=== PATIENT | male | born 1945 | race Caucasian/White ===

== ENCOUNTER → 2021-03-29 09:37 | Outpatient (BNVA) | payer MEDICARE, SELFPAY | PROVIDERS: PCP Internal Medicine; Visit Provider Nurse Practitioner Family | CPT/HCPCS: Q3014 ==

== ENCOUNTER 2021-04-07 15:18 | Outpatient (REF) | payer MEDICARE, SELFPAY ==
[2021-04-07 15:44] LABS: Hematocrit 37.7 % (42-52); Hemoglobin 12.5 g/dl (14.0-18.0); Mean Corpuscular HGB Conc 33.2 g/dl (31.0-36.0); Mean Corpuscular Hemoglobin 31.3 pg (27.0-33.0); Mean Corpuscular Volume 94.3 fL (80-98); Mean Platelet Volume 9.2 fL (9.4-12.4); Platelet Count 192 X10*3/uL (160-400); Red Cell Distribution Width 13.4 % (11.0-16.0); White Blood Count 4.7 X10*3/uL (4.8-10.8)
[2021-04-07 16:18] LABS: Alanine Aminotransferase 11 U/L (0-40); Albumin Level 3.6 g/dL (3.5-5.0); Alkaline Phosphatase 53 U/L (39-117); Anion Gap 11 (12-20); Aspartate Amino Transferase 16 U/L (5-37); Bilirubin Direct 0.3 mg/dL (0.0-0.5); Bilirubin Total 0.5 mg/dL (0.0-1.0); Blood Urea Nitrogen 20 mg/dL (9-16); C Reactive Protein 0.06 mg/dL (< or = 0.50); Calcium 9.7 mg/dL (8.4-10.2); Carbon Dioxide 27 mmol/L (22-29); Chloride 103 mmol/L (96-108); Cholesterol 159 mg/dL; Estimated Glomerular Filt Rate > 60; Glucose Random 108 mg/dL (60-115); HDL Cholesterol 67 mg/dL; LDL Cholesterol Calculated 81 mg/dl; Potassium 4.1 mmol/L (3.3-5.1); Sodium 137 mmol/L (135-145); Total Protein 6.6 g/dL (6.5-8.0); Triglycerides 58 mg/dL
[2021-04-07 16:38] LABS: Thyroid Stimulating Hormone 0.55 uIU/mL (0.32-4.0)
== END 2021-04-07 15:19 | disposition home or self-care (01) ==
LOC: HO.LAB 15:18
PROVIDERS: PCP Internal Medicine; Visit Provider Internal Medicine
DX: I10 Essential (primary) hypertension (principal)
CPT/HCPCS: 36415; 80048; 80061; 80076; 84443; 85027; 86140

== ENCOUNTER 2021-08-17 15:43 | Outpatient (AMB) | payer MEDICARE, SELFPAY ==
[2021-08-17 15:51] VITALS: BP 110/60; PULSE 92; TEMP 36.6; O2SAT 95; BMI 15.7
--- NOTE | 2021-08-17 15:51 | A.OFFPC_ITS ---
Vital Signs 08/17/21 15:51 Height 6 ft 2 in Weight 122 lb 12.76 oz BMI 15.7 BP 110/60 Pulse 92 Pulse Source Pulse Oximeter Temp 97.8 F Pulse Oximetry (%) 95 Oxygen Delivery Method Room Air Intake Visit Reasons: LOSING WEIGHT Habilitation Worker Required: No Accompanied by: Self / Same As Patient Allergies No Known Allergies Allergy (Verified 09/30/25 11:45) Tobacco use date assessed: 08/17/21 Fall risk assessment: 2 + Falls in past year Last assessed Fall Risk: 08/17/21 [facility] Medical History (Updated 06/26/25 @ 13:50 by Annie Peterson PA-C) Word finding difficulty Above knee amputation of right lower extremity Paroxysmal atrial fibrillation Attention deficit hyperactivity disorder (ADHD) Vitamin D deficiency Hypotestosteronism Erectile dysfunction Phantom limb pain Benign prostatic hyperplasia Lumbar degenerative disc disease COPD (chronic obstructive pulmonary disease) Dyslipidemia Benign essential hypertension Unilateral primary osteoarthritis, left knee Osteosarcoma of bone Knee pain, left Surgical History History of amputation History of hernia surgery Family History Father No problems noted. Mother No problems noted. Social History Household Members: None Housing: Apartment Do you presently have visiting nurse or other home services: Yes ([employer]) Alcohol intake: never Patient Tobacco Use Status: Former Tobacco user Tobacco use type: Cigarette Cigarettes Per Day: 40 e-Cigarette/Vaping Use: Never Used Second Hand Smoke Exposure: Yes Advance Directives Date on File: 03/29/22 service: No Current occupational status: retired Current occupational exposures/hazards: No Cognitive needs: Yes (wheelchair/crotches) Hearing needs: No Vision needs: No Questionnaire PHQ-9 Over the last 2 weeks, how often have you been bothered by any of the following problems? 1. Little interest or pleasure in doing things: not at all 2. Feeling down, depressed, or hopeless: not at all 3. Trouble falling or staying asleep, or sleeping too much: not at all 4. Feeling tired or having little energy: not at all 5. Poor appetite or overeating: not at all 6. Feeling bad about yourself - or that you are a failure or have let yourself or your family down: not at all 7. Trouble concentrating on things, such as reading the newspaper or watching television: not at all 8. Moving or speaking so slowly that other people could have noticed. Or the opposite - being so fidgety or restless that you have been moving around a lot more than usual: not at all 9. Thoughts that you would be better off or of hurting yourself in some way: not at all Total score: 0 Source: Developed by Drs. Skinny Marin, Anuja Duenas, Huy Vasquez and colleagues, with an educational gretel from [employer]. Thrive Questionnaire Date Thrive assessed: 08/17/21 I am a: Patient What is your living situation today?: I have a steady place to live Within the past 12 months, did the food you bought not last and you didn't have the money to get more?: Never true Within the past 12 months, did you worry whether your food would run out before you got money to buy more?: Never true Do you have trouble paying for medicines?: No Do you have trouble getting transportation to medical appointments?: No Do you have trouble paying your heating and electricity bill?: No Do you have trouble taking care of your child, family member or friend?: No Do you have trouble with day-to-day activities such as bathing, preparing meals, shopping, managing finances, etc.?: No Are you currently unemployed and looking for a job?: No Are you interested in more education?: No AUDIT C Alcohol Use Questionnaire (AUDIT-C) 1. How often do you have a drink containing alcohol?: 2-4 times a month 2. How many drinks containing alcohol do you have on a typical day when you are drinking?: 1 or 2 3. How often do you have six or more drinks on one occasion?: Never Total Score: 2 JORGE-7 AMB Questionnaire JORGE-7 Date JORGE - 7 assessed: 08/17/21 Feeling nervous, anxious, or on edge: 0 = Not at all Not being able to stop or control worryin = Not at all Worrying too much about different things: 0 = Not at all Trouble relaxin = Not at all Being so restless that it is hard to sit still: 0 = Not at all Becoming easily annoyed or irritable: 0 = Not at all Feeling afraid as if something awful might happen: 0 = Not at all Total JORGE-7 score (0-4 normal; 5-9 mild; 10-14 moderate; 15-21 severe): 0 Source: Developed by Drs. Skinny Marin, Anuja Duenas, Huy Vasquez and colleagues, with an educational gretel from [employer]. Physical exam (Primary Care) Vital Signs: Last Vital Signs Temp 97.8 F 08/17/21 15:51 Pulse 92 08/17/21 15:51 BP 110/60 08/17/21 15:51 Pulse Ox 95 08/17/21 15:51 Oxygen Delivery Method Room Air 08/17/21 15:51 BMI result Body Mass Index 15.7 Tobacco/Smoking Status: Tobacco use Status Tobacco use date assessed 08/17/21 08/17/21 16:02 Patient Tobacco Use Status Former Tobacco user 08/17/21 16:02 PHQ-9: PHQ-9 Score PHQ-9: Total score 0 02/09/25 04:09 Date Thrive assessed: 08/17/21 Office Procedures Flu Questionnaire Does the patient have a severe egg allergy?: No Does the patient have severe life threatening allergies?: No Does the patient have a fever or illness today?: No Has the patient ever had Guillain-[place] Syndrome?: No Has the patient ever had any past reaction to a flu shot?: No Immunizations flu vacc [id number] 6mos up(PF) 60 mcg(15 mcgx4)/0.5 mL IM syringe Performing Provider: Jefferson Cross MD [facility] Administered by: PAL Nguyễn on 08/17/21 16:03 Dose Route Admin Location Dispensed Lot Number Expiration Date NDC Indexer 0.5 mL IM Right Deltoid 0.5 mL [id number] 05/11/22 05407-680-38 [employer] Total Dispensed Waste n/a 0 % VIS Given Date VIS Provided VIS Publication Date 08/17/21 Single Vaccine 21 Eligibility Eligibility Date Funding Source Not C Eligible 08/17/21 Private Coding Level of Care Code Admin Sign Off/No Billing Diagnoses Weight loss, unintentional R63.4 Visual hallucinations R44.1
== END 2021-08-17 16:36 | disposition home or self-care (01) ==
LOC: HO.HMGH 15:43
PROVIDERS: PCP Internal Medicine; Visit Provider Internal Medicine
DX: R63.4 Abnormal weight loss (principal); R44.1 Visual hallucinations
CPT/HCPCS: 99499

== ENCOUNTER 2021-08-26 15:09 | Outpatient (REF) | payer MEDICARE, SELFPAY ==
--- NOTE | ~2021-08-26 | CT_ITS ---
EXAMINATION: CT HEAD WITHOUT CONTRAST CLINICAL INFORMATION: Abnormal weight loss. COMPARISON: None TECHNIQUE: Contiguous axial imaging was performed from the skull base to vertex without intravenous administration of contrast. This CT examination was performed using dose optimization techniques as appropriate, variously including the following: *Automated exposure control *Adjustment of mA and/or kV according to patient size (this includes techniques or standardized protocols for targeted exams where dose is matched to indication/reason for exam; i.e. extremities or head) *Use of iterative reconstruction technique DLP: 729 mGy-cm FINDINGS: The ventricles and sulci are enlarged consistent with atrophy. No visualized masses or midline shift are seen. There is no intra-axial or extra-axial hemorrhage. There are no fluid collections. Decreased attenuation is seen in the periventricular white matter compatible with chronic small vessel ischemic disease. The ross-white discrimination is preserved. The included paranasal sinuses and mastoid air cells are well aerated. The calvarium is intact. CT/CT head/brain wo con IMPRESSION: No intracranial hemorrhage or mass effect. Generalized atrophy and chronic small vessel white matter ischemic changes.
--- NOTE | ~2021-08-26 | XR_ITS ---
EXAMINATION: XR RIBS, LEFT CLINICAL INFORMATION: Pleurodynia. COMPARISON: None. TECHNIQUE: 3 views of the left ribs were obtained. Chest PA 1 view. FINDINGS: The lungs are well expanded and clear of acute pneumonic process. Bilateral increased interstitial markings are seen but no consolidation. There is a small 6 mm nodular density in the lingula. Heart size and pulmonary vascularity is normal. Multiple views of left ribs reveal no visible acute fracture or bony abnormality. The soft tissues are normal. XR/XR ribs LT min 3V w CXR1V IMPRESSION: Bilateral prominent interstitial markings without any consolidation. Small pulmonary nodules seen in the lingula on chest x-ray not seen on left rib series exam. There is no visible left rib fracture.
[2021-08-26 15:19] LABS: MANUAL DIFF FLAG NO
[2021-08-26 15:39] LABS: Basophils Percent Auto 0.6 % (0-2); Eosinophils Absolute Auto 0.2 X10*3/uL (0.0-0.4); Eosinophils Percent Auto 4.3 % (0-4); Hematocrit 37.5 % (42-52); Hemoglobin 12.3 g/dl (14.0-18.0); Imm Gran Abs Auto 0.01 X10*3/uL (0.00-0.03); Imm Gran Pct Auto 0.3 % (0.0-0.4); Lymphocytes Percent Auto 28.6 % (20-40); Mean Corpuscular HGB Conc 32.8 g/dl (31.0-36.0); Mean Corpuscular Hemoglobin 31.1 pg (27.0-33.0); Mean Corpuscular Volume 94.9 fL (80-98); Mean Platelet Volume 9.4 fL (9.4-12.4); Monocytes Absolute Auto 0.4 X10*3/uL (0.1-1.2); Monocytes Percent Auto 12.4 % (2-11); Neutrophils Absolute Auto 1.9 X10*3/uL (2.0-8.3); Neutrophils Percent Auto 53.8 % (45-73); Platelet Count 149 X10*3/uL (160-400); Red Blood Count 3.95 X10*6/uL (4.60-5.80); Red Cell Distribution Width 12.4 % (11.0-16.0); White Blood Count 3.5 X10*3/uL (4.8-10.8)
[2021-08-26 16:01] LABS: Alanine Aminotransferase 12 U/L (0-40); Albumin Level 3.7 g/dL (3.5-5.0); Alkaline Phosphatase 58 U/L (39-117); Anion Gap 10 (12-20); Aspartate Amino Transferase 20 U/L (5-37); Bilirubin Total 0.5 mg/dL (0.0-1.0); Blood Urea Nitrogen 16 mg/dL (9-16); C Reactive Protein 0.13 mg/dL (< or = 0.50); Calcium 9.4 mg/dL (8.4-10.2); Carbon Dioxide 27 mmol/L (22-29); Chloride 102 mmol/L (96-108); Estimated Glomerular Filt Rate > 60; Glucose Random 99 mg/dL (60-115); Potassium 4.2 mmol/L (3.3-5.1); Sodium 135 mmol/L (135-145); Total Protein 6.5 g/dL (6.5-8.0)
[2021-08-26 16:21] LABS: TSH reflex Free T4 0.67 uIU/mL (0.32-4.0)
[2021-08-26 16:29] LABS: Erythrocyte Sedimentation Rate 7 MM/HR (0-15)
[2021-08-26 17:53] LABS: Appearance Urine CLEAR; Color Urine YELLOW; Glucose Urine UA NEG (NEG); Leukocyte Esterase Urine NEG (NEG); Nitrite Urine NEG (NEG); Specific Gravity - Urine >= 1.030 (1.005-1.025); Urine Blood NEG (NEG); Urine Ketones NEG (NEG); Urine Protein NEG (NEG-TRACE)
[2021-09-01 12:06] LABS: Testosterone, Free 11.1 pg/mL (30.0-135.0); Testosterone, Total 140 ng/dL (250-1100)
== END 2021-08-26 15:10 | disposition home or self-care (01) ==
LOC: HO.CT 15:09
PROVIDERS: PCP Internal Medicine; Visit Provider Internal Medicine
DX: R63.4 Abnormal weight loss (principal); R42 Dizziness and giddiness; R44.1 Visual hallucinations; R07.81 Pleurodynia
CPT/HCPCS: 36415; 70450; 71101; 80053; 81003; 82550; 84402; 84403; 84443; 85025; 85652; 86140

== ENCOUNTER 2021-09-20 11:45 | Outpatient (AMB) | payer MEDICARE, SELFPAY ==
--- NOTE | 2021-09-20 11:44 | A.OFFPC_ITS ---
Vital Signs 09/20/21 11:45 Height 6 ft 2 in Weight 127 lb BMI 16.2 BP 124/60 Pulse 110 H Pulse Source Pulse Oximeter Temp 96.9 F Pulse Oximetry (%) 97 Oxygen Delivery Method Room Air Intake Visit Reasons: 1 month fu unexplained weight loss, hallucinations Heel Gouger Required: No Accompanied by: Self / Same As Patient Allergies No Known Allergies Allergy (Verified 09/21/21 09:26) Medication List - Last Reconciled 09/21/21 by Jefferson Cross MD dextroamphetamine-amphetamine 30 mg 1 tab PO DAILY mometasone (Asmanex Twisthaler) 1 inh PO DAILY oxycodone 5 mg PO DAILY 22 days PRN oxycodone-acetaminophen 5-325 mg 1 tab PO Q6-8H 28 days PRN terazosin 10 mg PO BEDTIME 30 days testosterone (AndroGel) 2 pumps topical DAILY 30 days Tobacco use date assessed: 09/20/21 Last assessed Fall Risk: 09/20/21 HPI 1 month fu unexplained weight loss, hallucinations HPI Details pain med only last 4 hours - Rx written for every 6 to 8 PFSH Medical History Attention deficit hyperactivity disorder (ADHD) Below-knee amputation of right lower extremity Benign essential hypertension Benign prostatic hyperplasia COPD (chronic obstructive pulmonary disease) Dyslipidemia Erectile dysfunction Hypotestosteronism Knee pain, left Lumbar degenerative disc disease Osteosarcoma of bone Phantom limb pain Unilateral primary osteoarthritis, left knee Vitamin D deficiency Social History Housing: House Alcohol intake: current Alcohol intake frequency: a few times a month Patient Tobacco Use Status: Former Tobacco user Second Hand Smoke Exposure: Yes service: No Current occupational status: retired Questionnaire PHQ-9 Over the last 2 weeks, how often have you been bothered by any of the following problems? 1. Little interest or pleasure in doing things: not at all 2. Feeling down, depressed, or hopeless: not at all 3. Trouble falling or staying asleep, or sleeping too much: not at all 4. Feeling tired or having little energy: not at all 5. Poor appetite or overeating: not at all 6. Feeling bad about yourself - or that you are a failure or have let yourself or your family down: not at all 7. Trouble concentrating on things, such as reading the newspaper or watching television: not at all 8. Moving or speaking so slowly that other people could have noticed. Or the op posite - being so fidgety or restless that you have been moving around a lot more than usual: not at all 9. Thoughts that you would be better off or of hurting yourself in some way: not at all Total score: 0 Depression Screening Interpretation: Negative 27235 - PHQ-9 Billing: Yes Source: Developed by Drs. Skinny Marin, Anuja Duenas, Huy Vasquez and colleagues, with an educational gretel from [employer] ([employer]). Thrive Questionnaire Date Thrive assessed: 09/20/21 I am a: Patient What is your living situation today?: I have a steady place to live Within the past 12 months, did the food you bought not last and you didn't have the money to get more?: Never true Within the past 12 months, did you worry whether your food would run out before you got money to buy more?: Never true Do you have trouble paying for medicines?: No Do you have trouble getting transportation to medical appointments?: No Do you have trouble paying your heating and electricity bill?: No Do you have trouble taking care of your child, family member or friend?: No Do you have trouble with day-to-day activities such as bathing, preparing meals, shopping, managing finances, etc.?: No Are you currently unemployed and looking for a job?: No Are you interested in more education?: No Currently or been in a relationship where the following occur: no concerns reported AUDIT C Alcohol Use Questionnaire (AUDIT-C) 1. How often do you have a drink containing alcohol?: 2-4 times a month 2. How many drinks containing alcohol do you have on a typical day when you are drinking?: 1 or 2 3. How often do you have six or more drinks on one occasion?: Never Total Score: 2 Score Reviewed/Action Taken: Yes JORGE-7 AMB Questionnaire JORGE-7 Date JORGE - 7 assessed: 09/20/21 Feeling nervous, anxious, or on edge: 0 = Not at all Not being able to stop or control worryin = Not at all Worrying too much about different things: 0 = Not at all Trouble relaxin = Not at all Being so restless that it is hard to sit still: 0 = Not at all Becoming easily annoyed or irritable: 0 = Not at all Feeling afraid as if something awful might happen: 0 = Not at all Total JORGE-7 score (0-4 normal; 5-9 mild; 10-14 moderate; 15-21 severe): 0 Source: Developed by Drs. Skinny Marin, Anuja Duenas, Huy Vasquez and colleagues, with an educational gretel from [employer] ([employer] Review of Systems Const Denies anorexia, Denies body aches, Denies chills, Reports fatigue, Denies fever(s), Denies headache(s), Denies malaise and Reports weakness Eyes Denies blurry vision, Denies change in vision, Denies irritation, Denies itchy eyes and Denies other visual disturbances ENT Reports Normal hearing present, Denies dysphagia, Denies dizziness, Denies ear discharge, Denies otalgia, Denies headache(s), Denies nasal congestion, Denies neck mass, Reports neck pain, Denies odynophagia, Denies sinus pain, Denies sinus pressure and Denies sore throat Card Denies chest pain at rest, Denies chest pain with activity, Denies rapid heart rate, Denies irregular heart rhythm, Denies palpitations, Denies dyspnea and Denies dyspnea on exertion Resp Denies chest congestion, Denies cough, Denies dyspnea, Denies dyspnea on exertion and Denies wheezing GI Denies abdominal pain, Denies bloating, Denies change in bowel habits, Denies constipation, Denies dysphagia, Denies heartburn, Denies diarrhea, Denies nausea, Denies odynophagia and Denies vomiting Denies hematuria, Denies difficulty urinating, Denies genital pain, Denies dysuria, Denies penile discharge, Denies scrotal swelling, Denies testicular mass, Denies testicular pain, Denies urinary frequency, Denies urinary incontinence and Denies urinary urgency Musc Reports back pain (chronic), Reports atrophy, Reports arthralgias (multiple joint pain, especially over his left knee), Denies joint swelling, Reports muscle weakness, Reports neck pain, Reports stiffness and Reports other ((+) diffuse muscle aches and pain) Skin/Breast Denies change in pigmentation, Denies lesions, Denies rash and Denies unusual bruising Neuro Reports Normal hearing present, Denies dizziness, Denies headache(s), Denies paresthesias and Reports weakness Psych Reports visual hallucinations Endo Reports fatigue and Denies palpitations Aller/Immun Denies itchy eyes and Denies wheezing Physical exam (Primary Care) Vital Signs: Last Vital Signs Temp 96.9 F 09/20/21 11:45 Pulse 110 H 09/20/21 11:45 BP 124/60 09/20/21 11:45 Pulse Ox 97 09/20/21 11:45 Oxygen Delivery Method Room Air 09/20/21 11:45 Body Mass Index 16.2 Tobacco/Smoking Status: Tobacco use Status Tobacco use date assessed 09/20/21 09/20/21 11:46 Patient Tobacco Use Status Former Tobacco user 09/20/21 11:46 PHQ-9: PHQ-9 Score PHQ-9: Total score 0 09/20/21 12:16 Depression Screening Interpretation: Negative Thrive Assessment: Date of Thrive Assessment Date Thrive assessed 09/20/21 09/20/21 11:46 Currently or been in a relationship where the following occur: no concerns reported Const General: no acute distress, alert and awake Orientation/consciousness: patient oriented x3 HENMT Head: Yes normal to inspection, Yes normocephalic and Yes atraumatic Ears: external ears normal, TM's normal bilaterally and EAC's normal General nose exam: Normal external nose present, No nasal polyps present and No nasal discharge present Face and sinus: Yes normal facial exam and Yes sinuses nontender Mouth: Normal oral and palatal mucosa present, tongue normal and oropharynx normal Teeth and gingiva: dentition normal Throat: Yes posterior oropharynx normal and Yes tonsils normal Eyes Eyelids: Yes eyelids normal Conjunctivae: conjunctivae normal Sclerae: sclerae normal Pupils: Equal, round and reactive pupils present EOM: EOMs intact bilaterally Neck Neck: Yes no lymphadenopathy and Yes supple Thyroid: Thyroid normal and no masses Lymphatic: no lymphadenopathy noted Resp Auscultation: clear to auscultation bilaterally, no crackles, no rales and no wheezes Cardio Rate: regular rate Rhythm: regular rhythm Heart sounds: no murmurs GI Palpation (GI): Soft to palpation, nontender, no guarding and No hepatosplenomegaly present Auscultation: normal bowel sounds Rectal Exam - Male: Yes deferred General: Yes no CVA tenderness Male General Exam: Yes normal external exam Scrotum: testes descended bilaterally, no inguinal hernias, no masses and no scrotal swelling Back/Spine/Pelvis Back: no CVA tenderness Cervical Spine: Cervical spine tenderness Thoracic/Lumbar Spine: lumbar spinal tenderness Skin Lesions: no lesions Rashes: no rashes Neuro General: patient oriented x3 and CN's II-XI intact bilaterally Cranial nerves: Yes Equal, round and reactive pupils present and Yes Normal hearing present Extrem General: Yes no clubbing, cyanosis or edema (over the left lower extremity; S/P right AKA ) Left lower extremity: knee Assessment and Plan Assessment & Plan (1) Visual hallucinations: Code(s): R44.1 - Visual hallucinations (2) Benign essential hypertension: Code(s): I10 - Essential (primary) hypertension Plan: Reinforced low sodium diet - goal is systolic BP of at least 130 to 140 mm Continue Lisinopril Tablet, 5 MG 1 tablet Once a day (3) Dyslipidemia: Code(s): E78.5 - Hyperlipidemia, unspecified Plan: Reinforced low cholesterol diet (4) COPD (chronic obstructive pulmonary disease): Code(s): J44.9 - Chronic obstructive pulmonary disease, unspecified Qualifiers: COPD type: unspecified COPD Qualified Code(s): J44.9 - Chronic obstructive pulmonary disease, unspecified Plan: Stable Continue Asmanex 30 Metered Doses Unspecified, 220MCG, INHALE 1 PUFF BY MOUTH ONCE A DAY, Inhalation, Once a day and Ventolin HFA Aerosol Solution, 108 mcg, 2 puffs, Inhalation, 4 times a day as needed (5) Lumbar degenerative disc disease: Comment: Failed trial of ablation and nerve block with pain management in 2019 Code(s): M51.36 - Other intervertebral disc degeneration, lumbar region Plan: Reinforced activity and weight-lifting restrictions Continue Percocet Tablet, 5-325 MG, 1 tablet, Orally, Once a day at bedtime as needed and Lidoderm Patch, 5 %, 1 patch to skin remove after 12 hours, Externally, Once a day - Rx refilled Follow up with [facility] [place] Pain Management as scheduled (6) Benign prostatic hyperplasia: Code(s): N40.0 - Benign prostatic hyperplasia without lower urinary tract symptoms Qualifiers: Lower urinary tract symptom presence: unspecified whether lower urinary tract symptoms present Qualified Code(s): N40.0 - Benign prostatic hyperplasia without lower urinary tract symptoms Plan: Continue Terazosin HCl Tablet, 10 MG, 1 capsule, Orally, Once a day at bedtime Follow up with urology as scheduled (7) Phantom limb pain: Comment: S/P right AKA for osteosarcoma at 17 y/o Code(s): G54.6 - Phantom limb syndrome with pain Plan: Continue Hydrocodone-Acetaminophen Tablet, 5-325 MG, 1 tablet, Orally, 3 to 4 times a day ONLY NEEDED for severe pains and Tramadol HCl Tablet, 50 MG, 1 tablet, Orally, every 6 hrs as needed for pain - Rx refilled (8) Unilateral primary osteoarthritis, left knee: Code(s): M17.12 - Unilateral primary osteoarthritis, left knee Plan: Continue Ibuprofen Tablet, 600 MG, 1 tablet, Orally, Three times a day Follow up with rheumatology as scheduled States that he is still not willing to undergo left knee arthroplasty due to the potential risks that he may be faced with - will be starting on a trial of auto stem cell implantation from his hip to his knee with a [employer] provider in [place] later this week (9) Erectile dysfunction: Code(s): N52.9 - Male erectile dysfunction, unspecified Qualifiers: Erectile dysfunction type: unspecified Qualified Code(s): N52.9 - Male erectile dysfunction, unspecified Plan: Takes Cialis PRN (10) Hypotestosteronism: Code(s): E34.9 - Endocrine disorder, unspecified Plan: Has not been able to get his testosterone replacement for several months now as his insurance is declining to cover his Rx - was previously on AndroGel Serum testosterone level last checked in October 2019 was normal (11) Vitamin D deficiency: Code(s): E55.9 - Vitamin D deficiency, unspecified Plan: Continue Vitamin D Tablet, 1000 UNIT, 1 tablet, Orally, Once a day (12) Constipation: Code(s): K59.00 - Constipation, unspecified Qualifiers: Constipation type: unspecified constipation type Qualified Code(s): K59.00 - Constipation, unspecified Plan: Most likely opioid-induced - patient has been taking MOM as needed Encouraged also increased oral fluids and dietary fiber (13) Attention deficit hyperactivity disorder (ADHD): Code(s): F90.9 - Attention-deficit hyperactivity disorder, unspecified type Qualifiers: Attention deficit-hyperactivity disorder type: combined inattentive- hyperactive Qualified Code(s): F90.2 - Attention-deficit hyperactivity disorder, combined type Plan: Continue Amphetamine-Dextroamphetamine Tablet, 30 MG, 1 tablet in the morning, Orally, Once a day Orders: Orders XR abdomen w decubitus 09/20/21 R10.9 - Unspecified abdominal pain Referrals Neurology Referral R44.1 - Visual hallucinations Medications: New testosterone (AndroGel) apply 1 pump amount over max area of EACH upper arm and shoulder 2 pumps topical DAILY 30 days 75 grams 2RF oxycodone to be taken once a day as needed for severe breakthrough pain that is not adequately controlled with current Percocet 5-325 mg - TEMPORARY PRESCRIPTION 5 mg PO DAILY 22 days PRN 22 tabs 0RF pain Coding Diagnoses Visual hallucinations R44.1 Benign essential hypertension I10 Dyslipidemia E78.5 COPD (chronic obstructive pulmonary disease) J44.9 COPD type: unspecified COPD Lumbar degenerative disc disease M51.36 Benign prostatic hyperplasia N40.0 Lower urinary tract symptom presence: unspecified whether lower urinary tract symptoms present Phantom limb pain G54.6 Unilateral primary osteoarthritis, left knee M17.12 Erectile dysfunction N52.9 Erectile dysfunction type: unspecified Hypotestosteronism E34.9 Vitamin D deficiency E55.9 Constipation K59.00 Constipation type: unspecified constipation type Attention deficit hyperactivity disorder (ADHD) F90.2 Attention deficit-hyperactivity disorder type: combined inattentive- hyperactive Additional Codes PHQ-9 - 85822 - PHQ-9 Billing: Yes ([id number])
--- NOTE | 2021-09-20 11:44 | MHC.PC.OV ---
Vital Signs 09/20/21 11:45 Height 6 ft 2 in Weight 127 lb BMI 16.2 BP 124/60 Pulse 110 H Pulse Source Pulse Oximeter Temp 96.9 F Pulse Oximetry (%) 97 Oxygen Delivery Method Room Air Intake Visit Reasons: 1 month fu unexplained weight loss, hallucinations Digital Media Intern Required: No Accompanied by: Self / Same As Patient Allergies No Known Allergies Allergy (Verified 02/03/25 16:35) Medication List - Last Reconciled 09/21/21 by Jefferson Cross MD dextroamphetamine-amphetamine 30 mg 1 tab PO DAILY mometasone (Asmanex Twisthaler) 1 inh PO DAILY oxycodone 5 mg PO DAILY 22 days PRN oxycodone-acetaminophen 5-325 mg 1 tab PO Q6-8H 28 days PRN terazosin 10 mg PO BEDTIME 30 days testosterone (AndroGel) 2 pumps topical DAILY 30 days Tobacco use date assessed: 09/20/21 Last assessed Fall Risk: 09/20/21 HPI 1 month fu unexplained weight loss, hallucinations HPI Details Patient comes in today for evaluation of his recent weight loss He feels that he has been losing a lot of weight lately despite trying to eat as much as he can Adds that his pain medications are now only giving him about 4 hours of relief and as his prescription is written for every 6-8 hours, he finds that it is not providing him with adequate control of his pain Adds that he has also been experiencing some visual hallucinations lately - reports that he is seeing people on and off that are not physically present He denies any auditory hallucinations He denies any recent cough or cold symptoms and states that he has not been sick lately He denies any headaches or dizziness Denies any chest pains, no increased shortness of breath No nausea / vomiting, no abdominal pain No change in bowel habits noted [facility] Medical History Above knee amputation of right lower extremity Paroxysmal atrial fibrillation Attention deficit hyperactivity disorder (ADHD) Vitamin D deficiency Hypotestosteronism Erectile dysfunction Phantom limb pain Benign prostatic hyperplasia Lumbar degenerative disc disease COPD (chronic obstructive pulmonary disease) Dyslipidemia Benign essential hypertension Unilateral primary osteoarthritis, left knee Osteosarcoma of bone Knee pain, left Surgical History History of amputation History of hernia surgery Social History Household Members: None Housing: Apartment Do you presently have visiting nurse or other home services: Yes ([employer]) Alcohol intake: never Patient Tobacco Use Status: Former Tobacco user Tobacco use type: Cigarette Cigarettes Per Day: 40 Smoked in Last 30 Days: No e-Cigarette/Vaping Use: Never Used Second Hand Smoke Exposure: Yes Use of substances other than those prescribed or required for medical reasons: No Advance Directives: Yes Advance Directives on File: Yes Advance Directives Date on File: 03/29/22 service: No Current occupational status: retired Current occupational exposures/hazards: No Cognitive needs: Yes (wheelchair/crotches) Hearing needs: No Vision needs: No Questionnaire PHQ-9 Over the last 2 weeks, how often have you been bothered by any of the following problems? 1. Little interest or pleasure in doing things: not at all 2. Feeling down, depressed, or hopeless: not at all 3. Trouble falling or staying asleep, or sleeping too much: not at all 4. Feeling tired or having little energy: not at all 5. Poor appetite or overeating: not at all 6. Feeling bad about yourself - or that you are a failure or have let yourself or your family down: not at all 7. Trouble concentrating on things, such as reading the newspaper or watching television: not at all 8. Moving or speaking so slowly that other people could have noticed. Or the opposite - being so fidgety or restless that you have been moving around a lot more than usual: not at all 9. Thoughts that you would be better off or of hurting yourself in some way: not at all Total score: 0 Depression Screening Interpretation: Negative 30812 - PHQ-9 Billing: Yes Source: Developed by Drs. Skinny Marin, Anuja Duenas, Huy Vasquez and colleagues, with an educational gretel from [employer]. Thrive Questionnaire Date Thrive assessed: 09/20/21 I am a: Patient What is your living situation today?: I have a steady place to live Within the past 12 months, did the food you bought not last and you didn't have the money to get more?: Never true Within the past 12 months, did you worry whether your food would run out before you got money to buy more?: Never true Do you have trouble paying for medicines?: No Do you have trouble getting transportation to medical appointments?: No Do you have trouble paying your heating and electricity bill?: No Do you have trouble taking care of your child, family member or friend?: No Do you have trouble with day-to-day activities such as bathing, preparing meals, shopping, managing finances, etc.?: No Are you currently unemployed and looking for a job?: No Are you interested in more education?: No Currently or been in a relationship where the following occur: no concerns reported AUDIT C Alcohol Use Questionnaire (AUDIT-C) 1. How often do you have a drink containing alcohol?: 2-4 times a month 2. How many drinks containing alcohol do you have on a typical day when you are drinking?: 1 or 2 3. How often do you have six or more drinks on one occasion?: Never Total Score: 2 Score Reviewed/Action Taken: Yes JORGE-7 AMB Questionnaire JORGE-7 Date JORGE - 7 assessed: 09/20/21 Feeling nervous, anxious, or on edge: 0 = Not at all Not being able to stop or control worryin = Not at all Worrying too much about different things: 0 = Not at all Trouble relaxin = Not at all Being so restless that it is hard to sit still: 0 = Not at all Becoming easily annoyed or irritable: 0 = Not at all Feeling afraid as if something awful might happen: 0 = Not at all Total JORGE-7 score (0-4 normal; 5-9 mild; 10-14 moderate; 15-21 severe): 0 Source: Developed by Drs. Skinny Marin, Anuja Duenas, Huy Vasquez and colleagues, with an educational gretel from [employer]. Review of Systems Const Denies anorexia, Denies body aches, Denies chills, Reports fatigue, Denies fever(s), Denies headache(s), Reports weakness and Reports weight loss ENT Denies dysphagia, Denies dizziness, Denies otalgia, Denies headache(s), Denies nasal congestion, Denies neck mass, Reports neck pain, Denies odynophagia and Denies sore throat Card Denies chest pain, Denies irregular heart rhythm, Denies palpitations and Denies dyspnea Resp Denies chest congestion, Denies cough and Denies dyspnea GI Denies abdominal pain, Denies change in bowel habits, Denies constipation, Denies dysphagia, Denies heartburn, Denies diarrhea, Denies nausea, Denies odynophagia and Denies vomiting Denies difficulty urinating, Denies dysuria, Denies urinary frequency and Denies urinary urgency Musc Reports back pain (chronic), Reports myalgias, Reports atrophy, Reports arthralgias (multiple joint pain, especially over his left knee), Reports neck pain, Reports stiffness and Reports other ((+) diffuse muscle aches and pain) Skin/Breast Denies rash Neuro Denies dizziness, Denies headache(s), Denies paresthesias and Reports weakness Psych Reports visual hallucinations Endo Reports fatigue and Denies palpitations Physical exam (Primary Care) Vital Signs: Last Vital Signs Temp 96.9 F 09/20/21 11:45 Pulse 110 H 09/20/21 11:45 BP 124/60 09/20/21 11:45 Pulse Ox 97 09/20/21 11:45 Oxygen Delivery Method Room Air 09/20/21 11:45 BMI result Body Mass Index 16.2 Tobacco/Smoking Status: Tobacco use Status Tobacco use date assessed 09/20/21 09/20/21 11:46 Patient Tobacco Use Status Former Tobacco user 09/20/21 11:46 PHQ-9: PHQ-9 Score PHQ-9: Total score 0 09/21/21 09:30 Depression Screening Interpretation: Negative Thrive Assessment: Date of Thrive Assessment Date Thrive assessed 09/20/21 09/20/21 11:46 Currently or been in a relationship where the following occur: no concerns reported Const General: no acute distress and alert; No awake Orientation/consciousness: patient oriented x3 HENMT Ears: TM's normal bilaterally and EAC's normal Throat: Yes posterior oropharynx normal and Yes tonsils normal Neck Neck: Yes supple and No lymphadenopathy Thyroid: Thyroid normal Resp Auscultation: clear to auscultation bilaterally, no crackles, no rales and no wheezes Cardio Rate: regular rate Rhythm: regular rhythm Heart sounds: no murmurs GI Palpation (GI): Soft to palpation, nontender and no guarding Auscultation: normal bowel sounds General: Yes no CVA tenderness Back/Spine/Pelvis Back: no CVA tenderness Cervical Spine: Cervical spine tenderness Thoracic/Lumbar Spine: lumbar spinal tenderness Skin Rashes: no rashes Neuro General: patient oriented x3 Extrem General: Yes no clubbing, cyanosis or edema (over the left lower extremity; S/P right AKA ) Coding Level of Care Code Est Pt Level 4 (06643) Diagnoses Visual hallucinations R44.1 Benign essential hypertension I10 Dyslipidemia E78.5 Chronic obstructive pulmonary disease, unspecified COPD type J44.9 COPD type: unspecified COPD Lumbar degenerative disc disease M51.36 Benign prostatic hyperplasia, unspecified whether lower urinary tract symptoms present N40.0 Lower urinary tract symptom presence: unspecified whether lower urinary tract symptoms present Phantom limb pain G54.6 Unilateral primary osteoarthritis, left knee M17.12 Erectile dysfunction, unspecified erectile dysfunction type N52.9 Erectile dysfunction type: unspecified Hypotestosteronism E34.9 Vitamin D deficiency E55.9 Constipation, unspecified constipation type K59.00 Constipation type: unspecified constipation type Attention deficit hyperactivity disorder (ADHD), combined type F90.2 Attention deficit-hyperactivity disorder type: combined inattentive-hyperactive Additional Codes PHQ-9 - 40085 - PHQ-9 Billing: Yes ([id number])
[2021-09-20 11:45] VITALS: BP 124/60; PULSE 110; TEMP 36.1; O2SAT 97; BMI 16.2
== END 2021-09-20 12:34 | disposition home or self-care (01) ==
LOC: HO.HMGH 11:45
PROVIDERS: PCP Internal Medicine; Visit Provider Internal Medicine
DX: R44.1 Visual hallucinations (principal); I10 Essential (primary) hypertension; E78.5 Hyperlipidemia, unspecified; J44.9 Chronic obstructive pulmonary disease, unspecified; M51.36 Other intervertebral disc degeneration, lumbar region; N40.0 Benign prostatic hyperplasia without lower urinary tract symptoms; G54.6 Phantom limb syndrome with pain; M17.12 Unilateral primary osteoarthritis, left knee; N52.9 Male erectile dysfunction, unspecified; E34.9 Endocrine disorder, unspecified; E55.9 Vitamin D deficiency, unspecified; K59.00 Constipation, unspecified; F90.2 Attention-deficit hyperactivity disorder, combined type
CPT/HCPCS: 99499

== ENCOUNTER 2021-09-20 13:22 | Outpatient (REF) | payer MEDICARE, SELFPAY ==
--- NOTE | ~2021-09-20 | XR_ITS ---
EXAMINATION: XR ABDOMEN WITH DECUBITUS VIEWS CLINICAL INDICATION: Unspecified abdominal pain. COMPARISON: None TECHNIQUE: Supine and upright frontal view of the abdomen and pelvis. FINDINGS: Significant fecal residual is noted throughout the entire large bowel. No evidence of any abnormal bowel distention or air-fluid level of. No evidence of any free intraperitoneal air. Marked thoracolumbar dextroscoliosis and multilevel moderate degenerative spondylosis related changes are present. Atherosclerotic disease of the aorta and is branches. Ellipsoidal calcific density seen projecting overlying the inferior part of the liver, not optimally localized. The visualized lung bases appear clear. XR/XR abdomen w decubitus IMPRESSION: No radiographic evidence of any bowel obstruction or perforation.
== END 2021-09-20 13:23 | disposition home or self-care (01) ==
LOC: HO.XRAY 13:22
PROVIDERS: PCP Internal Medicine; Visit Provider Internal Medicine
DX: R10.9 Unspecified abdominal pain (principal)
CPT/HCPCS: 74021

== ENCOUNTER → 2021-09-27 08:23 | Outpatient (BNVA) | payer MEDICARE, SELFPAY | PROVIDERS: PCP Internal Medicine; Referring Provider Internal Medicine; Visit Provider Nurse Practitioner Family | CPT/HCPCS: Q3014 ==

== ENCOUNTER 2021-12-26 08:32 | Outpatient (REF) | payer MEDICARE, SELFPAY ==
--- NOTE | ~2021-12-26 | XR_ITS ---
EXAMINATION: BILATERAL KNEE X-RAY CLINICAL INFORMATION: Pain COMPARISON: Previous x-ray August 2017 TECHNIQUE: Standing AP view of both knees and lateral and sunrise view of the left knee FINDINGS: Left knee: There is varus angulation. Bone alignment is otherwise normal. No fracture or dislocation is seen. There is severe arthritis at the medial femoral tibial joint. There is moderate arthritis at the patellofemoral joint. There is no significant joint effusion. There is soft tissue arterial calcification. Right knee: There appears to be a prosthetic right knee and lower leg. XR/XR knee LT 2V IMPRESSION: Left knee: Severe arthritis and varus angulation increased from 2017. Right knee: Artificial limb.
--- NOTE | ~2021-12-26 | XR_ITS ---
EXAMINATION: BILATERAL KNEE X-RAY CLINICAL INFORMATION: Pain COMPARISON: Previous x-ray August 2017 TECHNIQUE: Standing AP view of both knees and lateral and sunrise view of the left knee FINDINGS: Left knee: There is varus angulation. Bone alignment is otherwise normal. No fracture or dislocation is seen. There is severe arthritis at the medial femoral tibial joint. There is moderate arthritis at the patellofemoral joint. There is no significant joint effusion. There is soft tissue arterial calcification. Right knee: There appears to be a prosthetic right knee and lower leg. XR/XR knee standing BI IMPRESSION: Left knee: Severe arthritis and varus angulation increased from 2017. Right knee: Artificial limb.
== END 2021-12-26 08:33 | disposition home or self-care (01) ==
LOC: HO.HOSX 08:32
PROVIDERS: Visit Provider Orthopaedic Surgery
DX: M17.12 Unilateral primary osteoarthritis, left knee (principal); S88.111A Complete traumatic amputation at level between knee and ankle, right lower leg, initial encounter
CPT/HCPCS: 73560; 73565; 99202

== ENCOUNTER 2022-03-22 13:09 | Inpatient (IN) | payer MEDICARE, SELFPAY ==
[2022-03-22] VITALS (7 sets, daily range): BP systolic 123–162; BP diastolic 63–93; PULSE 88–102; RESP 14–20; TEMP 36.9–37.8; O2SAT 96–98; BMI 16.9
--- NOTE | ~2022-03-22 | CT_ITS ---
EXAMINATION: CT HEAD WITHOUT CONTRAST CLINICAL INFORMATION: Mental status change. History of fall. COMPARISON: Previous head CT August 2021 TECHNIQUE: Contiguous axial imaging was performed from the skull base to vertex without intravenous administration of contrast. This CT examination was performed using dose optimization techniques as appropriate, variously including the following: *Automated exposure control *Adjustment of mA and/or kV according to patient size (this includes techniques or standardized protocols for targeted exams where dose is matched to indication/reason for exam; i.e. extremities or head) *Use of iterative reconstruction technique DLP: 79 mGy-cm FINDINGS: There is no evidence of an extra-axial collection. There is no evidence of intra-axial or extra-axial hemorrhage. The ventricles and extra-axial CSF spaces are prominent suggestive of mild generalized atrophy. There is mild nonspecific periventricular white matter disease. No mass, mass effect or infarct is seen. The osseous structures and soft tissues are normal. The mastoid air cells and visualized portions of the paranasal sinuses are well aerated. CT/CT head/brain wo con IMPRESSION: No acute findings.
--- NOTE | ~2022-03-22 | FL_ITS ---
EXAMINATION: Intraoperative fluoroscopy CLINICAL INFORMATION: Left hip fracture COMPARISON: Left hip x-rays March 22, 2022 TECHNIQUE: Intraoperative fluoroscopy was provided for use by Dr. Newman. A total of 5 images were saved to PACS. A radiologist was not present during imaging. Today's dictation is only for administrative purposes to document intraoperative fluoroscopic usage. TOTAL FLUOROSCOPIC TIME: 0.1 minutes FL/FL guidance in OR FINDINGS~\^^ Intraoperative fluoroscopy provided for use by Dr. Newman. Please see operative note for detailed findings.
--- NOTE | ~2022-03-22 | CT_ITS ---
EXAMINATION: CT CERVICAL SPINE WITHOUT CONTRAST CLINICAL INFORMATION: Fall. Pain. Rule out fracture. COMPARISON: None TECHNIQUE: Seal images through the cervical spine without contrast. Sagittal and coronal reconstructions on the technologist workstation were performed. This CT examination was performed using dose optimization techniques as appropriate, variously including the following: *Automated exposure control *Adjustment of mA and/or kV according to patient size (this includes techniques or standardized protocols for targeted exams where dose is matched to indication/reason for exam; i.e. extremities or head) *Use of iterative reconstruction technique DLP: 479 mGy-cm FINDINGS: Bone alignment is normal. No fracture or dislocation is seen. There is multilevel degenerative spondylosis and degenerative disc disease greatest from C4-C5 to C6-C7. There is bilateral multilevel facet arthritis. Prevertebral soft tissues are normal. There are emphysematous changes at the lung apices. There are irregular lateral right upper lobe parenchymal densities. Follow-up elective chest CT should be considered. CT/CT cervical spine wo con IMPRESSION: Degenerative changes. No fracture or dislocation. Emphysema. Irregular parenchymal densities in the lateral right upper lobe. Follow-up elective chest CT recommended. Fleischner guidelines were followed.
--- NOTE | ~2022-03-22 | XR_ITS ---
EXAMINATION: XR CHEST CLINICAL INFORMATION: Mental status change COMPARISON: Previous chest x-ray most recent August 2021 TECHNIQUE: Frontal view of the chest was obtained. FINDINGS: The cardiac and mediastinal contours are stable. There are increased linear markings in the right upper lobe probably representing scarring. This is similar to previous exam. Question 6 mm left base nodule appears unchanged. The lungs are otherwise clear. There is no pleural effusion or pneumothorax. There are degenerative changes of the spine. XR/XR chest 1V IMPRESSION: Stable chest x-ray. Increased linear markings in the right upper lobe probably representing scarring. Question left base 6 mm nodule.
--- NOTE | ~2022-03-22 | XR_ITS ---
EXAMINATION: XR HIP, LEFT CLINICAL INFORMATION: Left hip pain. Fall. Rule out fracture. COMPARISON: None TECHNIQUE: Two views of the left hip and one view of the pelvis. FINDINGS: There is a comminuted displaced left femoral intertrochanteric fracture. There is mild arthritis at both hip joints. There is question of an old right superior pubic ramus fracture. Bones of the pelvis are otherwise unremarkable. There are degenerative changes of the visualized lower lumbar spine. There is evidence of atherosclerotic disease. XR/XR hip LT w PEL1V IMPRESSION: Left femoral intertrochanteric fracture.
--- NOTE | ~2022-03-22 | US_ITS ---
EXAMINATION: US VENOUS ULTRASOUND WITH DOPPLER LOWER EXTREMITY, LEFT CLINICAL INFORMATION: Swelling COMPARISON: Previous exam December 2013 TECHNIQUE: Ultrasound of the deep veins is performed from the hip to the calf with compression sonography and color and pulse Doppler assessment. Spectral analysis with color-flow imaging is performed. Exam is limited due to swelling. FINDINGS: There is normal venous compression and respiratory variation and augmented flow. The visualized common femoral vein, superficial femoral vein, profunda femoral vein, popliteal vein, and posterior tibial veins shows no evidence of deep venous thrombosis. The distal superficial femoral and peroneal veins are not well visualized. There is a large 10.5 x 2.8 x 4.9 cm complex Dhillon's cyst. There is significant edema particularly in the calf. There is evidence of atherosclerotic disease. US/US venous duplex LE LT IMPRESSION: Limited exam. No evidence of DVT. The left distal superficial femoral and peroneal veins are not well visualized. Large complex Dhillon's cyst.
--- NOTE | 2022-03-22 13:53 | ECG_ITS ---
Test Reason : FALL Blood Pressure : / mmHG Vent. Rate : 096 BPM Atrial Rate : 094 BPM P-R Int : 122 ms QRS Dur : 078 ms QT Int : 342 ms P-R-T Axes : 084 056 086 degrees QTc Int : 432 ms Poor data quality Normal sinus rhythm with Possible Premature ventricular complexes Abnormal ECG When compared with ECG of 27-OCT-2014 12:58, Poor data quality in current ECG precludes serial comparison Referred By: Stefano Snowden Electronically Signed By:BILL CHRISTIAN MD
--- NOTE | 2022-03-22 13:58 | ED.FALL ---
HPI - Fall General Chief Complaint: Fall Stated Complaint: FALL,FOUND ON GROUND, CONFUSED Time Seen by Provider: 03/22/22 13:47 Source: EMS Mode of arrival: EMS Limitations: altered mental status (Patient is confused, lacks insight as to why he is here in the hospital) History of Present Illness HPI Narrative: 77-year-old male brought in by ambulance for evaluation of altered mental status. Information came from the ED nurse note. The patient was found on the ground at home by a care provider. Apparently the patient does live alone. The patient was incontinent of urine. As per the care provider the last time the patient was confused like this he took tramadol. As per EMS there was an oxycodone bottle found to be empty with some pills found to be crushed. The patient was thought to have pinpoint pupils. There is no other information available and the patient is confused and lacks insight as to why he is here and is an unreliable informant. The patient's son, Judson can be reached at . The patient's son-in-law Good Johncan be reached at [phone] Related Data Home Medications Medication Instructions Recorded Confirmed mometasone (Asmanex Twisthaler) 1 puff INHALATION DAILY 03/22/22 03/22/22 oxycodone 5 mg tablet 5 mg PO DAILY PRN 03/22/22 03/22/22 oxycodone-acetaminophen 5 mg-325 1 tab PO Q6-8H PRN 03/22/22 03/22/22 mg tablet testosterone 20.25 mg/1.25 gram 2 pump TOPICAL DAILY 03/22/22 03/22/22 (1.62 %) transdermal gel pump tramadol 50 mg tablet 1 tab PO Q6H PRN 03/22/22 03/22/22 Previous Rx's Medication Instructions Recorded terazosin 10 mg capsule 10 mg PO BEDTIME 30 Days #30 cap 06/20/21 Allergies Allergy/AdvReac Type Severity Reaction Status Date / Time No Known Allergies Allergy Verified 12/26/21 15:49 Review of Systems Review of Systems: Yes all other systems are reviewed and are negative PMFSH Past Medical History PMFSH Narrative: Past medical history: Reviewed. Past surgical history: Reviewed, the patient had a right [id number] amputation at age 17 secondary to cancer. Social history: Apparently the patient lives at home alone. Medical History Attention deficit hyperactivity disorder (ADHD) Below-knee amputation of right lower extremity Benign essential hypertension Benign prostatic hyperplasia COPD (chronic obstructive pulmonary disease) Dyslipidemia Erectile dysfunction Hypotestosteronism Knee pain, left Lumbar degenerative disc disease Osteosarcoma of bone Phantom limb pain Unilateral primary osteoarthritis, left knee Vitamin D deficiency Surgical History History of amputation History of hernia surgery Social History Social History Housing: House Alcohol intake: never Patient Tobacco Use Status: Former Tobacco user e-Cigarette/Vaping Use: Never Used Second Hand Smoke Exposure: Yes Use of substances other than those prescribed or required for medical reasons: No Advance Directives: No service: No Current occupational status: retired Cognitive needs: Yes (wheelchair/crotches) Physical Exam Vital Signs: Vital Signs: Last Vital Signs Temp 99.9 F 03/22/22 16:09 Pulse 89 03/22/22 19:08 Resp 17 03/22/22 19:08 BP 142/93 H 03/22/22 19:08 Pulse Ox 96 03/22/22 19:08 BMI result Body Mass Index 16.9 Const: Other: Awake, elderly male patient, he does appear to be confused. He was able to tell me his name, he is not aware that he is in a hospital, he was not able to state his age, he did know his date of . He does have comprehensible speech but does not answer questions appropriately. HEENT: Head: Yes normal to inspection, Yes normocephalic and Yes atraumatic Ears: external ears normal General nose exam: Normal external nose present Face and sinus: Yes normal facial exam Mouth: Normal oral and palatal mucosa present Throat: Yes posterior oropharynx normal Eyes: General: appearance normal, both eyes and all related structures Pupils: Equal, round and reactive pupils present Neck: Other: Neck is rigid most likely secondary to arthritis, no tenderness Chest: Chest palpation & inspection: normal inspection of the chest and normal palpation of entire chest wall Resp: Effort & Inspection: normal respiratory effort and able to speak in complete sentences Auscultation: clear to auscultation bilaterally Cardio: Rate: regular rate Rhythm: regular rhythm Heart sounds: S1 normal heart sound present, S2 normal heart sound present and no murmurs GI: Inspection: Yes normal to inspection Palpation (GI): Soft to palpation, nontender and no guarding Auscultation: normal bowel sounds : General: Yes no CVA tenderness Back/Spine/Pelvis: Back: no CVA tenderness Skin: General skin exam: no rashes or lesions noted Neuro: Cranial nerves: Yes CN's II-XII intact bilaterally and Yes Equal, round and reactive pupils present Cognition (Neuro): normal cognition Motor exam (neuro): 5/5 motor strength present throughout Extrem: Other: Right above the knee amputation, left lower extremities reveals swelling over the lateral aspect of his hip which in concern is consistent with the hematoma, he also has pain with minimal movement of the left hip. Extremities neurovascular intact Psych: Appearance: grossly normal Speech and movement: Normal speech and movement present Affect: normal affect Attitude: cooperative Thought process: Normal thought process present Thought content: Normal thought content present Course Course Course Narrative: 77-year-old male who was brought to the emergency department for evaluation of confusion and being found on the ground at home, the patient was incontinent of urine. The patient's care provider reports that he has taken tramadol before in the past this is caused and to be confused, paramedics report that there was an empty bottle of oxycodone ?chewed ?pills found by the patient. The patient was oriented to person only otherwise does appear to be confused, on my exam he does not have pinpoint pupils. Vital signs revealed a blood pressure of 152/80, pulse 90, respiratory of 20. The patient did have a temperature of 100.1 degrees F. O2 saturation was 98%. The differential includes but is not limited to infection, opiate exposure, metabolic disorder, stroke, head trauma, left hip fracture Laboratory evaluation was ordered. Chest x-ray, left hip x-ray, pelvic x-ray CT scan of the head and cervical spine will be obtained. Will also obtain a straight cath urine on this patient. Patient was ordered to get normal saline x1 L. 1741: Laboratory evaluation: Anemia with an H&H of 10 and 37.6, be greater than baseline. He normal BUN and creatinine. Elevated AST 144 elevated ALT 45. Elevated lactate 4.4. Elevated CK 7824. COVID-19 and influenza negative. Salicylate, acetaminophen and alcohol below detectable limits . Believe that the elevated troponin is secondary to dehydration , starvation ketosis and volume depletion. Radiology evaluation: CT scan of the head and cervical spine were unremarkable. Chest x-ray was unremarkable. Left hip x-rays consistent with a intertrochanteric femur fracture. I did discuss the patient's presentation over tiger text with the covering orthopedic physician accounting assistant Annie Peterson who recommended the patient be admitted to the hospitalist service and they will consult for Orthopedics. I also discuss the patient's presentation with the covering hospitalist over tiger text, Dr. Massey and the patient will be admitted to the hospital service. I did ask the nurse to place a Campos catheter for fluid management and to obtain a urine sample on this patient. Procedures Procedure Narrative Procedure Narrative: 18 [place]ican coude Campos catheter placement: The nursing staff me to attempts at placing a Campos catheter in the patient in their unsuccessful. I did discuss the coude Campos catheter insertion with the patient and with the patient's son-in-law on the patient did give me informed verbal consent. The patient's penile ball was cleaned with 3 Betadine wipes. I then injected 10 cc lidocaine Uro jet into the patient's urethra. I then used an 18 [place]ican coude catheter which was easily passed into the patient's bladder. The balloon was inflated with 30 cc of water. Urine did drain out of the Campos catheter and into the Campos bag. The patient tolerated the procedure well. MDM - Fall Lab Data Result diagrams: 03/22/22 14:06 03/22/22 14:06 Labs: Lab Results 03/22/22 03/22/22 03/22/22 Range/Units 14:06 14:06 14:06 WBC 10.3 (4.8-10.8) X10*3/uL RBC 3.64 L (4.60-5.80) X10*6/uL Hgb 10.9 L (14.0-18.0) g/dl Hct 33.6 L (42.0-52.0) % MCV 92.3 (80.0-98.0) fL MCH 29.9 (27.0-33.0) pg MCHC 32.4 (31.0-36.0) g/dl RDW 13.2 (11.0-16.0) % Plt Count 141 L (160-400) X10*3/uL MPV 10.6 (9.4-12.4) fL Immature Gran % (Auto) 0.4 (0.0-0.4) % Neut % (Auto) 83.9 H (45-73) % Lymph % (Auto) 4.7 L (20-40) % [place] % (Auto) 10.9 (2-11) % Eos % (Auto) 0.0 (0-4) % Baso % (Auto) 0.1 (0-2) % Lymph # (Auto) 0.5 L (1.2-4.9) X10*3/uL [place] # (Auto) 1.1 (0.1-1.2) X10*3/uL Eos # (Auto) 0.0 (0.0-0.4) X10*3/uL Baso # (Auto) 0.0 (0.0-0.2) X10*3/uL Abs Immat Gran (auto) 0.04 H (0.00-0.03) X10*3/uL Absolute Neuts (auto) 8.5 H (2.0-8.3) x10*3/uL Absolute Nucleated RBC 0.000 (0.0-0.012) X10*3/uL Nucleated RBC % (auto) 0.0 (0.0-0.2) /100WBC Smear Tech's Comments VERIFIED PT (9.9-13.0) SEC INR (0.9-1.1) APTT (24.1-38.0) SEC Sodium 136 (135-145) mmol/L Potassium 4.5 (3.3-5.1) mmol/L Chloride 101 (96-108) mmol/L Carbon Dioxide 24 (22-29) mmol/L Anion Gap 16 (12-20) BUN 21 H (9-16) mg/dL Creatinine 0.82 (0.5-1.4) mg/dL Estim Creat Clear Calc 58.7 Estimated GFR > 60 Random Glucose 139 H D (60-115) mg/dL Lactic Acid 4.4 H* (0.5-2.0) mmol/L Lactic Acid F/U @ 2Hr (0.5-2.0) mmol/L Calcium 9.4 (8.4-10.2) mg/dL Total Bilirubin 1.1 H (0.0-1.0) mg/dL AST 144 H (5-37) U/L ALT 45 H (0-40) U/L Alkaline Phosphatase 50 (39-117) U/L Total Creatine Kinase 7824 H D (38-174) U/L Troponin I High Sens (<3.5-35.0) ng/L B-Natriuretic Peptide (<100) pg/mL Total Protein 6.6 (6.5-8.0) g/dL Albumin 3.8 (3.5-5.0) g/dL Lipase 7 L (8-78) U/L TSH (0.32-4.0) uIU/mL Salicylates < 5.0 L (15-30) mg/dL Acetaminophen < 1 (<30) mcg/mL Ethyl Alcohol mg/dL COVID-19 ([facility]) (Negative) COVID-19 Clin Com Influenza Type A ([facility]) (Negative) Influenza Type B ([facility]) (Negative) Influenza A & B Note Blood Type Antibody Screen 03/22/22 03/22/22 03/22/22 Range/Units 14:06 14:06 14:06 WBC (4.8-10.8) X10*3/uL RBC (4.60-5.80) X10*6/uL Hgb (14.0-18.0) g/dl Hct (42.0-52.0) % MCV (80.0-98.0) fL MCH (27.0-33.0) pg MCHC (31.0-36.0) g/dl RDW (11.0-16.0) % Plt Count (160-400) X10*3/uL MPV (9.4-12.4) fL Immature Gran % (Auto) (0.0-0.4) % Neut % (Auto) (45-73) % Lymph % (Auto) (20-40) % [place] % (Auto) (2-11) % Eos % (Auto) (0-4) % Baso % (Auto) (0-2) % Lymph # (Auto) (1.2-4.9) X10*3/uL [place] # (Auto) (0.1-1.2) X10*3/uL Eos # (Auto) (0.0-0.4) X10*3/uL Baso # (Auto) (0.0-0.2) X10*3/uL Abs Immat Gran (auto) (0.00-0.03) X10*3/uL Absolute Neuts (auto) (2.0-8.3) x10*3/uL Absolute Nucleated RBC (0.0-0.012) X10*3/uL Nucleated RBC % (auto) (0.0-0.2) /100WBC Smear Tech's Comments PT (9.9-13.0) SEC INR (0.9-1.1) APTT (24.1-38.0) SEC Sodium (135-145) mmol/L Potassium (3.3-5.1) mmol/L Chloride (96-108) mmol/L Carbon Dioxide (22-29) mmol/L Anion Gap (12-20) BUN (9-16) mg/dL Creatinine (0.5-1.4) mg/dL Estim Creat Clear Calc Estimated GFR Random Glucose (60-115) mg/dL Lactic Acid (0.5-2.0) mmol/L Lactic Acid F/U @ 2Hr (0.5-2.0) mmol/L Calcium (8.4-10.2) mg/dL Total Bilirubin (0.0-1.0) mg/dL AST (5-37) U/L ALT (0-40) U/L Alkaline Phosphatase (39-117) U/L Total Creatine Kinase (38-174) U/L Troponin I High Sens (<3.5-35.0) ng/L B-Natriuretic Peptide 204 H (<100) pg/mL Total Protein (6.5-8.0) g/dL Albumin (3.5-5.0) g/dL Lipase (8-78) U/L TSH (0.32-4.0) uIU/mL Salicylates (15-30) mg/dL Acetaminophen (<30) mcg/mL Ethyl Alcohol mg/dL COVID-19 ([facility]) Negative (Negative) COVID-19 Clin Com See Note Influenza Type A ([facility]) Negative (Negative) Influenza Type B ([facility]) Negative (Negative) Influenza A & B Note See Note Blood Type Antibody Screen 03/22/22 03/22/22 03/22/22 Range/Units 14:06 14:06 14:06 WBC (4.8-10.8) X10*3/uL RBC (4.60-5.80) X10*6/uL Hgb (14.0-18.0) g/dl Hct (42.0-52.0) % MCV (80.0-98.0) fL MCH (27.0-33.0) pg MCHC (31.0-36.0) g/dl RDW (11.0-16.0) % Plt Count (160-400) X10*3/uL MPV (9.4-12.4) fL Immature Gran % (Auto) (0.0-0.4) % Neut % (Auto) (45-73) % Lymph % (Auto) (20-40) % [place] % (Auto) (2-11) % Eos % (Auto) (0-4) % Baso % (Auto) (0-2) % Lymph # (Auto) (1.2-4.9) X10*3/uL [place] # (Auto) (0.1-1.2) X10*3/uL Eos # (Auto) (0.0-0.4) X10*3/uL Baso # (Auto) (0.0-0.2) X10*3/uL Abs Immat Gran (auto) (0.00-0.03) X10*3/uL Absolute Neuts (auto) (2.0-8.3) x10*3/uL Absolute Nucleated RBC (0.0-0.012) X10*3/uL Nucleated RBC % (auto) (0.0-0.2) /100WBC Smear Tech's Comments PT (9.9-13.0) SEC INR (0.9-1.1) APTT (24.1-38.0) SEC Sodium (135-145) mmol/L Potassium (3.3-5.1) mmol/L Chloride (96-108) mmol/L Carbon Dioxide (22-29) mmol/L Anion Gap (12-20) BUN (9-16) mg/dL Creatinine (0.5-1.4) mg/dL Estim Creat Clear Calc Estimated GFR Random Glucose (60-115) mg/dL Lactic Acid (0.5-2.0) mmol/L Lactic Acid F/U @ 2Hr (0.5-2.0) mmol/L Calcium (8.4-10.2) mg/dL Total Bilirubin (0.0-1.0) mg/dL AST (5-37) U/L ALT (0-40) U/L Alkaline Phosphatase (39-117) U/L Total Creatine Kinase (38-174) U/L Troponin I High Sens 15.2 (<3.5-35.0) ng/L B-Natriuretic Peptide (<100) pg/mL Total Protein (6.5-8.0) g/dL Albumin (3.5-5.0) g/dL Lipase (8-78) U/L TSH 0.38 (0.32-4.0) uIU/mL Salicylates (15-30) mg/dL Acetaminophen (<30) mcg/mL Ethyl Alcohol < 10 mg/dL COVID-19 ([facility]) (Negative) COVID-19 Clin Com Influenza Type A ([facility]) (Negative) Influenza Type B ([facility]) (Negative) Influenza A & B Note Blood Type Antibody Screen 03/22/22 03/22/22 03/22/22 Range/Units 16:47 17:52 17:52 WBC (4.8-10.8) X10*3/uL RBC (4.60-5.80) X10*6/uL Hgb (14.0-18.0) g/dl Hct (42.0-52.0) % MCV (80.0-98.0) fL MCH (27.0-33.0) pg MCHC (31.0-36.0) g/dl RDW (11.0-16.0) % Plt Count (160-400) X10*3/uL MPV (9.4-12.4) fL Immature Gran % (Auto) (0.0-0.4) % Neut % (Auto) (45-73) % Lymph % (Auto) (20-40) % [place] % (Auto) (2-11) % Eos % (Auto) (0-4) % Baso % (Auto) (0-2) % Lymph # (Auto) (1.2-4.9) X10*3/uL [place] # (Auto) (0.1-1.2) X10*3/uL Eos # (Auto) (0.0-0.4) X10*3/uL Baso # (Auto) (0.0-0.2) X10*3/uL Abs Immat Gran (auto) (0.00-0.03) X10*3/uL Absolute Neuts (auto) (2.0-8.3) x10*3/uL Absolute Nucleated RBC (0.0-0.012) X10*3/uL Nucleated RBC % (auto) (0.0-0.2) /100WBC Smear Tech's Comments PT 14.1 H (9.9-13.0) SEC INR 1.2 H (0.9-1.1) APTT 25.1 (24.1-38.0) SEC Sodium (135-145) mmol/L Potassium (3.3-5.1) mmol/L Chloride (96-108) mmol/L Carbon Dioxide (22-29) mmol/L Anion Gap (12-20) BUN (9-16) mg/dL Creatinine (0.5-1.4) mg/dL Estim Creat Clear Calc Estimated GFR Random Glucose (60-115) mg/dL Lactic Acid (0.5-2.0) mmol/L Lactic Acid F/U @ 2Hr 2.9 H* (0.5-2.0) mmol/L Calcium (8.4-10.2) mg/dL Total Bilirubin (0.0-1.0) mg/dL AST (5-37) U/L ALT (0-40) U/L Alkaline Phosphatase (39-117) U/L Total Creatine Kinase (38-174) U/L Troponin I High Sens 17.9 (<3.5-35.0) ng/L B-Natriuretic Peptide (<100) pg/mL Total Protein (6.5-8.0) g/dL Albumin (3.5-5.0) g/dL Lipase (8-78) U/L TSH (0.32-4.0) uIU/mL Salicylates (15-30) mg/dL Acetaminophen (<30) mcg/mL Ethyl Alcohol mg/dL COVID-19 ([facility]) (Negative) COVID-19 Clin Com Influenza Type A ([facility]) (Negative) Influenza Type B ([facility]) (Negative) Influenza A & B Note Blood Type Antibody Screen 03/22/22 Range/Units 17:52 WBC (4.8-10.8) X10*3/uL RBC (4.60-5.80) X10*6/uL Hgb (14.0-18.0) g/dl Hct (42.0-52.0) % MCV (80.0-98.0) fL MCH (27.0-33.0) pg MCHC (31.0-36.0) g/dl RDW (11.0-16.0) % Plt Count (160-400) X10*3/uL MPV (9.4-12.4) fL Immature Gran % (Auto) (0.0-0.4) % Neut % (Auto) (45-73) % Lymph % (Auto) (20-40) % [place] % (Auto) (2-11) % Eos % (Auto) (0-4) % Baso % (Auto) (0-2) % Lymph # (Auto) (1.2-4.9) X10*3/uL [place] # (Auto) (0.1-1.2) X10*3/uL Eos # (Auto) (0.0-0.4) X10*3/uL Baso # (Auto) (0.0-0.2) X10*3/uL Abs Immat Gran (auto) (0.00-0.03) X10*3/uL Absolute Neuts (auto) (2.0-8.3) x10*3/uL Absolute Nucleated RBC (0.0-0.012) X10*3/uL Nucleated RBC % (auto) (0.0-0.2) /100WBC Smear Tech's Comments PT (9.9-13.0) SEC INR (0.9-1.1) APTT (24.1-38.0) SEC Sodium (135-145) mmol/L Potassium (3.3-5.1) mmol/L Chloride (96-108) mmol/L Carbon Dioxide (22-29) mmol/L Anion Gap (12-20) BUN (9-16) mg/dL Creatinine (0.5-1.4) mg/dL Estim Creat Clear Calc Estimated GFR Random Glucose (60-115) mg/dL Lactic Acid (0.5-2.0) mmol/L Lactic Acid F/U @ 2Hr (0.5-2.0) mmol/L Calcium (8.4-10.2) mg/dL Total Bilirubin (0.0-1.0) mg/dL AST (5-37) U/L ALT (0-40) U/L Alkaline Phosphatase (39-117) U/L Total Creatine Kinase (38-174) U/L Troponin I High Sens (<3.5-35.0) ng/L B-Natriuretic Peptide (<100) pg/mL Total Protein (6.5-8.0) g/dL Albumin (3.5-5.0) g/dL Lipase (8-78) U/L TSH (0.32-4.0) uIU/mL Salicylates (15-30) mg/dL Acetaminophen (<30) mcg/mL Ethyl Alcohol mg/dL COVID-19 ([facility]) (Negative) COVID-19 Clin Com Influenza Type A ([facility]) (Negative) Influenza Type B ([facility]) (Negative) Influenza A & B Note Blood Type A Positive Antibody Screen NEGATIVE ECG Data Attestation: I personally reviewed and interpreted this ECG as follows: Interpretation: 1356: Normal sinus rhythm with PVCs, normal IA interval, QRS duration and QTC interval, no ST segment elevation, no ST segment depression, no PACs. The patient does have a erratic baseline since he could not stay still for the exam. Discharge Plan Discharge Clinical Impression: Acute confusion, Acute dehydration, Anemia Fall at home Qualifiers: Encounter type: initial encounter Qualified Code(s): W19.XXXA - Unspecified fall, initial encounter Rhabdomyolysis Qualifiers: Rhabdomyolysis type: traumatic Encounter type: initial encounter Qualified Code(s): T79.6XXA - Traumatic ischemia of muscle, initial encounter Closed intertrochanteric fracture of left femur Qualifiers: Encounter type: initial encounter Fracture alignment: nondisplaced Qualified Code(s): S72.145A - Nondisplaced intertrochanteric fracture of left femur, initial encounter for closed fracture Patient Disposition: Admitted As Inpatient
--- NOTE | 2022-03-22 14:11 | MHC.CM.ED ---
Received telephone call from patient's son, Judson Solis. Judson can be reached via telephone at [phone]. However he is currently 8 hours away. Patient's son-in-law, Good [facility] He was coming to patient's home to help with the roof. Judson has given permission for information to be given to Good so he can communicate information to the rest of the family. Good can be reached via telephone [phone]. Dr Snowden is aware.
[2022-03-22 14:32] LABS: Hemoglobin 10.9 g/dl (14.0-18.0); PLT CLUMP 1; Red Cell Distribution Width 13.2 % (11.0-16.0); SCAN SMEAR FLAG 1
[2022-03-22 14:34] LABS: Basophils Percent Auto 0.1 % (0-2); Hematocrit 33.6 % (42.0-52.0); Imm Gran Abs Auto 0.04 X10*3/uL (0.00-0.03); Imm Gran Pct Auto 0.4 % (0.0-0.4); Lymphocytes Absolute Auto 0.5 X10*3/uL (1.2-4.9); Lymphocytes Percent Auto 4.7 % (20-40); MANUAL DIFF FLAG SCAN; Mean Corpuscular HGB Conc 32.4 g/dl (31.0-36.0); Mean Corpuscular Hemoglobin 29.9 pg (27.0-33.0); Mean Corpuscular Volume 92.3 fL (80.0-98.0); Mean Platelet Volume 10.6 fL (9.4-12.4); Monocytes Absolute Auto 1.1 X10*3/uL (0.1-1.2); Monocytes Percent Auto 10.9 % (2-11); Neutrophils Absolute Auto 8.5 x10*3/uL (2.0-8.3); Neutrophils Percent Auto 83.9 % (45-73); Red Blood Count 3.64 X10*6/uL (4.60-5.80)
[2022-03-22 14:47] LABS: Ethanol < 10 mg/dL
[2022-03-22 14:53] LABS: B Type Natriuretic Peptide 204 pg/mL (<100); Platelet Count 141 X10*3/uL (160-400); SLIDE REVIEW VERIFIED; Troponin-I High Sensitivity 15.2 ng/L (<3.5-35.0); White Blood Count 10.3 X10*3/uL (4.8-10.8)
[2022-03-22 15:00] LABS: COVID-19 Test Negative (Negative); IDNOW Serial# 16C4AD1C; Influenza A Negative (Negative); Influenza B2 Negative (Negative)
[2022-03-22 15:06] LABS: Acetaminophen LAB < 1 mcg/mL (<30); Alanine Aminotransferase 45 U/L (0-40); Albumin Level 3.8 g/dL (3.5-5.0); Alkaline Phosphatase 50 U/L (39-117); Anion Gap 16 (12-20); Aspartate Amino Transferase 144 U/L (5-37); Bilirubin Total 1.1 mg/dL (0.0-1.0); Blood Urea Nitrogen 21 mg/dL (9-16); Calcium 9.4 mg/dL (8.4-10.2); Carbon Dioxide 24 mmol/L (22-29); Chloride 101 mmol/L (96-108); Creatinine Clr Calc Pharmacy 58.7; Estimated Glomerular Filt Rate > 60; Glucose Random 139 mg/dL (60-115); Lipase 7 U/L (8-78); Potassium 4.5 mmol/L (3.3-5.1); Salicylate < 5.0 mg/dL (15-30); Sodium 136 mmol/L (135-145); Total Protein 6.6 g/dL (6.5-8.0)
[2022-03-22 15:08] LABS: Lactic Acid 4.4 mmol/L (0.5-2.0)
[2022-03-22 15:09] LABS: TSH reflex Free T4 0.38 uIU/mL (0.32-4.0)
[2022-03-22] MEDS: 0.9 % Sodium Chloride 1,000 ML 999 ML IV (16:05)
--- NOTE | 2022-03-22 16:24 | PC.NURSE ---
pt is r bka, pt l hip./leg appears rotated and bruising noted on inner l leg/groin area. son-in-law at bedside and is aware.
[2022-03-22 16:27] LABS: Reflex Lactate? Lactic Acid Added
[2022-03-22 17:16] LABS: ~Lactic Acid-LAB USE ONLY 2.9 mmol/L (0.5-2.0)
--- NOTE | 2022-03-22 17:44 | P.HPHOSP_ITS ---
History of Present Illness Date of Service: 03/22/22 Chief Complaint: Fall, confusion 77-year-old male with COPD, s/p BKA since age 17 from some cancer--he uses prosthesis but has not been using it lately due to weight loss and not fitting well, other medical history as listed below. He lives alone but family has a camera at his house that track his movement. He was last since on the camera last eveneing going from the living room to kitchen but was not seen returning to living room. He was found tody on the floor by his healthcare economics consultant confused and EMS was called and brought in for evaluation. His son in law was at the hospital to rosemary in the history.. Son in law states that he has had similar episodes in the past with use of Tramadol and on this occasion, he was found with empty bottle of oxycodone, some crushed. Patient is still fairy confused and although he acknowledges falling last night and was having excruciating pain in his hip. Work up has revealed Left femoral intertrochanteric fracture. CT of head , neck unremarkable. CPK is over 7000, lactic acid over 4.. no sings of infection Review of Systems Review of Systems: Gen: no fever Resp: no sob, no cough CV: no chest, no FERNANDEZ, no leg edema GI: No n/v, no abd pain Neuro:+ confusion MSK: hip pain Yes all other systems are reviewed and are negative [facility] Medical History Attention deficit hyperactivity disorder (ADHD) Below-knee amputation of right lower extremity Benign essential hypertension Benign prostatic hyperplasia COPD (chronic obstructive pulmonary disease) Dyslipidemia Erectile dysfunction Hypotestosteronism Knee pain, left Lumbar degenerative disc disease Osteosarcoma of bone Phantom limb pain Unilateral primary osteoarthritis, left knee Vitamin D deficiency Surgical History History of amputation History of hernia surgery Social History Housing: House Alcohol intake: never Patient Tobacco Use Status: Former Tobacco user e-Cigarette/Vaping Use: Never Used Second Hand Smoke Exposure: Yes Use of substances other than those prescribed or required for medical reasons: No Advance Directives: No service: No Current occupational status: retired Cognitive needs: Yes (wheelchair/crotches) Meds Allergies Allergy/AdvReac Type Severity Reaction Status Date / Time No Known Allergies Allergy Verified 12/26/21 15:49 Home Medications Medication Instructions Recorded Confirmed Last Taken Type mometasone (Asmanex Twisthaler) 1 puff INHALATION DAILY 03/22/22 03/22/22 Unknown History oxycodone 5 mg tablet 5 mg PO DAILY PRN 03/22/22 03/22/22 Unknown History oxycodone-acetaminophen 5 mg-325 1 tab PO Q6-8H PRN 03/22/22 03/22/22 Unknown History mg tablet testosterone 20.25 mg/1.25 gram 2 pump TOPICAL DAILY 03/22/22 03/22/22 Unknown History (1.62 %) transdermal gel pump tramadol 50 mg tablet 1 tab PO Q6H PRN 03/22/22 03/22/22 Unknown History Physical Exam 2 Vital Signs and Narrative: Vital Signs: Last Vital Signs Temp 99.9 F 03/22/22 16:09 Pulse 88 03/22/22 16:09 Resp 17 03/22/22 16:09 BP 123/63 03/22/22 16:09 Pulse Ox 96 03/22/22 16:09 BMI result Body Mass Index 16.9 Const: Other: Constitutional: Alert, in no distress Mental Status: Oriented to person, place and time. Eyes: Pupils are equal, round and reactive to light. Ear, Nose and Throat: Oropharynx clear, mucous membranes moist. Ears and nose without eformities. Trachea midline. Respiratory: Clear to auscultation. No wheezing, rales or rhonchi. Cardiovascular: S1 S2 regular. No murmurs, rubs or gallops. Gastrointestinal: Abdomen soft, non-tender, non-distended. Normal bowel sounds.? Neurologic: Cranial nerves II-XII grossly intact. No focal neurological deficits. Moves all extremities spontaneously.? Skin: No rashes or lesions.? Musculoskeletal: No cyanosis or clubbing. right BKA Psychiatric: Normal mood and affect? Results Labs CBC and Chem 7: 03/22/22 14:06 03/22/22 14:06 Labs: Laboratory Results - last 24 hr 03/22/22 03/22/22 03/22/22 14:06 14:06 14:06 MCV 92.3 MCH 29.9 MCHC 32.4 RDW 13.2 Plt Count 141 L MPV 10.6 Immature Gran % (Auto) 0.4 Neut % (Auto) 83.9 H Lymph % (Auto) 4.7 L Sunflower % (Auto) 10.9 Eos % (Auto) 0.0 Baso % (Auto) 0.1 Lymph # (Auto) 0.5 L Sunflower # (Auto) 1.1 Eos # (Auto) 0.0 Baso # (Auto) 0.0 Abs Immat Gran (auto) 0.04 H Absolute Neuts (auto) 8.5 H Absolute Nucleated RBC 0.000 Nucleated RBC % (auto) 0.0 Smear Tech's Comments VERIFIED Anion Gap 16 Estim Creat Clear Calc 58.7 Estimated GFR > 60 Random Glucose 139 H D Lactic Acid 4.4 H* Lactic Acid F/U @ 2Hr Calcium 9.4 Total Bilirubin 1.1 H AST 144 H ALT 45 H Alkaline Phosphatase 50 Total Creatine Kinase 7824 H D Troponin I High Sens B-Natriuretic Peptide Total Protein 6.6 Albumin 3.8 Lipase 7 L TSH Salicylates < 5.0 L Acetaminophen < 1 Ethyl Alcohol COVID-19 ([facility]) COVID-19 Clin Com Influenza Type A ([facility]) Influenza Type B ([facility]) Influenza A & B Note 03/22/22 03/22/22 03/22/22 14:06 14:06 14:06 MCV MCH MCHC RDW Plt Count MPV Immature Gran % (Auto) Neut % (Auto) Lymph % (Auto) Sunflower % (Auto) Eos % (Auto) Baso % (Auto) Lymph # (Auto) Sunflower # (Auto) Eos # (Auto) Baso # (Auto) Abs Immat Gran (auto) Absolute Neuts (auto) Absolute Nucleated RBC Nucleated RBC % (auto) Smear Tech's Comments Anion Gap Estim Creat Clear Calc Estimated GFR Random Glucose Lactic Acid Lactic Acid F/U @ 2Hr Calcium Total Bilirubin AST ALT Alkaline Phosphatase Total Creatine Kinase Troponin I High Sens B-Natriuretic Peptide 204 H Total Protein Albumin Lipase TSH Salicylates Acetaminophen Ethyl Alcohol COVID-19 ([facility]) Negative COVID-19 Clin Com See Note Influenza Type A ([facility]) Negative Influenza Type B ([facility]) Negative Influenza A & B Note See Note 03/22/22 03/22/22 03/22/22 14:06 14:06 14:06 MCV MCH MCHC RDW Plt Count MPV Immature Gran % (Auto) Neut % (Auto) Lymph % (Auto) Sunflower % (Auto) Eos % (Auto) Baso % (Auto) Lymph # (Auto) Sunflower # (Auto) Eos # (Auto) Baso # (Auto) Abs Immat Gran (auto) Absolute Neuts (auto) Absolute Nucleated RBC Nucleated RBC % (auto) Smear Tech's Comments Anion Gap Estim Creat Clear Calc Estimated GFR Random Glucose Lactic Acid Lactic Acid F/U @ 2Hr Calcium Total Bilirubin AST ALT Alkaline Phosphatase Total Creatine Kinase Troponin I High Sens 15.2 B-Natriuretic Peptide Total Protein Albumin Lipase TSH 0.38 Salicylates Acetaminophen Ethyl Alcohol < 10 COVID-19 ([facility]) COVID-19 Clin Com Influenza Type A ([facility]) Influenza Type B ([facility]) Influenza A & B Note 03/22/22 16:47 MCV MCH MCHC RDW Plt Count MPV Immature Gran % (Auto) Neut % (Auto) Lymph % (Auto) Sunflower % (Auto) Eos % (Auto) Baso % (Auto) Lymph # (Auto) Sunflower # (Auto) Eos # (Auto) Baso # (Auto) Abs Immat Gran (auto) Absolute Neuts (auto) Absolute Nucleated RBC Nucleated RBC % (auto) Smear Tech's Comments Anion Gap Estim Creat Clear Calc Estimated GFR Random Glucose Lactic Acid Lactic Acid F/U @ 2Hr 2.9 H* Calcium Total Bilirubin AST ALT Alkaline Phosphatase Total Creatine Kinase Troponin I High Sens B-Natriuretic Peptide Total Protein Albumin Lipase TSH Salicylates Acetaminophen Ethyl Alcohol COVID-19 ([facility]) COVID-19 Clin Com Influenza Type A ([facility]) Influenza Type B ([facility]) Influenza A & B Note Imaging Radiologist's Impressions: Impressions Chest X-Ray 03/22/22 14:42 IMPRESSION: Stable chest x-ray. Increased linear markings in the right upper lobe probably representing scarring. Question left base 6 mm nodule. Cervical Spine CT 03/22/22 14:55 IMPRESSION: Degenerative changes. No fracture or dislocation. Emphysema. Irregular parenchymal densities in the lateral right upper lobe. Follow-up elective chest CT recommended. Fleischner guidelines were followed. Head CT 03/22/22 14:55 IMPRESSION: No acute findings. Hip/Pelvis X-Ray 03/22/22 16:27 IMPRESSION: Left femoral intertrochanteric fracture. Assessment and Plan (1) Rhabdomyolysis: Qualifiers: Encounter type: initial encounter Rhabdomyolysis type: traumatic Qualified Code(s): T79.6XXA - Traumatic ischemia of muscle, initial encounter Status: Acute (2) Acute confusion: Status: Acute (3) Fall at home: Qualifiers: Encounter type: initial encounter Qualified Code(s): W19.XXXA - Unspecified fall, initial encounter; Y92.009 - Unspecified place in unspecified non-institutional (private) residence as the place of occurrence of the external cause Status: Acute (4) Closed intertrochanteric fracture of left femur: Qualifiers: Encounter type: initial encounter Fracture alignment: nondisplaced Qualified Code(s): S72.145A - Nondisplaced intertrochanteric fracture of left femur, initial encounter for closed fracture Status: Acute Plan 77/ 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 1/ Left Hip fracture likely from mechanical--Will need surgical correction, Ortho aware at moderate risk on basis of advnced age, confusion, no known CAD, ECG show no acute changes. No indication for further testing at this time. 2/Confusion--likely from Toxic metabolic Encephalopathy from oxycodone used inapropriately, according to son-in-law he has history of intermittent confusion like this, and this particular episode maybe because of fall. r/o UTI 3/ Rhabdomylosis--IVF and repeat CPK in the morning 4/Lactic acidosis--not likely from fall, muscle injury from rhabdo.. Will not institute sepsis protocol at this time, expect improvment with IVF, and it is actually lready improved and no need to repeat 5/ Testosterone,, deficiency--continue replacment therapy 6/ COPD--no exacerbation, continue Asmanex Full code Admission will span at least 2 midnight to account for patient be evaluated and prepare for surgery and post operative care, pain controll and ultimtely bed search for rehab Quality Stroke Does the patient have a stroke diagnosis?: No VTE Prior VTE?: No VTE Risk Level:: Medical - moderate - high VTE Device Contraindication: N/A - Device Ordered VTE Drug Contraindication: Treatment Not Indicated
--- NOTE | 2022-03-22 18:07 | PHA.MEDREC ---
Pharmacy Consult ? Medication Reconciliation Pharmacy has completed the medication reconciliation. Spoke to pt's son Judson, pt takes percocet and then oxy if no pain relief, pt then switches to tramadol if he runs out of both those meds. Son believes tramadol might be the cause of current situation. Son unsure if pt still takes testosterone. Terazosin stopped due to causing unsteady gait
[2022-03-22 18:13] LABS: INTERNATIONAL NORM RATIO 1.2 (0.9-1.1); Prothrombin Time 14.1 SEC (9.9-13.0)
[2022-03-22 18:16] LABS: Partial Thromboplastin Time 25.1 SEC (24.1-38.0)
[2022-03-22 18:27] LABS: Troponin-I High Sensitivity 17.9 ng/L (<3.5-35.0)
[2022-03-22 18:54] LABS: Reflex Lactate? 2 Y
[2022-03-22] MEDS: Lidocaine HCl 2 % Urojet 10 ML JEL.PF.APP TOPICAL (19:20)
[2022-03-22 20:06] LABS: ~Lactic Acid-LAB USE ONLY 3.2 mmol/L (0.5-2.0)
--- NOTE | 2022-03-22 20:18 | PC.NURSE ---
Third liter of fluid started on pt who is resting comfortably in bed at this time.
[2022-03-22 20:57] LABS: Amphetamine Screen Urine Not Detected (Not Detect); Barbiturates, Urine Not Detected (Not Detect); Benzodiazepines Screen Urine Not Detected (Not Detect); Cannabinoid Screen Urine Not Detected (Not Detect); Cocaine Screen Urine Not Detected (Not Detect); Fentanyl, urine Not Detected (Not Detect); Opiate Screen Urine Not Detected (Not Detect); Phencyclidine Screen Urine Not Detected (Not Detect)
[2022-03-22] MEDS: Dextrose 5 % and 0.45 % NaCl 1,000 ML 100 ML IVCONT (21:01)
[2022-03-22 22:09] LABS: Appearance Urine CLOUDY; Color Urine YELLOW; Glucose Urine UA NEG (NEG); Leukocyte Esterase Urine NEG (NEG); Nitrite Urine NEG (NEG); Specific Gravity - Urine 1.025 (1.005-1.025); UACC Culture Trigger NO; Urine Blood 3+ (NEG); Urine Ketones NEG (NEG); Urine Protein TRACE MG/DL (NEG-TRACE)
[2022-03-22 22:21] LABS: Calcium Oxalate Crystals Urine 4+ /LPF; Mucus Urine 3+ /LPF; Squamous Epithelial Cell Urine TRACE /LPF
[2022-03-23 00:05] VITALS: BP 145/71; PULSE 95; RESP 16; TEMP 37.2; O2SAT 96
[2022-03-23 02:26] VITALS: BP 145/65; PULSE 97; RESP 18; TEMP 36.3; O2SAT 95
[2022-03-23] MEDS: Morphine Sulfate 2 MG/ML CARTRIDGE IVPUSH (03:43)
[2022-03-23] MEDS: Dextrose 5 % and 0.45 % NaCl 1,000 ML 100 ML IVCONT ×2 (05:51→15:30)
--- NOTE | 2022-03-23 06:06 | PC.NURSE ---
Patient c/o pain right hip, Morphine 2 mg IV administered as ordered with good effect. Patient resting comfortably at present . Will continue to monitor.
[2022-03-23 08:01] LABS: Hematocrit 24.9 % (42.0-52.0); Hemoglobin 8.4 g/dl (14.0-18.0); Mean Corpuscular HGB Conc 33.7 g/dl (31.0-36.0); Mean Corpuscular Volume 91.9 fL (80.0-98.0); Platelet Count 166 X10*3/uL (160-400); Red Blood Count 2.71 X10*6/uL (4.60-5.80); Red Cell Distribution Width 13.2 % (11.0-16.0); White Blood Count 9.1 X10*3/uL (4.8-10.8)
--- NOTE | 2022-03-23 09:03 | P.CONOP_ITS ---
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 The medication bottle found by him was Oxycodone and there was evidence of crushed pulls next to him on the floor when EMS arrived at the scene. The patient also does admit to using pills to help him feel better and get rid of the pain. While in the ED, xrays of the hip was significant for left intertrochanteric fracture fo the femur. He was also found to have an elevated lactate 4.4.? Elevated CK 7824 . He was noted to be dehydrated and malnourished. He was admitted to the medical service for further workup and Orthopedics was consulted for surgical intervention. The patient states he live alone, he does still drive, he does use crutches s josefina he has the RT BKA but admits he is a bit unsteady with them. He does not have family, other than his ex- , who lives close by. Review of Systems Review of Systems: as per [facility] Past Medical History Medical History Attention deficit hyperactivity disorder (ADHD) Below-knee amputation of right lower extremity Benign essential hypertension Benign prostatic hyperplasia COPD (chronic obstructive pulmonary disease) Dyslipidemia Erectile dysfunction Hypotestosteronism Knee pain, left Lumbar degenerative disc disease Osteosarcoma of bone Phantom limb pain Unilateral primary osteoarthritis, left knee Vitamin D deficiency Surgical History Surgical History History of amputation History of hernia surgery Social History Social History Housing: House Alcohol intake: never Patient Tobacco Use Status: Former Tobacco user e-Cigarette/Vaping Use: Never Used Second Hand Smoke Exposure: Yes Use of substances other than those prescribed or required for medical reasons: No Advance Directives: No service: No Current occupational status: retired Cognitive needs: Yes (wheelchair/crotches) Meds Allergies Allergy/AdvReac Type Severity Reaction Status Date / Time No Known Allergies Allergy Verified 12/26/21 15:49 Active Medications: Current Medications Acetaminophen (Acetaminophen Supp 650 Mg Supp.Rect) 650 mg PA Q6H PRN PRN Reason: Pain, Mild (Pain Scale 1-3) Dextrose/Sodium Chloride (D51/2ns) 1,000 mls @ 100 mls/hr IVCONT .Q10H [facility] Last Admin: 03/23/22 05:51 Dose: 100 mls/hr Documented by: Morphine Sulfate (Morphine Sulfate 2 Mg/Ml Cartridge) 2 mg IVPUSH Q4H PRN; Protocol PRN Reason: Pain, Severe (Pain Scale 7-10) Last Admin: 03/23/22 03:43 Dose: 2 mg Documented by: Ondansetron HCl (Ondansetron Hcl 4 Mg/2 Ml Vial) 4 mg IVPUSH Q8H PRN PRN Reason: Nausea and Vomiting Sodium Chloride (0.9 % Sodium Chloride Flush 3 Ml Syringe) 3 ml IVFLUSH QSHIFT [facility] Last Admin: 03/23/22 01:19 Dose: Not Given Documented by: Home Medications Medication Instructions Recorded Confirmed Last Taken Type mometasone (Asmanex Twisthaler) 1 puff INHALATION DAILY 03/22/22 03/22/22 Unknown History oxycodone 5 mg tablet 5 mg PO DAILY PRN 03/22/22 03/22/22 Unknown History oxycodone-acetaminophen 5 mg-325 1 tab PO Q6-8H PRN 03/22/22 03/22/22 Unknown History mg tablet testosterone 20.25 mg/1.25 gram 2 pump TOPICAL DAILY 03/22/22 03/22/22 Unknown History (1.62 %) transdermal gel pump tramadol 50 mg tablet 1 tab PO Q6H PRN 03/22/22 03/22/22 Unknown History Physical Exam Vital Signs: Vital Signs: Last Vital Signs Temp 97.3 F 03/23/22 02:26 Pulse 97 03/23/22 02:26 Resp 18 03/23/22 02:26 BP 145/65 H 03/23/22 02:26 Pulse Ox 95 03/23/22 02:26 BMI result Body Mass Index 16.9 Const: General: cooperative and no acute distress Orientation/conscious ness: patient oriented x3 Resp: Effort & Inspection: normal respiratory effort and able to speak in complete sentences Cardio: Peripheral pulses: Peripheral pulses 2+ throughout Neuro: General: patient oriented x3 Extrem: Other: Left hip internally rotated, unable to SLR , pain with log roll, NVI. Results Labs Result Diagrams: 03/23/22 07:31 03/22/22 14:06 Labs: Abnormal lab results 03/22/22 03/22/22 03/22/22 Range/Units 14:06 14:06 14:06 RBC 3.64 L (4.60-5.80) X10*6/uL Hgb 10.9 L (14.0-18.0) g/dl Hct 33.6 L (42.0-52.0) % Plt Count 141 L (160-400) X10*3/uL Neut % (Auto) 83.9 H (45-73) % Lymph % (Auto) 4.7 L (20-40) % Lymph # (Auto) 0.5 L (1.2-4.9) X10*3/uL Abs Immat Gran (auto) 0.04 H (0.00-0.03) X10*3/uL Absolute Neuts (auto) 8.5 H (2.0-8.3) x10*3/uL PT (9.9-13.0) SEC INR (0.9-1.1) BUN 21 H (9-16) mg/dL Random Glucose 139 H D (60-115) mg/dL Lactic Acid 4.4 H* (0.5-2.0) mmol/L Lactic Acid F/U @ 2Hr (0.5-2.0) mmol/L Lactic Acid F/U @ 4Hr (0.5-2.0) mmol/L Total Bilirubin 1.1 H (0.0-1.0) mg/dL AST 144 H (5-37) U/L ALT 45 H (0-40) U/L Total Creatine Kinase 7824 H D (38-174) U/L B-Natriuretic Peptide (<100) pg/mL Lipase 7 L (8-78) U/L Urine Blood (NEG) Urine RBC (0) /HPF Salicylates < 5.0 L (15-30) mg/dL 03/22/22 03/22/22 03/22/22 Range/Units 14:06 16:47 17:52 RBC (4.60-5.80) X10*6/uL Hgb (14.0-18.0) g/dl Hct (42.0-52.0) % Plt Count (160-400) X10*3/uL Neut % (Auto) (45-73) % Lymph % (Auto) (20-40) % Lymph # (Auto) (1.2-4.9) X10*3/uL Abs Immat Gran (auto) (0.00-0.03) X10*3/uL Absolute Neuts (auto) (2.0-8.3) x10*3/uL PT 14.1 H (9.9-13.0) SEC INR 1.2 H (0.9-1.1) BUN (9-16) mg/dL Random Glucose (60-115) mg/dL Lactic Acid (0.5-2.0) mmol/L Lactic Acid F/U @ 2Hr 2.9 H* (0.5-2.0) mmol/L Lactic Acid F/U @ 4Hr (0.5-2.0) mmol/L Total Bilirubin (0.0-1.0) mg/dL AST (5-37) U/L ALT (0-40) U/L Total Creatine Kinase (38-174) U/L B-Natriuretic Peptide 204 H (<100) pg/mL Lipase (8-78) U/L Urine Blood (NEG) Urine RBC (0) /HPF Salicylates (15-30) mg/dL 03/22/22 03/22/22 03/22/22 Range/Units 19:38 19:38 20:36 RBC (4.60-5.80) X10*6/uL Hgb (14.0-18.0) g/dl Hct (42.0-52.0) % Plt Count (160-400) X10*3/uL Neut % (Auto) (45-73) % Lymph % (Auto) (20-40) % Lymph # (Auto) (1.2-4.9) X10*3/uL Abs Immat Gran (auto) (0.00-0.03) X10*3/uL Absolute Neuts (auto) (2.0-8.3) x10*3/uL PT (9.9-13.0) SEC INR (0.9-1.1) BUN (9-16) mg/dL Random Glucose (60-115) mg/dL Lactic Acid (0.5-2.0) mmol/L Lactic Acid F/U @ 2Hr (0.5-2.0) mmol/L Lactic Acid F/U @ 4Hr 3.2 H* (0.5-2.0) mmol/L Total Bilirubin (0.0-1.0) mg/dL AST (5-37) U/L ALT (0-40) U/L Total Creatine Kinase 8590 H (38-174) U/L B-Natriuretic Peptide (<100) pg/mL Lipase (8-78) U/L Urine Blood 3+ H (NEG) Urine RBC 10-14 H (0) /HPF Salicylates (15-30) mg/dL /11/02 Range/Units 07:31 RBC 2.71 L D (4.60-5.80) X10*6/uL Hgb 8.4 L D (14.0-18.0) g/dl Hct 24.9 L D (42.0-52.0) % Plt Count (160-400) X10*3/uL Neut % (Auto) (45-73) % Lymph % (Auto) (20-40) % Lymph # (Auto) (1.2-4.9) X10*3/uL Abs Immat Gran (auto) (0.00-0.03) X10*3/uL Absolute Neuts (auto) (2.0-8.3) x10*3/uL PT (9.9-13.0) SEC INR (0.9-1.1) BUN (9-16) mg/dL Random Glucose (60-115) mg/dL Lactic Acid (0.5-2.0) mmol/L Lactic Acid F/U @ 2Hr (0.5-2.0) mmol/L Lactic Acid F/U @ 4Hr (0.5-2.0) mmol/L Total Bilirubin (0.0-1.0) mg/dL AST (5-37) U/L ALT (0-40) U/L Total Creatine Kinase (38-174) U/L B-Natriuretic Peptide (<100) pg/mL Lipase (8-78) U/L Urine Blood (NEG) Urine RBC (0) /HPF Salicylates (15-30) mg/dL H & H 03/22/22 03/23/22 Range/Units 14:06 07:31 Hgb 10.9 L 8.4 L D (14.0-18.0) g/dl Hct 33.6 L 24.9 L D (42.0-52.0) % Coagulation 03/22/22 Range/Units 17:52 INR 1.2 H (0.9-1.1) All other labs normal. Assessment and Plan (1) Closed intertrochanteric fracture of left femur: Qualifiers: Encounter type: initial encounter Fracture alignment: nondisplaced Qualified Code(s): S72.145A - Nondisplaced intertrochanteric fracture of left femur, initial encounter for closed fracture Status: Acute Plan I discussed the case with Dr Newman and explained the extent of the injury to the patient and options available which include surgical intervention. I explained the procedure in detail along with the length of recovery and rehab course. I explained the risk, benefits and alternatives. Risk including, but not limited to infection, blood clots, bleeding, non union or malunion and nerve/tissue damage to surrounding areas. I answered all their questions and with their understanding they have consented to move forward with Operative Fixation of the eft hip . The patient will be T&S, med clearance obtained and NPO after midnight. Procedures Date of Service Date of Service: 03/23/22
[2022-03-23 09:35] VITALS: BP 128/60; PULSE 80; RESP 20; TEMP 36.8; O2SAT 94
--- NOTE | 2022-03-23 10:47 | HO.PM.IMPN ---
Subjective Subjective Date of Service: 03/23/22 Interval History: follow-up on fall, hip fracture, confusion. Interval history: He is less confused, Still with pain in the left hip with movement. Review of Systems Mild confusion Left hip pain Physical Exam Vital Signs: Vital Signs: Last Vital Signs Temp 98.2 F 03/23/22 09:35 Pulse 80 03/23/22 09:35 Resp 20 03/23/22 09:35 BP 128/60 03/23/22 09:35 Pulse Ox 94 03/23/22 09:35 BMI result Body Mass Index 16.9 Const: Other: General: AO X 3, no acute distress Resp: CTA bilateral CVS: S1,S2,RRR GI: +BS, NT, no distention Skin: No rash Neuro: motor grossly intact Psych: appropriate affect Objective Data Active Medications Acetaminophen (Acetaminophen Supp 650 Mg Supp.Rect) 650 mg ND Q6H PRN PRN Reason: Pain, Mild (Pain Scale 1-3) Dextrose/Sodium Chloride (D51/2ns) 1,000 mls @ 100 mls/hr IVCONT .Q10H [facility] Last Admin: 03/23/22 05:51 Dose: 100 mls/hr Documented by: TIRSO Morphine Sulfate (Morphine Sulfate 2 Mg/Ml Cartridge) 2 mg IVPUSH Q4H PRN; Protocol PRN Reason: Pain, Severe (Pain Scale 7-10) Last Admin: 03/23/22 03:43 Dose: 2 mg Documented by: TIRSO Non-Formulary Medication (Mometasone [Asmanex Twisthaler]) 1 puff INHALE DAILY [facility] Non-Formulary Medication (Oxycodone-Acetaminophen) 1 tab PO Q6-8H PRN PRN Reason: Pain (Scale Score 7-10) Non-Formulary Medication (Terazosin) 10 mg PO BEDTIME [facility] Non-Formulary Medication (Testosterone) 2 pump TOPICAL DAILY [facility] Ondansetron HCl (Ondansetron Hcl 4 Mg/2 Ml Vial) 4 mg IVPUSH Q8H PRN PRN Reason: Nausea and Vomiting Sodium Chloride (0.9 % Sodium Chloride Flush 3 Ml Syringe) 3 ml IVFLUSH QSHIFT [facility] Last Admin: 03/23/22 09:06 Dose: Not Given Documented by: CHELLE Non-Admin Reason: IV Running Labs CBC & Chem 7: 03/23/22 07:31 03/22/22 14:06 Labs: Laboratory Results - last 24 hr 03/22/22 03/22/22 03/22/22 14:06 14:06 14:06 Hgb 10.9 L MCV 92.3 MCH 29.9 MCHC 32.4 RDW 13.2 Plt Count 141 L MPV 10.6 Immature Gran % (Auto) 0.4 Neut % (Auto) 83.9 H Lymph % (Auto) 4.7 L [place] % (Auto) 10.9 Eos % (Auto) 0.0 Baso % (Auto) 0.1 Lymph # (Auto) 0.5 L [place] # (Auto) 1.1 Eos # (Auto) 0.0 Baso # (Auto) 0.0 Abs Immat Gran (auto) 0.04 H Absolute Neuts (auto) 8.5 H Absolute Nucleated RBC 0.000 Nucleated RBC % (auto) 0.0 Smear Tech's Comments VERIFIED PT INR APTT Anion Gap 16 Estim Creat Clear Calc 58.7 Estimated GFR > 60 Random Glucose 139 H D Lactic Acid 4.4 H* Lactic Acid F/U @ 2Hr Lactic Acid F/U @ 4Hr Calcium 9.4 Total Bilirubin 1.1 H AST 144 H ALT 45 H Alkaline Phosphatase 50 Total Creatine Kinase 7824 H D Troponin I High Sens B-Natriuretic Peptide Total Protein 6.6 Albumin 3.8 Lipase 7 L TSH Urine Color Urine Appearance Urine pH Ur Specific [place] Urine Protein Urine Glucose (UA) Urine Ketones Urine Blood Urine Nitrite Ur Leukocyte Esterase Urine RBC Urine WBC Ur Squamous Epith Cells Calcium Oxalate Crystal Urine Bacteria Urine Mucus Salicylates < 5.0 L Urine Opiates Screen Urine Fentanyl Screen Acetaminophen < 1 Ur Barbiturates Screen Ur Phencyclidine Scrn Ur Amphetamines Screen U Benzodiazepines Scrn Urine Cocaine Screen U Marijuana (THC) Screen Ethyl Alcohol COVID-19 ([facility]) COVID-19 Clin Com Influenza Type A ([facility]) Influenza Type B ([facility]) Influenza A & B Note Blood Type Antibody Screen 03/22/22 03/22/22 03/22/22 14:06 14:06 14:06 Hgb MCV MCH MCHC RDW Plt Count MPV Immature Gran % (Auto) Neut % (Auto) Lymph % (Auto) [place] % (Auto) Eos % (Auto) Baso % (Auto) Lymph # (Auto) [place] # (Auto) Eos # (Auto) Baso # (Auto) Abs Immat Gran (auto) Absolute Neuts (auto) Absolute Nucleated RBC Nucleated RBC % (auto) Smear Tech's Comments PT INR APTT Anion Gap Estim Creat Clear Calc Estimated GFR Random Glucose Lactic Acid Lactic Acid F/U @ 2Hr Lactic Acid F/U @ 4Hr Calcium Total Bilirubin AST ALT Alkaline Phosphatase Total Creatine Kinase Troponin I High Sens B-Natriuretic Peptide 204 H Total Protein Albumin Lipase TSH Urine Color Urine Appearance Urine pH Ur Specific [place] Urine Protein Urine Glucose (UA) Urine Ketones Urine Blood Urine Nitrite Ur Leukocyte Esterase Urine RBC Urine WBC Ur Squamous Epith Cells Calcium Oxalate Crystal Urine Bacteria Urine Mucus Salicylates Urine Opiates Screen Urine Fentanyl Screen Acetaminophen Ur Barbiturates Screen Ur Phencyclidine Scrn Ur Amphetamines Screen U Benzodiazepines Scrn Urine Cocaine Screen U Marijuana (THC) Screen Ethyl Alcohol COVID-19 ([facility]) Negative COVID-19 Clin Com See Note Influenza Type A ([facility]) Negative Influenza Type B ([facility]) Negative Influenza A & B Note See Note Blood Type Antibody Screen 03/22/22 03/22/22 03/22/22 14:06 14:06 14:06 Hgb MCV MCH MCHC RDW Plt Count MPV Immature Gran % (Auto) Neut % (Auto) Lymph % (Auto) [place] % (Auto) Eos % (Auto) Baso % (Auto) Lymph # (Auto) [place] # (Auto) Eos # (Auto) Baso # (Auto) Abs Immat Gran (auto) Absolute Neuts (auto) Absolute Nucleated RBC Nucleated RBC % (auto) Smear Tech's Comments PT INR APTT Anion Gap Estim Creat Clear Calc Estimated GFR Random Glucose Lactic Acid Lactic Acid F/U @ 2Hr Lactic Acid F/U @ 4Hr Calcium Total Bilirubin AST ALT Alkaline Phosphatase Total Creatine Kinase Troponin I High Sens 15.2 B-Natriuretic Peptide Total Protein Albumin Lipase TSH 0.38 Urine Color Urine Appearance Urine pH Ur Specific [place] Urine Protein Urine Glucose (UA) Urine Ketones Urine Blood Urine Nitrite Ur Leukocyte Esterase Urine RBC Urine WBC Ur Squamous Epith Cells Calcium Oxalate Crystal Urine Bacteria Urine Mucus Salicylates Urine Opiates Screen Urine Fentanyl Screen Acetaminophen Ur Barbiturates Screen Ur Phencyclidine Scrn Ur Amphetamines Screen U Benzodiazepines Scrn Urine Cocaine Screen U Marijuana (THC) Screen Ethyl Alcohol < 10 COVID-19 ([facility]) COVID-19 Clin Com Influenza Type A ([facility]) Influenza Type B ([facility]) Influenza A & B Note Blood Type Antibody Screen 03/22/22 03/22/22 03/22/22 16:47 17:52 17:52 Hgb MCV MCH MCHC RDW Plt Count MPV Immature Gran % (Auto) Neut % (Auto) Lymph % (Auto) [place] % (Auto) Eos % (Auto) Baso % (Auto) Lymph # (Auto) [place] # (Auto) Eos # (Auto) Baso # (Auto) Abs Immat Gran (auto) Absolute Neuts (auto) Absolute Nucleated RBC Nucleated RBC % (auto) Smear Tech's Comments PT 14.1 H INR 1.2 H APTT 25.1 Anion Gap Estim Creat Clear Calc Estimated GFR Random Glucose Lactic Acid Lactic Acid F/U @ 2Hr 2.9 H* Lactic Acid F/U @ 4Hr Calcium Total Bilirubin AST ALT Alkaline Phosphatase Total Creatine Kinase Troponin I High Sens 17.9 B-Natriuretic Peptide Total Protein Albumin Lipase TSH Urine Color Urine Appearance Urine pH Ur Specific [place] Urine Protein Urine Glucose (UA) Urine Ketones Urine Blood Urine Nitrite Ur Leukocyte Esterase Urine RBC Urine WBC Ur Squamous Epith Cells Calcium Oxalate Crystal Urine Bacteria Urine Mucus Salicylates Urine Opiates Screen Urine Fentanyl Screen Acetaminophen Ur Barbiturates Screen Ur Phencyclidine Scrn Ur Amphetamines Screen U Benzodiazepines Scrn Urine Cocaine Screen U Marijuana (THC) Screen Ethyl Alcohol COVID-19 ([facility]) COVID-19 Clin Com Influenza Type A ([facility]) Influenza Type B ([facility]) Influenza A & B Note Blood Type Antibody Screen 03/22/22 03/22/22 03/22/22 17:52 19:38 19:38 Hgb MCV MCH MCHC RDW Plt Count MPV Immature Gran % (Auto) Neut % (Auto) Lymph % (Auto) [place] % (Auto) Eos % (Auto) Baso % (Auto) Lymph # (Auto) [place] # (Auto) Eos # (Auto) Baso # (Auto) Abs Immat Gran (auto) Absolute Neuts (auto) Absolute Nucleated RBC Nucleated RBC % (auto) Smear Tech's Comments PT INR APTT Anion Gap Estim Creat Clear Calc Estimated GFR Random Glucose Lactic Acid Lactic Acid F/U @ 2Hr Lactic Acid F/U @ 4Hr 3.2 H* Calcium Total Bilirubin AST ALT Alkaline Phosphatase Total Creatine Kinase 8590 H Troponin I High Sens B-Natriuretic Peptide Total Protein Albumin Lipase TSH Urine Color Urine Appearance Urine pH Ur Specific [place] Urine Protein Urine Glucose (UA) Urine Ketones Urine Blood Urine Nitrite Ur Leukocyte Esterase Urine RBC Urine WBC Ur Squamous Epith Cells Calcium Oxalate Crystal Urine Bacteria Urine Mucus Salicylates Urine Opiates Screen Urine Fentanyl Screen Acetaminophen Ur Barbiturates Screen Ur Phencyclidine Scrn Ur Amphetamines Screen U Benzodiazepines Scrn Urine Cocaine Screen U Marijuana (THC) Screen Ethyl Alcohol COVID-19 ([facility]) COVID-19 Clin Com Influenza Type A ([facility]) Influenza Type B ([facility]) Influenza A & B Note Blood Type A Positive Antibody Screen NEGATIVE 03/22/22 03/22/22 03/23/22 20:36 20:36 07:31 Hgb 8.4 L D MCV 91.9 MCH 31.0 MCHC 33.7 RDW 13.2 Plt Count 166 MPV 10.0 Immature Gran % (Auto) Neut % (Auto) Lymph % (Auto) [place] % (Auto) Eos % (Auto) Baso % (Auto) Lymph # (Auto) [place] # (Auto) Eos # (Auto) Baso # (Auto) Abs Immat Gran (auto) Absolute Neuts (auto) Absolute Nucleated RBC 0.000 Nucleated RBC % (auto) 0.0 Smear Tech's Comments PT INR APTT Anion Gap Estim Creat Clear Calc Estimated GFR Random Glucose Lactic Acid Lactic Acid F/U @ 2Hr Lactic Acid F/U @ 4Hr Calcium Total Bilirubin AST ALT Alkaline Phosphatase Total Creatine Kinase Troponin I High Sens B-Natriuretic Peptide Total Protein Albumin Lipase TSH Urine Color YELLOW Urine Appearance CLOUDY Urine pH 6.0 Ur Specific [place] 1.025 Urine Protein TRACE Urine Glucose (UA) NEG Urine Ketones NEG Urine Blood 3+ H Urine Nitrite NEG Ur Leukocyte Esterase NEG Urine RBC 10-14 H Urine WBC 1-4 Ur Squamous Epith Cells TRACE Calcium Oxalate Crystal 4+ Urine Bacteria NONE Urine Mucus 3+ Salicylates Urine Opiates Screen Not Detected Urine Fentanyl Screen Not Detected Acetaminophen Ur Barbiturates Screen Not Detected Ur Phencyclidine Scrn Not Detected Ur Amphetamines Screen Not Detected U Benzodiazepines Scrn Not Detected Urine Cocaine Screen Not Detected U Marijuana (THC) Screen Not Detected Ethyl Alcohol COVID-19 ([facility]) COVID-19 Clin Com Influenza Type A ([facility]) Influenza Type B ([facility]) Influenza A & B Note Blood Type Antibody Screen Assessment and Plan (1) Fall at home: Status: Acute (2) Acute confusion: Status: Acute (3) Rhabdomyolysis: Status: Acute (4) Closed intertrochanteric fracture of left femur: Status: Acute Plan 77/ 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 1/ Left Hip fracture likely from mechanical--Will need surgical correction, Ortho aware ?? at moderate risk on basis of advnced age, confusion, no known CAD, ECG show no acute changes. No indication for further testing at this time before surgery 2/Confusion--likely from Toxic metabolic Encephalopathy from oxycodone and or/tramadol used inapropriately, according to son-in-law he has history of intermittent confusion like this, and this particular episode maybe because of fall. No o UTI.. 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 Will not institute sepsis protocol at this time, expect improvment with IVF, and it is actually lready improved and no need to repeat 5/ Testosterone,, deficiency--continue replacment therapy 6/ COPD--no exacerbation, continue Asmanex 7/ Anemia-H/H is slightly down since yesterday, will continue monitoring, no transfusion at this time Although he might need days after surgery. Full code Need for inpatient: Need surgery for hip repair, postoperative cane and ultimately will need to be arrange for rehab. Quality Quality Stroke Does the patient have a stroke diagnosis?: No VTE Prior VTE?: No VTE Risk Level:: Medical - moderate - high VTE Device Contraindication: N/A - Device Ordered VTE Drug Contraindication: Treatment Not Indicated
[2022-03-23 12:02] VITALS: BP 130/66; PULSE 89; RESP 16; TEMP 36.8; O2SAT 95
--- NOTE | 2022-03-23 13:56 | PC.NURSE ---
Bedrest F/C patent. Left leg internally rotated. Pain only with movement. alert, vague re year, otherwise oriented.
[2022-03-23] MEDS: ondansetron HCL 4 MG/2 ML VIAL IVPUSH (15:38)
[2022-03-23] MEDS: oxyCODONE HCl Immed Release 5 MG TABLET PO (15:38)
[2022-03-23 18:29] VITALS: BP 118/63; PULSE 85; RESP 18; TEMP 36.3
[2022-03-23] MEDS: Doxazosin Mesylate 2 MG TABLET 8 MG PO (19:44)
[2022-03-24] VITALS (20 sets, daily range): BP systolic 105–147; BP diastolic 45–67; PULSE 69–102; RESP 14–20; TEMP 36.2–37.4; O2SAT 94–99; BMI 16.8
[2022-03-24] MEDS: Dextrose 5 % and 0.45 % NaCl 1,000 ML 100 ML IVCONT ×2 (00:36→10:20)
[2022-03-24] MEDS: oxyCODONE HCl Immed Release 5 MG TABLET PO ×2 (00:41→20:52)
[2022-03-24 06:54] LABS: Hematocrit 22.9 % (42.0-52.0); Hemoglobin 7.5 g/dl (14.0-18.0); Mean Corpuscular HGB Conc 32.8 g/dl (31.0-36.0); Mean Corpuscular Hemoglobin 30.4 pg (27.0-33.0); Mean Corpuscular Volume 92.7 fL (80.0-98.0); Mean Platelet Volume 10.3 fL (9.4-12.4); Platelet Count 143 X10*3/uL (160-400); Red Blood Count 2.47 X10*6/uL (4.60-5.80); Red Cell Distribution Width 13.5 % (11.0-16.0)
--- NOTE | 2022-03-24 07:15 | PC.NURSE ---
Patient resting comfortably, IVF infusing as ordered. Will continue to monitor.
[2022-03-24 07:23] LABS: Anion Gap 9 (12-20); Blood Urea Nitrogen 15 mg/dL (9-16); Carbon Dioxide 26 mmol/L (22-29); Chloride 104 mmol/L (96-108); Creatinine Clr Calc Pharmacy 62.6; Estimated Glomerular Filt Rate > 60; Glucose Random 119 mg/dL (60-115); Sodium 135 mmol/L (135-145)
[2022-03-24] MEDS: 0.9 % Sodium Chloride Flush 3 ML SYRINGE IVFLUSH ×2 (09:09→19:44)
--- NOTE | 2022-03-24 11:04 | MHC.CLN ---
RE: CONSULT PT IS UNDER WT FOR HT. PT WITH INCREASED NUTRITION NEEDS R/T COPD WITH ADVANCED AGE PT REPORTS WT LOSS X 6 MONTHS AGO, HOWEVER PREVIOUS WT HX REVEALS WT STABLE 57.6KG (09/20/21), NO SIGNIFICANT WT LOSS AT THIS TIME. PT TYPICALLY ON LOWER END OF IBW RANGE FOR HT. BMI ADJUSTED FOR AMPUTATION 17.9. PT REPORTS [employer]. PT MAY BE MILDLY MALNOURISHED BUT DOES NOT MEET CRITERIA FOR MODERATE/SEVERE MALNUTRITION BY DEFINITION. PT IS CURRENTLY NPO PENDING PROCEDURE PT RECEPTIVE TO DRINKING ENSURE WHEN DIET ADVANCES TO INCREASE KCALS AND PROMOTE WT GAIN PT PREFERS ALL 3 FLAVORS OFFERED RECOMMEND ADDING ENSURE TID WHEN DIET ADVANCES FROM NPO MONITOR PO INTAKE CLOSELY SEE ALSO FULL CLINICAL NUTRITION ASSESSMENT
--- NOTE | 2022-03-24 11:29 | P.PNIM_ITS ---
Subjective Subjective Date of Service: 03/24/22 Interval History: follow-up on fall, hip fracture, confusion. Interval history: He is less confused, Still with pain in the left hip with movement. H/H is lower Review of Systems Mild confusion Left hip pain Physical Exam Vital Signs: Vital Signs: Last Vital Signs Temp 99.2 F 03/24/22 10:33 Pulse 97 03/24/22 10:33 Resp 20 03/24/22 10:33 BP 133/67 03/24/22 10:33 Pulse Ox 95 03/24/22 10:33 BMI result Body Mass Index 16.8 Const: Other: General: AO X 3, no acute distress Resp: CTA bilateral CVS: S1,S2,RRR GI: +BS, NT, no distention Skin: No rash Neuro: motor grossly intact Psych: appropriate affect Objective Data Active Medications Acetaminophen (Acetaminophen Supp 650 Mg Supp.Rect) 650 mg [place] Q6H PRN PRN Reason: Pain, Mild (Pain Scale 1-3) Doxazosin Mesylate (Doxazosin Mesylate 2 Mg Tablet) 8 mg PO BEDTIME [facility] Last Admin: 03/23/22 19:44 Dose: 8 mg Documented by: CRISTAL Dextrose/Sodium Chloride (D51/2ns) 1,000 mls @ 100 mls/hr IVCONT .Q10H [facility] Last Admin: 03/24/22 10:20 Dose: 100 mls/hr Documented by: SHONA Morphine Sulfate (Morphine Sulfate 2 Mg/Ml Cartridge) 2 mg IVPUSH Q4H PRN; Protocol PRN Reason: Pain, Severe (Pain Scale 7-10) Last Admin: 03/23/22 03:43 Dose: 2 mg Documented by: TIRSO Non-Formulary Medication (Mometasone [Asmanex Twisthaler]) 1 puff INHALE DAILY [facility] Non-Formulary Medication (Testosterone) 2 pump TOPICAL DAILY [facility] Ondansetron HCl (Ondansetron Hcl 4 Mg/2 Ml Vial) 4 mg IVPUSH Q8H PRN PRN Reason: Nausea and Vomiting Last Admin: 03/23/22 15:38 Dose: 4 mg Documented by: CRISTAL Oxycodone HCl (Oxycodone Hcl Immed Release 5 Mg Tablet) 5 mg PO Q6H PRN PRN Reason: Pain (Scale Score 7-10) Last Admin: 03/24/22 00:41 Dose: 5 mg Documented by: TIRSO Sodium Chloride (0.9 % Sodium Chloride Flush 3 Ml Syringe) 3 ml IVFLUSH QSHIFT [facility] Last Admin: 03/24/22 09:09 Dose: 3 ml Documented by: PRATIMA Labs CBC & Chem 7: 03/24/22 05:49 03/24/22 05:49 Labs: Laboratory Results - last 24 hr 03/23/22 03/24/22 03/24/22 11:06 05:49 05:49 MCV 92.7 MCH 30.4 MCHC 32.8 RDW 13.5 Plt Count 143 L MPV 10.3 Absolute Nucleated RBC 0.000 Nucleated RBC % (auto) 0.0 Anion Gap 9 L Estim Creat Clear Calc 62.6 Estimated GFR > 60 Random Glucose 119 H Calcium 8.0 L D Total Creatine Kinase 6840 H Microbiology Microbiology Results: Microbiology 03/22/22 16:17 Blood Culture - Preliminary Blood - Venous No growth after 24 hours. 03/22/22 14:06 Blood Culture - Preliminary Blood - Venous No growth after 24 hours. 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 1/ Left Hip fracture likely from mechanical--Will need surgical correction, Ortho aware ?? at moderate risk on basis of advnced age, confusion, no known CAD, ECG show no acute changes. No indication for further testing at this time before surgery 2/Confusion--likely from Toxic metabolic Encephalopathy from oxycodone and or/tramadol used inapropriately, according to son-in-law he has history of intermittent confusion like this, and this particular episode maybe because of fall. No o UTI.. 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 Will not institute sepsis protocol at this time, expect improvment with IVF, and it is actually lready improved and no need to repeat 5/ Testosterone,, deficiency--continue replacment therapy 6/ COPD--no exacerbation, continue Asmanex 7/ Anemia-H/H is slightly down since yesterday, will continue monitoring, no transfusion at this time Although he might need days after surgery. Recheck after surgery Full code Need for inpatient: Need surgery for hip repair, postoperative cane and ultimately will need to be arrange for rehab. Quality Quality Stroke Does the patient have a stroke diagnosis?: No VTE Prior VTE?: No VTE Risk Level:: Medical - moderate - high VTE Device Contraindication: N/A - Device Ordered VTE Drug Contraindication: Treatment Not Indicated
--- NOTE | 2022-03-24 12:17 | PC.NURSE ---
MD BRASWELL AWRE OF PATIENT LOW H AND H AND THE INCREASED LACTIC ACID. MD BRASWELL ORDERED A UNIT OF BLOOD THAT WILL BE STARTED IN PREOP PER MD BRASWELL PRIOR TO PROCEDURE.
--- NOTE | 2022-03-24 14:23 | MHC.CM.PN ---
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 HE REPORTS THE PT USES A PROSTHETIC LE AND CRUTCHES HE DOES NOT THINK THE PT HAS A HCP, HE IS AWARE THIS WILL BE DISCUSSED WITH THE PT ONCE HE IS RECOVERED FROM SURGERY PCP: RUMA RAYMOND HE REPORTS PT IS VACCINATED WITH PFIZER X 2 BUT HAS NOT YET RECEIVED A BOOSTER IMM DELIVERED, COPY EMAILED TO GRANT AT [email or web address] GRANT IS ALSO AWARE STR WILL LIKELY BE RECOMMENDED [facility] STR LIST EMAILED TO HIM WELL DC PLAN TBD PENDING PT KATHY DEL [facility] STR GRANT WILL CALL/EMAIL PREFERRED FACILITIES
--- NOTE | 2022-03-24 15:04 | PC.NURSE ---
floor rn mina rasheed aware of patients delay in surgery and the transfusion of blood. moved patient from preop to pacu awaiting surgery remains. report given to berry valle.
--- NOTE | 2022-03-24 17:43 | P.BOP_ITS ---
Brief Operative Note Date of Service: 03/24/22 Pre-op diagnosis: Left intertroch femur fracture Post-op diagnosis: same Procedure: IMN left hip fracture Implants: 400x11 125 deg with 110 mm hip screw and 50 mm distal interlock Surgeon: Roland Newman MD Anesthesia: GETA Was an Felt Tipping Machine Tender used for this Procedure?: No Estimated blood loss (mL): 200 IV fluids (mL): 1,000 Urine output (mL): 150 Pathology: none sent Condition: stable Disposition: PACU
[2022-03-24] MEDS: Doxazosin Mesylate 2 MG TABLET 8 MG PO (20:53)
[2022-03-25 04:00] VITALS: BP 151/66; PULSE 92; RESP 20; TEMP 36.6; O2SAT 94
[2022-03-25] MEDS: oxyCODONE HCl Immed Release 5 MG TABLET PO (04:13)
[2022-03-25 07:09] LABS: Hematocrit 32.9 % (42.0-52.0); Hemoglobin 10.8 g/dl (14.0-18.0); Mean Corpuscular HGB Conc 32.8 g/dl (31.0-36.0); Mean Corpuscular Hemoglobin 29.5 pg (27.0-33.0); Mean Corpuscular Volume 89.9 fL (80.0-98.0); Mean Platelet Volume 10.1 fL (9.4-12.4); Platelet Count 130 X10*3/uL (160-400); Red Blood Count 3.66 X10*6/uL (4.60-5.80); Red Cell Distribution Width 15.5 % (11.0-16.0); White Blood Count 5.2 X10*3/uL (4.8-10.8)
[2022-03-25 07:37] LABS: Anion Gap 12 (12-20); Blood Urea Nitrogen 13 mg/dL (9-16); Calcium 7.9 mg/dL (8.4-10.2); Carbon Dioxide 24 mmol/L (22-29); Chloride 105 mmol/L (96-108); Creatinine Clr Calc Pharmacy 75.8; Estimated Glomerular Filt Rate > 60; Glucose Random 103 mg/dL (60-115); Potassium 3.9 mmol/L (3.3-5.1); Sodium 137 mmol/L (135-145)
[2022-03-25 08:00] VITALS: BP 139/63; PULSE 95; RESP 18; TEMP 37.8; O2SAT 91
[2022-03-25] MEDS: 0.9 % Sodium Chloride Flush 3 ML SYRINGE IVFLUSH ×2 (09:36→17:24)
--- NOTE | 2022-03-25 09:57 | P.PNIM_ITS ---
Subjective Subjective Date of Service: 03/25/22 Interval History: follow-up on fall, hip fracture, confusion. Interval history: some pain in the left hip Review of Systems Mild confusion Left hip pain Physical Exam Vital Signs: Vital Signs: Last Vital Signs Temp 100.0 F 03/25/22 08:00 Pulse 95 03/25/22 08:00 Resp 18 03/25/22 08:00 BP 139/63 03/25/22 08:00 Pulse Ox 91 L 03/25/22 08:00 BMI result Body Mass Index 16.8 Const: Other: General: AO X , no acute distress Resp: CTA bilateral CVS: S1,S2,RRR GI: +BS, NT, no distention Skin: No rash, surgery site d/c/i Neuro: motor grossly intact Psych: appropriate affect Objective Data Active Medications Acetaminophen (Acetaminophen Supp 650 Mg Supp.Rect) 650 mg [place] Q6H PRN PRN Reason: Pain, Mild (Pain Scale 1-3) Doxazosin Mesylate (Doxazosin Mesylate 2 Mg Tablet) 8 mg PO BEDTIME [facility] Last Admin: 03/24/22 20:53 Dose: 8 mg Documented by: RON Morphine Sulfate (Morphine Sulfate 2 Mg/Ml Cartridge) 2 mg IVPUSH Q4H PRN; Protocol PRN Reason: Pain, Severe (Pain Scale 7-10) Last Admin: 03/23/22 03:43 Dose: 2 mg Documented by: TIRSO Non-Formulary Medication (Mometasone [Asmanex Twisthaler]) 1 puff INHALE DAILY [facility] Non-Formulary Medication (Testosterone) 2 pump TOPICAL DAILY [facility] Ondansetron HCl (Ondansetron Hcl 4 Mg/2 Ml Vial) 4 mg IVPUSH Q8H PRN PRN Reason: Nausea and Vomiting Last Admin: 03/23/22 15:38 Dose: 4 mg Documented by: CRISTAL Oxycodone HCl (Oxycodone Hcl Immed Release 5 Mg Tablet) 5 mg PO Q6H PRN PRN Reason: Pain (Scale Score 7-10) Last Admin: 03/25/22 04:13 Dose: 5 mg Documented by: RON Sodium Chloride (0.9 % Sodium Chloride Flush 3 Ml Syringe) [facility] Last Admin: 03/24/22 19:44 Dose: 3 ml Documented by: RON Labs CBC & Chem 7: 03/25/22 06:26 03/25/22 06:26 Labs: Laboratory Results - last 24 hr 03/22/22 03/25/22 03/25/22 17:52 06:26 06:26 MCV 89.9 MCH 29.5 MCHC 32.8 RDW 15.5 Plt Count 130 L MPV 10.1 Absolute Nucleated RBC 0.000 Nucleated RBC % (auto) 0.0 Anion Gap 12 Estim Creat Clear Calc 75.8 Estimated GFR > 60 Random Glucose 103 Calcium 7.9 L Blood Type A Positive Antibody Screen NEGATIVE Crossmatch See Detail Microbiology Microbiology Results: Microbiology 03/22/22 16:17 Blood Culture - Preliminary Blood - Venous No growth after 48 hours. 03/22/22 14:06 Blood Culture - Preliminary Blood - Venous No growth after 48 hours. 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 1/ Left Hip fracture likely from mechanical--s/p surgical repair 03/24 pain control, PT eval 2/Confusion--likely from Toxic metabolic Encephalopathy from oxycodone and or/tramadol used inapropriately, according to son-in-law he has history of intermittent confusion like this, and this particular episode maybe because of fall. No o UTI.. He is more lucid this morning, which confirms diagnosis 3/ Rhabdomylosis--IVF and monitor CPK 4/Lactic acidosis-- likely from fall, tended down 5/ Testosterone, deficiency--continue replacment therapy 6/ COPD--no exacerbation, continue Asmanex 7/ Acute blood loss anemia, from fracture, s/p 3 units of RBC, H/H improved Full code Need for inpatient: s/p surgery for hip repair, postoperative care and ultimately will need to be arrange for rehab. Quality Quality Stroke Does the patient have a stroke diagnosis?: No VTE Prior VTE?: No VTE Risk Level:: Medical - moderate - high VTE Device Contraindication: N/A - Device Ordered VTE Drug Contraindication: Treatment Not Indicated
[2022-03-25 11:46] VITALS: BP 110/54; PULSE 82; RESP 19; TEMP 37.6; O2SAT 93
[2022-03-25] MEDS: Morphine Sulfate 2 MG/ML CARTRIDGE IVPUSH ×2 (12:56→22:42)
[2022-03-25 15:21] VITALS: BP 149/79; PULSE 94; RESP 18; TEMP 36.6; O2SAT 93
[2022-03-25 18:56] VITALS: BP 145/66; PULSE 83; RESP 20; TEMP 36.7; O2SAT 94
[2022-03-25] MEDS: Doxazosin Mesylate 2 MG TABLET 8 MG PO (22:41)
[2022-03-25] MEDS: Enoxaparin Sodium 40 MG/0.4 ML SYRINGE SUBCUT (22:42)
[2022-03-25 23:23] VITALS: BP 133/71; PULSE 93; RESP 18; TEMP 36.8; O2SAT 96
[2022-03-26] MEDS: oxyCODONE HCl Immed Release 5 MG TABLET PO ×3 (00:20→19:56)
[2022-03-26] MEDS: 0.9 % Sodium Chloride Flush 3 ML SYRINGE IVFLUSH ×2 (00:22→12:47)
[2022-03-26 04:00] VITALS: BP 146/72; PULSE 92; RESP 17; TEMP 37.1; O2SAT 94
[2022-03-26 06:13] LABS: Hematocrit 31.1 % (42.0-52.0); Hemoglobin 10.2 g/dl (14.0-18.0); Mean Corpuscular HGB Conc 32.8 g/dl (31.0-36.0); Mean Corpuscular Hemoglobin 29.7 pg (27.0-33.0); Mean Corpuscular Volume 90.7 fL (80.0-98.0); Mean Platelet Volume 10.3 fL (9.4-12.4); Platelet Count 133 X10*3/uL (160-400); Red Blood Count 3.43 X10*6/uL (4.60-5.80); Red Cell Distribution Width 14.7 % (11.0-16.0); White Blood Count 5.3 X10*3/uL (4.8-10.8)
[2022-03-26 06:37] LABS: Anion Gap 7 (12-20); Blood Urea Nitrogen 16 mg/dL (9-16); Calcium 8.1 mg/dL (8.4-10.2); Carbon Dioxide 30 mmol/L (22-29); Chloride 102 mmol/L (96-108); Creatinine Clr Calc Pharmacy 72.3; Estimated Glomerular Filt Rate > 60; Glucose Random 115 mg/dL (60-115); Sodium 135 mmol/L (135-145)
[2022-03-26 07:58] VITALS: BP 136/62; PULSE 86; RESP 19; TEMP 37.3; O2SAT 92
--- NOTE | 2022-03-26 09:14 | PM.PNORT ---
Subjective Subjective Date of Service: 03/26/22 Interval history: POD2 s/p left hip IM Nail with Dr. Newman. Patient allowed to sleep. Pain appears to be well managed. No overnight events. Physical Exam Vital Signs: Vital Signs: Last Vital Signs Temp 99.2 F 03/26/22 07:58 Pulse 86 03/26/22 07:58 Resp 19 03/26/22 07:58 BP 136/62 03/26/22 07:58 Pulse Ox 92 03/26/22 07:58 BMI result Body Mass Index 16.8 Extrem: Other: Left hip dressings clean, dry, and intact. NVI. Procedures Date of Service Date of Service: 03/26/22 Progress Note: A&P Assessment and plan (1) Closed intertrochanteric fracture of left femur: Status: Acute Plan Continue pain mgmnt Continue Lovenox for dvt ppx Continue PT for lt hip IM Nail - WBAT Dispo planning-Pain mgmnt, Patient is able to d/c to rehab from ortho perspective once medically cleared. Time Spent With Patient Time: Total time spent is greater than 50% in coordination of care (as documented) at patient's floor/unit and/or counseling patient: Quality Stroke Does the patient have a stroke diagnosis?: No VTE Prior VTE?: No VTE Risk Level:: Medical - moderate - high VTE Device Contraindication: N/A - Device Ordered VTE Drug Contraindication: Treatment Not Indicated
--- NOTE | 2022-03-26 09:53 | HO.PM.IMPN ---
Subjective Subjective Date of Service: 03/26/22 Interval History: follow-up on fall, hip fracture, confusion. Interval history: some pain in the left hip, H/H is stable. Review of Systems Mild confusion Left hip pain Physical Exam Vital Signs: Vital Signs: Last Vital Signs Temp 99.2 F 03/26/22 07:58 Pulse 86 03/26/22 07:58 Resp 19 03/26/22 07:58 BP 136/62 03/26/22 07:58 Pulse Ox 92 03/26/22 07:58 BMI result Body Mass Index 16.8 Const: Other: General: AO X , no acute distress Resp: CTA bilateral CVS: S1,S2,RRR GI: +BS, NT, no distention Skin: No rash, surgery site d/c/i Neuro: motor grossly intact Psych: appropriate affect Objective Data Active Medications Acetaminophen (Acetaminophen Supp 650 Mg Supp.Rect) 650 mg [place] Q6H PRN PRN Reason: Pain, Mild (Pain Scale 1-3) Doxazosin Mesylate (Doxazosin Mesylate 2 Mg Tablet) 8 mg PO BEDTIME [facility] Last Admin: 03/25/22 22:41 Dose: 8 mg Documented by: CINDY Enoxaparin Sodium (Enoxaparin Sodium 40 Mg/0.4 Ml Syringe) 40 mg SUBCUT Q24H [facility] Last Admin: 03/25/22 22:42 Dose: 40 mg Documented by: CINDY Morphine Sulfate (Morphine Sulfate 2 Mg/Ml Cartridge) 2 mg IVPUSH Q4H PRN; Protocol PRN Reason: Pain, Severe (Pain Scale 7-10) Last Admin: 03/25/22 22:42 Dose: 2 mg Documented by: CINDY Non-Formulary Medication (Mometasone [Asmanex Twisthaler]) 1 puff INHALE DAILY [facility] Non-Formulary Medication (Testosterone) 2 pump TOPICAL DAILY [facility] Ondansetron HCl (Ondansetron Hcl 4 Mg/2 Ml Vial) 4 mg IVPUSH Q8H PRN PRN Reason: Nausea and Vomiting Last Admin: 03/23/22 15:38 Dose: 4 mg Documented by: CRISTAL Oxycodone HCl (Oxycodone Hcl Immed Release 5 Mg Tablet) 5 mg PO Q6H PRN PRN Reason: Pain (Scale Score 7-10) Last Admin: 03/26/22 00:20 Dose: 5 mg Documented by: VICENTE Sodium Chloride (0.9 % Sodium Chloride Flush 3 Ml Syringe) 3 ml IVFLUSH QSHIFT [facility] Last Admin: 03/26/22 00:22 Dose: 3 ml Documented by: VICENTE Labs CBC & Chem 7: 03/26/22 05:38 03/26/22 05:38 Labs: Laboratory Results - last 24 hr 03/22/22 03/26/22 03/26/22 17:52 05:38 05:38 MCV 90.7 MCH 29.7 MCHC 32.8 RDW 14.7 Plt Count 133 L MPV 10.3 Absolute Nucleated RBC 0.000 Nucleated RBC % (auto) 0.0 Anion Gap 7 L Estim Creat Clear Calc 72.3 Estimated GFR > 60 Random Glucose 115 Calcium 8.1 L Blood Type A Positive Antibody Screen NEGATIVE Crossmatch See Detail Assessment and Plan (1) Fall at home: Status: Acute (2) Acute confusion: Status: Acute (3) Rhabdomyolysis: Status: Acute (4) Closed intertrochanteric fracture of left femur: Status: Acute Plan 77/ 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 1/ Left Hip fracture likely from mechanical--s/p surgical repair 03/24 pain control, PT eval. Lovenox for DVT prophylaxis. 2/Confusion--likely from Toxic metabolic Encephalopathy from oxycodone and or/tramadol used inapropriately, according to son-in-law he has history of intermittent confusion like this, and this particular episode maybe because of fall. No o UTI.. He is more lucid this morning, which confirms diagnosis 3/ Rhabdomylosis--IVF and monitor CPK, 4/Lactic acidosis-- likely from fall, tended down 5/ Testosterone, deficiency--continue replacment therapy 6/ COPD--no exacerbation, continue Asmanex 7/ Acute blood loss anemia, from fracture, s/p 3 units of RBC, H/H improved and stable Full code Need for inpatient: s/p surgery for hip repair, postoperative care and ultimately will need to be arrange for rehab which is not yet available assess for hubbard removal Quality Quality Stroke Does the patient have a stroke diagnosis?: No VTE Prior VTE?: No VTE Risk Level:: Medical - moderate - high VTE Device Contraindication: N/A - Device Ordered VTE Drug Contraindication: Treatment Not Indicated
[2022-03-26 11:14] VITALS: BP 156/69; PULSE 92; RESP 19; TEMP 37.2; O2SAT 93
[2022-03-26] MEDS: Morphine Sulfate 2 MG/ML CARTRIDGE IVPUSH ×2 (13:51→22:39)
--- NOTE | 2022-03-26 14:59 | MHC.CM.PN ---
Met with patient and son-in-law in room per request of son-in-law. Patient inquiring RE HCP completion. Reviewed w/patient HCP document. Patient requested to complete HCP; document completed w/patient and another CM following thorough and detailed explanation of document. Original and copies given to both patient and son-in-law in confidential envelopes. Copy of completed HCP labeled w/patient label and furnished in paper chart.
[2022-03-26 16:00] VITALS: BP 124/59; PULSE 87; RESP 19; TEMP 37.5; O2SAT 90
[2022-03-26 18:58] VITALS: BP 129/47; PULSE 74; RESP 19; TEMP 37.5; O2SAT 95
[2022-03-26] MEDS: Doxazosin Mesylate 2 MG TABLET 8 MG PO (19:51)
--- NOTE | 2022-03-26 20:09 | PC.NURSE ---
Addendum entered by Dylon Valerio RN 03/27/22 02:01: surgical site was reinforced (approximately 2300) per donor technician surgeon Original Note: initial contact: pt has bled through left surgical site dressing, and onto the jose l pad. decent amount of output, hospitalist and surgeon have been contacted.
[2022-03-27] VITALS (8 sets, daily range): BP systolic 136–150; BP diastolic 64–71; PULSE 67–101; RESP 12–20; TEMP 36.7–37.6; O2SAT 92–98
[2022-03-27] MEDS: Morphine Sulfate 2 MG/ML CARTRIDGE IVPUSH ×2 (03:44→09:25)
[2022-03-27] MEDS: oxyCODONE HCl Immed Release 5 MG TABLET PO ×4 (03:44→23:30)
[2022-03-27 08:22] LABS: MANUAL DIFF FLAG NO
[2022-03-27 08:31] LABS: Basophils Percent Auto 0.5 % (0-2); Eosinophils Absolute Auto 0.2 X10*3/uL (0.0-0.4); Eosinophils Percent Auto 2.7 % (0-4); Hemoglobin 10.8 g/dl (14.0-18.0); Imm Gran Abs Auto 0.03 X10*3/uL (0.00-0.03); Imm Gran Pct Auto 0.5 % (0.0-0.4); Lymphocytes Absolute Auto 0.8 X10*3/uL (1.2-4.9); Lymphocytes Percent Auto 12.9 % (20-40); Mean Corpuscular HGB Conc 32.7 g/dl (31.0-36.0); Mean Corpuscular Hemoglobin 29.7 pg (27.0-33.0); Mean Corpuscular Volume 90.7 fL (80.0-98.0); Mean Platelet Volume 9.6 fL (9.4-12.4); Monocytes Absolute Auto 0.9 X10*3/uL (0.1-1.2); Monocytes Percent Auto 14.6 % (2-11); Neutrophils Absolute Auto 4.2 x10*3/uL (2.0-8.3); Neutrophils Percent Auto 68.8 % (45-73); Platelet Count 161 X10*3/uL (160-400); Red Blood Count 3.64 X10*6/uL (4.60-5.80); Red Cell Distribution Width 14.6 % (11.0-16.0)
[2022-03-27 08:44] LABS: Anion Gap 10 (12-20); Blood Urea Nitrogen 18 mg/dL (9-16); Calcium 8.7 mg/dL (8.4-10.2); Carbon Dioxide 28 mmol/L (22-29); Chloride 102 mmol/L (96-108); Creatinine Clr Calc Pharmacy 70.2; Estimated Glomerular Filt Rate > 60; Glucose Random 101 mg/dL (60-115); Potassium 4.3 mmol/L (3.3-5.1); Sodium 136 mmol/L (135-145)
[2022-03-27] MEDS: 0.9 % Sodium Chloride Flush 3 ML SYRINGE IVFLUSH ×3 (09:27→21:22)
--- NOTE | 2022-03-27 11:23 | MHC.CM.PN ---
Addendum entered by Dayna Burnett 03/27/22 12:15: CM INFORMED PTS INSURANCE IS DENYING STR AUTH AT THIS TIME DUE TO PAIN AND PT NOT FULLY PARTICIPATING WITH PHYSICAL THERAPY. MD AND FAMILY INFORMED. UPDATED PT NOTES WILL BE SENT TOMORROW TO REQUEST AUTH AGAIN Original Note: PT CLEARED TO DC TO STR TODAY. PTS SON PROVIDED A LIST OF PREFERRED FACILITIES, REFERRALS WERE MADE AND [facility] IS OFFERING A BED PENDING INSURANCE AUTH. AWAITING AUTH PTS SON, GRANT, AND SON-IN-LAW, ELISHA, WERE BOTH UPDATED
--- NOTE | 2022-03-27 11:25 | MHC.CLN ---
F/U PO INTAKE VARIABLE DIET RX: REGULAR-APPROPRIATE WILL ADD ENSURE TID PREVIOUSLY NOTED TO INCREASE KCALS SUPPLEMENT TO PROVIDE 1050KCALS, 60G PROTEIN PT RECEPTIVE TO TRYING ALL 3 FLAVORS OFFERED MONITOR PO INTAKE CLOSELY
--- NOTE | 2022-03-27 11:33 | PM.DS ---
DS: Providers Provider Date of Service: 03/27/22 Date of admission: 03/22/22 18:33 Primary care physician: Jefferson Cross MD Consults: 03/22/22 18:32 Consult to Orthopedics Routine Consulting Provider: Roalnd Newman Reason for consultation: left hip fracture Has provider been notified: No DS: Diagnosis Discharge Diagnosis (1) Fall at home: Status: Acute (2) Acute confusion: Status: Acute (3) Rhabdomyolysis: Status: Acute (4) Closed intertrochanteric fracture of left femur: Status: Acute DS: Summary Hospital Course Hospital Course: Chief Complaint: Fall, confusion 77-year-old male? with COPD, s/p BKA since age 17 from some cancer--he uses prosthesis but has not been using it lately due to weight loss and not fitting well, other medical history as listed below. He lives? alone but family has a camera at his house that track his movement. He was last since on the camera last eveneing going from the living room to kitchen but was not seen returning to living room. He was found tody on the floor by his home care aide confused and EMS was called and brought in for evaluation. His son in law was at the hospital to rosemary in the history.. Son in law states that he has had similar episodes in the past with use of Tramadol and on this occasion, he was found with empty bottle of oxycodone, some crushed. Patient is still fairy confused and? although he acknowledges falling last night and was having excruciating pain in his hip. Work up has? revealed??Left femoral intertrochanteric fracture. CT of head , neck unremarkable.? CPK is over 7000, lactic acid over 4.. no sings of infection Hospital course: Patient was admitted due to hip fracture presumed secondary to accidental fall. He was underwent operative hip rapair by Dr. Newman on 03/24/22 and is doing welll post operatively. PT is recommending short term rehab. He was signficatnly anemic and was transfused 3 units around surgery with H/H now stable. Ok note he also had mild rhabdomylsis with CPK up to 8000 and has come down to 926 following IV fluid. He will be discharge to rehab. Will be on DVT prophylaxis with Lovenox for 4 weeks. Oxycodone for pain control. Should be encourage to high protein content for moderate protein calory malnutrition Final diagnosis Left hip fracture Metabolic encephalopathy acute blood loss anemia Moderate protein calory malnutrition Rhabdomylosis Time Spent with Patient Time attestation: Total time spent providing and/or coordinating discharge services: Discharge coordination time: Greater than 30 minutes Quality: Safe Use of Opioids Does Pt have an Active Cancer Diagnosis on the Problem List?: No Quality: Stroke Does the patient have a stroke diagnosis?: No Physical Exam Vital Signs: Vital Signs: Selected Entries 03/28/22 15:20 Temperature 98.0 F Pulse Rate 87 Respiratory Rate 18 Blood Pressure 114/58 L Pulse Oximetry 97 Oxygen Delivery Me thod Room Air DS: Data Data Completed and Pending Labs on day of discharge: Laboratory Results - last 24 hr 03/27/22 03/27/22 08:11 08:11 WBC 6.0 RBC 3.64 L Hgb 10.8 L Hct 33.0 L MCV 90.7 MCH 29.7 MCHC 32.7 RDW 14.6 Plt Count 161 MPV 9.6 Immature Gran % (Auto) 0.5 H Neut % (Auto) 68.8 Lymph % (Auto) 12.9 L Imperial % (Auto) 14.6 H Eos % (Auto) 2.7 Baso % (Auto) 0.5 Lymph # (Auto) 0.8 L Imperial # (Auto) 0.9 Eos # (Auto) 0.2 Baso # (Auto) 0.0 Abs Immat Gran (auto) 0.03 Absolute Neuts (auto) 4.2 Absolute Nucleated RBC 0.000 Nucleated RBC % (auto) 0.0 Sodium 136 Potassium 4.3 Chloride 102 Carbon Dioxide 28 Anion Gap 10 L BUN 18 H Creatinine 0.68 Estim Creat Clear Calc 70.2 Estimated GFR > 60 Random Glucose 101 Calcium 8.7 D Total Creatine Kinase 926 H D Preliminary micro results at discharge 03/22/22 16:17 Blood Culture - Preliminary Blood - Venous No growth after 48 hours. 03/22/22 14:06 Blood Culture - Preliminary Blood - Venous No growth after 48 hours. Discharge Plan Discharge Anticipated Discharge Date/Time: 03/28/22 15:49 Patient Disposition: Xfer SNF Discharge Diagnosis: Hip fracture Referrals: Swapnil Scott [Outside] - 1 Week Jefferson Cross MD [Primary Care Provider] - 1 Week Annie Peterson PA-C [Physician Financial Aid Administrator] - 2 Weeks (04/06/22 11:30 [facility] [place] [facility] Annie Peterson PA-C) Discharge Medications: New enoxaparin 40 mg/0.4 mL Syringe 40 mg subcut Q24H 28 Days Qty: 11.2 0RF acetaminophen [Tylenol Arthritis Pain] 650 mg tablet extended release 650 mg PO Q6H PRN (Reason: fever or pain) Qty: 30 0RF Continued terazosin 10 mg capsule 10 mg PO BEDTIME 30 Days Qty: 30 3RF Asmanex Twisthaler 220 mcg/ actuation (30) aerosol powdr breath activated 1 puff inhalation DAILY 0RF testosterone 20.25 mg/1.25 gram (1.62 %) gel in metered-dose pump 2 pump topical DAILY 0RF oxycodone 5 mg tablet 5 mg PO DAILY PRN (Reason: Breakthrough Pain) 0RF Rx Instructions: to be taken once a day as needed for severe breakthrough pain that is not adequately controlled with current Percocet 5-325 mg - TEMPORARY PRESCRIPTION Discontinued oxycodone-acetaminophen 5-325 mg tablet 1 tab PO Q6-8H PRN (Reason: Pain (Scale Score 7-10)) 0RF tramadol 50 mg tablet 1 tab PO Q6H PRN (Reason: pain) 0RF Discharge Orders: Discharge Order (Routine); Ordered 03/28/22 Ordered By: Geoff Massey Diet: advance to usual diet Activity on Discharge: As tolerated Stand Alone Forms: Patient Portal Discharge page Care Plan Goals: Full recovery from hip fracture Health Concerns: Hip fracture Plan of Treatment: To short term rehab, to participate in PT and OT, pain medication with oxycodone Assessment: Gait training, strengthening, ADLs Continue lovenox for dvt ppx x4 weeks Keep dressing clean,dry and intact-no showering or tub baths Follow up with Orthopedics in 2 weeks
--- NOTE | 2022-03-27 12:09 | P.PNIM_ITS ---
Subjective Subjective Date of Service: 03/27/22 Interval History: follow-up on fall, hip fracture, confusion. Interval history: He has pain with movement, expected with hip fracture and surgery Review of Systems Mild confusion Left hip pain Physical Exam Vital Signs: Vital Signs: Last Vital Signs Temp 99.6 F 03/27/22 11:51 Pulse 91 03/27/22 11:51 Resp 12 03/27/22 11:51 BP 137/65 03/27/22 11:51 Pulse Ox 92 03/27/22 11:51 BMI result Body Mass Index 16.8 Const: Other: General: AO X , no acute distress Resp: CTA bilateral CVS: S1,S2,RRR GI: +BS, NT, no distention Skin: No rash, surgery site d/c/i Neuro: motor grossly intact Psych: appropriate affect Objective Data Active Medications Acetaminophen (Acetaminophen Supp 650 Mg Supp.Rect) 650 mg GA Q6H PRN PRN Reason: Pain, Mild (Pain Scale 1-3) Doxazosin Mesylate (Doxazosin Mesylate 2 Mg Tablet) 8 mg PO BEDTIME [facility] Last Admin: 03/26/22 19:51 Dose: 8 mg Documented by: MEMO Enoxaparin Sodium (Enoxaparin Sodium 40 Mg/0.4 Ml Syringe) 40 mg SUBCUT Q24H [facility] Last Admin: 03/26/22 22:31 Dose: Not Given Documented by: MEMO Non-Admin Reason: Patient Condition Contraindication Morphine Sulfate (Morphine Sulfate 2 Mg/Ml Cartridge) 2 mg IVPUSH Q4H PRN; Protocol PRN Reason: Pain, Severe (Pain Scale 7-10) Last Admin: 03/27/22 09:25 Dose: 2 mg Documented by: CHELLE Non-Formulary Medication (Mometasone [Asmanex Twisthaler]) 1 puff INHALE DAILY [facility] Non-Formulary Medication (Testosterone) 2 pump TOPICAL DAILY [facility] Ondansetron HCl (Ondansetron Hcl 4 Mg/2 Ml Vial) 4 mg IVPUSH Q8H PRN PRN Reason: Nausea and Vomiting Last Admin: 03/23/22 15:38 Dose: 4 mg Documented by: CRISTAL Oxycodone HCl (Oxycodone Hcl Immed Release 5 Mg Tablet) 5 mg PO Q6H PRN PRN Reason: Pain (Scale Score 7-10) Last Admin: 03/27/22 11:05 Dose: 5 mg Documented by: CHELLE Sodium Chloride (0.9 % Sodium Chloride Flush 3 Ml Syringe) 3 ml IVFLUSH QSHIFT [facility] Last Admin: 03/27/22 09:27 Dose: 3 ml Documented by: CHELLE Labs CBC & Chem 7: 03/27/22 08:11 03/27/22 08:11 Labs: Laboratory Results - last 24 hr 03/27/22 03/27/22 08:11 08:11 MCV 90.7 MCH 29.7 MCHC 32.7 RDW 14.6 Plt Count 161 MPV 9.6 Immature Gran % (Auto) 0.5 H Neut % (Auto) 68.8 Lymph % (Auto) 12.9 L [place] % (Auto) 14.6 H Eos % (Auto) 2.7 Baso % (Auto) 0.5 Lymph # (Auto) 0.8 L [place] # (Auto) 0.9 Eos # (Auto) 0.2 Baso # (Auto) 0.0 Abs Immat Gran (auto) 0.03 Absolute Neuts (auto) 4.2 Absolute Nucleated RBC 0.000 Nucleated RBC % (auto) 0.0 Anion Gap 10 L Estim Creat Clear Calc 70.2 Estimated GFR > 60 Random Glucose 101 Calcium 8.7 D Total Creatine Kinase 926 H D Assessment and Plan (1) Fall at home: Status: Acute (2) Rhabdomyolysis: Status: Acute Plan 77/ 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 1/ Left Hip fracture likely from mechanical--s/p surgical repair 03/24 pain control with morphine and oxycodone, PT eval. Lovenox for DVT proph ylaxis. 2/Confusion--likely from Toxic metabolic Encephalopathy from oxycodone and or/tramadol used inapropriately, according to son-in-law he has history of intermittent confusion like this, and this particular episode maybe because of fall. No o UTI.. He is at his baseline 3/ Rhabdomylosis--resolved with CPK down from 8000 to now 900 4/Lactic acidosis-- likely from fall, tended down 5/ Testosterone, deficiency--continue replacment therapy 6/ COPD--no exacerbation, continue Asmanex 7/ Acute blood loss anemia, from fracture, s/p 3 units of RBC, H/H improved and stable Full code Need for inpatient: s/p surgery for hip repair, postoperative care, pain control and ultimately will need to be arrange for rehab which is not yet available assess for hubbard removal Quality Quality Stroke Does the patient have a stroke diagnosis?: No VTE Prior VTE?: No VTE Risk Level:: Medical - moderate - high VTE Device Contraindication: N/A - Device Ordered VTE Drug Contraindication: Treatment Not Indicated
[2022-03-27] MEDS: Docusate Sodium 100 MG CAPSULE PO ×2 (13:39→21:21)
[2022-03-27 14:44] LABS: COVID-19 Test Negative (Negative); IDNOW Serial# 16C4AD1C
--- NOTE | 2022-03-27 14:52 | PC.NURSE ---
1430 hubbard cath removed DTV at 2030
[2022-03-27] MEDS: Doxazosin Mesylate 2 MG TABLET 8 MG PO (21:21)
[2022-03-27] MEDS: Enoxaparin Sodium 40 MG/0.4 ML SYRINGE SUBCUT (22:18)
[2022-03-28] VITALS: BP 136/56; PULSE 94; RESP 18; TEMP 36.8; O2SAT 94
[2022-03-28 03:38] VITALS: BP 169/74; PULSE 99; RESP 20; TEMP 36.8; O2SAT 92
[2022-03-28] MEDS: oxyCODONE HCl Immed Release 5 MG TABLET PO (05:48)
[2022-03-28 08:00] VITALS: BP 135/63; PULSE 95; RESP 18; TEMP 36.6; O2SAT 93
--- NOTE | 2022-03-28 08:49 | P.PNIM_ITS ---
Subjective Subjective Date of Service: 03/28/22 Interval History: follow-up on fall, hip fracture, confusion. Interval history: He has persistent pain in the leg hip worse with movment, pain medicine helps Review of Systems Mild confusion Left hip pain Physical Exam Vital Signs: Vital Signs: Last Vital Signs Temp 97.9 F 03/28/22 08:00 Pulse 95 03/28/22 08:00 Resp 18 03/28/22 08:00 BP 135/63 03/28/22 08:00 Pulse Ox 93 03/28/22 08:00 BMI result Body Mass Index 16.8 Const: Other: General: AO X , no acute distress Resp: CTA bilateral CVS: S1,S2,RRR GI: +BS, NT, no distention Skin: No rash, surgery site d/c/i, the hip area, leg swollen Neuro: motor grossly intact Psych: appropriate affect Objective Data Active Medications Acetaminophen (Acetaminophen Supp 650 Mg Supp.Rect) 650 mg RI Q6H PRN PRN Reason: Pain, Mild (Pain Scale 1-3) Docusate Sodium (Docusate Sodium 100 Mg Capsule) 100 mg PO BID [facility] Last Admin: 03/27/22 21:21 Dose: 100 mg Documented by: KEN Doxazosin Mesylate (Doxazosin Mesylate 2 Mg Tablet) 8 mg PO BEDTIME [facility] Last Admin: 03/27/22 21:21 Dose: 8 mg Documented by: KEN Enoxaparin Sodium (Enoxaparin Sodium 40 Mg/0.4 Ml Syringe) 40 mg SUBCUT Q24H [facility] Last Admin: 03/27/22 22:18 Dose: 40 mg Documented by: KEN Non-Formulary Medication (Mometasone [Asmanex Twisthaler]) 1 puff INHALE DAILY [facility] Non-Formulary Medication (Testosterone) 2 pump TOPICAL DAILY [facility] Ondansetron HCl (Ondansetron Hcl 4 Mg/2 Ml Vial) 4 mg IVPUSH Q8H PRN PRN Reason: Nausea and Vomiting Last Admin: 03/23/22 15:38 Dose: 4 mg Documented by: CRISTAL Oxycodone HCl (Oxycodone Hcl Immed Release 5 Mg Tablet) 5 mg PO Q6H PRN PRN Reason: Pain (Scale Score 7-10) Last Admin: 03/28/22 05:48 Dose: 5 mg Documented by: KEN Sodium Chloride (0.9 % Sodium Chloride Flush 3 Ml Syringe) 3 ml IVFLUSH QSHIFT [facility] Last Admin: 03/27/22 21:22 Dose: 3 ml Documented by: KEN Labs CBC & Chem 7: 03/27/22 08:11 03/27/22 08:11 Labs: Laboratory Results - last 24 hr 03/27/22 03/27/22 08:11 14:15 Total Creatine Kinase 926 H D COVID-19 (ANÍBAL) Negative COVID-19 Clin Com See Note Microbiology Microbiology Results: Microbiology 03/22/22 16:17 Blood Culture - Final Blood - Venous No growth after 5 days. 03/22/22 14:06 Blood Culture - Final Blood - Venous No growth after 5 days. 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 1/ Left Hip fracture likely from mechanical--s/p surgical repair 03/24 pain control with morphine and oxycodone--increase dose to 10 and add Tylenol, PT eval. Lovenox for DVT prophylaxis. 2/Confusion--likely from Toxic metabolic Encephalopathy from oxycodone and or/tramadol used inapropriately, according to son-in-law he has history of intermittent confusion like this, and this particular episode maybe because of fall. No o UTI.. He is at his baseline 3/ Rhabdomylosis--resolved with CPK down from 8000 to now 900 4/Lactic acidosis-- likely from fall, trended down 5/ Testosterone, deficiency--continue replacment therapy 6/ COPD--no exacerbation, continue Asmanex 7/ Acute blood loss anemia, from fracture, s/p 3 units of RBC, H/H improved and stable 8/Swollen left lower extremity likely related to fracture, US to r/o clot Full code Need for inpatient: s/p surgery for hip repair, postoperative care, pain control and ultimately will need to be arrange for rehab which is not yet available Quality Quality Stroke Does the patient have a stroke diagnosis?: No VTE Prior VTE?: No VTE Risk Level:: Medical - moderate - high VTE Device Contraindication: N/A - Device Ordered VTE Drug Contraindication: Treatment Not Indicated
[2022-03-28 09:15] VITALS: BP 135/63; PULSE 95; O2SAT 93
[2022-03-28] MEDS: Docusate Sodium 100 MG CAPSULE PO (09:27)
[2022-03-28] MEDS: 0.9 % Sodium Chloride Flush 3 ML SYRINGE IVFLUSH (09:27)
[2022-03-28] MEDS: Acetaminophen 325 MG TABLET 650 MG PO ×2 (10:58→16:28)
[2022-03-28 11:48] VITALS: BP 130/65; PULSE 86; RESP 18; TEMP 36.7; O2SAT 97
[2022-03-28] MEDS: oxyCODONE HCl Immed Release 5 MG TABLET 10 MG PO (13:35)
--- NOTE | 2022-03-28 13:39 | MHC.CM.PN ---
Per discussion with MD, Patient is having an US of his leg and then should be medically cleared for dc. Patient will dc to [facility] today at 6PM, via [facility]. Patient and his Son/HCP/Judson at [phone] are aware of and in agreement with the dc plan. IMM addressed and original will be mailed certified letter to Judson and a copy has been placed on the chart.
--- NOTE | 2022-03-28 14:19 | P.CDIC_ITS ---
CDI Concurrent Query Documentation Clarification: PHYSICIAN'S DOCUMENTATION REQUEST Date of Query: 03/28/22 1419 Patient Name: Alexis Wheeler Admit Date: 03/22/22 Dear Doctor, A review of the medical record indicates additional documentation may be needed. Please review below and update the documentation accordingly. Clinical Indicators: Height: [] 6 FT Weight: [] 56.4 kg BMI: [] 16.9 Other Clinical Notes Supporting Significance of the BMI: Risk Factors/Clinical Indicators/Treatments Per Nutrition Note 03/24/22: Patient is underweight for height. Increased nutrition needs related to COPD with advanced age. Weight loss 6 months ago BMI adjusted for amputation 17.9 Patient may be mildly malnourished but does not meet criteria for moderate/severe malnutrition by definition If possible, please provide an associated diagnosis related to the abnormal BMI, such as: For a BMI <= 19: * Underweight * Weight loss * Cachexia * Anorexia * Malnutrition (Mild Protein Calorie) Or: * BMI is not significant * Other (please specify) * Unable to determine Use of terms such as suspected, likely, concern for, or probable (associated with a specific diagnosis that is being evaluated, monitored, or treated as if i t exists) are acceptable and can be coded in the inpatient setting, when documented at the time of discharge. Thank you, Violet Madison [insert CDI's credentials] Extension: [4-digit phone extension] Please use your independent medical judgment in providing your response. THIS QUERY IS PART OF THE PERMANENT MEDICAL RECORD Provider Response: Moderate Protein-Calorie Malnutrition
[2022-03-28 15:20] VITALS: BP 114/58; PULSE 87; RESP 18; TEMP 36.7; O2SAT 97
--- NOTE | 2022-04-04 10:31 | P.OP_ITS ---
Operative Note Operative Note Date of Service: 03/24/22 Narrative: Date of Service: 03/24/22 Pre-op diagnosis: Left intertroch femur fracture Post-op diagnosis: same Procedure: IMN left hip fracture Implants: [id number] 125 deg with 110 mm hip screw and 50 mm distal interlock Surgeon: Roland Newman MD Anesthesia: GETA Was an Churn Operator Margarine used for this Procedure?: No Estimated blood loss (mL): 200 IV fluids (mL): 1,000 Urine output (mL): 150 Pathology: none sent Condition: stable Disposition: PACU Procedure in detail: Patient was brought to the operating room and prepped and draped in standard sterile fashion. Time-out was called to identify proper site procedure proper surgeon and IV antibiotics per weight were administered. She was positioned on the fracture table and a traction and slight internal rotation were performed and biplanar fluoroscopy confirmed initial fracture reduction. I then made a stab incision proximal to the greater trochanter in using a guidewire made a entry point just lateral to the tip of the greater trochanter and placed a guidewire into the femoral metadiaphysis. I then over-reamed with 15 mm Reamer placed my ball-tip guidewire down distally in the femur and measured my length (400mm). I selected a 400mm nail and reamed up to a 13. I then placed a [id number] 125 deg IM nail. I then turned my attention to the hip screw where I used a guidewire and a tip apex distance of less than 1.5 measured my hip screw. I then pre drilled and placed a 110mm hip screw using biplanar fluoroscopy. Once I was satisfied with the position of the hip screw I turned my attention to the distal aspect of the nail. Using perfect [place] technique I placed 1 static distal interlocking screw in standard AO technique. I then removed all I then placed my set screw proximally and removed all extraneous instrumentation. Final biplanar radiographs were taken. I was satisfied with the position of the hardware and the fracture reduction. I think copiously irrigated closed with absorbable sutures kaye and injected 30 mL of into the area of the incisions. Traction was let down patient was placed in sterile dressing awakened from anesthesia brought to recovery room stable condition there were no known complications.
== END 2022-03-28 18:50 | disposition skilled nursing facility (03) | DRG 956 ==
LOC: HO.ED 17:46 → HO.EDOVER 18:56 → HO.IMC 03-24 07:46
PROVIDERS: Orthopaedic Surgery; Physician Assistant; Admitting Provider Internal Medicine; Emergency Provider Emergency Medicine Emergency Medical Services; PCP Internal Medicine; Visit Provider Internal Medicine
PROC: 0QS734Z Reposition Left Upper Femur with Internal Fixation Device, Percutaneous Approach (ICD-10-PCS; principal; 2022-03-24 13:00)
DX: S72.142A Displaced intertrochanteric fracture of left femur, initial encounter for closed fracture (principal); T79.6XXA Traumatic ischemia of muscle, initial encounter; G93.41 Metabolic encephalopathy; E87.2 Acidosis; D62 Acute posthemorrhagic anemia; E44.0 Moderate protein-calorie malnutrition; Z68.1 Body mass index [BMI] 19.9 or less, adult; E86.0 Dehydration; W18.30XA Fall on same level, unspecified, initial encounter; E29.1 Testicular hypofunction; Z89.511 Acquired absence of right leg below knee; N40.0 Benign prostatic hyperplasia without lower urinary tract symptoms; J44.9 Chronic obstructive pulmonary disease, unspecified; I10 Essential (primary) hypertension; G47.33 Obstructive sleep apnea (adult) (pediatric); Z85.830 Personal history of malignant neoplasm of bone; Z20.822 Contact with and (suspected) exposure to COVID-19; Z87.891 Personal history of nicotine dependence; Z79.899 Other long term (current) drug therapy
CPT/HCPCS: 36415; 70450; 71045; 72125; 73502; 80048; 80053; 80143; 80179; 80307; 81001; 81003; 82077; 82550; 83605; 83690; 83880; 84443; 84484; 85025; 85027; 85610; 85730; 86850; 86900; 86901; 86923; 87040; 87502; 87635; 93005; 93971; 96360; 96361; 97163; 97167; 97530; 97535; 99285; C1713; C1758; C1769; C1776; J0131; J0690; J1650; J2250; J2270; J2370; J2405; J3010; P9016

== ENCOUNTER 2022-04-06 06:04 | Outpatient (REF) | payer MEDICARE, SELFPAY | END 2022-04-06 06:05 | disposition home or self-care (01) | LOC: HO.HOSX 06:04 | PROVIDERS: Visit Provider Physician Assistant | DX: Z13.89 Encounter for screening for other disorder (principal) ==

== ENCOUNTER 2022-05-01 08:03 | Outpatient (REF) | payer MEDICARE, SELFPAY ==
--- NOTE | ~2022-05-01 | XR_ITS ---
EXAMINATION: XR PELVIS XR HIP, LEFT CLINICAL INFORMATION: Left hip pain; history of left intertrochanteric fracture. COMPARISON: None TECHNIQUE: AP view of the pelvis. AP and frog-leg lateral views of the left hip. FINDINGS: There is bony demineralization. There is interim application of an intramedullary radha and compression screw to the proximal left femur, with well aligned major intertrochanteric fracture fragments. A displaced lesser trochanter fracture fragment is again noted. There is a diminished residual fracture line, with abundant callus formation. No unusual degenerative change is seen of the hips, and the femoral heads appear smooth. There are femoral atherosclerotic calcifications. There are incompletely characterized degenerative changes of the lumbosacral spine. XR/XR hip LT min 2V IMPRESSION: There is good alignment of left intertrochanteric fracture fragments [id number]. There is good callus formation, and the fracture line is less visible than on prior.
--- NOTE | ~2022-05-01 | XR_ITS ---
EXAMINATION: XR PELVIS XR HIP, LEFT CLINICAL INFORMATION: Left hip pain; history of left intertrochanteric fracture. COMPARISON: None TECHNIQUE: AP view of the pelvis. AP and frog-leg lateral views of the left hip. FINDINGS: There is bony demineralization. There is interim application of an intramedullary radha and compression screw to the proximal left femur, with well aligned major intertrochanteric fracture fragments. A displaced lesser trochanter fracture fragment is again noted. There is a diminished residual fracture line, with abundant callus formation. No unusual degenerative change is seen of the hips, and the femoral heads appear smooth. There are femoral atherosclerotic calcifications. There are incompletely characterized degenerative changes of the lumbosacral spine. XR/XR pelvis 1-2V IMPRESSION: There is good alignment of left intertrochanteric fracture fragments [id number]. There is good callus formation, and the fracture line is less visible than on prior.
== END 2022-05-01 08:04 | disposition home or self-care (01) ==
LOC: HO.HOSX 08:03
PROVIDERS: Visit Provider Physician Assistant
DX: M25.552 Pain in left hip (principal)
CPT/HCPCS: 72170; 73502

== ENCOUNTER 2022-05-30 12:48 | Outpatient (REF) | payer MEDICARE, SELFPAY ==
--- NOTE | ~2022-05-30 | XR_ITS ---
EXAMINATION: XR KNEE, LEFT CLINICAL INFORMATION: Pain left knee. COMPARISON: None TECHNIQUE: Four views of the left knee. FINDINGS: There is mild suprapatellar joint effusion. Loss of tricompartment joint space with superior patellar spurring is noted. Also visualized is periapical spurring lateral compartment. No visible acute fracture or dislocation seen. There is an intramedullary femoral radha. Atherosclerotic calcification of distal SFA and the popliteal artery is present. 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 No acute fracture or loose body seen.
== END 2022-05-30 12:49 | disposition home or self-care (01) ==
LOC: HO.HOSX 12:48
PROVIDERS: Visit Provider Physician Assistant
DX: M17.12 Unilateral primary osteoarthritis, left knee (principal)
CPT/HCPCS: 20610; 73560; 99212; J1040

== ENCOUNTER 2022-06-28 13:07 | Outpatient (REF) | payer MEDICARE, SELFPAY ==
--- NOTE | ~2022-06-28 | XR_ITS ---
EXAMINATION: XR HIP, LEFT WITH PELVIS XR KNEE, LEFT CLINICAL INFORMATION: Pain. COMPARISON: Left hip 05/01/2022. TECHNIQUE: AP pelvis and left hip 3 views. Left knee 2 views. FINDINGS: AP PELVIS AND LEFT HIP: There is a left intramedullary femoral radha and a nail stabilizing old fracture. There is moderate lucency seen surrounding intramedullary femoral radha in proximal and mid femur suspicious for loosening. The lucency surrounding the mid femoral radha medially is approximately 3 mm and laterally is 5 mm. There is callus formation along the intertrochanteric region of left femur. LEFT KNEE: There is loss of tricompartment joint space, severe in the medial compartment with periarticular spurring. No visible fracture seen. The distal intramedullary femoral radha stabilized with a solitary screw is unremarkable with no lucency seen distally. No acute fracture or dislocation. XR/XR knee LT 2V IMPRESSION: Severe degenerative changes in the tricompartments of left knee, slightly worse in the medial compartment. No abnormal joint effusion seen. Healing intertrochanteric fracture stabilized with intramedullary femoral radha and a gamma nail. There is increased lucency in the proximal middle femur surrounding the radha suspicious for loosening.
--- NOTE | ~2022-06-28 | XR_ITS ---
EXAMINATION: XR HIP, LEFT WITH PELVIS XR KNEE, LEFT CLINICAL INFORMATION: Pain. COMPARISON: Left hip 05/01/2022. TECHNIQUE: AP pelvis and left hip 3 views. Left knee 2 views. FINDINGS: AP PELVIS AND LEFT HIP: There is a left intramedullary femoral radha and a nail stabilizing old fracture. There is moderate lucency seen surrounding intramedullary femoral radha in proximal and mid femur suspicious for loosening. The lucency surrounding the mid femoral radha medially is approximately 3 mm and laterally is 5 mm. There is callus formation along the intertrochanteric region of left femur. LEFT KNEE: There is loss of tricompartment joint space, severe in the medial compartment with periarticular spurring. No visible fracture seen. The distal intramedullary femoral radha stabilized with a solitary screw is unremarkable with no lucency seen distally. No acute fracture or dislocation. XR/XR hip LT w PEL1V IMPRESSION: Severe degenerative changes in the tricompartments of left knee, slightly worse in the medial compartment. No abnormal joint effusion seen. Healing intertrochanteric fracture stabilized with intramedullary femoral radha and a gamma nail. There is increased lucency in the proximal middle femur surrounding the radha suspicious for loosening.
== END 2022-06-28 13:08 | disposition home or self-care (01) ==
LOC: HO.HOSX 13:07
PROVIDERS: Visit Provider Physician Assistant
DX: M25.562 Pain in left knee (principal); M25.552 Pain in left hip
CPT/HCPCS: 73502; 73560

== ENCOUNTER 2022-09-25 12:51 | Outpatient (REF) | payer MEDICARE, SELFPAY ==
--- NOTE | ~2022-09-25 | XR_ITS ---
EXAMINATION: XR PELVIS CLINICAL INFORMATION: Pain in unspecified hip. COMPARISON: 06/28/2022 TECHNIQUE: 2 views of the pelvis. FINDINGS: Severe degenerative changes are seen in the visualized lower lumbosacral spine. An intramedullary radha and screw is present in the left hip with marked dystrophic calcification surrounding this. No new fractures are seen. [id number] degenerative changes are present in the right hip. No pelvic fracture. Marked vascular calcifications are seen. XR/XR pelvis 1-2V IMPRESSION: Postoperative changes left hip with intramedullary radha and screw and marked degenerative changes in the lumbosacral spine. [id number] degenerative changes right hip.
== END 2022-09-25 12:52 | disposition home or self-care (01) ==
LOC: HO.HOSX 12:51
PROVIDERS: Visit Provider Orthopaedic Surgery
DX: S72.145A Nondisplaced intertrochanteric fracture of left femur, initial encounter for closed fracture (principal); M17.12 Unilateral primary osteoarthritis, left knee; S88.111D Complete traumatic amputation at level between knee and ankle, right lower leg, subsequent encounter
CPT/HCPCS: 72170; 99212

== ENCOUNTER 2022-10-03 10:26 | Outpatient (RCR) | payer MEDICARE, SELFPAY ==
--- NOTE | 2022-10-03 13:27 | MHC.PT.EP ---
[facility] [place] Office [place] Office [place] Office [address] Leesa Waldron [address] [phone] F: [phone] F: [phone] F: [phone] F: [phone] Physical Therapy Plan of Care Date of Evaluation: Date of Surgery: 03/24/22 Diagnosis: closed L hip fx IMN on 03/24/22 () Assessment: pt is a 77 y/o male presenting to physical therapy w/ referring diagnosis of closed left hip fx. Impairments include pain, decreased range of motion, decreased strength, impaired functional mobility, impaired postural awareness, and altered ambulation mechanics. pt is a good candidate for skilled PT due to age, potential remediation of impairments, typical disease/condition progression and prognosis, comorbidities, and motivation. pt would benefit from skilled PT intervention to provide a tailored strengthening and stretching exercise program, functional training, gait training, postural re-training, neuromuscular re-education, modalities as needed for pain, equipment safety demonstration. Frequency and Duration: The patient will be seen 2x/wk for 6 wks Short Term Goals: pt will be I w/ HEP to promote self-management of condition. pt will improve L knee extension to at least lacking 5 degrees to promote ease in transfers. pt will perform sit<>sit transfer spv level to promote I w/ w/c to bed transfers. Insurance Manager Goals: pt will ambulate 3 x 15' w/ LRAD to promote ease in accessing primary living spaces. pt will perform stair/curb navigation w/ LRAD to promote community access. pt will improve L knee strength to 5/5 to promote improved stability to ambulation w/ prosthetic w/ LRAD. Treatment Plan: Modalities to reduce pain, spasms and effusion. Manual therapy to restore motion and function. Therapeutic exercise to improve strength and flexibility. Neuromuscular re-education for posture and balance. Therapeutic activities to return to functional activities of daily living. Electronically signed by: Linda Godoy PT, DPT Please sign and return to therapist. Thank you for your referral.
--- NOTE | 2022-11-08 12:38 | MHC.PT.DC ---
[facility] Transfer Office [place] Office [place] Office [address] Leesa Waldron [address] [phone] F: [phone] F: [phone] F: [phone] F: [phone] Physical Therapy Discharge Report Diagnosis: closed L hip fx IMN on 03/24/22 () Date of Surgery: 03/24/22 Date of Evaluation: 10/03/22 Date of Discharge: 11/08/22 Treatments to Date: 1 Cancellations to Date: 0 No Shows to Date: 0 Discharge Status: Insurance Declined Tx Discharge Summary: The patient's son called to cancel all of his appointments as they were having difficulty getting the insurance to cover his visits. It has been over a month since his initial evaluation. He is discharged from this physical therapy plan of care. Electronically signed by: Linda Godoy PT, DPT Please sign and return to therapist. Thank you for your referral.
== END 2022-11-08 12:38 | disposition home or self-care (01) ==
LOC: HO.PT 10:26
PROVIDERS: PCP Internal Medicine; Visit Provider Orthopaedic Surgery
DX: S72.002A Fracture of unspecified part of neck of left femur, initial encounter for closed fracture (principal); M17.12 Unilateral primary osteoarthritis, left knee
CPT/HCPCS: 97110; 97163

== ENCOUNTER 2024-10-16 11:04 | Outpatient (AMB) | payer MEDICARE, SELFPAY ==
[2024-10-16 11:21] VITALS: BP 124/78; PULSE 70; O2SAT 96
--- NOTE | 2024-10-16 11:21 | MHC.PC.OV ---
Vital Signs 10/16/24 11:21 Height 6 ft BMI Reason not done Patient refused/unable BP 124/78 Blood Pressure Location Lt brachial Position Sitting Pulse 70 Pulse Source Pulse Oximeter Pulse Oximetry (%) 96 Oxygen Delivery Method Room Air Intake Visit Reasons: annual exam Wall Man Required: No Accompanied by: Self / Same As Patient Allergies No Known Allergies Allergy (Verified 10/16/24 11:50) Medication List - Last Reconciled 10/16/24 by Jefferson Cross MD acetaminophen (Tylenol Extra Strength) 1,000 mg (2 x 500 mg) PO TID PRN albuterol sulfate 90 mcg/actuation 2 puffs inhalation Q6H PRN apixaban (Eliquis) 5 mg PO BID 30 days bacitracin 1 appl topical BID PRN 30 days bisacodyl (Dulcolax (bisacodyl)) 10 mg GA DAILY PRN enoxaparin 40 mg (0.4 mL) subcut Q24H 28 days [id number]-gjdjgrzue-fkpblpaa 100-62.5-25 mcg (Trelegy Ellipta) 1 inh inhalation DAILY gabapentin 300 mg PO BID 30 days guaifenesin 200 mg PO Q6H PRN loperamide (Imodium A-D) 4 mg PO Q12H PRN magnesium hydroxide (Milk Of Magnesia Concentrated) 30 mL PO DAILY PRN nystatin 1 appl topical BID PRN oxycodone 5 mg PO TID PRN 28 days polyethylene glycol 3350 (Miralax) 17 grams PO DAILY sennosides (senna) 8.6 mg PO DAILY terazosin 10 mg PO BEDTIME 30 days testosterone 2 pumps topical DAILY Tobacco use date assessed: 10/16/24 Fall risk assessment: No Falls in past year Last assessed Fall Risk: 10/16/24 Dental Screening Dental Screen Date: 10/16/24 Did you have a dental visit in the last 12 months?: No Did you have a dental problem in the last 6 months where you did not have access to dental care?: No Was dental information given to patient?: No HPI annual exam HPI Details Patient comes in today for his annual physical examination and to reestablish care - was last seen here on 12/14/2021 and by me further back on 09/20/2021 When I last saw patient, he was planning to see a [facility] specialist in [place] for a trial of auto stem cell implantation from his hip to his knee as he was not willing to undergo left knee arthroplasty at the time, which was recommended by orthopedic States that he spent about $6000 out of pocket but the procedure did not help at all Sometime back in March 2022, he suffered a fall at home and sustained a left femoral intratrochanteric fracture He was reportedly found on the floor by 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 ice skating coach at the time and was very confused so his ice skating coach called EMS and patient was eventually brought to the hospital for further evaluation where the hip fracture was found He eventually underwent surgical repair of his left hip fracture on 03/24/2022 He had to be transfused about 3 units of packed RBC due to significant anemia at the time and also required IV fluid hydration to address his rhabdomyolysis He was subsequently transferred to a rehab facility in [place] for short-term rehab Patient was also experiencing visual hallucinations at the time of his last visit here and was referred to Neurology for further evaluation He was eventually seen by Neurology several months later (appointment was delayed due to his hip fracture) and he was started on Quetiapine [address] head was normal except for generalized atrophy and chronic small vessel white matter ischemic changes EEG showed mild diffuse slowing of brain waves Patient was again brought to the hospital from short-term rehab a few times, once for a fall from his bed while another time was for progressive SOB and weakness and he was found at the time to be in atrial fibrillation with RVR as well as pulmonary embolism and left leg (femoropopliteal) DVT - he was started then on Apixaban He was seen by vascular surgery at [facility] as well last year for a 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 that was incidentally seen on chest CTA He was advised that given the small caliber of his descending thoracic aneurysm and slightly aneurysmal visceral segment, he was recommended to have a repeat CTA of the chest, abdomen and pelvis in 2 years They have recommended also initiation of moderate intensity statin for cardiac protection but was advised that they will defer this to his PCP He was also seen by [facility] pulmonary for follow-up of his emphysema His pulmonary function tests done at that time revealed severe airflow obstruction in a low diffusing capacity He was advised that not need any oxygen supplementation at the time and he would also not benefit from albuterol due to his PFT findings He was deemed to have significant COPD but was stable and will just have him follow up again with Pulmonary in 6 months and he was returned to assisted living, where he is still receiving physical therapy It does not look like he was seen again by any of the specialist for follow-up in over a year He currently still does not have a right leg prosthesis - states that rehab did not want him to use it as it is now ill-fitting and he is planning to see his him director again soon to have the necessary modifications made to his prosthesis so he can use it to move around better again He also has not had any follow-up labs done in a couple of years now He is currently residing in a ch[facility] and mainly needs several of his Rx refilled Patient currently denies any headaches or dizziness Denies any chest pains, no increased shortness of breath No nausea/vomiting, no abdominal pain No change in bowel habits noted He denies any acute urinary symptoms [facility], [facility] Medical History (Updated 10/19/24 @ 15:34 by Jefferson Cross MD) Above knee amputation of right lower extremity Paroxysmal atrial fibrillation Attention deficit hyperactivity disorder (ADHD) Vitamin D deficiency Hypotestosteronism Erectile dysfunction Phantom limb pain Benign prostatic hyperplasia Lumbar degenerative disc disease COPD (chronic obstructive pulmonary disease) Dyslipidemia Benign essential hypertension Unilateral primary osteoarthritis, left knee Osteosarcoma of bone Knee pain, left Surgical History (Updated 10/17/24 @ 02:54 by Jefferson Cross MD) History of amputation History of hernia surgery Social History Household Members: None Housing: Apartment Do you presently have visiting nurse or other home services: Yes ([employer]) Alcohol intake: never Patient Tobacco Use Status: Former Tobacco user Tobacco use type: Cigarette Cigarettes Per Day: 40 e-Cigarette/Vaping Use: Never Used Second Hand Smoke Exposure: Yes service: No Current occupational status: retired Cognitive needs: Yes (wheelchair/crotches) Questionnaire PHQ-9 Over the last 2 weeks, how often have you been bothered by any of the following problems? 1. Little interest or pleasure in doing things: not at all 2. Feeling down, depressed, or hopeless: not at all 3. Trouble falling or staying asleep, or sleeping too much: not at all 4. Feeling tired or having little energy: not at all 5. Poor appetite or overeating: not at all 6. Feeling bad about yourself - or that you are a failure or have let yourself or your family down: not at all 7. Trouble concentrating on things, such as reading the newspaper or watching television: not at all 8. Moving or speaking so slowly that other people could have noticed. Or the opposite - being so fidgety or restless that you have been moving around a lot more than usual: not at all 9. Thoughts that you would be better off or of hurting yourself in some way: not at all Total score: 0 Depression Screening Interpretation: Negative Depression Screening Done: Yes 25796 - PHQ-9 Billing: Yes Source: Developed by Drs. Skinny Marin, Anuja Duenas, Huy Vasquez and colleagues, with an educational gretel from [employer]. Thrive Questionnaire Date Thrive assessed: 10/16/24 I am a: Patient What is your living situation today?: I have a steady place to live Within the past 12 months, did the food you bought not last and you didn't have the money to get more?: I choose not to answer this question Within the past 12 months, did you worry whether your food would run out before you got money to buy more?: I choose not to answer this question Do you have trouble paying for medicines?: I choose not to answer this question Do you have trouble getting transportation to medical appointments?: I choose not to answer this question Do you have trouble paying your heating and electricity bill?: I choose not to answer this question Do you have trouble taking care of your child, family member or friend?: I choose not to answer this question Do you have trouble with day-to-day activities such as bathing, preparing meals, shopping, managing finances, etc.?: I choose not to answer this question Are you currently unemployed and looking for a job?: I choose not to answer this question Are you interested in more education?: I choose not to answer this question Please select the resources that you would like help with: None Currently or been in a relationship where the following occur: I choose not to answer THRIVE Score: 0 AUDIT C Alcohol Use Questionnaire (AUDIT-C) 1. How often do you have a drink containing alcohol?: Never Total Score: 0 Score Reviewed/Action Taken: Yes JORGE-7 AMB Questionnaire JORGE-7 Date JORGE - 7 assessed: 10/16/24 Feeling nervous, anxious, or on edge: 0 = Not at all Not being able to stop or control worryin = Not at all Worrying too much about different things: 0 = Not at all Trouble relaxin = Not at all Being so restless that it is hard to sit still: 0 = Not at all Becoming easily annoyed or irritable: 0 = Not at all Feeling afraid as if something awful might happen: 0 = Not at all Total JORGE-7 score (0-4 normal; 5-9 mild; 10-14 moderate; 15-21 severe): 0 Source: Developed by Drs. Skinny Marin, Anuja Duenas, Huy Vasquez and colleagues, with an educational gretel from [employer]. Review of Systems Const Denies chills, Denies fatigue, Denies fever(s), Denies headache(s), Denies malaise and Denies weakness Eyes Denies blurry vision, Denies change in vision, Denies irritation and Denies itchy eyes ENT Denies dysphagia, Denies dizziness, Denies otalgia, Denies headache(s), Denies nasal congestion, Denies neck pain, Denies odynophagia and Denies sore throat Card Denies chest pain, Denies rapid heart rate, Denies irregular heart rhythm, Denies palpitations and Reports dyspnea on exertion (mild) Resp Denies chest congestion, Denies cough, Reports dyspnea on exertion (mild) and Denies wheezing GI Denies abdominal pain, Denies bloating, Denies constipation, Denies dysphagia, Denies heartburn, Denies diarrhea, Denies nausea, Denies odynophagia and Denies vomiting Denies hematuria, Denies difficulty urinating, Denies dysuria, Denies urinary frequency and Denies urinary urgency Musc Reports back pain (chronic), Reports arthralgias (in the left knee - chronic), Denies joint swelling, Denies muscle weakness and Denies neck pain Skin/Breast Denies change in pigmentation, Denies lesions, Denies rash and Denies unusual bruising Neuro Details: (+) phantom limb pain in the right lower extremity Denies dizziness, Denies headache(s), Denies paresthesias and Denies weakness Psych Denies visual hallucinations Endo Denies fatigue and Denies palpitations Aller/Immun Denies itchy eyes and Denies wheezing Physical exam (Primary Care) Vital Signs: Last Vital Signs Pulse 70 10/16/24 11:21 BP 124/78 10/16/24 11:21 Pulse Ox 96 10/16/24 11:21 Oxygen Delivery Method Room Air 10/16/24 11:21 Tobacco/Smoking Status: Tobacco use Status Tobacco use date assessed 10/16/24 10/16/24 11:30 Patient Tobacco Use Status Former Tobacco user 10/16/24 11:30 Tobacco use type Cigarette 10/16/24 11:30 e-Cigarette/Vaping Use Never Used 10/16/24 11:30 PHQ-9: PHQ-9 Score PHQ-9: Total score 0 10/17/24 03:00 Depression Screening Interpretation: Negative Thrive Assessment: Date of Thrive Assessment Date Thrive assessed 10/16/24 10/16/24 11:30 Currently or been in a relationship where the following occur: I choose not to answer Const General: no acute distress, alert and awake Orientation/consciousness: patient oriented x3 Limitations: wheelchair HENMT Head: Yes normocephalic and Yes atraumatic Ears: external ears normal, TM's normal bilaterally and EAC's normal General nose exam: No nasal discharge present Face and sinus: Yes normal facial exam and Yes sinuses nontender Teeth and gingiva: dentition normal Throat: Yes posterior oropharynx normal and Yes tonsils normal (no TP congestion) Eyes Eyelids: Yes eyelids normal Conjunctivae: conjunctivae normal Pupils: Equal, round and reactive pupils present EOM: EOMs intact bilaterally Neck Neck: Yes no lymphadenopathy and Yes supple Thyroid: Thyroid normal Resp Auscultation: clear to auscultation bilaterally, no rales and no wheezes Cardio Rate: regular rate Rhythm: regular rhythm Heart sounds: no murmurs GI Palpation (GI): Soft to palpation, nontender and No hepatosplenomegaly present Auscultation: normal bowel sounds General: Yes no CVA tenderness Back/Spine/Pelvis Back: no CVA tenderness Thoracic/Lumbar Spine: lumbar spinal tenderness Skin Lesions: no lesions Rashes: no rashes Neuro General: patient oriented x3, no focal motor deficits and CN's II-XI intact bilaterally Cranial nerves: Yes Equal, round and reactive pupils present Cognition (Neuro): normal cognition Gait exam (Neuro): Assistive device used Extrem Other: AKA of the right lower extremity General: Yes no clubbing, cyanosis or edema (in the left lower extremity) Left lower extremity: knee Details: tenderness and crepitus Coding Level of Care Code Est Pt Prev Care >65y(62488) Diagnoses Annual physical exam Z00.00 Benign essential hypertension I10 Dyslipidemia E78.5 Chronic obstructive pulmonary disease, unspecified COPD type J44.9 COPD type: unspecified COPD Paroxysmal atrial fibrillation I48.0 Thoracic aortic ectasia I77.810 Degeneration of intervertebral disc of lumbar region with discogenic back pain M51.360 Disc-related pain type: discogenic back pain only Phantom limb pain G54.6 Above knee amputation of right lower extremity S78.111A Osteoarthritis of left knee, unspecified osteoarthritis type M17.12 Osteoarthritis type: unspecified Visual hallucinations R44.1 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 H54.3 Vitamin D deficiency E55.9 Hypotestosteronism E34.9 Benign prostatic hyperplasia, unspecified whether lower urinary tract symptoms present N40.0 Lower urinary tract symptom presence: unspecified whether lower urinary tract symptoms present Attention deficit hyperactivity disorder (ADHD), combined type F90.2 Attention deficit-hyperactivity disorder type: combined inattentive-hyperactive Additional Codes PHQ-9 - 67199 - PHQ-9 Billing: Yes ([id number]) Assessment & Plan Assessment & Plan (1) Annual physical exam: Code(s): Z00.00 - Encounter for general adult medical examination without abnormal findings Category: Medical Plan: Check labs ROSALVA - patient is advised to get these done as soon as possible as he has not had any labs done in a couple of years now (2) Benign essential hypertension: Code(s): I10 - Essential (primary) hypertension Category: Medical Plan: Reinforced low sodium diet - goal is systolic BP of 120 to 130 mm or less He used to take Lisinoprol 5 mg QD but that has been discontinued at some point Patient is reminded to monitor his blood prressure regularly (3) Dyslipidemia: Code(s): E78.5 - Hyperlipidemia, unspecified Category: Medical Plan: Reinforced low cholesterol diet Will send him for labs ROSALVA to update his fasting lipids (4) COPD (chronic obstructive pulmonary disease): Code(s): J44.9 - Chronic obstructive pulmonary disease, unspecified Category: Medical Qualifiers: COPD type: unspecified COPD Qualified Code(s): J44.9 - Chronic obstructive pulmonary disease, unspecified Plan: Continue Trelegy Ellipta 100-62.5-25 mcg 1 inhalation QD and Albuterol HFA 1 to 2 inhalations Q 6 hours PRN He used to see [facility] Pulmonary but has not been back to see them since last year He reportedly had severe airflow obstruction without any significant bronchodilator response. His single breath diffusing capacity was at 33% of predicted, which was severely reduced Imaging studies done in the past couple of years have revealed changes of advanced emphysema Will refer him now to [facility] for continuing management of his COPD (5) Paroxysmal atrial fibrillation: Code(s): I48.0 - Paroxysmal atrial fibrillation Category: Medical Plan: Patient is currently in sinus rhythm Continue Apixaban 5 mg BID for thromboelmbolism prophylaxis and also for a left femoral-popliteal DVT last year Will refer him to cardiology for continuing follow up and management (6) Thoracic aortic ectasia: Code(s): I77.810 - Thoracic aortic ectasia Category: Medical Plan: This was seen incidentally on a chest CTA done at [facility] last year (2022), with ectasia of the infrarenal aorta to 2.52 cm with a maximum diameter of 3.2 cm He was seen by vascular surgery at [facility] last year but has not followed up with them since Will now refer him to vascular surgery here at [facility] for continuing follow-up and management (7) Lumbar degenerative disc disease: Comment: Failed trial of ablation and nerve block with pain management in 2019 Code(s): M51.36 - Other intervertebral disc degeneration, lumbar region Category: Medical Qualifiers: Disc-related pain type: discogenic back pain only Qualified Code(s): M51.360 - Other intervertebral disc degeneration, lumbar region with discogenic back pain only Plan: Patient is mostly wheelchair-bound so his activity level is practically sedentary Continue Oxycodone 5 mg TID PRN He used to see pain management but has not been back to see them in a few years now (8) Phantom limb pain: Comment: S/P right AKA for osteosarcoma at 17 y/o Code(s): G54.6 - Phantom limb syndrome with pain Category: Medical Plan: Continue Gabapentin 300 mg BID and Oxycodone 5 mg TID PRN for pain (9) Above knee amputation of right lower extremity: Code(s): S78.111A - Complete traumatic amputation at level between right hip and knee, initial encounter Category: Medical Plan: He currently does not have any prosthesis on his right leg as his previous one was ill-fitting and he has not used that in a while now He is currently interested in getting refitted for a new prosthesis soon so he can start walking around again (10) Osteoarthritis of left knee: Code(s): M17.12 - Unilateral primary osteoarthritis, left knee Category: Medical Qualifiers: Osteoarthritis type: unspecified Qualified Code(s): M17.12 - Unilateral primary osteoarthritis, left knee Plan: Continue Acetaminophen 1000 mg TID PRN He used to take Ibuprofen but as he is currently on Apixaban, that was discontinued He has tried auto stem cell implantation from his hip to his knee with a [facility] provider in [place] a few years ago ([id number]) without any success - states that he spent about $6000 of his own money on a useless procedure as he did not want to go for knee surgery at the time He has been seen by orthopedics in the past for his left knee issues and states that he is now considering going for knee replacement surgery Will refer him back to orthopedics (11) Visual hallucinations: Code(s): R44.1 - Visual hallucinations Category: Medical Plan: CT of the brain done a couple of years ago (2021) revealed only findings of mild generalized atrophy (prominent ventricles and extra-axial CSF spaces), with mild nonspecific periventricular white matter disease EEG done in 2021 revealed only (+) slowing of brain waves He was started on Quetiapine 25 mg BID, which appears to be helping Follow up with neurology as scheduled (12) 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: Code(s): H54.3 - Unqualified visual loss, both eyes Category: Medical Plan: Per request, we will refer him to ophthalmology for further evaluation and management/correction of his vision issues (13) Vitamin D deficiency: Code(s): E55.9 - Vitamin D deficiency, unspecified Category: Medical Plan: He's had low Vitamin D levels in the past but is currently not on any Vitamin D supplements Will go ahead and recheck his Vitamin D level as well for follow up (14) Hypotestosteronism: Code(s): E34.9 - Endocrine disorder, unspecified Category: Medical Plan: He has a Hx of low testosterone level and was taking testosterone replacement Rx in the past He is currently still apparently on Testosterone gel 2 pumps QD Will recheck his serum testosterone level ROSALVA for follow up (15) Benign prostatic hyperplasia: Code(s): N40.0 - Benign prostatic hyperplasia without lower urinary tract symptoms Category: Medical Qualifiers: Lower urinary tract symptom presence: unspecified whether lower urinary tract symptoms present Qualified Code(s): N40.0 - Benign prostatic hyperplasia without lower urinary tract symptoms Plan: Continue Terazosin 10 mg Q HS Follow up with urology as scheduled (16) Attention deficit hyperactivity disorder (ADHD): Code(s): F90.9 - Attention-deficit hyperactivity disorder, unspecified type Category: Medical Qualifiers: Attention deficit-hyperactivity disorder type: combined inattentive-hyperactive Qualified Code(s): F90.2 - Attention-deficit hyperactivity disorder, combined type Plan: He used to take Amphetamine-Dextroamphetamine Tablet, 30 mg once a day in AM but this has been discontinued Plan Follow up in 3 months Orders: Orders TSH reflex Free T4 10/16/24 E78.00 - Pure hypercholesterolemia, unspecified UA CC w/rflx Micro + Cult 10/16/24 R30.0 - Dysuria Vitamin B12 and Folate 10/16/24 E53.8 - Deficiency of other specified B group vitamins Testosterone, Free/Total 10/16/24 R79.89 - Other specified abnormal findings of blood chemistry Complete Blood Count Auto Diff 10/16/24 D64.9 - Anemia, unspecified Comprehensive [place]. Panel Fast 10/16/24 E78.00 - Pure hypercholesterolemia, unspecified Lipid Panel 10/16/24 E78.00 - Pure hypercholesterolemia, unspecified Vitamin D 25-OH Total 10/16/24 E55.9 - Vitamin D deficiency, unspecified Hemoglobin A1c 10/16/24 R73.9 - Hyperglycemia, unspecified Referrals Cardiology Referral I48.0 - Paroxysmal atrial fibrillation Orthopedics Referral M17.12 - Unilateral primary osteoarthritis, left knee Ophthalmology Referral H54.3 - Unqualified visual loss, both eyes Pulmonology Referral J44.9 - Chronic obstructive pulmonary disease, unspecified Vascular Surgery Referral I77.810 - Thoracic aortic ectasia Medications: New acetaminophen (Tylenol Extra Strength) 1,000 mg (2 x 500 mg) PO TID PRN 180 tabs 11RF fever or pain sennosides (senna) 8.6 mg PO DAILY 30 caps 11RF constipation bacitracin 1 appl topical BID 30 days PRN 30 grams 11RF minor cuts/abrasions polyethylene glycol 3350 (Miralax) 17 grams PO DAILY 510 grams 11RF apixaban (Eliquis) 5 mg PO BID 30 days 60 tabs 5RF gabapentin 300 mg PO BID 30 days 60 caps 3RF oxycodone 5 mg PO TID 28 days PRN 84 tabs 0RF severe pain zjmtixkjgjh-caplwhjlp-caybzrjl 100-62.5-25 mcg (Trelegy Ellipta) 1 inh inhalation DAILY 28 ea 0RF Refilled terazosin 10 mg PO BEDTIME 30 days 30 caps 5RF
== END 2024-10-16 12:27 | disposition home or self-care (01) ==
PROVIDERS: PCP Internal Medicine; Visit Provider Internal Medicine
DX: Z00.00 Encounter for general adult medical examination without abnormal findings (principal); J44.9 Chronic obstructive pulmonary disease, unspecified; I48.0 Paroxysmal atrial fibrillation; I77.810 Thoracic aortic ectasia; G54.6 Phantom limb syndrome with pain; S78.111A Complete traumatic amputation at level between right hip and knee, initial encounter; I10 Essential (primary) hypertension; E78.5 Hyperlipidemia, unspecified; M51.360 Other intervertebral disc degeneration, lumbar region with discogenic back pain only; M17.12 Unilateral primary osteoarthritis, left knee; R44.1 Visual hallucinations; H54.3 Unqualified visual loss, both eyes

== ENCOUNTER 2024-10-16 11:04 | Outpatient (REF) | payer MEDICARE, SELFPAY ==
[2024-10-16 13:00] LABS: MANUAL DIFF FLAG NO
[2024-10-16 13:28] LABS: Basophils Percent Auto 0.8 % (0-2); Eosinophils Absolute Auto 0.2 X10*3/uL (0.0-0.4); Eosinophils Percent Auto 4.8 % (0-4); Hematocrit 44.1 % (42.0-52.0); Hemoglobin 14.1 g/dl (14.0-18.0); Imm Gran Abs Auto 0.02 X10*3/uL (0.00-0.03); Imm Gran Pct Auto 0.4 % (0.0-0.4); Lymphocytes Absolute Auto 1.1 X10*3/uL (1.2-4.9); Lymphocytes Percent Auto 23.5 % (20-40); Mean Corpuscular Hemoglobin 30.1 pg (27.0-33.0); Mean Platelet Volume 9.6 fL (9.4-12.4); Monocytes Absolute Auto 0.6 X10*3/uL (0.1-1.2); Monocytes Percent Auto 12.4 % (2-11); Neutrophils Absolute Auto 2.8 x10*3/uL (2.0-8.3); Neutrophils Percent Auto 58.1 % (45-73); Platelet Count 196 X10*3/uL (160-400); Red Blood Count 4.69 X10*6/uL (4.60-5.80); Red Cell Distribution Width 13.7 % (11.0-16.0); White Blood Count 4.8 X10*3/uL (4.8-10.8)
[2024-10-16 13:41] LABS: Estimated Average Glucose 117 mg/dL; Hemoglobin A1C 135.2153 umol/L; Hemoglobin A1c % 5.7 % (<6.0); Total Hemoglobin (HGBA1C) 3535.8917 umol/L
[2024-10-16 13:57] LABS: Alanine Aminotransferase 31 U/L (0-40); Albumin Level 3.9 g/dL (3.5-5.0); Alkaline Phosphatase 69 U/L (39-117); Anion Gap 11 (12-20); Aspartate Amino Transferase 28 U/L (5-37); Bilirubin Total 0.4 mg/dL (0.0-1.0); Blood Urea Nitrogen 19 mg/dL (9-16); Calcium 9.3 mg/dL (8.4-10.2); Carbon Dioxide 28 mmol/L (22-29); Chloride 104 mmol/L (96-108); Cholesterol 170 mg/dL (<200); Estimated Glomerular Filt Rate > 60; Glucose Fasting 88 mg/dL (60-99); HDL Cholesterol 50 mg/dL (>40); LDL Cholesterol Calculated 99 mg/dL (<100); Potassium 3.8 mmol/L (3.3-5.1); Sodium 139 mmol/L (135-145); Total Protein 7.8 g/dL (6.5-8.0); Triglycerides 109 mg/dL (<150)
[2024-10-16 14:12] LABS: TSH reflex Free T4 1.37 uIU/mL (0.32-4.0); Vitamin D 25-OH Total 42.2 ng/mL (>30)
[2024-10-16 14:23] LABS: Folate 10.8 ng/mL (> or = 4.0); Vitamin B12 422 pg/mL (200-900)
[2024-10-22 17:53] LABS: Testosterone, Free 4.5 pg/mL (30.0-135.0); Testosterone, Total 74 ng/dL (250-1100)
== END 2024-10-16 11:05 | disposition home or self-care (01) ==
LOC: HO.LAB 11:04
PROVIDERS: PCP Internal Medicine; Visit Provider Internal Medicine
DX: Z00.00 Encounter for general adult medical examination without abnormal findings (principal); I10 Essential (primary) hypertension; E78.5 Hyperlipidemia, unspecified; J44.9 Chronic obstructive pulmonary disease, unspecified; I48.0 Paroxysmal atrial fibrillation; I77.810 Thoracic aortic ectasia; M51.360 Other intervertebral disc degeneration, lumbar region with discogenic back pain only; G54.6 Phantom limb syndrome with pain; M17.12 Unilateral primary osteoarthritis, left knee; R44.1 Visual hallucinations; H54.3 Unqualified visual loss, both eyes; E55.9 Vitamin D deficiency, unspecified; E34.9 Endocrine disorder, unspecified; N40.0 Benign prostatic hyperplasia without lower urinary tract symptoms; F90.2 Attention-deficit hyperactivity disorder, combined type; Z79.899 Other long term (current) drug therapy; Z89.611 Acquired absence of right leg above knee; E78.00 Pure hypercholesterolemia, unspecified; E53.8 Deficiency of other specified B group vitamins; D64.9 Anemia, unspecified; R73.9 Hyperglycemia, unspecified
CPT/HCPCS: 36415; 80053; 80061; 82306; 82607; 82746; 83036; 84402; 84403; 84443; 85025; 96127; 99397

== ENCOUNTER 2024-11-10 14:40 | Outpatient (REF) | payer MEDICARE, SELFPAY ==
--- NOTE | ~2024-11-10 | XR_ITS ---
EXAMINATION: XR CHEST CLINICAL INFORMATION: J44.9 - Chronic obstructive pulmonary disease, unspecified COMPARISON: Chest 03/22/2022 TECHNIQUE: 2 views of the chest were obtained. FINDINGS: The lungs are hyperinflated without acute pneumonic consolidation. There is increased bilateral hilar markings. The heart size and pulmonary vascularity is normal. There is no gross bony abnormality seen. XR/XR chest 2V IMPRESSION: Hyperinflated lungs with bilateral increased chronic interstitial markings. No acute pneumonic process seen. No change from 03/22/2022 Electronically signed by: Marcellus Piedra MD 11/11/2024 10:59 AM EST
== END 2024-11-10 14:41 | disposition home or self-care (01) ==
LOC: HO.XRAY 14:40
PROVIDERS: PCP Internal Medicine; Visit Provider Nurse Practitioner Family
DX: J44.9 Chronic obstructive pulmonary disease, unspecified (principal)
CPT/HCPCS: 71046; 99202

== ENCOUNTER 2024-11-10 14:40 | Outpatient (AMB) | payer MEDICARE, SELFPAY ==
--- NOTE | 2024-11-09 21:13 | MHC.OFFVIS ---
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 He was referred by Dr. Cross for pulmonary evaluation for worsening dyspnea. He is wheelchair bound and activity is very limited. He currently resides at a longterm and is accompanied by a staff member. Overall poor historian, he was referred for dyspnea however patient denies any dyspnea or labored breathing with activity. He does endorse wheezing and intermittent cough which he attributes to post nasal drip. He was previously under the care of [facility] pulmonary but was lost to follow up. During evaluation he did have PFT performed in 2022 which revealed very severe obstructive defect, full report below. At that time, he did not require supplemental oxygen and ozygen saturation today 96%. He feels as though his symptoms are well controlled on Trelegy 100 mcg, rarely requiring albuterol MDI. He denies any recent hospitalizations related to respiratory distress. He denies h/o recurrent URI/exacerbations. He denies any h/o asthma. He denies any occupational exposures. He denies any pertinent family history. [facility] Medical History (Updated 11/10/24 @ 17:02 by Jacqueline Bailey NP) Above knee amputation of right lower extremity Paroxysmal atrial fibrillation Attention deficit hyperactivity disorder (ADHD) Vitamin D deficiency Hypotestosteronism Erectile dysfunction Phantom limb pain Benign prostatic hyperplasia Lumbar degenerative disc disease COPD (chronic obstructive pulmonary disease) Dyslipidemia Benign essential hypertension Unilateral primary osteoarthritis, left knee Osteosarcoma of bone Knee pain, left Surgical History (Updated 10/17/24 @ 02:54 by Jefferson Cross MD) History of amputation History of hernia surgery Social History Household Members: None Housing: Apartment Do you presently have visiting nurse or other home services: Yes ([employer]) Alcohol intake: never Patient Tobacco Use Status: Former Tobacco user Tobacco use type: Cigarette Cigarettes Per Day: 40 e-Cigarette/Vaping Use: Never Used Second Hand Smoke Exposure: Yes service: No Current occupational status: retired Cognitive needs: Yes (wheelchair/crotches) Review of Systems Const Denies chills, Denies excessive sweating, Denies fever(s), Denies headache(s) and Denies night sweats Eyes Denies dry eyes, Denies irritation and Denies itchy eyes ENT Reports Normal hearing present, Denies headache(s), Denies nasal congestion, Denies nasal discharge and Denies sore throat Card Denies chest pain, Denies chest pain at rest, Denies chest pain with activity, Denies claudication, Denies dyspnea, Denies dyspnea on exertion, Denies orthopnea and Denies paroxysmal nocturnal dyspnea Resp Denies chest congestion, Denies excessive phlegm production, Denies pain on inspiration, Denies pain with cough, Denies dyspnea, Denies dyspnea on exertion and Denies stridor Musc Denies myalgias Neuro Reports Normal hearing present and Denies headache(s) Endo Denies excessive sweating David/Lymph Denies lymphadenopathy Aller/Immun Denies itchy eyes and Denies seasonal rhinorrhea Physical Exam Vital Signs: Last Vital Signs Pulse 62 11/10/24 14:41 BP 120/60 11/10/24 14:41 Pulse Ox 95 11/10/24 14:41 Oxygen Delivery Method Room Air 11/10/24 14:41 Const General: cooperative, healthy appearing, comfortable, no acute distress, well developed and alert Orientation/consciousness: patient oriented x3 Limitations: wheelchair HEENT Head: Yes normal to inspection, Yes normocephalic and Yes atraumatic Ears: hearing grossly normal bilaterally and external ears normal Eyes General: appearance normal, both eyes and all related structures Eyelids: Yes eyelids normal Sclerae: sclerae normal EOM: EOMs intact bilaterally Neck Neck: Yes normal visual inspection and Yes no lymphadenopathy Lymphatic: no lymphadenopathy noted Chest Chest palpation & inspection: normal inspection of the chest Resp Effort & Inspection: normal respiratory effort, able to speak in complete sentences, no audible wheezes, no cough, no stridor, not tachypneic, no tripod positioning and no use of accessory muscles Auscultation: diminished lung sounds Cardio Jugular venous distension: no JVD Rate: regular rate Rhythm: regular rhythm Skin Other: warm, dry General skin exam: no rashes or lesions noted Neuro General: patient oriented x3 Cranial nerves: Yes Normal hearing present Cognition (Neuro): normal cognition Gait exam (Neuro): Normal gait present Extrem Other: AKA on right Psych Appearance: grossly normal and well kempt Speech and movement: Normal speech and movement present and Clear speech present Affect: normal affect Attitude: cooperative Thought process: Normal thought process present Thought content: Normal thought content present Insight: Good insight present (Psych) Judgement: Good judgement present (Psych) Results Reviewed Results Reviewed: PFT's Complete Lab: [facility] Name: ALEXIS CUELLAR CMRN: [id number] Sex: M Age: 78 Ethnicity: C Height: 74 In Weight: 160 Lb BMI: 20.1 Referring: Brice Donato M.D. Date of test: 30-May-2023 SPIROMETRY: FEV1 1.00, 31%; FVC 3.86, 87%; FEV1/FVC 26%; PEFR 2.50, 30%; Post FEV1 1.08, 33% (8%); FVC 4.05, 91% (5%); PEFR 3.11, 37%; (24%) SVC 3.86, 87% LUNG VOLUMES (N2): TLC 7.25, 90%; FRC 5.37, 114%; RV 3.39, 106%, IC 1.88, ERV 1.98 DIFFUSING CAPACITY: DLCO and KCO are 36% predicted adjusted for lung volume, Hb, barometric pressure DLCO 8.63, 32%, KCO 1.42, 41% predicteds adjusted for Hb of 14.1 VA 6.09, 78% 3.64, 82%, 94% of FVC OXIMETRY: 94% on room air at rest PRIOR RESULTS: FEV1: 0.93, FVC: 3.05 on 01/26/2023. INTERPRETATION: Very severe obstructive defect. PEFR is reduced. Significant response to bronchodilator. However, not meet ATS criteria of 12% and >200 ml improvement in FEV1 or FVC. Gold category 3. The MVV is consistent with the level of FEV1. Lung volumes are normal. Lung volumes may be underestimated by N2 when significant obstruction. The diffusing capacity is severely reduced. Oxygen saturation (94%) is normal on room air at rest. The finding of obstruction with low DLCO is consistent with emphysema Recommend check walking O2 saturations as hypoxia can occur with DLCO this low. Since 01/26/2023, unchanged FEV1 (+8%, +2% pred), higher FVC (+27%, +18% pred). Interpreting Physician: Mateus Dawkins M.D. RESULT: CT Chest W/O Contrast CT Chest W/O Contrast Reason: Other:; pericardial effusion; Clinical Question(s): Other:; Order Comment: COMPARISON: CTA from 05/11/2022 TECHNIQUE: Helical CT scan of the chest without IV contrast, formatted in 3 planes. Weight-based protocol was performed using automatic exposure control. CTDIvol Body: 5.40 mGy, DLP Body: 234 mGy*cm. FINDINGS: Clinical Lab Clerk View Findings, Lines and Tubes: None. Trachea and Airways: Central tracheobronchial tree is patent. Mild segmental and subsegmental bronchial wall thickening, may represent bronchitis. Lungs and Pleura: Severe emphysematous changes to the bilateral lungs, with scattered areas of scarring/atelectasis. Possible trace left effusion, with adjacent subsegmental atelectasis/scarring. No pneumothorax. Mediastinum and Tanika: Prominent AP window nodes and subcarinal nodes, similar to prior study, measuring up to 1.5 cm. No nodule within the visualized thyroid. Esophagus is nondistended. Heart: [id number] pericardial effusion, with fluid in the pericardial recesses, not significantly changed compared to prior study. Moderate coronary artery calcification. Aorta: Moderate vascular calcification but no aneurysm. Mildly ectatic tortuous descending thoracic aorta measuring up to 3.2 cm. Pulmonary Arteries: Upper limits of normal in caliber, measuring up to 2.9 cm. Chest Wall Soft Tissues: Normal. Diaphragm and upper abdomen: Hepatic dome cystic structure, with additional hepatic hypodensities, possibly small cysts versus hemangiomas noted. Bones: No acute abnormality. IMPRESSION: No significant change to mild to moderate pericardial effusion compared to prior study. Limited evaluation of pulmonary embolism on noncontrast technique images. Remainder of the incidentally identified findings including extensive bilateral emphysematous changes and mildly ectatic descending thoracic aorta are noted again. WSN: [id number] Ordering Physician: Julianne Lopez Reason For Exam pericardial effusion Signature Line Dictated By: Berta Castillo MD Dictated Date/Time: 05/13/22 10:28 a Reviewed By: Berta Castillo MD Signed By: Berta Castillo MD Signed Date/Time: 05/13/22 10:28 am Transcribed By: TYLER Assessment & Plan Assessment & Plan (1) COPD (chronic obstructive pulmonary disease): Code(s): J44.9 - Chronic obstructive pulmonary disease, unspecified Category: Medical Qualifiers: COPD type: unspecified COPD Qualified Code(s): J44.9 - Chronic obstructive pulmonary disease, unspecified (2) Cough: Code(s): R05.9 - Cough, unspecified Category: Medical Plan At this time, Alexis reports good control of respiratory symptoms on current regimen, advised to continue. He is a poor historian and significantly diminished lung sounds,will send for CXR and have follow up in 6-8 weeks to reassess. Will also send for overnight oximetry on room air to assess for nocturnal hypoxemia as he has significantly decreased DLCO. All questions were answered and patient is in agreement of plan. Orders: Orders Overnight Pulse Oximetry Today G47.34 - Idiopathic sleep related nonobstructive alveolar hypoventilation XR chest 2V Today J44.9 - Chronic obstructive pulmonary disease, unspecified Coding Level of Care Code New Pt Level 4 (22806) Diagnoses Chronic obstructive pulmonary disease, unspecified COPD type J44.9 COPD type: unspecified COPD Cough R05.9
[2024-11-10 14:41] VITALS: BP 120/60; PULSE 62; O2SAT 95
== END 2024-11-10 15:19 | disposition home or self-care (01) ==
PROVIDERS: PCP Internal Medicine; Visit Provider Nurse Practitioner Family
DX: J44.9 Chronic obstructive pulmonary disease, unspecified (principal); R05.9 Cough, unspecified
CPT/HCPCS: 99204

== ENCOUNTER → 2024-11-10 15:28 | Outpatient (BNV) | payer MEDICARE, SELFPAY | PROVIDERS: PCP Internal Medicine; Visit Provider Radiology Diagnostic Radiology | DX: J44.9 Chronic obstructive pulmonary disease, unspecified (principal) | CPT/HCPCS: 71046 ==

== ENCOUNTER 2024-11-11 10:32 | Outpatient (AMB) | payer MEDICARE, SELFPAY ==
--- NOTE | 2024-11-11 10:40 | MHC.OFFVIS ---
Intake Visit Reasons: [employer]S BACK [employer]TER MAN/PCP ref for descending thoracic Aortic aneurysm Intake Note: Patient presents for descending thoracic aortic aneurysm . No complaints. Accompanied by: Other Relationship Allergies No Known Allergies Allergy (Verified 11/11/24 10:44) HPI HPI [employer]S BACK [employer]TER MAN/PCP ref for descending thoracic Aortic aneurysm: Details: Very pleasant 79-year-old gentleman presents for evaluation regarding thoracic aneurysm. He had been seen and examined by [facility] vascular in the past and was noted to have ectasia versus aneurysm on a CTA of the chest of 3.2 cm. I believe this workup began as a workup for DVT and PE for which she was started on Eliquis. It continues to do fairly well. He is an amputee secondary to osteosarcoma which was done in the 1960s and has been doing extremely well since that time. He reports he quit smoking nearly 45 years ago and is a nondiabetic. At the current time he denies any other issues. He is now for routine evaluation. [facility] Medical History Above knee amputation of right lower extremity Paroxysmal atrial fibrillation Attention deficit hyperactivity disorder (ADHD) Vitamin D deficiency Hypotestosteronism Erectile dysfunction Phantom limb pain Benign prostatic hyperplasia Lumbar degenerative disc disease COPD (chronic obstructive pulmonary disease) Dyslipidemia Benign essential hypertension Unilateral primary osteoarthritis, left knee Osteosarcoma of bone Knee pain, left Surgical History History of amputation History of hernia surgery Social History Household Members: None Housing: Apartment Do you presently have visiting nurse or other home services: Yes ([employer]) Alcohol intake: never Patient Tobacco Use Status: Former Tobacco user Tobacco use type: Cigarette Cigarettes Per Day: 40 e-Cigarette/Vaping Use: Never Used Second Hand Smoke Exposure: Yes service: No Current occupational status: retired Cognitive needs: Yes (wheelchair/crotches) Review of Systems Const All systems reviewed & are unremarkable except as noted in HPI and below Reports no additional complaints ENT Reports Normal hearing present Card Denies chest pain, Denies chest pain at rest, Denies chest pain with activity and Denies pedal edema Resp Denies cough GI Denies abdominal pain Musc Denies abnormal gait, Denies muscle cramps and Denies radiating pain into limb Skin/Breast Denies skin ulcer and Denies wounds Neuro Reports Normal hearing present and Denies abnormal gait Psych Reports no additional complaints Physical Exam Const General: cooperative, healthy appearing and comfortable Orientation/consciousness: oriented to person, oriented to place and oriented to time HEENT Head: Yes normal to inspection Neck Neck: Yes normal visual inspection Carotids: no bruits Chest Chest palpation & inspection: normal inspection of the chest Resp Effort & Inspection: normal respiratory effort and able to speak in complete sentences Auscultation: clear to auscultation bilaterally, no crackles, no rales, no rhonchi and no wheezes Cardio Rate: regular rate Rhythm: regular rhythm Heart sounds: S1 normal heart sound present and S2 normal heart sound present Bruits: no carotid bruits Peripheral pulses: Peripheral pulses 2+ throughout GI Inspection: Yes normal to inspection Skin Wounds: amputation site (Right AKA well healed) Hair: normal Neuro General: oriented to person, oriented to place and oriented to time Cranial nerves: Yes CN's II-XII intact bilaterally and Yes Normal hearing present Cognition (Neuro): normal cognition Motor exam (neuro): 5/5 motor strength present throughout Extrem Other: venous exam: No significant superficial varicosities or spider telangiectasias, minimal edema General: No clubbing, No cyanosis and No edema Psych Appearance: grossly normal Mental Status: mental status grossly normal Speech and movement: Normal speech and movement present Assessment & Plan Assessment & Plan (1) Thoracic aneurysm without mention of rupture: Code(s): I71.20 - Thoracic aortic aneurysm, without rupture, unspecified Category: Medical Qualifiers: Thoracic aorta location: descending thoracic aorta Presence of rupture: without rupture Qualified Code(s): I71.23 - Aneurysm of the descending thoracic aorta, without rupture Plan: In short patient has a prior history of a thoracic aneurysm. It has been a few years since his last evaluation. I have taken the liberty of ordering non contrast CT just to better elucidate the true size of this. We did discuss routine risk factor modification. Will follow up with us after testing. Thank you for allowing us to assist in his care. If there are any questions or concerns please do not hesitate to contact us. Orders: Orders CT chest wo IV con Today I71.23 - Aneurysm of the descending thoracic aorta, without rupture Coding Level of Care Code New Pt Level 4 (04405) Diagnoses Aneurysm of descending thoracic aorta without rupture I71.23 Thoracic aorta location: descending thoracic aorta Presence of rupture: without rupture
== END 2024-11-11 11:22 | disposition home or self-care (01) ==
PROVIDERS: PCP Internal Medicine; Visit Provider Surgery Vascular Surgery
DX: I71.23 Aneurysm of the descending thoracic aorta, without rupture (principal)
CPT/HCPCS: 99204

== ENCOUNTER → 2024-11-11 10:32 | Outpatient (BNVA) | payer MEDICARE, SELFPAY | PROVIDERS: PCP Internal Medicine; Visit Provider Surgery Vascular Surgery | DX: I71.23 Aneurysm of the descending thoracic aorta, without rupture (principal) | CPT/HCPCS: 99202 ==

== ENCOUNTER 2024-11-27 12:28 | Outpatient (REF) | payer MEDICARE, SELFPAY | END 2024-11-27 12:29 | disposition home or self-care (01) | LOC: HO.HOSX 12:28 | PROVIDERS: Visit Provider Orthopaedic Surgery | DX: Z13.89 Encounter for screening for other disorder (principal) ==

== ENCOUNTER 2025-01-15 22:15 | Observation (INO) | payer MEDICARE, SELFPAY ==
--- NOTE | ~2025-01-15 | XR_ITS ---
CLINICAL HISTORY: rule out penumonia 1 view chest x-ray. Comparison: CR/SR - XR CHEST 2V - 11/10/24 15:45 EST CR/SR - XR CHEST 1V - 03/22/22 14:41 EDT Findings: Stable increased lung volumes. Persistent interstitial and bronchial wall thickening. No pleural effusions. Prominent skin folds bilaterally simulates pneumothorax. Heart size normal. No passive venous congestion. No midline shift or tracheal deviation. No acute fracture. Impression: 1. Stable hyperinflated lungs with interstitial thickening. Prominent skin folds bilaterally. This document has been electronically signed by: Ha Rivera MD on 01/17/2025 12:27:36
[2025-01-15 22:18] VITALS: BP 117/61; BP 117/67; PULSE 81; PULSE 86; RESP 16; TEMP 36.6; O2SAT 90; O2SAT 92; BMI 25.8
--- NOTE | 2025-01-15 22:24 | ECG_ITS ---
Test Reason : AMS Blood Pressure : */* mmHG Vent. Rate : 71 BPM Atrial Rate : 71 BPM P-R Int : 160 ms QRS Dur : 88 ms QT Int : 394 ms P-R-T Axes : 89 64 79 degrees QTcB Int : 428 ms Normal sinus rhythm Normal ECG When compared with ECG of 22-Mar-2022 13:56, Premature ventricular complexes are no longer Present Criteria for Septal infarct are no longer Present ST no longer depressed in Inferior leads Referred By: Jacqueline Ruiz Electronically Signed By: IBLL CHRISTIAN MD
--- NOTE | 2025-01-15 22:26 | ED.GENADULT ---
HPI - General Adult General Chief complaint: General Medical Stated complaint: [facility] Lethargy 10 hours Source: patient and EMS Mode of arrival: EMS Limitations: other (Cognitive impairment) History of Present Illness ED Provider: Dr. Jacqueline Ruiz HPI narrative: Patient comes to the emergency room via EMS. According to EMS, the staff at the detention reported that the patient has been lethargic for the last 12 hours. Seems that the patient has been having episodes of sleeping and ?unresponsiveness? . Staff reported unresponsiveness as difficult to arouse but eventually wakes up with sternal rub. Patient is awake, alert, states that he has no pain anywhere, does not feel sick. The staff told the EMS crew that by the time they arrived, patient was completely back to baseline but they still wanted him to get checked out. Per EMS, they tried to clear up why the detention did not call EMS earlier today if he has been lethargic and intermittently unresponsive for the last 10 hours. Related Data Home Medications ?Medication ?Instructions ?Recorded ?Confirmed testosterone 2 pump topical DAILY 03/22/22 10/16/24 albuterol sulfate 90 mcg/actuation 2 puff inhalation Q6H PRN 10/16/24 10/16/24 aerosol inhaler bisacodyl 10 mg rectal suppository 10 mg MI DAILY PRN constipation - 10/16/24 10/16/24 (Dulcolax (bisacodyl)) if no BM on day # 4 guaifenesin 200 mg tablet 200 mg PO Q6H PRN 10/16/24 10/16/24 loperamide 2 mg tablet (Imodium 4 mg PO Q12H PRN diarrhea/loose 10/16/24 10/16/24 A-D) stools nystatin 100,000 unit/gram topical 1 appl topical BID PRN groin rash 10/16/24 10/16/24 powder Previous Rx's ?Medication ?Instructions ?Recorded enoxaparin 40 mg/0.4 mL 40 mg (0.4 mL) subcut Q24H 28 days 03/27/22 subcutaneous syringe #11.2 mL acetaminophen 500 mg tablet 1,000 mg (2 x 500 mg) PO TID PRN 10/16/24 (Tylenol Extra Strength) fever or pain #180 tabs apixaban 5 mg tablet (Eliquis) 5 mg PO BID 30 days #60 tabs 12/05/24 bacitracin 500 unit/gram topical 1 appl topical BID PRN minor 10/16/24 ointment cuts/abrasions 30 days #30 grams polyethylene glycol 3350 17 17 g PO DAILY #510 grams 10/16/24 gram/dose oral powder (Miralax) sennosides 8.6 mg capsule (senna) 8.6 mg PO DAILY constipation #30 10/16/24 caps terazosin 10 mg capsule 10 mg PO BEDTIME 30 days #30 caps 10/16/24 oxycodone 5 mg tablet 5 mg PO TID PRN severe pain 28 01/05/25 days #84 tabs fluticasone fur. 100 mcg-umeclid 1 ea PO DAILY #60 ea 01/09/25 62.5 mcg-vilant 25 mcg inhalat.powder (Trelegy Ellipta) gabapentin 300 mg capsule 300 mg PO BID 30 days #60 caps 01/09/25 magnesium hydroxide 1,200mg/15mL 30 ml PO DAILY PRN constipation- 01/13/25 if no BM on day #3 #1,000 mL Allergies Allergy/AdvReac Type Severity Reaction Status Date / Time No Known Allergies Allergy Verified 01/15/25 22:21 Review of Systems Review of Systems: Patient denies any symptoms Yes Other (Unreliable historian, history cognitive impairment) [facility] Past Medical History Medical History Above knee amputation of right lower extremity Paroxysmal atrial fibrillation Attention deficit hyperactivity disorder (ADHD) Vitamin D deficiency Hypotestosteronism Erectile dysfunction Phantom limb pain Benign prostatic hyperplasia Lumbar degenerative disc disease COPD (chronic obstructive pulmonary disease) Dyslipidemia Benign essential hypertension Unilateral primary osteoarthritis, left knee Osteosarcoma of bone Knee pain, left Surgical History History of amputation History of hernia surgery Social History Social History Household Members: None Housing: Apartment Do you presently have visiting nurse or other home services: Yes ([employer]) Alcohol intake: never Patient Tobacco Use Status: Former Tobacco user Tobacco use type: Cigarette Cigarettes Per Day: 40 e-Cigarette/Vaping Use: Never Used Second Hand Smoke Exposure: Yes Advance Directives: Yes Advance Directives on File: Yes Advance Directives Date on File: 03/29/22 Do you have a plan to hurt others: No Plan service: No Current occupational status: retired Cognitive needs: Yes (wheelchair/crotches) Physical Exam ED Vital Signs: Vital Signs - 24 hr 01/15/25 22:18 01/16/25 00:36 Temperature 97.9 F 97.6 F Pulse Rate 81 67 Respiratory Rate 16 15 Blood Pressure 117/67 119/63 Pulse Oximetry 92 93 Oxygen Delivery Method Room Air Room Air BMI result Body Mass Index 25.8 Const Other: Appearance: Alert. Oriented X2. No acute distress. Awake, answering questions appropriately Eyes: Pupils equal, round and reactive to light. ENT: Pharynx normal. Neck: Normal inspection. Neck supple. No lymph nodes noted. No crepitus CVS: Normal heart rate and rhythm. Pulses normal. Normal S1 and S2 Respiratory: No respiratory distress. Breath sounds normal. No Wheezing. No rales Abdomen: Soft and nontender. No rigidity. No distention. Skin: Skin warm and dry. Normal skin color. Normal skin turgor. Extremities: Right BKA, chronic. Left leg +1 edema, mildly erythematous foot Neuro: Oriented X2. No motor deficit. No sensory deficit. Moving all extremities. No slurred speech. CN 2 through 12 grossly intact Psych: calm, cooperative, normal affect Course Course Course Narrative: EMS reports normal vital signs All of patient's labs pending Medical Decision Making Medical Decision Making MDM Narrative: My interpretation of EKG: Sinus rhythm, heart 64, no ST segment depression or elevation, no T-wave inversion, QTC 437, occasional PVCs No significant abnormality in patient's hematology, chemistry within normal limits, troponin 151.6, 2nd troponin 46.2. Serology negative for influenza RSV and COVID, urinalysis negative for UTI I discussed the patient with Dr. Bowen. The staff at the detention they reported the patient has had multiple episodes of lethargy and unresponsiveness. Here in the emergency room, patient has been awake and stable the whole time. However, patient's troponin is slightly Given that the staff reported that patient has been in and out of consciousness throughout the day, and the bumps troponins,we will admit the patient for observation. I discussed the patient with Dr. Greenwood, patient accepted to the medicine team Differential Diagnosis Differential Diagnoses: The differential diagnosis associated with the presentation includes Admission/Observation Consideration of admission/observation: Escalation of care including admission/observation considered Lab Data MDM Lab Attestation statement: I reviewed the patient's lab results. 01/15/25 23:02 01/15/25 23:02 Labs: Lab Results 01/15/25 01/16/25 01/16/25 Range/Units 23:02 01:20 02:11 WBC 5.3 (4.8-10.8) X10*3/uL RBC 4.09 L (4.60-5.80) X10*6/uL Hgb 12.3 L (14.0-18.0) g/dl Hct 38.0 L (42.0-52.0) % MCV 92.9 (80.0-98.0) fL MCH 30.1 (27.0-33.0) pg MCHC 32.4 (31.0-36.0) g/dl RDW 14.9 (11.0-16.0) % Plt Count 266 D (160-400) X10*3/uL MPV 9.0 L (9.4-12.4) fL Immature Gran % (Auto) 0.9 H (0.0-0.4) % Neut % (Auto) 59.4 (45-73) % Lymph % (Auto) 17.2 L (20-40) % [place] % (Auto) 15.7 H (2-11) % Eos % (Auto) 5.5 H (0-4) % Baso % (Auto) 1.3 (0-2) % Lymph # (Auto) 0.9 L (1.2-4.9) X10*3/uL [place] # (Auto) 0.8 (0.1-1.2) X10*3/uL Eos # (Auto) 0.3 (0.0-0.4) X10*3/uL Baso # (Auto) 0.1 (0.0-0.2) X10*3/uL Abs Immat Gran (auto) 0.05 H (0.00-0.03) X10*3/uL Absolute Neuts (auto) 3.1 (2.0-8.3) x10*3/uL Absolute Nucleated RBC 0.000 (0.0-0.012) X10*3/uL Nucleated RBC % (auto) 0.0 (0.0-0.2) /100WBC Sodium 136 (135-145) mmol/L Potassium 4.2 (3.3-5.1) mmol/L Chloride 103 (96-108) mmol/L Carbon Dioxide 24 (22-29) mmol/L Anion Gap 13 (12-20) BUN 14 (9-16) mg/dL Creatinine 0.69 (0.5-1.4) mg/dL Estim Creat Clear Calc 92.1 Estimated GFR > 60 Random Glucose 101 (60-115) mg/dL Calcium 9.0 (8.4-10.2) mg/dL Magnesium 2.0 (1.6-2.6) mg/dL Total Bilirubin 0.3 (0.0-1.0) mg/dL Direct Bilirubin 0.2 (0.0-0.5) mg/dL AST 17 (5-37) U/L ALT < 6 (0-40) U/L Alkaline Phosphatase 77 (39-117) U/L Troponin I High Sens 51.6 H 46.3 H (<3.5-35.0) ng/L Total Protein 6.7 (6.5-8.0) g/dL Albumin 2.8 L (3.5-5.0) g/dL Urine Color Dark Yellow Urine Appearance Clear Urine pH 5.5 (5.0-9.0) Ur Specific [place] >= 1.030 H (1.005-1.025) Urine Protein Trace (Neg-Trace) mg/dL Urine Glucose (UA) Negative (Negative) mg/dL Urine Ketones Negative (Negative) mg/dL Urine Blood Negative (Negative) Urine Nitrite Negative (Negative) Ur Leukocyte Esterase Negative (Negative) Urine Opiates Screen POSITIVE H (Not Detect) Ur Buprenorphine Scrn Not Detected (Not Detect) ng/mL Ur Oxycodone Screen Positive H (Not Detect) ng/mL Urine Methadone Screen Not Detected (Not Detect) ng/mL Urine Fentanyl Screen Not Detected (Not Detect) Ur Barbiturates Screen Not Detected (Not Detect) Ur Phencyclidine Scrn Not Detected (Not Detect) Ur Amphetamines Screen Not Detected (Not Detect) U Benzodiazepines Scrn Not Detected (Not Detect) Urine Cocaine Screen Not Detected (Not Detect) U Marijuana (THC) Screen Not Detected (Not Detect) Ethyl Alcohol < 10 mg/dL Influenza Type A (PCR) NEGATIVE (Negative) Influenza Type B (PCR) NEGATIVE (Negative) RSV RNA Qual (PCR) NEGATIVE (Negative) SARS-CoV-2 RNA (RT-PCR) NEGATIVE (Negative) Independent Interpretation I performed an independent interpretation of an: EKG Critical Care Time Critical Care Time Critical Care Time: Yes Total Critical Care Time: 60 Attestation: I have personally provided critical care time. Time includes review of lab data, radiology results, discussion with consultants, and monitoring for potential decompensation. Intervention performed as documented. Discharge Plan Discharge Clinical Impression: Syncope, Elevated troponin Patient Disposition: Admitted As Inpatient Prescriptions: No Action oxycodone 5 mg tablet 5 mg PO TID PRN (Reason: severe pain) 28 Days Qty: 84 0RF Trelegy Ellipta 100-62.5-25 mcg blister with device 1 ea PO DAILY Qty: 60 3RF gabapentin 300 mg capsule 300 mg PO BID 30 Days Qty: 60 3RF magnesium hydroxide 1,200mg/15mL 30 ml PO DAILY PRN (Reason: constipation- if no BM on day #3) Qty: 1000 1RF testosterone 20.25 mg/1.25 gram (1.62 %) gel in metered-dose pump 2 pump topical DAILY enoxaparin 40 mg/0.4 mL Syringe 40 mg subcut Q24H 28 Days Qty: 11.2 0RF acetaminophen [Tylenol Extra Strength] 500 mg tablet 1,000 mg PO TID PRN (Reason: fever or pain) Qty: 180 11RF polyethylene glycol 3350 [Miralax] 17 gram/dose powder 17 g PO DAILY Qty: 510 11RF senna 8.6 mg capsule 8.6 mg PO DAILY Qty: 30 11RF Eliquis 5 mg tablet 5 mg PO BID 30 Days Qty: 60 5RF terazosin 10 mg capsule 10 mg PO BEDTIME 30 Days Qty: 30 5RF bacitracin 500 unit/gram ointment 1 appl topical BID PRN (Reason: minor cuts/abrasions) 30 Days Qty: 30 11RF albuterol sulfate 90 mcg/actuation HFA aerosol inhaler 2 puff inhalation Q6H PRN nystatin 100,000 unit/gram powder 1 appl topical BID PRN (Reason: groin rash) guaifenesin 200 mg tablet 200 mg PO Q6H PRN loperamide [Imodium A-D] 2 mg tablet 4 mg PO Q12H PRN (Reason: diarrhea/loose stools) bisacodyl [Dulcolax (bisacodyl)] 10 mg suppository 10 mg MI DAILY PRN (Reason: constipation - if no BM on day # 4) Print Language: Armenian
[2025-01-15 23:08] LABS: MANUAL DIFF FLAG NO
[2025-01-15 23:09] LABS: Basophils Absolute Auto 0.1 X10*3/uL (0.0-0.2); Basophils Percent Auto 1.3 % (0-2); Eosinophils Absolute Auto 0.3 X10*3/uL (0.0-0.4); Eosinophils Percent Auto 5.5 % (0-4); Hemoglobin 12.3 g/dl (14.0-18.0); Imm Gran Abs Auto 0.05 X10*3/uL (0.00-0.03); Imm Gran Pct Auto 0.9 % (0.0-0.4); Lymphocytes Absolute Auto 0.9 X10*3/uL (1.2-4.9); Lymphocytes Percent Auto 17.2 % (20-40); Mean Corpuscular HGB Conc 32.4 g/dl (31.0-36.0); Mean Corpuscular Hemoglobin 30.1 pg (27.0-33.0); Mean Corpuscular Volume 92.9 fL (80.0-98.0); Monocytes Absolute Auto 0.8 X10*3/uL (0.1-1.2); Monocytes Percent Auto 15.7 % (2-11); Neutrophils Absolute Auto 3.1 x10*3/uL (2.0-8.3); Neutrophils Percent Auto 59.4 % (45-73); Platelet Count 266 X10*3/uL (160-400); Red Blood Count 4.09 X10*6/uL (4.60-5.80); Red Cell Distribution Width 14.9 % (11.0-16.0); White Blood Count 5.3 X10*3/uL (4.8-10.8)
[2025-01-15 23:24] LABS: Alanine Aminotransferase < 6 U/L (0-40); Albumin Level 2.8 g/dL (3.5-5.0); Alkaline Phosphatase 77 U/L (39-117); Anion Gap 13 (12-20); Aspartate Amino Transferase 17 U/L (5-37); Bilirubin Direct 0.2 mg/dL (0.0-0.5); Bilirubin Total 0.3 mg/dL (0.0-1.0); Blood Urea Nitrogen 14 mg/dL (9-16); Carbon Dioxide 24 mmol/L (22-29); Chloride 103 mmol/L (96-108); Creatinine Clr Calc Pharmacy 92.1; Estimated Glomerular Filt Rate > 60; Ethanol < 10 mg/dL; Glucose Random 101 mg/dL (60-115); Potassium 4.2 mmol/L (3.3-5.1); Sodium 136 mmol/L (135-145); Total Protein 6.7 g/dL (6.5-8.0)
[2025-01-15 23:30] LABS: Troponin-I High Sensitivity 51.6 ng/L (<3.5-35.0)
[2025-01-15 23:47] LABS: Influenza A PCR NEGATIVE (Negative); Influenza B PCR NEGATIVE (Negative); Resp Syncy Virus RNA Qual PCR NEGATIVE (Negative); SARS COV2 PCR INHOUSE NEGATIVE (Negative)
[2025-01-16] VITALS (7 sets, daily range): BP systolic 96–127; BP diastolic 51–80; PULSE 65–96; RESP 14–16; TEMP 36.2–36.8; O2SAT 93–95
--- NOTE | 2025-01-16 | ECG_ITS ---
Test Reason : RYTHYM CHECK Blood Pressure : */* mmHG Vent. Rate : 64 BPM Atrial Rate : 64 BPM P-R Int : 116 ms QRS Dur : 92 ms QT Int : 424 ms P-R-T Axes : 70 68 86 degrees QTcB Int : 437 ms Sinus rhythm with occasional Premature ventricular complexes Otherwise normal ECG When compared with ECG of 15-Jan-2025 22:47, Premature ventricular complexes are now Present Referred By: Jacqueline Ruiz Electronically Signed By: BILL CHRISTIAN MD
[2025-01-16 01:44] LABS: Troponin-I High Sensitivity 46.3 ng/L (<3.5-35.0)
[2025-01-16 02:33] LABS: Appearance Urine Clear; Color Urine Dark Yellow; Glucose Urine UA Negative (Negative); Leukocyte Esterase Urine Negative (Negative); Nitrite Urine Negative (Negative); PH 5.5 (5.0-9.0); Specific Gravity - Urine >= 1.030 (1.005-1.025); Urine Blood Negative (Negative); Urine Ketones Negative (Negative); Urine Protein Trace mg/dL (Neg-Trace)
[2025-01-16 02:34] LABS: Amphetamine Screen Urine Not Detected (Not Detect); Barbiturates, Urine Not Detected (Not Detect); Benzodiazepines Screen Urine Not Detected (Not Detect); Buprenorphine Scr Not Detected (Not Detect); Cannabinoid Screen Urine Not Detected (Not Detect); Cocaine Screen Urine Not Detected (Not Detect); Fentanyl, urine Not Detected (Not Detect); Methadone Screen, Urine Not Detected (Not Detect); Opiate Screen Urine POSITIVE (Not Detect); Oxycodone Screen Urine Positive (Not Detect); Phencyclidine Screen Urine Not Detected (Not Detect)
--- NOTE | 2025-01-16 06:11 | PC.NURSE ---
pt requested a snack and drink. no diet restrictions per jail paperwork, states pt is self fed. crackers and gingerale given.
--- NOTE | 2025-01-16 08:17 | P.HPHOSP_ITS ---
History of Present Illness Date of Service: 01/16/25 Chief Complaint: period of unresponsiveness 79-year-old male with multiple medical problems who presents from care home for lethargy. The patient is seen and examined in the emergency room around 08:00. He does not know why he is here but does report that over the last 6 months he has become increasingly sleepy. He states that this is due to a lack of activity/stimulation. He denies any current complaints. Per the ED provider's note, the care home reported that the patient has been lethargic for the last 12 hours. It seems that he was having episodes of sleeping and unresponsiveness. Apparently the staff found it difficult to arouse him but he did wake up after sternal rub. Work up in the ED was essentially without significant findings. He did have mild elevation in troponins which are flat. EKG does not show any acute ischemic changes. Of note, his drug screen is positive for oxycodone. The patient denies chest pain. Given his prolonged unresponsiveness at the group home facility, the patient will be admitted under observation. Review of Systems 2 Review of Systems: Negative except HPI/interval history. [facility] Medical History Above knee amputation of right lower extremity Paroxysmal atrial fibrillation Attention deficit hyperactivity disorder (ADHD) Vitamin D deficiency Hypotestosteronism Erectile dysfunction Phantom limb pain Benign prostatic hyperplasia Lumbar degenerative disc disease COPD (chronic obstructive pulmonary disease) Dyslipidemia Benign essential hypertension Unilateral primary osteoarthritis, left knee Osteosarcoma of bone Knee pain, left Surgical History History of amputation History of hernia surgery Social History Household Members: None Housing: Apartment Do you presently have visiting nurse or other home services: Yes ([employer]) Alcohol intake: never Patient Tobacco Use Status: Former Tobacco user Tobacco use type: Cigarette Cigarettes Per Day: 40 e-Cigarette/Vaping Use: Never Used Second Hand Smoke Exposure: Yes Advance Directives Date on File: 03/29/22 service: No Current occupational status: retired Cognitive needs: Yes (wheelchair/crotches) Meds Allergies Allergy/AdvReac Type Severity Reaction Status Date / Time No Known Allergies Allergy Verified 01/15/25 22:21 Home Medications ?Medication ?Instructions ?Recorded ?Confirmed ?Last Taken ?Type albuterol sulfate 90 mcg/actuation 2 puff inhalation Q6H PRN 10/16/24 01/16/25 Unknown History aerosol inhaler Shortness Of Breath bisacodyl 10 mg rectal suppository 10 mg IA DAILY PRN constipation - 10/16/24 01/16/25 Unknown History (Dulcolax (bisacodyl)) if no BM on day # 4 guaifenesin 200 mg tablet 200 mg PO Q6H PRN Cough 10/16/24 01/16/25 Unknown History loperamide 2 mg tablet (Imodium 4 mg PO Q12H PRN diarrhea/loose 10/16/24 01/16/25 Unknown History A-D) stools nystatin 100,000 unit/gram topical 1 appl topical BID PRN groin rash 10/16/24 01/16/25 Unknown History powder magnesium hydroxide 2,400 mg/10 mL 10 ml PO DAILY PRN Constipation 01/16/25 01/16/25 Unknown History oral suspension (Milk Of Magnesia Concentrated) Physical Exam 2 Vital Signs and Narrative: Vital Signs: Last Vital Signs Temp 97.7 F 01/16/25 05:32 Pulse 65 01/16/25 05:32 Resp 15 01/16/25 05:32 BP 110/53 L 01/16/25 05:32 Pulse Ox 95 01/16/25 05:32 O2 Del Method Room Air 01/16/25 05:32 BMI result Body Mass Index 25.8 Const: Other: Constitutional - Awake and Alert, No apparent distress Eyes - PERRLA, EOMI Cardiovascular - S1S2, RRR, No edema Respiratory - Normal lung expansion, Normal respiratory effort, No respiratory distress, CTA bilaterally Gastrointestinal - NT / ND; +BS; No rebound or guarding - No CVA tenderness Extremities - R BKA Musculoskeletal - Normal inspection, normal ROM Skin - Warm/Dry Neurological - vague in regards to orientation; no focal deficits Psychological - Appropriate affect Results Labs 01/15/25 23:02 01/15/25 23:02 Labs: Laboratory Results - last 24 hr 01/15/25 01/16/25 23:02 02:11 MCV 92.9 MCH 30.1 MCHC 32.4 RDW 14.9 Plt Count 266 D MPV 9.0 L Immature Gran % (Auto) 0.9 H Neut % (Auto) 59.4 Lymph % (Auto) 17.2 L [place] % (Auto) 15.7 H Eos % (Auto) 5.5 H Baso % (Auto) 1.3 Lymph # (Auto) 0.9 L [place] # (Auto) 0.8 Eos # (Auto) 0.3 Baso # (Auto) 0.1 Abs Immat Gran (auto) 0.05 H Absolute Neuts (auto) 3.1 Absolute Nucleated RBC 0.000 Nucleated RBC % (auto) 0.0 Anion Gap 13 Estim Creat Clear Calc 92.1 Estimated GFR > 60 Random Glucose 101 Calcium 9.0 Magnesium 2.0 Total Bilirubin 0.3 Direct Bilirubin 0.2 AST 17 ALT < 6 Alkaline Phosphatase 77 Total Protein 6.7 Albumin 2.8 L Urine Color Dark Yellow Urine Appearance Clear Urine pH 5.5 Ur Specific [place] >= 1.030 H Urine Protein Trace Urine Glucose (UA) Negative Urine Ketones Negative Urine Blood Negative Urine Nitrite Negative Ur Leukocyte Esterase Negative Urine Opiates Screen POSITIVE H Ur Buprenorphine Scrn Not Detected Ur Oxycodone Screen Positive H Urine Methadone Screen Not Detected Urine Fentanyl Screen Not Detected Ur Barbiturates Screen Not Detected Ur Phencyclidine Scrn Not Detected Ur Amphetamines Screen Not Detected U Benzodiazepines Scrn Not Detected Urine Cocaine Screen Not Detected U Marijuana (THC) Screen Not Detected Ethyl Alcohol < 10 Influenza Type A (PCR) NEGATIVE Influenza Type B (PCR) NEGATIVE RSV RNA Qual (PCR) NEGATIVE SARS-CoV-2 RNA (RT-PCR) NEGATIVE Assessment and Plan (1) Elevated troponin: Status: Acute Plan 79 yo M with multiple medical issues who presents from care home after unresponsiveness the day prior to admission. He has not had any such issues since ED arrival. Will observe him for the time being. 1. Unreponsiveness reported at care home currently awake and alert, eating his breakfast for now, observe lab work without an identifiable cause; however, UDS does have oxycodone (will wait for med rec to see if he is on this chronically) 2. Elevated HS trop-I 2a. history of CAD flat x 2; no acute ischemic changes and no chest pain continue his cardiac meds 3. Positive drug screen unclear if pt is on prescribed oxycodone, will wait for med rec 4. PAF continue eliquis continue rate control meds Continue his baseline meds as appropriate. Full Code DVT pptx - [facility] Stroke Does the patient have a stroke diagnosis?: No VTE Prior VTE?: No VTE Risk Level:: Medical - moderate - high VTE Device Contraindication: N/A - Device Ordered VTE Drug Contraindication: N/A - Med Ordered
[2025-01-16] MEDS: Apixaban 5 MG TABLET PO ×2 (08:45→20:51)
--- NOTE | 2025-01-16 11:58 | PC.NURSE ---
[facility] - Main number/call with updates - [phone]
--- NOTE | 2025-01-16 13:28 | PC.NURSE ---
patient transferred to ED overflow unit, assumed care of patient around 1300. patient moved from stretcher into hospital bed by slide. patient changed out of street clothes and into hospital attire. no noted wounds or skin issues. patient does have left above knee amputation. patient is awake and alert, orientation to self. patient repositioned to position of comfort, blankets covered, brief dry and clean. patient resp even and unlabored.
[2025-01-16] MEDS: 0.9 % Sodium Chloride Flush 3 ML SYRINGE IVFLUSH (15:33)
--- NOTE | 2025-01-16 15:42 | PC.NURSE ---
No IV access noted to be placed. Placed 22G in left hand for admission.
--- NOTE | 2025-01-16 16:07 | PHA.MEDREC ---
Addendum entered by Rusty Stanley 01/16/25 16:20: reviewed Original Note: Pharmacy Consult ? Medication Reconciliation Pharmacy has completed the medication reconciliation. Utilized list from [facility].
[2025-01-16] MEDS: Doxazosin Mesylate 2 MG TABLET 8 MG PO (20:51)
[2025-01-16] MEDS: Gabapentin 300 MG CAPSULE PO (20:51)
--- NOTE | 2025-01-16 22:07 | PC.NURSE ---
Patient appears to be in no apparent distress, VSS. He denies any pain at present. Patient medicated with bedtime medications. Patient requested vanilla pudding, provided ad tolerated well. Patient currently resting in hospital bed, eyes closed, RR 18, resp even and unlabored. Call webb in patient's reach. Plan of care ongoing.
[2025-01-17] MEDS: 0.9 % Sodium Chloride Flush 3 ML SYRINGE IVFLUSH (00:40)
--- NOTE | 2025-01-17 05:09 | PC.NURSE ---
Patient is awake, oriented to self only, confused at times. Patient requested assist to use a urinal. Patient voided into a urinal, urine is yellow and clear. Patient denied urinary symptoms. Patient was given apple juice, tolerated well. Patient assisted back to bed, repositioned to right side, head of the bed elevated, bed in lowest position, bed alarm on, call webb within patient's reach.
[2025-01-17 06:03] VITALS: BP 127/59; PULSE 73; RESP 16; TEMP 37.1; O2SAT 93
[2025-01-17] MEDS: Gabapentin 300 MG CAPSULE PO (08:14)
[2025-01-17] MEDS: Apixaban 5 MG TABLET PO (08:14)
[2025-01-17] MEDS: polyethylene glycoL 3350 17 GM POWD.PACK PO (08:14)
--- NOTE | 2025-01-17 11:26 | P.DS_ITS ---
DS: Providers Provider Date of Service: 01/17/25 Date of admission: 01/16/25 08:15 Date of discharge: 01/17/25 Primary care physician: Jefferson Cross MD Attending physician on discharge: Selina Merino Discharging clinician: Rubi Guerra DS: Diagnosis Discharge Diagnosis (1) Elevated troponin: Status: Acute DS: Summary Hospital Course Hospital Course: From H&P on the day of admission 79-year-old male with multiple medical problems who presents from senior living for lethargy. The patient is seen and examined in the emergency room around 08:00. He does not know why he is here but does report that over the last 6 months he has become increasingly sleepy. He states that this is due to a lack of activity/stimulation. He denies any current complaints. Per the ED provider's note, the senior living reported that the patient has been lethargic for the last 12 hours. It seems that he was having episodes of sleeping and unresponsiveness. Apparently the staff found it difficult to arouse him but he did wake up after sternal rub. Work up in the ED was essentially without significant findings. He did have mild elevation in troponins which are flat. EKG does not show any acute ischemic changes. Of note, his drug screen is positive for oxycodone. The patient denies chest pain. Given his prolonged unresponsiveness at the residential facility, the patient will be admitted under observation. Unreponsiveness reported at senior living. since arrival in ED patient has remained awake and alert. observed overnight. normal renal function, LFTs. no white count, no fever, UA negative for infection. Negative for influenza, RSV, COVID-19. per request from senior living CXR was obtained and was negative for pneumonia. Patient has no hypoxia, no respiratory symptoms. There have been no further episodes of unresponsiveness or lethargy. per review of outpatient reports, patient was recommended to have sleep study - would continue to recommend outpatient sleep study. if lethargy recurs can consider reduction of sedating medications like gabapentin/oxycodone. Elevated HS trop-I flat x 2; no acute ischemic changes on EKG and no chest pain. recommend outpatient follow up Time Attestation Discharge Coordination Time (in mins): 30 Quality: Safe Use of Opioids Does Pt have an Active Cancer Diagnosis on the Problem List?: No Quality: Stroke Does the patient have a stroke diagnosis?: No Physical Exam Vital Signs: Vital Signs: Last Vital Signs Temp 98.7 F 01/17/25 06:03 Pulse 73 01/17/25 06:03 Resp 16 01/17/25 06:03 BP 127/59 L 01/17/25 06:03 Pulse Ox 93 01/17/25 06:03 O2 Del Method Room Air 01/17/25 06:03 BMI result Body Mass Index 25.8 Const: General: comfortable, no acute distress, alert and awake Nutritional Appearance: average body habitus Resp: Effort & Inspection: normal respiratory effort, able to speak in complete sentences, no respiratory distress and no use of accessory muscles Extrem: Other: trish DS: Data Data Completed and Pending Completed studies during hospitalization [Text1]: Procedures Reposition Left Upper Femur with Internal Fixation Device, Percutaneous Approach (03/22/22) Transfusion of Nonautologous Red Blood Cells into Peripheral Vein, Percutaneous Approach (03/22/22) Discharge Plan Discharge Patient Disposition: Home, Self-Care Discharge Diagnosis: episode of unresponsiveness/lethargy Referrals: Jefferson Cross MD [Primary Care Provider] - 1 Week Discharge Medications: Continued oxycodone 5 mg tablet 5 mg PO TID PRN (Reason: severe pain) 28 Days Qty: 84 0RF Trelegy Ellipta 100-62.5-25 mcg blister with device 1 ea PO DAILY Qty: 60 3RF gabapentin 300 mg capsule 300 mg PO BID 30 Days Qty: 60 3RF magnesium hydroxide [Milk Of Magnesia Concentrated] 2,400 mg/10 mL Suspension 10 ml PO DAILY PRN (Reason: Constipation) acetaminophen [Tylenol Extra Strength] 500 mg tablet 1,000 mg PO TID PRN (Reason: fever or pain) Qty: 180 11RF polyethylene glycol 3350 [Miralax] 17 gram/dose powder 17 g PO DAILY Qty: 510 11RF Eliquis 5 mg tablet 5 mg PO BID 30 Days Qty: 60 5RF terazosin 10 mg capsule 10 mg PO BEDTIME 30 Days Qty: 30 5RF bacitracin 500 unit/gram ointment 1 appl topical BID PRN (Reason: minor cuts/abrasions) 30 Days Qty: 30 11RF albuterol sulfate 90 mcg/actuation HFA aerosol inhaler 2 puff inhalation Q6H PRN (Reason: Shortness Of Breath) nystatin 100,000 unit/gram powder 1 appl topical BID PRN (Reason: groin rash) guaifenesin 200 mg tablet 200 mg PO Q6H PRN (Reason: Cough) loperamide [Imodium A-D] 2 mg tablet 4 mg PO Q12H PRN (Reason: diarrhea/loose stools) bisacodyl [Dulcolax (bisacodyl)] 10 mg suppository 10 mg [place] DAILY PRN (Reason: constipation - if no BM on day # 4) Discharge Orders: Discharge Order (Routine); Ordered 01/17/25 Ordered By: Rubi Guerra Activity on Discharge: As tolerated Stand Alone Forms: Patient Portal Discharge page Print Language: Icelandic Care Plan Goals: See below Health Concerns: No recurrent episodes of lethargy/unresponsiveness during observation mild elevation in cardiac enzymes. Plan of Treatment: Recommend outpatient sleep study as previously recommended by pulmonology Can consider reducing dose of sedating medication if lethargy recurrs Assessment: See discharge summary
[2025-01-17 13:13] VITALS: BP 101/56; PULSE 93; RESP 16; TEMP 37.2; O2SAT 93
[2025-01-17 14:31] VITALS: BP 101/59; PULSE 72; RESP 16; TEMP 36.7; O2SAT 97
--- NOTE | 2025-01-17 14:55 | MHC.CM.PN ---
Addendum entered by Dayna Burnett 01/17/25 15:02: CORRECTION: OBSERVATION NOTICE DELIVERED TO PT AT BEDSIDE AND MESSAGE LEFT FOR HCP FOR REVIEW Original Note: PT IS A RESIDENT OF [facility] CARE HOME HAS 04/06 CARE AND NURSING OVERSIGHT HCP ON FILE, RICHARD BURNS [phone] PCP: RUMA RAYMOND MESSAGE LEFT FOR HCP REGARDING IMM AND REQUESTING A RETURN CALL IMM DELIVERED TO PT BEDSIDE WELL PT CLEARED TO DC TODAY PATRICIA CALLED [facility] [phone] AND SPOKE TO JULIÁN, HE PROVIDED THE NUMBER FOR THE HELP DESK ASSISTANT DAIRY NUTRITIONIST, [facility] [phone] PATRICIA CALLED [facility] WHO INDICATED SHE THOUGHT PTS RETURN WOULD BE FINE FOR TODAY, HOWEVER THE NURSE WOULD NEED TO APPROVE SHE PROVIDED THE NUMBER FOR THE HELP DESK ASSISTANT RN [phone] PATRICIA CALLED THE HELP DESK ASSISTANT NURSING LINE AND SPOKE TO YAN, SHE WAS INFORMED PT WAS READY TO DC AND HAD NO NEW MEDS SHE REPORTS THE USUAL RN FOR THE HAD REQUESTED A CXR TO R/O PNEUMONIA PT HAD BEEN CONFUSED THE DAYS STABBER YAN WILL EMAIL PATRICIA THE PTS ENCOUNTER FORMS WHICH WILL BE SIGNED BY HOSPITALIST AND RETURNED TO WITH PT SECTION WEAVER COMPLETE, YAN AWARE OF RESULTS PATRICIA SPOKE TO JULIÁN AT PTS WHO INDICATED NEXT AVAILABLE BLS TRANSPORT WOULD BE GOOD FOR THEM BLS TRANSPORT BOOKED VIA [facility]
== END 2025-01-17 14:36 | disposition home or self-care (01) ==
LOC: HO.ED 01-16 02:42 → HO.EDOVER 01-16 08:20
PROVIDERS: Admitting Provider Family Medicine; Emergency Provider Emergency Medicine; PCP Internal Medicine; Visit Provider Physician Assistant Medical
DX: R40.4 Transient alteration of awareness (principal); I48.0 Paroxysmal atrial fibrillation; J44.9 Chronic obstructive pulmonary disease, unspecified; R79.89 Other specified abnormal findings of blood chemistry; R53.83 Other fatigue; Z79.01 Long term (current) use of anticoagulants; Z79.899 Other long term (current) drug therapy; Z03.818 Encounter for observation for suspected exposure to other biological agents ruled out
CPT/HCPCS: 0241U; 36415; 71045; 80048; 80076; 80307; 81003; 83735; 84484; 85025; 93005; 99221; 99285

== ENCOUNTER → 2025-01-15 22:24 | Outpatient (BNV) | payer MEDICARE, SELFPAY | PROVIDERS: Admitting Provider Family Medicine; Emergency Provider Emergency Medicine; PCP Internal Medicine; Visit Provider Internal Medicine Cardiovascular Disease | DX: R41.82 Altered mental status, unspecified (principal) | CPT/HCPCS: 93010 ==

== ENCOUNTER → 2025-01-16 01:08 | Outpatient (BNV) | payer MEDICARE, SELFPAY | PROVIDERS: Admitting Provider Family Medicine; Emergency Provider Emergency Medicine; PCP Internal Medicine; Visit Provider Internal Medicine Cardiovascular Disease | DX: I49.3 Ventricular premature depolarization (principal) | CPT/HCPCS: 93010 ==

== ENCOUNTER 2025-01-16 08:15 | Outpatient (BNV) | payer MEDICARE, SELFPAY | END 2025-01-17 12:08 | PROVIDERS: Admitting Provider Family Medicine; Emergency Provider Emergency Medicine; PCP Internal Medicine; Visit Provider Radiology Diagnostic Radiology | DX: J84.9 Interstitial pulmonary disease, unspecified (principal) | CPT/HCPCS: 71045 ==

== ENCOUNTER → 2025-01-16 08:15 | Outpatient (BNV) | payer MEDICARE, SELFPAY | PROVIDERS: Admitting Provider Family Medicine; Emergency Provider Emergency Medicine; PCP Internal Medicine; Visit Provider Physician Assistant Medical | DX: R79.89 Other specified abnormal findings of blood chemistry (principal) | CPT/HCPCS: 99239 ==

== ENCOUNTER 2025-02-02 13:08 | Outpatient (AMB) | payer MEDICARE, SELFPAY ==
[2025-02-02 13:10] VITALS: BP 100/62; PULSE 86; O2SAT 97
--- NOTE | 2025-02-02 13:10 | A.OFFPC_ITS ---
Vital Signs 02/02/25 13:10 Height 6 ft BP 100/62 Blood Pressure Location Lt brachial Position Sitting Pulse 86 Pulse Source Pulse Oximeter Pulse Oximetry (%) 97 Oxygen Delivery Method Room Air Intake Visit Reasons: 3 month f/u Paper Final Inspector Required: No Accompanied by: Self / Same As Patient Allergies No Known Allergies Allergy (Verified 02/03/25 16:35) Medication List - Last Reconciled 02/02/25 by Jefferson Cross MD acetaminophen (Tylenol Extra Strength) 1,000 mg (2 x 500 mg) PO TID PRN albuterol sulfate 90 mcg/actuation 2 puffs inhalation Q6H PRN apixaban (Eliquis) 5 mg PO BID 30 days bacitracin 1 appl topical BID PRN 30 days bisacodyl (Dulcolax (bisacodyl)) 10 mg RI DAILY PRN [id number] 100-62.5-25 mcg (Trelegy Ellipta) 1 ea PO DAILY gabapentin 300 mg PO BID 30 days guaifenesin 200 mg PO Q6H PRN loperamide (Imodium A-D) 4 mg PO Q12H PRN magnesium hydroxide (Milk Of Magnesia Concentrated) 10 mL PO DAILY PRN nystatin 1 appl topical BID PRN oxycodone 5 mg PO TID PRN 28 days polyethylene glycol 3350 (Miralax) 17 grams PO DAILY terazosin 10 mg PO BEDTIME 30 days Tobacco use date assessed: 02/02/25 Fall risk assessment: No Falls in past year Last assessed Fall Risk: 02/02/25 Dental Screening Dental Screen Date: 02/02/25 Did you have a dental visit in the last 12 months?: No Did you have a dental problem in the last 6 months where you did not have access to dental care?: No Was dental information given to patient?: No HPI 3 month f/u HPI Details Patient comes in today for his HDF follow up visit He was admitted overnight at [facility] a couple of weeks ago when he was [facility] for increasing [facility]argy Workups done in the hospital were mostly unrevealing except for mild elevation of his cardiac enzymes, which were determined to be nonspecific Patient was advised to follow-up with his PCP and that if his lethargy recurs or persists, should consider a reduction in some of his medications, particularly the sedating ones including his oxycodone and gabapentin Patient states that he currently feels okay and did not really feel that he was unresponsive when he was brought to the hospital a couple of weeks ago He denies any headaches or dizziness Denies any chest pains, no increased shortness of breath No nausea / vomiting, no abdominal pain No change in bowel habits noted [facility] Medical History Above knee amputation of right lower extremity Paroxysmal atrial fibrillation Attention deficit hyperactivity disorder (ADHD) Vitamin D deficiency Hypotestosteronism Erectile dysfunction Phantom limb pain Benign prostatic hyperplasia Lumbar degenerative disc disease COPD (chronic obstructive pulmonary disease) Dyslipidemia Benign essential hypertension Unilateral primary osteoarthritis, left knee Osteosarcoma of bone Knee pain, left Surgical History History of amputation History of hernia surgery Social History Household Members: None Housing: Apartment Do you presently have visiting nurse or other home services: Yes ([employer]) Alcohol intake: never Patient Tobacco Use Status: Former Tobacco user Tobacco use type: Cigarette Cigarettes Per Day: 40 Smoked in Last 30 Days: No e-Cigarette/Vaping Use: Never Used Second Hand Smoke Exposure: Yes Use of substances other than those prescribed or required for medical reasons: No Advance Directives: Yes Advance Directives on File: Yes Advance Directives Date on File: 03/29/22 service: No Current occupational status: retired Current occupational exposures/hazards: No Cognitive needs: Yes (wheelchair/crotches) Hearing needs: No Vision needs: No Questionnaire PHQ-9 Over the last 2 weeks, how often have you been bothered by any of the following problems? 1. Little interest or pleasure in doing things: not at all 2. Feeling down, depressed, or hopeless: not at all 3. Trouble falling or staying asleep, or sleeping too much: not at all 4. Feeling tired or having little energy: not at all 5. Poor appetite or overeating: not at all 6. Feeling bad about yourself - or that you are a failure or have let yourself or your family down: not at all 7. Trouble concentrating on things, such as reading the newspaper or watching television: not at all 8. Moving or speaking so slowly that other people could have noticed. Or the opposite - being so fidgety or restless that you have been moving around a lot more than usual: not at all 9. Thoughts that you would be better off or of hurting yourself in some way: not at all Total score: 0 Depression Screening Interpretation: Negative Depression Screening Done: Yes 15185 - PHQ-9 Billing: Yes Source: Developed by Drs. Skinny Marin, Anuja Duenas, Huy Vasquez and colleagues, with an educational gretel from [employer]. Thrive Questionnaire Date Thrive assessed: 02/02/25 I am a: Patient What is your living situation today?: I have a steady place to live Within the past 12 months, did the food you bought not last and you didn't have the money to get more?: Never true Within the past 12 months, did you worry whether your food would run out before you got money to buy more?: Never true Do you have trouble paying for medicines?: No Do you have trouble getting transportation to medical appointments?: No Do you have trouble paying your heating and electricity bill?: No Do you have trouble taking care of your child, family member or friend?: No Do you have trouble with day-to-day activities such as bathing, preparing meals, shopping, managing finances, etc.?: No Are you currently unemployed and looking for a job?: No Are you interested in more education?: No Please select the resources that you would like help with: None Currently or been in a relationship where the following occur: No concerns reported THRIVE Score: 0 AUDIT C Alcohol Use Questionnaire (AUDIT-C) 1. How often do you have a drink containing alcohol?: Never 3. How often do you have six or more drinks on one occasion?: Never Total Score: 0 Score Reviewed/Action Taken: Yes JORGE-7 AMB Questionnaire JORGE-7 Date JORGE - 7 assessed: 02/02/25 Feeling nervous, anxious, or on edge: 0 = Not at all Not being able to stop or control worryin = Not at all Worrying too much about different things: 0 = Not at all Trouble relaxin = Not at all Being so restless that it is hard to sit still: 0 = Not at all Becoming easily annoyed or irritable: 0 = Not at all Feeling afraid as if something awful might happen: 0 = Not at all Total JORGE-7 score (0-4 normal; 5-9 mild; 10-14 moderate; 15-21 severe): 0 Source: Developed by Drs. Skinny Marin, Anuja Duenas, Huy Vasquez and colleagues, with an educational gretel from [employer]. Review of Systems Const Denies chills, Denies fatigue, Denies fever(s) and Denies headache(s) ENT Denies dysphagia, Denies dizziness, Denies otalgia, Denies headache(s), Denies neck pain, Denies odynophagia and Denies sore throat Card Denies chest pain, Denies rapid heart rate, Denies irregular heart rhythm, Denies palpitations and Reports dyspnea on exertion (mild) Resp Denies chest congestion, Denies cough and Reports dyspnea on exertion (mild) GI Denies abdominal pain, Denies constipation, Denies dysphagia, Denies heartburn, Denies diarrhea, Denies nausea, Denies odynophagia and Denies vomiting Denies difficulty urinating, Denies dysuria, Denies urinary frequency and Denies urinary urgency Musc Reports back pain (chronic), Reports arthralgias (in the left knee - chronic) and Denies neck pain Skin/Breast Denies rash Neuro Details: (+) recurrent phantom limb pain in the right lower extremity Denies dizziness, Denies headache(s) and Denies paresthesias Psych Denies visual hallucinations Endo Denies fatigue and Denies palpitations Physical exam (Primary Care) Vital Signs: Last Vital Signs Pulse 86 02/02/25 13:10 BP 100/62 02/02/25 13:10 Pulse Ox 97 02/02/25 13:10 Oxygen Delivery Method Room Air 02/02/25 13:10 Tobacco/Smoking Status: Tobacco use Status Tobacco use date assessed 02/02/25 02/02/25 13:30 Patient Tobacco Use Status Former Tobacco user 02/02/25 13:16 Tobacco use type Cigarette 02/02/25 13:16 e-Cigarette/Vaping Use Never Used 02/02/25 13:16 PHQ-9: PHQ-9 Score PHQ-9: Total score 0 02/02/25 13:58 Depression Screening Interpretation: Negative Thrive Assessment: Date of Thrive Assessment Date Thrive assessed 02/02/25 02/02/25 13:16 Currently or been in a relationship where the following occur: No concerns reported Const General: no acute distress and alert Orientation/consciousness: patient oriented x3 Limitations: wheelchair HENMT Ears: TM's normal bilaterally and EAC's normal Throat: Yes posterior oropharynx normal and Yes tonsils normal (no TP congestion) Neck Neck: Yes no lymphadenopathy and Yes supple Thyroid: Thyroid normal Resp Auscultation: clear to auscultation bilaterally, no rales and no wheezes Cardio Rate: regular rate Rhythm: regular rhythm Heart sounds: no murmurs GI Palpation (GI): Soft to palpation and nontender Auscultation: normal bowel sounds General: Yes no CVA tenderness Back/Spine/Pelvis Back: no CVA tenderness Thoracic/Lumbar Spine: lumbar spinal tenderness Skin Rashes: no rashes Neuro General: patient oriented x3 Cognition (Neuro): normal cognition Gait exam (Neuro): Assistive device used Extrem Other: S/P AKA of the right lower extremity General: Yes no clubbing, cyanosis or edema (in the left lower extremity) Left lower extremity: knee Details: tenderness and crepitus Coding Level of Care Code Est Pt Level 4 (04216) Diagnoses Benign essential hypertension I10 Dyslipidemia E78.5 Chronic obstructive pulmonary disease, unspecified COPD type J44.9 COPD type: unspecified COPD Paroxysmal atrial fibrillation I48.0 Thoracic aortic ectasia I77.810 Degeneration of intervertebral disc of lumbar region with discogenic back pain M51.360 Disc-related pain type: discogenic back pain only Phantom limb pain G54.6 Above knee amputation of right lower extremity S78.111A Osteoarthritis of left knee, unspecified osteoarthritis type M17.12 Osteoarthritis type: unspecified Visual hallucinations R44.1 Vitamin D deficiency E55.9 Hypotestosteronism E34.9 Benign prostatic hyperplasia, unspecified whether lower urinary tract symptoms present N40.0 Lower urinary tract symptom presence: unspecified whether lower urinary tract symptoms present Attention deficit hyperactivity disorder (ADHD), combined type F90.2 Attention deficit-hyperactivity disorder type: combined inattentive- hyperactive Additional Codes PHQ-9 - 87889 - PHQ-9 Billing: Yes ([id number]) Assessment & Plan Assessment & Plan (1) Benign essential hypertension: Code(s): I10 - Essential (primary) hypertension Category: Medical Plan: Reinforced low sodium diet - goal is systolic BP of 120 to 130 mm or less He used to take Lisinoprol 5 mg QD but Rx has been discontinued at some point and he is currently not taking any Rx for his blood pressure Patient is reminded to monitor his blood pressure regularly (2) Dyslipidemia: Code(s): E78.5 - Hyperlipidemia, unspecified Category: Medical Plan: Reinforced low cholesterol diet His cholesterol levels were within normal range when they were last checked in October 2024, with his total cholesterol at 170 mg/dl and LDL cholesterol at 99 mg/dl (3) COPD (chronic obstructive pulmonary disease): Code(s): J44.9 - Chronic obstructive pulmonary disease, unspecified Category: Medical Qualifiers: COPD type: unspecified COPD Qualified Code(s): J44.9 - Chronic obstructive pulmonary disease, unspecified Plan: Continue Trelegy Ellipta 100-62.5-25 mcg 1 inhalation QD and Albuterol HFA 1 to 2 inhalations Q 6 hours PRN He used to see [facility] but has not been back to see them in over a year He reportedly had severe airflow obstruction without any significant b ronchodilator response. His single breath diffusing capacity was at 33% of predicted, which was severely reduced Imaging studies done in the past couple of years have revealed changes of advanced emphysema He was referred to and is now following up with [facility] for his COPD (4) Paroxysmal atrial fibrillation: Code(s): I48.0 - Paroxysmal atrial fibrillation Category: Medical Plan: Patient is currently in sinus rhythm Continue Apixaban 5 mg BID for thromboelmbolism prophylaxis and also for a left femoral-popliteal DVT a couple of years ago Follow up with cardiology as scheduled (5) Thoracic aortic ectasia: Code(s): I77.810 - Thoracic aortic ectasia Category: Medical Plan: This was seen incidentally on a chest CTA done at [facility] in 2022, with ectasia of the infrarenal aorta to 2.52 cm with a maximum diameter of 3.2 cm He was seen by vascular surgery at [facility] back then but has not followed up with them since We referred him to vascular surgery here at [facility] and he is now following up with Dr. Nielsen for continuing management and surveillance of this issue (6) Lumbar degenerative disc disease: Comment: Failed trial of ablation and nerve block with pain management in 2019 Code(s): M51.36 - Other intervertebral disc degeneration, lumbar region Category: Medical Qualifiers: Disc-related pain type: discogenic back pain only Qualified Code(s): M51.360 - Other intervertebral disc degeneration, lumbar region with discogenic back pain only Plan: Patient is mostly wheelchair-bound so his activity level is practically sedentary Continue Oxycodone 5 mg TID PRN for pain He used to see pain management but has not been back to see them in a few years now (7) Phantom limb pain: Comment: S/P right AKA for osteosarcoma at 17 y/o Code(s): G54.6 - Phantom limb syndrome with pain Category: Medical Plan: Continue Gabapentin 300 mg BID and Oxycodone 5 mg TID PRN for pain (8) Above knee amputation of right lower extremity: Code(s): S78.111A - Complete traumatic amputation at level between right hip and knee, initial encounter Category: Medical Plan: He currently does not have any prosthesis on his right leg as his previous one was ill-fitting and he has not used that in a while now He is interested in getting refitted for a new prosthesis soon so he can start walking around again (9) Osteoarthritis of left knee: Code(s): M17.12 - Unilateral primary osteoarthritis, left knee Category: Medical Qualifiers: Osteoarthritis type: unspecified Qualified Code(s): M17.12 - Unilateral primary osteoarthritis, left knee Plan: Continue Acetaminophen 1000 mg TID PRN He used to take Ibuprofen but as he is currently on Apixaban, that was discontinued He has tried auto stem cell implantation from his hip to his knee with a [facility] provider in [place] a few years ago ([id number]) without any success - states that he spent about $6000 of his own money on a useless procedure as he did not want to go for knee surgery at the time He has been seen by orthopedics in the past for his left knee issues and states that he is now considering going for knee replacement surgery Follow up with orthopedics as scheduled (10) Visual hallucinations: Code(s): R44.1 - Visual hallucinations Category: Medical Plan: CT of the brain done in 2021 revealed only findings of mild generalized atrophy (prominent ventricles and extra-axial CSF spaces), with mild nonspecific periventricular white matter disease EEG done in 2021 revealed only (+) slowing of brain waves He was started on Quetiapine 25 mg BID back then, which was reportedly helping but he appears to no longer be on the Rx Follow up with neurology as scheduled (11) Vitamin D deficiency: Code(s): E55.9 - Vitamin D deficiency, unspecified Category: Medical Plan: Corrected - his Vitamin D level was normal when last checked in October 2024 (12) Hypotestosteronism: Code(s): E34.9 - Endocrine disorder, unspecified Category: Medical Plan: He has a Hx of low testosterone level and was taking testosterone replacement Rx in the past (Testosterone gel 2 pumps QD) We sent him for labs to recheck his testosterone level back in October 2024 but this was not done Will have him recheck his testosterone level again when he goes for follow up labs later this year (13) Benign prostatic hyperplasia: Code(s): N40.0 - Benign prostatic hyperplasia without lower urinary tract symptoms Category: Medical Qualifiers: Lower urinary tract symptom presence: unspecified whether lower urinary tract symptoms present Qualified Code(s): N40.0 - Benign prostatic hyperplasia without lower urinary tract symptoms Plan: Continue Terazosin 10 mg Q HS Follow up with urology as scheduled (14) Attention deficit hyperactivity disorder (ADHD): Code(s): F90.9 - Attention-deficit hyperactivity disorder, unspecified type Category: Medical Qualifiers: Attention deficit-hyperactivity disorder type: combined inattentive- hyperactive Qualified Code(s): F90.2 - Attention-deficit hyperactivity disorder, combined type Plan: He used to take Amphetamine-Dextroamphetamine Tablet, 30 mg once a day in AM but this has been discontinued a while back Plan Follow up as scheduled in March 2025
== END 2025-02-02 14:05 | disposition home or self-care (01) ==
LOC: HO.HMCH 13:09
PROVIDERS: PCP Internal Medicine; Visit Provider Internal Medicine
DX: I10 Essential (primary) hypertension (principal); E78.5 Hyperlipidemia, unspecified; J44.9 Chronic obstructive pulmonary disease, unspecified; I48.0 Paroxysmal atrial fibrillation; I77.810 Thoracic aortic ectasia; M51.360 Other intervertebral disc degeneration, lumbar region with discogenic back pain only; G54.6 Phantom limb syndrome with pain; S78.111A Complete traumatic amputation at level between right hip and knee, initial encounter; M17.12 Unilateral primary osteoarthritis, left knee; R44.1 Visual hallucinations; E55.9 Vitamin D deficiency, unspecified; E34.9 Endocrine disorder, unspecified; N40.0 Benign prostatic hyperplasia without lower urinary tract symptoms; F90.2 Attention-deficit hyperactivity disorder, combined type

== ENCOUNTER → 2025-02-02 13:08 | Outpatient (BNVA) | payer MEDICARE, SELFPAY | PROVIDERS: PCP Internal Medicine; Visit Provider Internal Medicine | DX: I10 Essential (primary) hypertension (principal); E78.5 Hyperlipidemia, unspecified; J44.9 Chronic obstructive pulmonary disease, unspecified; I48.0 Paroxysmal atrial fibrillation; I77.810 Thoracic aortic ectasia; G54.6 Phantom limb syndrome with pain; M17.12 Unilateral primary osteoarthritis, left knee; S78.111D Complete traumatic amputation at level between right hip and knee, subsequent encounter; R44.1 Visual hallucinations; E55.9 Vitamin D deficiency, unspecified; E34.9 Endocrine disorder, unspecified; N40.0 Benign prostatic hyperplasia without lower urinary tract symptoms; F90.2 Attention-deficit hyperactivity disorder, combined type | CPT/HCPCS: 96127; 99212 ==

== ENCOUNTER 2025-02-03 16:26 | Emergency (ER) | payer MEDICARE, MEDICAID, SELFPAY ==
--- NOTE | ~2025-02-03 | XR_ITS ---
CLINICAL HISTORY: pain, prior fall 4 view, pelvis and left hip Comparison: DX/SR - XR HIP LT W PEL1V - 06/28/22 13:09 EDT Findings: The bones are intact. Status post open reduction internal fixation with intramedullary radha visualized in the proximal femur. The soft tissues are unremarkable. IMPRESSION: No acute fracture or hardware complication. This document has been electronically signed by: Jai Pereyra MD on 02/03/2025 17:41:42
[2025-02-03 16:33] VITALS: BP 116/78; BP 128/68; PULSE 91; PULSE 96; RESP 16; TEMP 36.4; O2SAT 95; O2SAT 96; BMI 16.5
[2025-02-03] MEDS: Acetaminophen 325 MG TABLET 975 MG PO (16:57)
--- NOTE | 2025-02-03 16:58 | ED.GENADULT ---
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 Evidently, patient declined to go to an outpatient appointment today as he was expressing burning pain to the left hip. Continued to report this afternoon. Staff at bedside endorsed that he had a fall approximately 1 month ago, states he was not evaluated after this fall. At baseline he is primarily wheelchair-bound, has not been ambulatory or wearing his prosthetic for quite some time. At this time, patient denies having any active pain. But does state pain gets worse with particular movements. Unfortunately, it is difficult to obtain significant history from him, he appears to have some underlying cognitive disorder, staff at bedside endorses mentation is at baseline who presents emergency department via EMS coming from a assisted Related Data Home Medications ?Medication ?Instructions ?Recorded ?Confirmed albuterol sulfate 90 mcg/actuation 2 puff inhalation Q6H PRN 10/16/24 02/02/25 aerosol inhaler Shortness Of Breath bisacodyl 10 mg rectal suppository 10 mg NM DAILY PRN constipation - 10/16/24 02/02/25 (Dulcolax (bisacodyl)) if no BM on day # 4 guaifenesin 200 mg tablet 200 mg PO Q6H PRN Cough 10/16/24 02/02/25 loperamide 2 mg tablet (Imodium 4 mg PO Q12H PRN diarrhea/loose 10/16/24 02/02/25 A-D) stools nystatin 100,000 unit/gram topical 1 appl topical BID PRN groin rash 10/16/24 02/02/25 powder magnesium hydroxide 2,400 mg/10 mL 10 ml PO DAILY PRN Constipation 01/16/25 02/02/25 oral suspension (Milk Of Magnesia Concentrated) Previous Rx's ?Medication ?Instructions ?Recorded acetaminophen 500 mg tablet 1,000 mg (2 x 500 mg) PO TID PRN 10/16/24 (Tylenol Extra Strength) fever or pain #180 tabs apixaban 5 mg tablet (Eliquis) 5 mg PO BID 30 days #60 tabs 10/16/24 bacitracin 500 unit/gram topical 1 appl topical BID PRN minor 10/16/24 ointment cuts/abrasions 30 days #30 grams polyethylene glycol 3350 17 17 g PO DAILY #510 grams 10/16/24 gram/dose oral powder (Miralax) terazosin 10 mg capsule 10 mg PO BEDTIME 30 days #30 caps 10/16/24 oxycodone 5 mg tablet 5 mg PO TID PRN severe pain 28 01/05/25 days #84 tabs fluticasone fur. 100 mcg-umeclid 1 ea PO DAILY #60 ea 01/09/25 62.5 mcg-vilant 25 mcg inhalat.powder (Trelegy Ellipta) gabapentin 300 mg capsule 300 mg PO BID 30 days #60 caps 01/09/25 Allergies Allergy/AdvReac Type Severity Reaction Status Date / Time No Known Allergies Allergy Verified 02/03/25 16:35 Review of Systems Review of Systems: Yes all other systems are reviewed and are negative PMFSH Past Medical History Attestation statement: The following information was validated with the patient. Source: old records reviewed Medical History Above knee amputation of right lower extremity Paroxysmal atrial fibrillation Attention deficit hyperactivity disorder (ADHD) Vitamin D deficiency Hypotestosteronism Erectile dysfunction Phantom limb pain Benign prostatic hyperplasia Lumbar degenerative disc disease COPD (chronic obstructive pulmonary disease) Dyslipidemia Benign essential hypertension Unilateral primary osteoarthritis, left knee Osteosarcoma of bone Knee pain, left Surgical History History of amputation History of hernia surgery Social History Social History Household Members: None Housing: Apartment Do you presently have visiting nurse or other home services: Yes ([employer]) Alcohol intake: never Patient Tobacco Use Status: Former Tobacco user Tobacco use type: Cigarette Cigarettes Per Day: 40 Smoked in Last 30 Days: No e-Cigarette/Vaping Use: Never Used Second Hand Smoke Exposure: Yes Use of substances other than those prescribed or required for medical reasons: No Advance Directives: Yes Advance Directives on File: Yes Advance Directives Date on File: 03/29/22 service: No Current occupational status: retired Current occupational exposures/hazards: No Cognitive needs: Yes (wheelchair/crotches) Hearing needs: No Vision needs: No Physical Exam ED Vital Signs: Vital Signs - 24 hr 02/03/25 16:33 02/03/25 17:46 02/03/25 18:53 Temperature 97.6 F Pulse Rate 91 Respiratory Rate 16 16 16 Blood Pressure 128/68 Pulse Oximetry 95 Oxygen Delivery Method Room Air 02/03/25 20:26 02/03/25 20:37 Temperature 97.6 F 97.6 F Pulse Rate 85 85 Respiratory Rate 18 18 Blood Pressure 104/54 L 104/54 L Pulse Oximetry 94 94 Oxygen Delivery Method Room Air Room Air BMI result Body Mass Index 16.5 Appearance: Alert.?Oriented to person No acute distress.?Normal affect.? CVS: Heart sounds normal. Normal heart rate and rhythm.? Pulses normal.?? Respiratory: No respiratory distress.? Lung sounds clear to auscultation bilaterally?? Abdomen: Soft and non-tender. Normoactive bowel sounds. No CVAT Skin: Skin warm and dry.? Normal skin color.? Extremities: No lower extremity edema.? No calf ttp. Obvious deformity to the left lower extremity. Able to hold the left hip and full extension as well as flexion, not able to externally rotate the hip passively meeting resistance, though patient not endorsing pain with this motion. CMS intact, 2+ DP/PT pulse. Neuro: Moves all extremities spontaneously. Sensation intact bilaterally. Course Reevaluation(s) Reevaluation #1: XR of the hips/pelvis unremarkable. Given be endorsement of burning pain, and poor historical nature of patient, will additionally obtain urinalysis to exclude UTI, in the event that this is poorly described location of pain. Otherwise, if continuing to endorse no acute complaints, will plan for discharge back to assisted. Time: 18:47 Medications Administered Discontinued Medications Generic Name Dose Route Start Last Admin Trade Name Freq PRN Reason Stop Dose Admin Acetaminophen 975 mg 02/03/25 16:39 02/03/25 16:57 Acetaminophen 325 Mg Tablet PO 02/03/25 16:40 975 mg ONCE ONE Administration Medical Decision Making Medical Decision Making 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 Currently he denies any active pain. He is able to flex and extend at the hip, unable to passively externally rotate the hip meeting resistance though patient denying pain. Extremities neurovascularly intact distally. There does not appear to be any acute deformity. He has a history of left hip surgical fixation of uncertain age. Will obtain XR of the hip to evaluate for acute osseous abnormality, lower suspicion for dislocation. Not consistent with acute arterial occlusion. Again currently denying pain. Possible may be neuropathic pain. Normal lower back examination. Differential Diagnosis Differential Diagnoses: The differential diagnosis associated with the presentation includes (See narrative above) Admission/Observation Consideration of admission/observation: Escalation of care including admission/observation considered Lab Data Labs: Lab Results 02/03/25 Range/Units 19:43 Urine Color Dark Yellow Urine Appearance Clear Urine pH 5.5 (5.0-9.0) Ur Specific Boykins >= 1.030 H (1.005-1.025) Urine Protein Trace (Neg-Trace) mg/dL Urine Glucose (UA) Negative (Negative) mg/dL Urine Ketones Trace (Negative) mg/dL Urine Blood Negative (Negative) Urine Nitrite Negative (Negative) Ur Leukocyte Esterase Trace H (Negative) Urine RBC 0-2 (0-2) /HPF Urine WBC 0-5 (0-5) /HPF Ur Squamous Epith Cells 0-2 (0-2) /HPF Urine Bacteria None Seen (None Seen) Hyaline Casts 3-5 (0-2) /LPF Independent Interpretation I performed an independent interpretation of an: Plain X-Ray (Left hip surgical fixation, no acute fracture) Radiology Impression Discussion of test interpretation with radiology: I have reviewed the radiologist's reading. Radiologist Impression: 4 view, pelvis and left hip Comparison: DX/SR - XR HIP LT W PEL1V - 06/28/22 13:09 EDT Findings: The bones are intact. Status post open reduction internal fixation with intramedullary radha visualized in the proximal femur. The soft tissues are unremarkable. IMPRESSION: No acute fracture or hardware complication. Independent Historian Clinical information obtained from an independent historian. History obtained from or confirmed by: EMS and Other (snf staff) External Record Review External record reviewed: Outpatient record Prescription Management I considered prescription management with: Pain Medication Chronic Conditions Patient?s care impacted by: Other (See narrative above) Discharge Plan Discharge Clinical Impression: Acute hip pain Patient Disposition: Home, Self-Care Instructions: Hip Pain (ED) Additional Instructions: Patient was evaluated in the emergency department for report of left hip pain with onset today. Prior injury 1 month ago but no other reported injury. XR was obtained there was no acute fracture or dislocation. Hardware to that hip appears well and in place. Urinalysis was also obtained, it is without sign of infection. He has had no persistent pain in the emergency department. Please follow-up with primary care provider. Prescriptions: No Action oxycodone 5 mg tablet 5 mg PO TID PRN (Reason: severe pain) 28 Days Qty: 84 0RF Trelegy Ellipta 100-62.5-25 mcg blister with device 1 ea PO DAILY Qty: 60 3RF gabapentin 300 mg capsule 300 mg PO BID 30 Days Qty: 60 3RF magnesium hydroxide [Milk Of Magnesia Concentrated] 2,400 mg/10 mL Suspension 10 ml PO DAILY PRN (Reason: Constipation) acetaminophen [Tylenol Extra Strength] 500 mg tablet 1,000 mg PO TID PRN (Reason: fever or pain) Qty: 180 11RF polyethylene glycol 3350 [Miralax] 17 gram/dose powder 17 g PO DAILY Qty: 510 11RF Eliquis 5 mg tablet 5 mg PO BID 30 Days Qty: 60 5RF terazosin 10 mg capsule 10 mg PO BEDTIME 30 Days Qty: 30 5RF bacitracin 500 unit/gram ointment 1 appl topical BID PRN (Reason: minor cuts/abrasions) 30 Days Qty: 30 11RF albuterol sulfate 90 mcg/actuation HFA aerosol inhaler 2 puff inhalation Q6H PRN (Reason: Shortness Of Breath) nystatin 100,000 unit/gram powder 1 appl topical BID PRN (Reason: groin rash) guaifenesin 200 mg tablet 200 mg PO Q6H PRN (Reason: Cough) loperamide [Imodium A-D] 2 mg tablet 4 mg PO Q12H PRN (Reason: diarrhea/loose stools) bisacodyl [Dulcolax (bisacodyl)] 10 mg suppository 10 mg NM DAILY PRN (Reason: constipation - if no BM on day # 4) Interventions: ED Discharge Assessment Last Done: 02/03/25 20:37 Discharge Date/Time: 02/03/25 20:38 Print Language: Kazakh
[2025-02-03 17:46] VITALS: RESP 16
[2025-02-03 18:53] VITALS: RESP 16
[2025-02-03 19:51] LABS: Appearance Urine Clear; Color Urine Dark Yellow; Glucose Urine UA Negative (Negative); Leukocyte Esterase Urine Trace (Negative); Nitrite Urine Negative (Negative); PH 5.5 (5.0-9.0); Specific Gravity - Urine >= 1.030 (1.005-1.025); UMIC TRIGGER UACC YES; Urine Blood Negative (Negative); Urine Ketones Trace mg/dL (Negative); Urine Protein Trace mg/dL (Neg-Trace)
[2025-02-03 19:55] LABS: Bacteria Urine None Seen (None Seen); RBC Urine 0-2 /HPF (0-2); Squamous Epithelial Cell Urine 0-2 /HPF (0-2); WBC Urine 0-5 /HPF (0-5)
[2025-02-03 20:26] VITALS: BP 104/54; PULSE 85; RESP 18; TEMP 36.4; O2SAT 94
[2025-02-03 20:37] VITALS: BP 104/54; PULSE 85; RESP 18; TEMP 36.4; O2SAT 94
== END 2025-02-03 20:38 | disposition home or self-care (01) ==
PROVIDERS: Nurse Practitioner Family; Emergency Provider Emergency Medicine Emergency Medical Services; PCP Internal Medicine
DX: M25.552 Pain in left hip (principal); M17.12 Unilateral primary osteoarthritis, left knee; I10 Essential (primary) hypertension; N40.0 Benign prostatic hyperplasia without lower urinary tract symptoms; J44.9 Chronic obstructive pulmonary disease, unspecified; F90.9 Attention-deficit hyperactivity disorder, unspecified type
CPT/HCPCS: 73502; 81001; 99283; 99284

== ENCOUNTER → 2025-02-03 16:39 | Outpatient (BNV) | payer MEDICARE, MEDICAID, SELFPAY | PROVIDERS: Emergency Provider Emergency Medicine Emergency Medical Services; PCP Internal Medicine; Visit Provider Nuclear Medicine | DX: M25.552 Pain in left hip (principal) | CPT/HCPCS: 73502 ==

== ENCOUNTER 2025-02-18 17:22 | Outpatient (AMB) | payer MEDICARE, MEDICAID, SELFPAY ==
[2025-02-18 17:26] VITALS: BP 96/60; PULSE 83; RESP 22; TEMP 36.3; O2SAT 95
--- NOTE | 2025-02-18 17:26 | MHC.PC.OV ---
Vital Signs 02/18/25 17:26 Height 6 ft BMI Reason not done Patient refused/unable BP 96/60 Blood Pressure Location Lt brachial Position Sitting Respiration 22 H Pulse 83 Pulse Source Pulse Oximeter Temp 97.3 F Temp Source Temporal Artery Scan Pulse Oximetry (%) 95 Oxygen Delivery Method Room Air [place] [facility] [facility] [place] pain Intake Note: Patient is here to follow-up after a visit the emergency department at [facility] in [place], [place] on 02/03/2025 Bibliographic Services Specialist Required: No Accompanied by: BOOKY: [facility] Allergies No Known Allergies Allergy (Verified 02/20/25 11:33) Tobacco use date assessed: 02/02/25 Fall risk assessment: No Falls in past year Last assessed Fall Risk: 02/18/25 Dental Screening Dental Screen Date: 02/18/25 Did you have a dental visit in the last 12 months?: No Did you have a dental problem in the last 6 months where you did not have access to dental care?: No Was dental information given to patient?: No [place] [facility] [place] pain HPI Details Patient comes in today for his follow up visit He went to the ER a couple of weeks ago on 02/03/2025 for increased left hip pain He describes the hip pain as more of a deep burning sensation centered over the proximal thigh area just below the actual hip joint, which is temporarily relieved when he moves his left leg to stretch it out He had x-rays done at the ER when he presented there a couple weeks ago that came out normal He recalls that he fell about a month ago prior to his going to the emergency room on 02/03/2025 but he did not go to the emergency room to get checked out immediately after his fall Patient sustained a left intertrochanteric femur fracture back in March 2022 for which he underwent surgical repair and unclear at this point whether his current symptoms are related to his previous hip injury and surgery Patient states that he feels okay otherwise He denies any headaches or dizziness Denies any chest pains, no increased shortness of breath No nausea/vomiting, no abdominal pain No change in bowel habits noted PFSH Medical History Above knee amputation of right lower extremity Paroxysmal atrial fibrillation Attention deficit hyperactivity disorder (ADHD) Vitamin D deficiency Hypotestosteronism Erectile dysfunction Phantom limb pain Benign prostatic hyperplasia Lumbar degenerative disc disease COPD (chronic obstructive pulmonary disease) Dyslipidemia Benign essential hypertension Unilateral primary osteoarthritis, left knee Osteosarcoma of bone Knee pain, left Surgical History History of amputation History of hernia surgery Social History Household Members: None Housing: Apartment Do you presently have visiting nurse or other home services: Yes ([employer]) Alcohol intake: never Patient Tobacco Use Status: Former Tobacco user Tobacco use type: Cigarette Cigarettes Per Day: 40 e-Cigarette/Vaping Use: Never Used Second Hand Smoke Exposure: Yes Advance Directives Date on File: 03/29/22 service: No Current occupational status: retired Current occupational exposures/hazards: No Cognitive needs: Yes (wheelchair/crotches) Hearing needs: No Vision needs: No Questionnaire PHQ-9 Over the last 2 weeks, how often have you been bothered by any of the following problems? Depression Screening Interpretation: Negative Depression Screening Done: Yes Source: Developed by Drs. Skinny Marin, Anuja Duenas, Huy Vasquez and colleagues, with an educational gretel from [employer] Thrive Questionnaire Date Thrive assessed: 02/02/25 I am a: Patient What is your living situation today?: I have a steady place to live Within the past 12 months, did the food you bought not last and you didn't have the money to get more?: Never true Within the past 12 months, did you worry whether your food would run out before you got money to buy more?: Never true Do you have trouble paying for medicines?: No Do you have trouble getting transportation to medical appointments?: No Do you have trouble paying your heating and electricity bill?: No Do you have trouble taking care of your child, family member or friend?: No Do you have trouble with day-to-day activities such as bathing, preparing meals, shopping, managing finances, etc.?: No Are you currently unemployed and looking for a job?: No Are you interested in more education?: No Please select the resources that you would like help with: None Currently or been in a relationship where the following occur: No concerns reported THRIVE Score: 0 AUDIT C Alcohol Use Questionnaire (AUDIT-C) 1. How often do you have a drink containing alcohol?: Never 3. How often do you have six or more drinks on one occasion?: Never Total Score: 0 Score Reviewed/Action Taken: Yes JORGE-7 AMB Questionnaire JORGE-7 Date JORGE - 7 assessed: 08/17/21 Source: Developed by Drs. Skinny Marin, Anuja Duenas, Huy Vasquez and colleagues, with an educational gretel from [employer] Review of Systems Const Denies chills, Denies fatigue, Denies fever(s) and Denies headache(s) ENT Denies dysphagia, Denies dizziness, Denies otalgia, Denies headache(s), Denies neck pain, Denies odynophagia and Denies sore throat Card Denies chest pain, Denies rapid heart rate, Denies irregular heart rhythm, Denies palpitations and Reports dyspnea on exertion (mild) Resp Denies chest congestion, Denies cough and Reports dyspnea on exertion (mild) GI Denies abdominal pain, Denies constipation, Denies dysphagia, Denies heartburn, Denies diarrhea, Denies nausea, Denies odynophagia and Denies vomiting Denies difficulty urinating, Denies dysuria, Denies urinary frequency and Denies urinary urgency Musc Reports back pain (chronic), Reports arthralgias (in the left knee - chronic; near the left hip area lately - see HPI) and Denies neck pain Skin/Breast Denies rash Neuro Details: (+) recurrent phantom limb pain in the right lower extremity Denies dizziness, Denies headache(s) and Denies paresthesias Psych Denies visual hallucinations Endo Denies fatigue and Denies palpitations Physical exam (Primary Care) Vital Signs: Last Vital Signs Temp 97.3 F 02/18/25 17:26 Pulse 83 02/18/25 17:26 Resp 22 H 02/18/25 17:26 BP 96/60 02/18/25 17:26 Pulse Ox 95 02/18/25 17:26 Oxygen Delivery Method Room Air 02/18/25 17:26 Tobacco/Smoking Status: Tobacco use Status Tobacco use date assessed 02/02/25 02/18/25 17:37 Patient Tobacco Use Status Former Tobacco user 02/18/25 17:37 Tobacco use type Cigarette 02/18/25 17:37 e-Cigarette/Vaping Use Never Used 02/18/25 17:37 Depression Screening Interpretation: Negative Thrive Assessment: Date of Thrive Assessment Date Thrive assessed 02/02/25 02/18/25 17:37 Currently or been in a relationship where the following occur: No concerns reported Const General: no acute distress and alert Orientation/consciousness: patient oriented x3 Limitations: wheelchair HENMT Ears: TM's normal bilaterally and EAC's normal Throat: Yes posterior oropharynx normal and Yes tonsils normal (no TP congestion) Neck Neck: Yes supple and No lymphadenopathy Thyroid: Thyroid normal Resp Auscultation: clear to auscultation bilaterally, no rales and no wheezes Cardio Rate: regular rate Rhythm: regular rhythm Heart sounds: no murmurs GI Palpation (GI): Soft to palpation and nontender Auscultation: normal bowel sounds General: Yes no CVA tenderness Back/Spine/Pelvis Back: no CVA tenderness Thoracic/Lumbar Spine: lumbar spinal tenderness Skin Rashes: no rashes Neuro General: patient oriented x3 Cognition (Neuro): normal cognition Gait exam (Neuro): Assistive device used Extrem Other: S/P AKA of the right lower extremity General: Yes no clubbing, cyanosis or edema (in the left lower extremity) Left lower extremity: hip/thigh Details: tenderness (near the left hip area, mostly over adjacent proximal thigh) and knee Details: tenderness and crepitus Coding Level of Care Code Est Pt Level 3 (47469) Diagnoses Left hip pain M25.552 Degeneration of intervertebral disc of lumbar region with discogenic back pain M51.360 Disc-related pain type: discogenic back pain only Phantom limb pain G54.6 Above knee amputation of right lower extremity S78.111A Osteoarthritis of left knee, unspecified osteoarthritis type M17.12 Osteoarthritis type: unspecified Chronic obstructive pulmonary disease, unspecified COPD type J44.9 COPD type: unspecified COPD Paroxysmal atrial fibrillation I48.0 Assessment & Plan Assessment & Plan (1) Left hip pain: Code(s): M25.552 - Pain in left hip Category: Medical Plan: It is unclear at this time whether patient's current complaint of left hip/proximal thigh pain is related to his previous left hip surgical repair for his left intertrochanteric femur fracture back in March 2022 or not Will refer him to orthopedics for further evaluation and management Will start him additionally for now on Lidocaine ointment 5% to apply to painful area QID PRN (2) Lumbar degenerative disc disease: Comment: Failed trial of ablation and nerve block with pain management in 2019 Code(s): M51.36 - Other intervertebral disc degeneration, lumbar region Category: Medical Qualifiers: Disc-related pain type: discogenic back pain only Qualified Code(s): M51.360 - Other intervertebral disc degeneration, lumbar region with discogenic back pain only Plan: Patient is mostly wheelchair-bound so his activity level is practically sedentary Continue Oxycodone 5 mg TID PRN for pain He used to see pain management but has not been back to see them in a few years now (3) Phantom limb pain: Comment: S/P right AKA for osteosarcoma at 17 y/o Code(s): G54.6 - Phantom limb syndrome with pain Category: Medical Plan: Continue Gabapentin 300 mg BID and Oxycodone 5 mg TID PRN for pain (4) Above knee amputation of right lower extremity: Code(s): S78.111A - Complete traumatic amputation at level between right hip and knee, initial encounter Category: Medical Plan: He currently does not have any prosthesis on his right leg as his previous one was ill-fitting and he has not used that in a while now He is interested in getting refitted for a new prosthesis soon so he can start walking around again (5) Osteoarthritis of left knee: Code(s): M17.12 - Unilateral primary osteoarthritis, left knee Category: Medical Qualifiers: Osteoarthritis type: unspecified Qualified Code(s): M17.12 - Unilateral primary osteoarthritis, left knee Plan: Continue Acetaminophen 1000 mg TID PRN He used to take Ibuprofen but as he is currently on Apixaban, that was discontinued He has tried auto stem cell implantation from his hip to his knee with a [facility] provider in [place] a few years ago ([id number]) without any success - states that he spent about $6000 of his own money on a useless procedure as he did not want to go for knee surgery at the time He has been seen by orthopedics in the past for his left knee issues and states that he is now considering going for knee replacement surgery Follow up with orthopedics as scheduled (6) COPD (chronic obstructive pulmonary disease): Code(s): J44.9 - Chronic obstructive pulmonary disease, unspecified Category: Medical Qualifiers: COPD type: unspecified COPD Qualified Code(s): J44.9 - Chronic obstructive pulmonary disease, unspecified Plan: Continue Trelegy Ellipta 100-62.5-25 mcg 1 inhalation QD and Albuterol HFA 1 to 2 inhalations Q 6 hours PRN [place] [facility] [place] (7) Paroxysmal atrial fibrillation: Code(s): I48.0 - Paroxysmal atrial fibrillation Category: Medical Plan: Patient is currently in sinus rhythm Continue Apixaban 5 mg BID for thromboelmbolism prophylaxis; also (+) Hx of left femoral-popliteal DVT a couple of years ago Follow up with cardiology as scheduled Plan Follow up as scheduled in March 2025 Orders: Referrals Orthopedics Referral M25.552 - Pain in left hip Medications: New lidocaine 5% 1 appl topical QID 15 days PRN 60 grams 1RF pain
== END 2025-02-18 18:02 | disposition home or self-care (01) ==
LOC: HO.HMCH 17:22
PROVIDERS: PCP Internal Medicine; Visit Provider Internal Medicine
DX: M25.552 Pain in left hip (principal); M51.360 Other intervertebral disc degeneration, lumbar region with discogenic back pain only; G54.6 Phantom limb syndrome with pain; S78.111A Complete traumatic amputation at level between right hip and knee, initial encounter; M17.12 Unilateral primary osteoarthritis, left knee; J44.9 Chronic obstructive pulmonary disease, unspecified; I48.0 Paroxysmal atrial fibrillation

== ENCOUNTER → 2025-02-18 17:22 | Outpatient (BNVA) | payer MEDICARE, MEDICAID, SELFPAY | PROVIDERS: PCP Internal Medicine; Visit Provider Internal Medicine | DX: M25.552 Pain in left hip (principal); M51.360 Other intervertebral disc degeneration, lumbar region with discogenic back pain only; G54.6 Phantom limb syndrome with pain; M17.12 Unilateral primary osteoarthritis, left knee; J44.9 Chronic obstructive pulmonary disease, unspecified; I48.0 Paroxysmal atrial fibrillation; Z91.81 History of falling; Z89.611 Acquired absence of right leg above knee | CPT/HCPCS: 99212 ==

== ENCOUNTER 2025-02-20 11:15 | Outpatient (AMB) | payer MEDICARE, MEDICAID, SELFPAY ==
--- NOTE | 2025-02-20 11:28 | MHC.OFFVIS ---
Vital Signs 02/20/25 11:37 BP 102/60 Position Sitting Pulse 80 Pulse Source Pulse Oximeter Pulse Oximetry (%) 94 Oxygen Delivery Method Room Air Intake Visit Reasons: COPD Fur Examiner Required: No Marketing And Communications Officer: Marketing And Communications Officer offered & declined Accompanied by: gyro compass tester Allergies No Known Allergies Allergy (Verified 02/20/25 11:33) Medication List - Last Reconciled 02/20/25 by Nika Mills LPN acetaminophen (Tylenol Extra Strength) 1,000 mg (2 x 500 mg) PO TID PRN albuterol sulfate 90 mcg/actuation 2 puffs inhalation Q6H PRN apixaban (Eliquis) 5 mg PO BID 30 days bacitracin 1 appl topical BID PRN 30 days bisacodyl (Dulcolax (bisacodyl)) 10 mg [place] DAILY PRN efrumxibnma-wrylylbkr-iwunbixt 100-62.5-25 mcg (Trelegy Ellipta) 1 ea PO DAILY gabapentin 300 mg PO BID 30 days guaifenesin 200 mg PO Q6H PRN lidocaine 5% 1 appl topical QID PRN 15 days loperamide (Imodium A-D) 4 mg PO Q12H PRN magnesium hydroxide (Milk Of Magnesia Concentrated) 10 mL PO DAILY PRN nystatin 1 appl topical BID PRN oxycodone 5 mg PO TID PRN 28 days polyethylene glycol 3350 (Miralax) 17 grams PO DAILY terazosin 10 mg PO BEDTIME 30 days HPI HPI COPD: Details: Alexis is a pleasant 80-year-old male, former smoker with 50+pyh, quit 15+ years ago with underlying severe COPD, Aortic ectasia, Atrial fibrillation, BPH, 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 He is wheelchair bound and activity is very limited. He currently resides at a residential and is accompanied by a staff member. Overall poor historian, he reports intermittent wheezing and dry cough, denies dyspnea or chest tightness. He feels his symptoms are well controlled on Trelegy 100 mcg. Using albuterol MDI very rarely. 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 He was recently evaluated at [facility] for syncope and recommendations made for home sleep study given daytime fatigue and nonrestorative sleep. Of note, he also underwent CTA ordered by vascular who has been monitoring AAA, found to have patchy airspace disease in the lung bases, which can be seen with small airways disease or aspiration as well as severe emphysematous changes. [facility] Medical History Above knee amputation of right lower extremity Paroxysmal atrial fibrillation Attention deficit hyperactivity disorder (ADHD) Vitamin D deficiency Hypotestosteronism Erectile dysfunction Phantom limb pain Benign prostatic hyperplasia Lumbar degenerative disc disease COPD (chronic obstructive pulmonary disease) Dyslipidemia Benign essential hypertension Unilateral primary osteoarthritis, left knee Osteosarcoma of bone Knee pain, left Surgical History History of amputation History of hernia surgery Social History Household Members: None Housing: Apartment Do you presently have visiting nurse or other home services: Yes ([employer]) Alcohol intake: never Patient Tobacco Use Status: Former Tobacco user Tobacco use type: Cigarette Cigarettes Per Day: 40 e-Cigarette/Vaping Use: Never Used Second Hand Smoke Exposure: Yes Advance Directives Date on File: 03/29/22 service: No Current occupational status: retired Current occupational exposures/hazards: No Cognitive needs: Yes (wheelchair/crotches) Hearing needs: No Vision needs: No Review of Systems Const Denies chills, Denies excessive sweating, Denies fever(s), Denies headache(s) and Denies night sweats Eyes Denies dry eyes, Denies irritation and Denies itchy eyes ENT Reports Normal hearing present, Denies headache(s), Denies nasal congestion, Denies nasal discharge and Denies sore throat Card Denies chest pain, Denies chest pain at rest, Denies chest pain with activity, Denies claudication, Denies dyspnea, Denies dyspnea on exertion, Denies orthopnea and Denies paroxysmal nocturnal dyspnea Resp Denies chest congestion, Denies excessive phlegm production, Denies pain on inspiration, Denies pain with cough, Denies dyspnea, Denies dyspnea on exertion and Denies stridor Neuro Reports Normal hearing present and Denies headache(s) Endo Denies excessive sweating David/Lymph Denies lymphadenopathy Aller/Immun Denies itchy eyes and Denies seasonal rhinorrhea Physical Exam Vital Signs: Last Vital Signs Pulse 80 02/20/25 11:37 BP 102/60 02/20/25 11:37 Pulse Ox 94 02/20/25 11:37 Oxygen Delivery Method Room Air 02/20/25 11:37 Const General: cooperative, healthy appearing, comfortable, no acute distress, well developed and alert Orientation/consciousness: patient oriented x3 Limitations: wheelchair HEENT Head: Yes normal to inspection, Yes normocephalic and Yes atraumatic Ears: hearing grossly normal bilaterally and external ears normal Eyes General: appearance normal, both eyes and all related structures Eyelids: Yes eyelids normal Sclerae: sclerae normal EOM: EOMs intact bilaterally Neck Neck: Yes normal visual inspection and Yes no lymphadenopathy Lymphatic: no lymphadenopathy noted Chest Chest palpation & inspection: normal inspection of the chest Resp Effort & Inspection: normal respiratory effort, able to speak in complete sentences, no audible wheezes, no cough, no stridor, not tachypneic, no tripod positioning and no use of accessory muscles Auscultation: diminished lung sounds Cardio Jugular venous distension: no JVD Rate: regular rate Rhythm: regular rhythm Skin Other: warm, dry General skin exam: no rashes or lesions noted Neuro General: patient oriented x3 Cranial nerves: Yes Normal hearing present Cognition (Neuro): normal cognition Gait exam (Neuro): Normal gait present Extrem Other: AKA on right Psych Appearance: grossly normal and well kempt Speech and movement: Normal speech and movement present and Clear speech present Affect: normal affect Attitude: cooperative Thought process: Normal thought process present Thought content: Normal thought content present Insight: Good insight present (Psych) Judgement: Good judgement present (Psych) Results Reviewed Results Reviewed: David sawyer rasta Assessment & Plan Assessment & Plan (1) COPD (chronic obstructive pulmonary disease): Code(s): J44.9 - Chronic obstructive pulmonary disease, unspecified Category: Medical Qualifiers: COPD type: unspecified COPD Qualified Code(s): J44.9 - Chronic obstructive pulmonary disease, unspecified (2) Cough: Code(s): R05.9 - Cough, unspecified Category: Medical (3) Daytime somnolence: Code(s): R40.0 - Somnolence Category: Medical Plan At this time, Alexis reports good control of respiratory symptoms on current regimen, advised to continue. Although he is a poor historian, discussed with residential staff if symptoms displayed suggestive of worsening respiratory control to call office. Would consider increasing Trelegy to 200mcg. Recent CTA revealed patchy airspace disease in the lung bases, which can be seen with small airways disease or aspiration. Will repeat in 3 months to assess resolution. Will send for home sleep study as patient with significant daytime fatigue. All questions were answered and patient is in agreement of plan. Will follow up to review results or sooner if needed. Orders: Orders RT home sleep study Today R40.0 - Somnolence CT chest wo IV con 2 Months R91.8 - Other nonspecific abnormal finding of lung field Coding Level of Care Code Est Pt Level 4 (98013) Diagnoses Chronic obstructive pulmonary disease, unspecified COPD type J44.9 COPD type: unspecified COPD Cough R05.9 Daytime somnolence R40.0
[2025-02-20 11:37] VITALS: BP 102/60; PULSE 80; O2SAT 94
== END 2025-02-20 12:17 | disposition home or self-care (01) ==
LOC: HO.HPSW 11:16
PROVIDERS: PCP Internal Medicine; Visit Provider Nurse Practitioner Family
DX: J44.9 Chronic obstructive pulmonary disease, unspecified (principal); R05.9 Cough, unspecified; R40.0 Somnolence
CPT/HCPCS: 99214

== ENCOUNTER → 2025-02-20 11:15 | Outpatient (BNVA) | payer MEDICARE, MEDICAID, SELFPAY | PROVIDERS: PCP Internal Medicine; Visit Provider Nurse Practitioner Family | DX: J44.9 Chronic obstructive pulmonary disease, unspecified (principal); R14.0 Abdominal distension (gaseous); R91.8 Other nonspecific abnormal finding of lung field; Z99.3 Dependence on wheelchair; Z87.891 Personal history of nicotine dependence | CPT/HCPCS: 99212 ==

== ENCOUNTER 2025-02-23 14:39 | Emergency (ER) | payer MEDICARE, MEDICAID, SELFPAY ==
[2025-02-23 14:47] VITALS: BP 116/52; O2SAT 94
[2025-02-23 14:59] VITALS: BP 132/68; PULSE 66; RESP 16; TEMP 36.5; O2SAT 93; BMI 15.8
--- NOTE | 2025-02-23 16:53 | ED_ITS ---
HPI - General Adult General Chief complaint: Back Pain/Injury Stated complaint: R hip sore, vitally stable per EMS Time Seen by Provider: 02/23/25 15:24 Source: patient, EMS and other (correction staff) Mode of arrival: EMS Limitations: no limitations History of Present Illness ED Provider: Dr. Jacqueline Ruiz HPI narrative: Patient comes to the emergency room via ambulance. Patient states that he has no major complaints. According to the patient, the [facility] staff called because patient has a small ulcer on the right side of his hip. Patient states it does not hurt. Also, patient requesting a urinalysis. Patient denies any hematuria dysuria or foul odor. Denies hematuria or dysuria. Related Data Home Medications ?Medication ?Instructions ?Recorded ?Confirmed albuterol sulfate 90 mcg/actuation 2 puff inhalation Q6H PRN 10/16/24 02/20/25 aerosol inhaler Shortness Of Breath bisacodyl 10 mg rectal suppository 10 mg IN DAILY PRN constipation - 10/16/24 02/02/25 (Dulcolax (bisacodyl)) if no BM on day # 4 guaifenesin 200 mg tablet 200 mg PO Q6H PRN Cough 10/16/24 02/20/25 loperamide 2 mg tablet (Imodium 4 mg PO Q12H PRN diarrhea/loose 10/16/24 02/02/25 A-D) stools nystatin 100,000 unit/gram topical 1 appl topical BID PRN groin rash 10/16/24 02/20/25 powder magnesium hydroxide 2,400 mg/10 mL 10 ml PO DAILY PRN Constipation 01/16/25 02/20/25 oral suspension (Milk Of Magnesia Concentrated) Previous Rx's ?Medication ?Instructions ?Recorded acetaminophen 500 mg tablet 1,000 mg (2 x 500 mg) PO TID PRN 10/16/24 (Tylenol Extra Strength) fever or pain #180 tabs apixaban 5 mg tablet (Eliquis) 5 mg PO BID 30 days #60 tabs 10/16/24 bacitracin 500 unit/gram topical 1 appl topical BID PRN minor 10/16/24 ointment cuts/abrasions 30 days #30 grams polyethylene glycol 3350 17 17 g PO DAILY #510 grams 10/16/24 gram/dose oral powder (Miralax) terazosin 10 mg capsule 10 mg PO BEDTIME 30 days #30 caps 10/16/24 fluticasone fur. 100 mcg-umeclid 1 ea PO DAILY #60 ea 01/09/25 62.5 mcg-vilant 25 mcg inhalat.powder (Trelegy Ellipta) gabapentin 300 mg capsule 300 mg PO BID 30 days #60 caps 01/09/25 oxycodone 5 mg tablet 5 mg PO TID PRN severe pain 28 02/04/25 days #84 tabs lidocaine 5 % topical ointment 1 appl topical QID PRN pain 15 02/18/25 days #60 grams Allergies Allergy/AdvReac Type Severity Reaction Status Date / Time No Known Allergies Allergy Verified 02/23/25 15:06 Review of Systems Review of Systems: Constitutional : No Weight loss, No Fever, No Chills, No Night Sweats, No Fati noreen, No Malaise ENT/Mouth : No Hearing loss, No Ear Pain, No Nasal Congestion, No Sinus Pain, No Hoarseness, No sore throat, No Rhinorrhea, No Swallowing Difficulty Eyes: No Eye Pain, No Swelling, No Redness, No Foreign Body, No Discharge, No Vision Changes Cardiovascular : No Chest Pain, No SOB, No Dyspnea on Exertion, No Orthopnea, No Edema, No Palpitations Respiratory : No Cough, No Sputum, No Wheezing, No Smoke Exposure, No Dyspnea Gastrointestinal : No Nausea, No Vomiting, No Diarrhea, No Constipation, No abdominal Pain, No Hematochezia, No Melena Genitourinary : Denies Dysuria, No Urinary Frequency, No Hematuria, No Urinary Incontinence, No Urgency, No Flank Pain, No Urinary Flow Changes, No Hesitancy Musculoskeletal : No joint pain, No Myalgias, No Joint Swelling Skin : Complaining of a small lesion on the right side of his hip, No Skin Lesions, No rash Neuro : No Weakness, No Numbness, No Paresthesias, No Loss of Consciousness, No Dizziness, No Headache Psych : No Anxiety/Panic, No Depression, No SI/HI/AH/VH, No Social Issues, Heme/Lymph: No Bruising, No Bleeding,No Lymphadenopathy Endocrine : No Polyuria, No Polydipsia, No Temperature Intolerance PMFSH Past Medical History Medical History Above knee amputation of right lower extremity Paroxysmal atrial fibrillation Attention deficit hyperactivity disorder (ADHD) Vitamin D deficiency Hypotestosteronism Erectile dysfunction Phantom limb pain Benign prostatic hyperplasia Lumbar degenerative disc disease COPD (chronic obstructive pulmonary disease) Dyslipidemia Benign essential hypertension Unilateral primary osteoarthritis, left knee Osteosarcoma of bone Knee pain, left Surgical History History of amputation History of hernia surgery Social History Social History Household Members: None Housing: Apartment Do you presently have visiting nurse or other home services: Yes ([employer]) Alcohol intake: never Patient Tobacco Use Status: Former Tobacco user Tobacco use type: Cigarette Cigarettes Per Day: 40 e-Cigarette/Vaping Use: Never Used Second Hand Smoke Exposure: Yes Advance Directives: Yes Advance Directives on File: Yes Advance Directives Date on File: 03/29/22 service: No Current occupational status: retired Current occupational exposures/hazards: No Cognitive needs: Yes (wheelchair/crotches) Hearing needs: No Vision needs: No Physical Exam ED Vital Signs: Vital Signs - 24 hr 02/23/25 14:59 02/23/25 17:12 Temperature 97.7 F 98.3 F Pulse Rate 66 61 Respiratory Rate 16 16 Blood Pressure 132/68 121/63 Pulse Oximetry 93 92 Oxygen Delivery Method Room Air Room Air BMI result Body Mass Index 15.8 Const Other: Appearance: Alert. Oriented X3. No acute distress. Eyes: Pupils equal, round and reactive to light. ENT: Pharynx normal. Neck: Normal inspection. Neck supple. No lymph nodes noted. No crepitus CVS: Normal heart rate and rhythm. Pulses normal. Normal S1 and S2 Respiratory: No respiratory distress. Breath sounds normal. No Wheezing. No rales Abdomen: Soft and nontender. No rigidity. No distention. Skin: Skin warm and dry. Normal skin color. Normal skin turgor. Patient has a 1 cm x 1 cm small ulcer. Does not seem infected. Extremities: Patient has a right chronic leg amputation. Neuro: Oriented X 3. No motor deficit. No sensory deficit. Moving all extremities. No slurred speech. CN 2 through 12 grossly intact Psych: calm, cooperative, normal affect Course Course Course Narrative: Patient's 1 cm ulcer has been covered with pressure dressing. Does not seem to be infected, no antibiotics indicated at this time. Per patient's request, we will obtain a UA. Medical Decision Making Medical Decision Making MDM Narrative: Patient's wound is small and superficial, no signs of cellulitis. No antibiotics indicated. Patient requesting a urinalysis. Patient denies hematuria or dysuria, denies fever chills flank pain. Unclear why he wants urinalysis. This is order was entered. However, patient did not give us a urine sample. Also, patient requesting to have a stool study done. Patient denies abdominal pain, denies rectal bleeding, denies weight loss. Denies diarrhea or changes in bowel habits. I discussed with the patient that this study at this time that is not indicated Discharge Plan Discharge Clinical Impression: Pressure ulcer Patient Disposition: Home, Self-Care Instructions: Wound Healing and Your Diet (ED), Pressure Injury (ED) Additional Instructions: Please follow-up with your primary care physician tomorrow. If you have any worsening or new symptoms, please return to the emergency room or call 911 Prescriptions: No Action Trelegy Ellipta 100-62.5-25 mcg blister with device 1 ea PO DAILY Qty: 60 3RF gabapentin 300 mg capsule 300 mg PO BID 30 Days Qty: 60 3RF oxycodone 5 mg tablet 5 mg PO TID PRN (Reason: severe pain) 28 Days Qty: 84 0RF magnesium hydroxide [Milk Of Magnesia Concentrated] 2,400 mg/10 mL Suspension 10 ml PO DAILY PRN (Reason: Constipation) lidocaine 5 % ointment 1 appl topical QID PRN (Reason: pain) 15 Days Qty: 60 1RF acetaminophen [Tylenol Extra Strength] 500 mg tablet 1,000 mg PO TID PRN (Reason: fever or pain) Qty: 180 11RF polyethylene glycol 3350 [Miralax] 17 gram/dose powder 17 g PO DAILY Qty: 510 11RF Eliquis 5 mg tablet 5 mg PO BID 30 Days Qty: 60 5RF terazosin 10 mg capsule 10 mg PO BEDTIME 30 Days Qty: 30 5RF bacitracin 500 unit/gram ointment 1 appl topical BID PRN (Reason: minor cuts/abrasions) 30 Days Qty: 30 11RF albuterol sulfate 90 mcg/actuation HFA aerosol inhaler 2 puff inhalation Q6H PRN (Reason: Shortness Of Breath) nystatin 100,000 unit/gram powder 1 appl topical BID PRN (Reason: groin rash) guaifenesin 200 mg tablet 200 mg PO Q6H PRN (Reason: Cough) loperamide [Imodium A-D] 2 mg tablet 4 mg PO Q12H PRN (Reason: diarrhea/loose stools) bisacodyl [Dulcolax (bisacodyl)] 10 mg suppository 10 mg IN DAILY PRN (Reason: constipation - if no BM on day # 4) Print Language: Gibraltarian
[2025-02-23 17:12] VITALS: BP 121/63; PULSE 61; RESP 16; TEMP 36.8; O2SAT 92
[2025-02-23 21:12] VITALS: BP 121/63; PULSE 61; RESP 16; TEMP 36.8; O2SAT 92
== END 2025-02-23 21:12 | disposition home or self-care (01) ==
PROVIDERS: Emergency Provider Emergency Medicine; PCP Internal Medicine
DX: L89.210 Pressure ulcer of right hip, unstageable (principal)
CPT/HCPCS: 99282; 99284

== ENCOUNTER 2025-02-24 11:08 | Outpatient (AMB) | payer MEDICARE, MEDICAID, SELFPAY ==
--- NOTE | 2025-02-24 11:10 | A.OFFVIS_ITS ---
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/ Paroxysmal atrial fibrillation/ Tay Intake Note: New patient dx afib feeling good Board Of Directors Required: No Professional Application Designer: Professional Application Designer Present Accompanied by: Linen Grader Allergies No Known Allergies Allergy (Verified 02/23/25 15:06) Medication List - Last Reconciled 02/24/25 by Suraj Marie MD acetaminophen (Tylenol Extra Strength) 1,000 mg (2 x 500 mg) PO TID PRN albuterol sulfate 90 mcg/actuation 2 puffs inhalation Q6H PRN apixaban (Eliquis) 5 mg PO BID 30 days bacitracin 1 appl topical BID PRN 30 days bisacodyl (Dulcolax (bisacodyl)) 10 mg [place] DAILY PRN kwsireufspg-yyoatujue-iotpdzos 100-62.5-25 mcg (Trelegy Ellipta) 1 ea PO DAILY gabapentin 300 mg PO BID 30 days guaifenesin 200 mg PO Q6H PRN lidocaine 5% 1 appl topical QID PRN 15 days loperamide (Imodium A-D) 4 mg PO Q12H PRN magnesium hydroxide (Milk Of Magnesia Concentrated) 10 mL PO DAILY PRN nystatin 1 appl topical BID PRN oxycodone 5 mg PO TID PRN 28 days polyethylene glycol 3350 (Miralax) 17 grams PO DAILY terazosin 10 mg PO BEDTIME 30 days HPI Comments Details: The patient is an 80-year-old male presenting for cardiac evaluation. Discussed with patient and also reviewed the available documentation. It seems that he has seen Cardiology at [facility] last year. According to that note, there is mention of aortic stenosis, a small pericardial effusion, atrial fibrillation. Patient himself is not aware of any of these things. He denies any prior history of coronary disease or myocardial infarction or cardiomyopathy or any cardiac interventions. With regard to symptoms, he states he can experience some mild chest pressure at times with exertion. Not clear if it is angina or something related to COPD. Otherwise, history of right above-knee amputation due to osteosarcoma at 17 years old and successfully uses a prosthesis for movement without reporting pain or pressure during ambulation. [facility] Medical History Above knee amputation of right lower extremity Paroxysmal atrial fibrillation Attention deficit hyperactivity disorder (ADHD) Vitamin D deficiency Hypotestosteronism Erectile dysfunction Phantom limb pain Benign prostatic hyperplasia Lumbar degenerative disc disease COPD (chronic obstructive pulmonary disease) Dyslipidemia Benign essential hypertension Unilateral primary osteoarthritis, left knee Osteosarcoma of bone Knee pain, left Surgical History History of amputation History of hernia surgery Family History (Updated 02/24/25 @ 11:44 by Suraj Marie MD) Father No problems noted. Mother No problems noted. Social History Household Members: None Housing: Apartment Do you presently have visiting nurse or other home services: Yes ([employer]) Alcohol intake: never Patient Tobacco Use Status: Former Tobacco user Tobacco use type: Cigarette Cigarettes Per Day: 40 e-Cigarette/Vaping Use: Never Used Second Hand Smoke Exposure: Yes Advance Directives Date on File: 03/29/22 service: No Current occupational status: retired Current occupational exposures/hazards: No Cognitive needs: Yes (wheelchair/crotches) Hearing needs: No Vision needs: No Review of Systems Const Denies chills, Denies daytime sleepiness, Denies fatigue, Denies fever(s), Denies frequent falls, Denies poor appetite, Denies snoring, Denies stops breathing during sleep, Denies weakness, Denies weight gain and Denies weight loss Eyes Denies loss of vision ENT Denies dizziness and Denies hearing loss Card Denies chest pain, Denies claudication, Denies leg edema, Denies lightheadedness, Denies palpitations, Denies dyspnea, Denies dyspnea on exertion and Denies orthopnea Resp Denies cough, Denies excessive phlegm production, Denies dyspnea, Denies dyspnea on exertion, Denies snoring and Denies wheezing GI Denies abdominal pain, Denies hematochezia, Denies change in bowel habits, Denies nausea and Denies vomiting Denies dysuria and Denies urinary frequency Musc Denies arthralgias, Denies muscle weakness, Denies numbness and Denies other (frequent falls) Skin/Breast Denies nail changes and Denies rash Neuro Denies Abnormal speech present, Denies dizziness, Denies frequent falls, Denies loss of vision, Denies memory loss, Denies numbness and Denies weakness Psych Denies depression and Denies memory loss Endo Denies fatigue and Denies palpitations David/Lymph Reports easy bruising and Reports other (anemia) Aller/Immun Denies wheezing Physical Exam Vital Signs: Last Vital Signs Pulse 96 02/24/25 11:11 BP 110/62 02/24/25 11:11 Const General: comfortable and no acute distress Orientation/consciousness: patient oriented x3 HEENT Other: Unremarkable Head: Yes normal to inspection Neck Neck: Yes normal visual inspection Chest Chest palpation & inspection: normal inspection of the chest Resp Auscultation: clear to auscultation bilaterally Cardio Palpation: normal PMI Heart sounds: S1 normal heart sound present, S2 normal heart sound present, no gallops, Murmur heart sound present systolic II/ and at the right sternal border and no rubs GI Palpation (GI): Soft to palpation Back/Spine/Pelvis Other: unremarkable Skin General skin exam: no rashes or lesions noted Neuro General: patient oriented x3 Speech: No Abnormal speech present Extrem Other: Right above-knee amputation Psych Mental Status: mental status grossly normal Assessment & Plan Assessment & Plan (1) Non-rheumatic aortic stenosis: Code(s): I35.0 - Nonrheumatic aortic (valve) stenosis Category: Medical Plan: Per [facility] echo in 2021, severely calcified aortic valve- at least moderate aortic stenosis and cannot exclude severe aortic stenosis. The current calcific mitral valve. We will recheck an echocardiogram. (2) Paroxysmal atrial fibrillation: Code(s): I48.0 - Paroxysmal atrial fibrillation Category: Medical Plan: Per history and documentation. He is already on Eliquis. No changes. Recent EKG-underlying sinus rhythm at 64/Min; no significant ST-T changes; PVC. Normal [place]/corrected QT. Plan During the visit, I discussed obtaining an echocardiogram to evaluate the patient's cardiac status thoroughly. I explained the importance of this test to assess for underlying cardiac issues. The patient was informed of no new medications being prescribed at this visit but was updated on the continuation of existing blood thinner therapy. The benefits, risks, and rationale of the echocardiogram were communicated clearly, and the patient agreed with the diagnostic plan. Future follow-up was discussed to address any findings from this test and make necessary adjustments to the management plan. Orders: Orders CA echo transthoracic complete Today I35.0 - Nonrheumatic aortic (valve) stenos is Patient Instructions: - Schedule an echocardiogram as discussed. - Continue current blood thinner medication as prescribed. - Monitor for any new or worsening symptoms, such as increased chest pressure or irregular heartbeat, and report them as necessary. - Follow up after echocardiogram completion for further evaluation and management discussion. Coding Level of Care Code New Pt Level 4 (85728) Complex EM visit Add On G2211 Diagnoses Non-rheumatic aortic stenosis I35.0 Paroxysmal atrial fibrillation I48.0
[2025-02-24 11:11] VITALS: BP 110/62; PULSE 96
== END 2025-02-24 11:44 | disposition home or self-care (01) ==
LOC: HO.HCS 11:08
PROVIDERS: PCP Internal Medicine; Visit Provider Internal Medicine
DX: I35.0 Nonrheumatic aortic (valve) stenosis (principal); I48.0 Paroxysmal atrial fibrillation
CPT/HCPCS: 99204; G2211

== ENCOUNTER → 2025-02-24 11:08 | Outpatient (BNVA) | payer MEDICARE, MEDICAID, SELFPAY | PROVIDERS: PCP Internal Medicine; Visit Provider Internal Medicine | DX: I48.0 Paroxysmal atrial fibrillation (principal); I35.0 Nonrheumatic aortic (valve) stenosis; Z87.891 Personal history of nicotine dependence; Z89.611 Acquired absence of right leg above knee | CPT/HCPCS: 99202 ==

== ENCOUNTER 2025-02-26 10:23 | Outpatient (AMB) | payer MEDICARE, MEDICAID, SELFPAY ==
--- NOTE | 2025-02-26 10:24 | A.OFFVIS_ITS ---
Vital Signs 02/26/25 10:25 Height 6 ft 4 in Weight 129 lb BMI 15.7 Intake Visit Reasons: OV-Unilateral primary osteoarthritis, left knee Intake Note: Alexis is an 80 year old male who presents today VIA wheelchair for a follow up of his left knee OA. s/p lt hip IMN 03/24/22. Last left knee injection in 2021 Allergies No Known Allergies Allergy (Verified 02/23/25 15:06) HPI HPI OV-Unilateral primary osteoarthritis, left knee: Details: Mr. Ellington comes in today with left knee pain. He is now living in a retirement. He is in a wheelchair. 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 He does have severe arthritis in his left knee. When asked why he does not use his prosthetic more he was not able to clearly answer but it is difficult for him to use because of unknown reasons. He states his left knee does not really prevent him from using his right hillary that if. He has had multiple injections in the past. He did sustain a left intertrochanteric hip fracture treated with IM nailing 3 years ago. [facility] Medical History Above knee amputation of right lower extremity Paroxysmal atrial fibrillation Attention deficit hyperactivity disorder (ADHD) Vitamin D deficiency Hypotestosteronism Erectile dysfunction Phantom limb pain Benign prostatic hyperplasia Lumbar degenerative disc disease COPD (chronic obstructive pulmonary disease) Dyslipidemia Benign essential hypertension Unilateral primary osteoarthritis, left knee Osteosarcoma of bone Knee pain, left Surgical History History of amputation History of hernia surgery Family History (Updated 02/24/25 @ 11:44 by Suraj Marie MD) Father No problems noted. Mother No problems noted. Social History Household Members: None Housing: Apartment Do you presently have visiting nurse or other home services: Yes ([employer]) Alcohol intake: never Patient Tobacco Use Status: Former Tobacco user Tobacco use type: Cigarette Cigarettes Per Day: 40 e-Cigarette/Vaping Use: Never Used Second Hand Smoke Exposure: Yes Advance Directives Date on File: 03/29/22 service: No Current occupational status: retired Current occupational exposures/hazards: No Cognitive needs: Yes (wheelchair/crotches) Hearing needs: No Vision needs: No Physical Exam Vital Signs: BMI result Body Mass Index 15.7 Extrem Other: Left knee with varus osteoarthritis is severe. Trace effusion. 0-120 degrees. Office Procedures Joint Inj/Aspir; Non-Pain Clin Joint Injection/Drain Details: Injected 1 mL of Decadron and 3 mL 1% lidocaine and 3 mL of 0.25% Marcaine. Site was prepped using aseptic technique. Patient tolerated the procedure well. Shoulders, Hips, Knees, Knee Large Joint Injection : Left Knee Coding Procedure code (CPT) selection complete Assessment & Plan Assessment & Plan (1) Above knee amputation of right lower extremity: Code(s): S78.111A - Complete traumatic amputation at level between right hip and knee, initial encounter Category: Medical Plan: Prosthetic right leg that he uses occasionally. This is not an active issue. But certainly this would make a left knee replacement potentially disastrous. (2) Osteoarthritis of left knee: Code(s): M17.12 - Unilateral primary osteoarthritis, left knee Category: Medical Qualifiers: Osteoarthritis type: unspecified Qualified Code(s): M17.12 - Unilateral primary osteoarthritis, left knee Plan: I injected his left knee today. I do not recommend surgery. He is not a surgical candidate. Coding Level of Care Code Est Pt Level 3 (57735) Complex EM visit Add On G2211 Diagnoses Above knee amputation of right lower extremity S78.111A Osteoarthritis of left knee, unspecified osteoarthritis type M17.12 Osteoarthritis type: unspecified CPT Codes Shoulders, Hips, Knees, - Knee Large Joint Injection : Left Knee ([id number])
[2025-02-26 10:25] VITALS: BMI 15.7
== END 2025-02-26 10:53 | disposition home or self-care (01) ==
LOC: HO.HOS 10:23
PROVIDERS: PCP Internal Medicine; Visit Provider Orthopaedic Surgery
DX: S78.111A Complete traumatic amputation at level between right hip and knee, initial encounter (principal); M17.12 Unilateral primary osteoarthritis, left knee
CPT/HCPCS: 20610; 99213

== ENCOUNTER → 2025-02-26 10:23 | Outpatient (BNVA) | payer MEDICARE, MEDICAID, SELFPAY | PROVIDERS: PCP Internal Medicine; Visit Provider Orthopaedic Surgery | DX: M17.12 Unilateral primary osteoarthritis, left knee (principal); Z89.611 Acquired absence of right leg above knee | CPT/HCPCS: 20610; 99212; J0665; J1100; J2003 ==

== ENCOUNTER 2025-03-19 10:41 | Outpatient (AMB) | payer MEDICARE, MEDICAID, SELFPAY ==
[2025-03-19 10:47] VITALS: BP 96/56; PULSE 88; RESP 20; TEMP 36.8; O2SAT 91
--- NOTE | 2025-03-19 10:47 | MHC.PC.OV ---
Vital Signs 03/19/25 10:47 BMI Reason not done Patient refused/unable BP 96/56 L Blood Pressure Location Lt brachial Position Sitting Respiration 20 Pulse 88 Pulse Source Pulse Oximeter Temp 98.3 F Temp Source Oral Pulse Oximetry (%) 91 L Oxygen Delivery Method Room Air Intake Visit Reasons: bed sores right side, resched Publication Distributor Required: No Accompanied by: Vat Operator Allergies No Known Allergies Allergy (Verified 03/19/25 11:08) Medication List - Last Reconciled 03/19/25 by SON French acetaminophen 1,000 mg (30 mL) PO Q8H PRN 30 days albuterol sulfate 90 mcg/actuation 2 puffs inhalation Q6H PRN apixaban (Eliquis) 5 mg PO BID 30 days bacitracin 1 appl topical BID PRN 30 days bisacodyl (Dulcolax (bisacodyl)) 10 mg [place] DAILY PRN [id number] 100-62.5-25 mcg (Trelegy Ellipta) 1 ea PO DAILY gabapentin 300 mg PO BID 30 days guaifenesin 200 mg PO Q6H PRN loperamide (Imodium A-D) 4 mg PO Q12H PRN magnesium hydroxide (Milk Of Magnesia Concentrated) 10 mL PO DAILY PRN nystatin 1 appl topical BID PRN oxycodone 5 mg PO TID PRN 28 days polyethylene glycol 3350 (Miralax) 17 grams PO DAILY terazosin 10 mg PO BEDTIME 30 days Tobacco use date assessed: 03/19/25 Fall risk assessment: No Falls in past year Last assessed Fall Risk: 03/19/25 Dental Screening Dental Screen Date: 03/19/25 Did you have a dental visit in the last 12 months?: No Did you have a dental problem in the last 6 months where you did not have access to dental care?: No Was dental information given to patient?: Patient has dentist HPI bed sores right side, resched HPI Details The patient is an 80-year-old male presenting with a pressure injury and progressive decline. Six weeks prior, a pressure injury was identified on his right side near the trochanter, initially healing well before recurring. Over the last several months, the patient has shown a decline in mobility, opting to stay in bed more frequently, a reduction in social interaction, and cognitive changes such as confusion and word-finding difficulty. This decline is compounded by occasional incontinence of stool, which appears without a clear pattern. During a hospital stay six months ago, oxycodone prescriptions were modified from as-needed to a scheduled dosage, potentially contributing to increased somnolence. Despite behaviors indicative of managing pain, such as requesting medication, the patient reports the presence of persistent phantom pains. The patient is also managing chronic anemia, diagnosed over two years ago, but acknowledges a recent significant decline over the past two to three months. Current management of the pressure injury includes pressure offloading, as per instructions, as there were no specific wound care procedures communicated. The patient experiences osteoarthritis-related pain, specifically in the left knee treated last month. Efforts to encourage fluid intake are led by care staff, though the patient's blood pressure is reported as variable, with a recent reading of 96/56. [facility] Medical History Above knee amputation of right lower extremity Paroxysmal atrial fibrillation Attention deficit hyperactivity disorder (ADHD) Vitamin D deficiency Hypotestosteronism Erectile dysfunction Phantom limb pain Benign prostatic hyperplasia Lumbar degenerative disc disease COPD (chronic obstructive pulmonary disease) Dyslipidemia Benign essential hypertension Unilateral primary osteoarthritis, left knee Osteosarcoma of bone Knee pain, left Surgical History History of amputation History of hernia surgery Family History Father No problems noted. Mother No problems noted. Social History Household Members: None Housing: Apartment Do you presently have visiting nurse or other home services: Yes ([employer]) Alcohol intake: never Patient Tobacco Use Status: Former Tobacco user Tobacco use type: Cigarette Cigarettes Per Day: 40 e-Cigarette/Vaping Use: Never Used Second Hand Smoke Exposure: Yes Advance Directives Date on File: 03/29/22 service: No Current occupational status: retired Current occupational exposures/hazards: No Cognitive needs: Yes (wheelchair/crotches) Hearing needs: No Vision needs: No Questionnaire PHQ-9 Over the last 2 weeks, how often have you been bothered by any of the following problems? 1. Little interest or pleasure in doing things: not at all 2. Feeling down, depressed, or hopeless: not at all 3. Trouble falling or staying asleep, or sleeping too much: not at all 4. Feeling tired or having little energy: not at all 5. Poor appetite or overeating: not at all 6. Feeling bad about yourself - or that you are a failure or have let yourself or your family down: not at all 7. Trouble concentrating on things, such as reading the newspaper or watching television: nearly every day 8. Moving or speaking so slowly that other people could have noticed. Or the opposite - being so fidgety or restless that you have been moving around a lot more than usual: several days 9. Thoughts that you would be better off or of hurting yourself in some way: not at all Total score: 4 Depression Screening Interpretation: Negative Depression Screening Done: Yes Source: Developed by Drs. Skinny Marin, Anuja Duenas, Huy Vasquez and colleagues, with an educational gretel from [employer]. Thrive Questionnaire Date Thrive assessed: 03/19/25 I am a: Patient What is your living situation today?: I have a steady place to live Within the past 12 months, did the food you bought not last and you didn't have the money to get more?: Never true Within the past 12 months, did you worry whether your food would run out before you got money to buy more?: Never true Do you have trouble paying for medicines?: No Do you have trouble getting transportation to medical appointments?: No Do you have trouble paying your heating and electricity bill?: No Do you have trouble taking care of your child, family member or friend?: No Do you have trouble with day-to-day activities such as bathing, preparing meals, shopping, managing finances, etc.?: Yes Are you currently unemployed and looking for a job?: No Are you interested in more education?: No Please select the resources that you would like help with: None Currently or been in a relationship where the following occur: I choose not to answer THRIVE Score: 0 AUDIT C Alcohol Use Questionnaire (AUDIT-C) 1. How often do you have a drink containing alcohol?: Never Total Score: 0 Score Reviewed/Action Taken: No JORGE-7 AMB Questionnaire JORGE-7 Date JORGE - 7 assessed: 03/19/25 Feeling nervous, anxious, or on edge: 0 = Not at all Not being able to stop or control worryin = Not at all Worrying too much about different things: 0 = Not at all Trouble relaxin = Not at all Being so restless that it is hard to sit still: 0 = Not at all Becoming easily annoyed or irritable: 0 = Not at all Feeling afraid as if something awful might happen: 0 = Not at all Total JORGE-7 score (0-4 normal; 5-9 mild; 10-14 moderate; 15-21 severe): 0 Source: Developed by Drs. Skinny Marin, Anuja Duenas, Huy Vasquez and colleagues, with an educational gretel from [employer]. Review of Systems Const Details: - General: Reports feeling drowsy and generally fatigued. - Skin: Reports recurring pressure injuries on the right side. - Neurological: Reports difficulty with word-finding and slow cognitive processing. - Musculoskeletal: Reports osteoarthritis in the left knee. - Cardiovascular: Denies consistent chest pain; blood pressure readings have variability. - Gastrointestinal: Reports episodes of stool incontinence. - Hematologic: Reports chronic anemia. Reports daytime sleepiness, Reports fatigue and Denies headache(s) Eyes Denies loss of vision ENT Denies vertigo, Denies dizziness, Denies headache(s) and Denies sore throat Card Denies chest pain, Denies leg edema and Denies lightheadedness Resp Denies cough, Denies hemoptysis and Denies wheezing GI Denies abdominal pain, Denies melena, Denies constipation, Reports fecal incontinence, Denies diarrhea and Denies vomiting Denies dysuria, Denies urinary frequency, Reports urinary incontinence and Denies urinary urgency Musc Reports arthralgias (Left knee), Denies joint swelling, Denies numbness and Denies tingling Skin/Breast Reports wounds (Left trochanter scabbed over area) Neuro Denies Abnormal speech present, Reports behavioral changes, Denies vertigo, Denies dizziness, Denies headache(s), Denies loss of vision, Reports memory loss, Denies numbness, Denies tingling and Reports other (Difficulty word finding) Psych Denies anxiety, Reports behavioral changes, Denies depression, Reports memory loss and Denies panic attacks Endo Reports fatigue David/Lymph Denies easy bleeding and Denies easy bruising Aller/Immun Denies wheezing Physical exam (Primary Care) Vital Signs: Last Vital Signs Temp 98.3 F 03/19/25 10:47 Pulse 88 03/19/25 10:47 Resp 20 03/19/25 10:47 BP 96/56 L 03/19/25 10:47 Pulse Ox 91 L 03/19/25 10:47 Oxygen Delivery Method Room Air 03/19/25 10:47 Tobacco/Smoking Status: Tobacco use Status Tobacco use date assessed 03/19/25 03/19/25 11:06 Patient Tobacco Use Status Former Tobacco user 03/19/25 11:06 Tobacco use type Cigarette 03/19/25 11:06 e-Cigarette/Vaping Use Never Used 03/19/25 11:06 PHQ-9: PHQ-9 Score PHQ-9: Total score 4 03/19/25 11:15 Depression Screening Interpretation: Negative Thrive Assessment: Date of Thrive Assessment Date Thrive assessed 03/19/25 03/19/25 11:06 Currently or been in a relationship where the following occur: I choose not to answer Const General: healthy appearing, no acute distress, alert and awake Orientation/consciousness: oriented to person, oriented to place and oriented to time HENMT Ears: TM's normal bilaterally General nose exam: Normal nasal mucous membranes and turbinates present Eyes Conjunctivae: conjunctivae normal Sclerae: sclerae normal Pupils: Equal, round and reactive pupils present Neck Neck: Yes no lymphadenopathy and Yes no JVD Thyroid: Thyroid normal Carotids: no bruits Resp Effort & Inspection: normal respiratory effort and not tachypneic Auscultation: no crackles, no rales, no rhonchi and no wheezes Cardio Rate: regular rate Rhythm: regular rhythm Heart sounds: no murmurs and normal S1 and S2 GI Palpation (GI): Soft to palpation, nontender, no hepatomegaly and no splenomegaly Auscultation: normal bowel sounds Back/Spine/Pelvis Thoracic/Lumbar Spine: lumbar spinal tenderness Skin General skin exam: dry skin Wounds: wounds noted (Right trochanter scabbed over area) Neuro General: oriented to person, oriented to place and oriented to time Cranial nerves: Yes Equal, round and reactive pupils present Speech: No Abnormal speech present Gait exam (Neuro): Normal gait present Motor exam (neuro): no tremor noted Extrem Right upper extremity: full ROM Left upper extremity: full ROM Right lower extremity: full ROM; no edema Left lower extremity: full ROM; no edema Psych Mental Status: mental status grossly normal Speech and movement: Normal speech and movement present Affect: normal affect Attitude: cooperative Thought process: Normal thought process present Coding Level of Care Code Est Pt Level 4 (22926) Diagnoses Mental health assessment declined Z53.20 Tiredness R53.83 Phantom limb pain G54.6 Unilateral primary osteoarthritis, left knee M17.12 Pressure injury L89.90 Benign essential hypertension I10 Time Spent (min) 38 Assessment & Plan Assessment & Plan (1) Mental health assessment declined: Code(s): Z53.20 - Procedure and treatment not carried out because of patient's decision for unspecified reasons Category: Medical (2) Tiredness: Code(s): R53.83 - Other fatigue Category: Medical (3) Phantom limb pain: Comment: S/P right AKA for osteosarcoma at 17 y/o Code(s): G54.6 - Phantom limb syndrome with pain Category: Medical (4) Unilateral primary osteoarthritis, left knee: Code(s): M17.12 - Unilateral primary osteoarthritis, left knee Category: Medical (5) Pressure injury: Code(s): L89.90 - Pressure ulcer of unspecified site, unspecified stage Category: Medical (6) Benign essential hypertension: Code(s): I10 - Essential (primary) hypertension Category: Medical Plan The pressure injury management will continue with emphasis on offloading pressure as the area improves. Oxycodone administration will be changed from scheduled to as-needed to address sedative effects while allowing management of osteoarthritis-related pain. Neurological and psychiatric evaluations will be arranged to examine the cognitive decline and potential depressive symptoms. Blood work will be conducted to monitor any changes in anemia. The patient's fluid intake is encouraged with staff oversight for appropriate hydration. Stability of blood pressure will be observed with no further immediate interventions proposed, and the current medication regimen will be revisited for pain management efficacy. Patient was informed and verbally consented to the use of an ambient scribe for clinic note documentation during this visit. Orders: Orders Complete Blood Count Auto Diff Today D64.9 - Anemia, unspecified, R53.83 - Other fatigue, Z53.20 - Procedure and treatment not carried out because of patient's decision for unspecified reasons Comprehensive Met. Panel Today D64.9 - Anemia, unspecified, R53.83 - Other fatigue, Z53.20 - Procedure and treatment not carried out because of patient's decision for unspecified reasons UA CC w/rflx Micro + Cult Today D64.9 - Anemia, unspecified, R53.83 - Other fatigue, Z53.20 - Procedure and treatment not carried out because of patient's decision for unspecified reasons Referrals Neurology Referral Z53.20 - Procedure and treatment not carried out because of patient's decision for unspecified reasons Psychiatry Referral F41.9 - Anxiety disorder, unspecified, Z53.20 - Procedure and treatment not carried out because of patient's decision for unspecified reasons
== END 2025-03-19 11:43 | disposition home or self-care (01) ==
LOC: HO.HMCH 10:42
PROVIDERS: PCP Internal Medicine
DX: Z53.20 Procedure and treatment not carried out because of patient's decision for unspecified reasons (principal); R53.83 Other fatigue; G54.6 Phantom limb syndrome with pain; M17.12 Unilateral primary osteoarthritis, left knee; L89.90 Pressure ulcer of unspecified site, unspecified stage; I10 Essential (primary) hypertension

== ENCOUNTER 2025-03-19 10:41 | Outpatient (REF) | payer MEDICARE, MEDICAID, SELFPAY ==
[2025-03-19 12:12] LABS: MANUAL DIFF FLAG NO
[2025-03-19 13:05] LABS: Basophils Absolute Auto 0.1 X10*3/uL (0.0-0.2); Basophils Percent Auto 0.9 % (0-2); Eosinophils Absolute Auto 0.4 X10*3/uL (0.0-0.4); Eosinophils Percent Auto 6.1 % (0-4); Hematocrit 40.3 % (42.0-52.0); Hemoglobin 12.8 g/dl (14.0-18.0); Imm Gran Abs Auto 0.03 X10*3/uL (0.00-0.03); Imm Gran Pct Auto 0.5 % (0.0-0.4); Lymphocytes Absolute Auto 0.8 X10*3/uL (1.2-4.9); Lymphocytes Percent Auto 14.2 % (20-40); Mean Corpuscular HGB Conc 31.8 g/dl (31.0-36.0); Mean Corpuscular Hemoglobin 31.1 pg (27.0-33.0); Mean Corpuscular Volume 98.1 fL (80.0-98.0); Mean Platelet Volume 9.1 fL (9.4-12.4); Monocytes Absolute Auto 0.6 X10*3/uL (0.1-1.2); Monocytes Percent Auto 10.8 % (2-11); Neutrophils Percent Auto 67.5 % (45-73); Platelet Count 254 X10*3/uL (160-400); Red Blood Count 4.11 X10*6/uL (4.60-5.80); Red Cell Distribution Width 15.6 % (11.0-16.0); White Blood Count 5.9 X10*3/uL (4.8-10.8)
[2025-03-19 13:30] LABS: Alanine Aminotransferase < 6 U/L (0-40); Alkaline Phosphatase 73 U/L (39-117); Anion Gap 11 (12-20); Aspartate Amino Transferase 17 U/L (5-37); Bilirubin Total 0.2 mg/dL (0.0-1.0); Blood Urea Nitrogen 16 mg/dL (9-16); Calcium 9.6 mg/dL (8.4-10.2); Carbon Dioxide 28 mmol/L (22-29); Chloride 103 mmol/L (96-108); Estimated Glomerular Filt Rate > 60; Glucose Random 94 mg/dL (60-115); Potassium 4.2 mmol/L (3.3-5.1); Sodium 138 mmol/L (135-145); Total Protein 6.7 g/dL (6.5-8.0)
== END 2025-03-19 10:42 | disposition home or self-care (01) ==
LOC: HO.LAB 10:41
PROVIDERS: PCP Internal Medicine
DX: G54.6 Phantom limb syndrome with pain (principal); R53.83 Other fatigue; M17.12 Unilateral primary osteoarthritis, left knee; L89.90 Pressure ulcer of unspecified site, unspecified stage; I10 Essential (primary) hypertension; D64.9 Anemia, unspecified; Z89.611 Acquired absence of right leg above knee
CPT/HCPCS: 36415; 80053; 85025; 96127; 99212

== ENCOUNTER → 2025-03-31 11:12 | Outpatient (REF) | payer MEDICARE, MEDICAID, SELFPAY ==
--- NOTE | 2025-03-31 11:18 | CA_ITS ---
Transthoracic Echocardiogram Patient (Last, First, Middle): Alexis Wheeler G Gender: Male Date of : 1945 Age: 80 Procedure Date: 03/31/2025 Procedure Type: Transthoracic Echocardiogram Location: OP Height: 190.5 cm Weight: 74.84 kg BSA: 2.02 m2 Heart Rate: bpm BP: 110 / 60 mmHg Rod Filler: TO Referring MD: Suraj Marie MD Symptoms: I35.0 - Nonrheumatic aortic (valve) stenosis Study Quality: Technically Difficult ECG Rhythm: Sinus Conclusions: - The left ventricular systolic function is normal. The calculated ejection fraction is 65% by biplane method. - There is severe calcification of the aortic valve. There is moderate aortic valve stenosis. - There is severe mitral annular calcification. Findings Procedure Information The study quality is limited by the patients inability to tolerate the test and patients body habitus. Left Ventricle Normal left ventricular cavity size. The left ventricular systolic function is normal. The calculated ejection fraction is 65% by biplane method. There is no evidence of regional wall motion abnormalities. Evidence suggests grade I (mild) diastolic dysfunction. There is mild septal asymmetric hypertrophy. Right Ventricle The right ventricle was not well visualized. There is normal right ventricular systolic function. Aortic Valve There is severe calcification of the aortic valve. There is moderate aortic valve stenosis. The peak aortic velocity is 2.71 m/s with a calculated peak gradient of 29 mmHg. The mean gradient is 15 mmHg. The aortic valve area is 0.98 cm2. Dimensionless index 0.29. Stroke volume index 26ml/m2. Trace to mild aortic regurgitation. Mitral Valve There is severe mitral annular calcification. There is no mitral valve regurgitation. No significant mitral stenosis. Pulmonic Valve The pulmonic valve is likely normal. Tricuspid Valve There is mild tricuspid valve regurgitation. There is no evidence of pulmonary hypertension. Great Vessels The asc aorta is normal in size. Venous The inferior vena cava was not well visualized. Pericardium/Pleural Widened pericardial space, unable to distinguish between adipose tissue and effusion. Prior Study Comparison No prior study available for comparison. Measurements 2D Linear Measurements IVSd: 1.10 0.6-0.9/0.6-1.0 cm LVIDd: 3.70 3.9-5.3/4.2-5.9 cm LVIDd Index: 1.83 2.4-3.2/2.2-3.1 cm/m2 LVIDs: 2.96 2.0-3.6 cm LVPWd: 0.79 0.7-1.1 cm LV Mass: 128.79 67-162/88-224 g LV Mass Index: 63.76 43-95/49-115 g/m2 LVOT Diam: 2.30 3.0+(-)1.3 cm 2D Systolic Function EF 4C: 56.80 >55% EF 2C: 71.30 >55% EF BiP: 65.10 >55% Mitral Valve MV VTI: 0.37 MV Pk Landen: 1.61 MV Mn Landen: 1.02 MV Pk Grad: 10.00 MV Mn Grad: 5.00 MV Pk E: 0.72 MV PK A: 1.38 MV Decel Time: 128.00 E/A: 0.50 E'Lateral: 4.46 E'Medial: 6.74 E/E' Med: 10.60 E/E' Lat: 16.10 PHT: 37.00 MVA PHT: 5.95 MVA Continuity: 1.43 Decel [place]: 5.60 Aortic Valve AoV Pk Landen: 2.71 AoV Mn Landen: 1.85 AoV VTI: 0.53 AoV Pk Grad: 29.00 Aov Mn Grad: 15.00 DONOVAN Cont.VTI: 0.98 LVOT LVOT Pk Landen: 0.77 LVOT Mn Landen: 0.46 LVOT VTI: 0.13 LVOT Pk Grad: 2.00 LVOT Mn Grad: 1.00 LVOT Diam: 2.30 LVOT Area: 4.15 Diastolic Function MV Pk E: 0.72 MV Pk A: 1.38 E/A: 0.50 E'Medial: 6.74 E/E' Med: 10.60 E' Laterial: 4.46 E/E' Lat: 16.10 Tricuspid Valve TR Pk Landen: 2.22 TR Pk Grad: 20.00 Great Vessels Aorta Sinus of Valsalva: 4.22 2.0-3.5 cm Ao Asc: 3.70 2.1-3.4 cm Updated in Other Vendor System with Status of Final Suraj Marie MD electronically signed on 04/01/2025 10:12:08 AM with status of Final
== END ==
LOC: HO.CARD 11:12
PROVIDERS: PCP Internal Medicine; Visit Provider Internal Medicine
DX: I35.0 Nonrheumatic aortic (valve) stenosis (principal)
CPT/HCPCS: 93306

== ENCOUNTER → 2025-03-31 11:18 | Outpatient (BNV) | payer MEDICARE, MEDICAID, SELFPAY | PROVIDERS: PCP Internal Medicine; Visit Provider Internal Medicine | DX: I42.2 Other hypertrophic cardiomyopathy (principal); I35.2 Nonrheumatic aortic (valve) stenosis with insufficiency; I35.8 Other nonrheumatic aortic valve disorders; I34.81 Nonrheumatic mitral (valve) annulus calcification | CPT/HCPCS: 93306 ==

== ENCOUNTER 2025-04-04 11:09 | Outpatient (REF) | payer MEDICARE, MEDICAID, SELFPAY ==
[2025-04-04 11:22] LABS: Appearance Urine Clear; Color Urine Yellow; Glucose Urine UA Negative (Negative); Leukocyte Esterase Urine Negative (Negative); Nitrite Urine Negative (Negative); Urine Blood Negative (Negative); Urine Ketones Negative (Negative); Urine Protein Negative (Neg-Trace)
== END 2025-04-04 11:10 | disposition home or self-care (01) ==
LOC: HO.LNP 11:09
PROVIDERS: Visit Provider Internal Medicine
DX: R30.0 Dysuria (principal)
CPT/HCPCS: 81003

== ENCOUNTER 2025-04-13 15:44 | Outpatient (REF) | payer MEDICARE, MEDICAID, SELFPAY ==
--- NOTE | ~2025-04-13 | CT_ITS ---
CLINICAL HISTORY: R91.8 - Other nonspecific abnormal finding of lung field CT chest without contrast Comparison: None Findings: There are severe coronary artery calcifications. There is bulky calcification of the mitral valve. The visualized thyroid and mediastinum are unremarkable. There is severe centrilobular emphysema with a large bulla in the right lower lobe superiorly. There relatively large bulla is also seen in the superior segment of the left lower lobe. Several spiculated lesions are seen for instance 1.2 cm spiculated lesion in the right upper lobe on image number 39 of series number 4, 1.1 cm spiculated lesion in the right lower lobe on image number 109 of series number 4, 7 mm spiculated lesion right upper lobe on image number 70 and 1.6 cm spiculated lesion left lower lobe on image number 148 of series number 4. There are multiple additional smaller spiculated lesions in the right middle lobe, right lower lobe and left lower lobe. There are few hepatic cysts. Likely right renal cyst. The bones are intact. IMPRESSION: 1. Severe centrilobular emphysema and bullous changes as described. 2. Multiple bilateral spiculated nodules likely reflect a remote infectious etiology with scarring. Neoplasm is less likely but can not be entirely excluded. Consider correlating with PET imaging. 3. Severe coronary artery disease. 4. Bulky calcification of the mitral valve. This document has been electronically signed by: Eliu Dixon MD on 04/14/2025 12:44:46
== END 2025-04-13 15:45 | disposition home or self-care (01) ==
LOC: HO.CT 15:44
PROVIDERS: PCP Internal Medicine; Visit Provider Nurse Practitioner Family
DX: R91.8 Other nonspecific abnormal finding of lung field (principal)
CPT/HCPCS: 71250

== ENCOUNTER → 2025-04-13 15:47 | Outpatient (BNV) | payer MEDICARE, MEDICAID, SELFPAY | PROVIDERS: PCP Internal Medicine; Visit Provider Radiology Diagnostic Radiology | DX: J43.2 Centrilobular emphysema (principal); I25.10 Atherosclerotic heart disease of native coronary artery without angina pectoris; I34.81 Nonrheumatic mitral (valve) annulus calcification; R91.8 Other nonspecific abnormal finding of lung field | CPT/HCPCS: 71250 ==

== ENCOUNTER 2025-04-29 12:47 | Outpatient (REF) | payer MEDICARE, MEDICAID, SELFPAY | END 2025-04-29 12:48 | disposition home or self-care (01) | LOC: HO.HOSX 12:47 | PROVIDERS: Visit Provider Physician Assistant | DX: Z13.89 Encounter for screening for other disorder (principal) ==

== ENCOUNTER 2025-04-30 12:41 | Outpatient (AMB) | payer MEDICARE, MEDICAID, SELFPAY ==
--- NOTE | 2025-04-30 12:50 | A.OFFVIS_ITS ---
Vital Signs 04/30/25 12:51 Height 6 ft 4 in BMI Reason not done Patient refused/unable BP 104/60 Blood Pressure Location Lt brachial Position Sitting Pulse 69 Pulse Source Pulse Oximeter Intake Visit Reasons: 3 mth s/p echo Allergies No Known Allergies Allergy (Verified 03/19/25 11:08) Medication List - Last Reconciled 04/30/25 by Suraj Marie MD acetaminophen 1,000 mg (30 mL) PO Q8H PRN 30 days albuterol sulfate 90 mcg/actuation 2 puffs inhalation Q6H PRN apixaban (Eliquis) 5 mg PO BID 30 days bacitracin 1 appl topical BID PRN 30 days bisacodyl (Dulcolax (bisacodyl)) 10 mg DE DAILY PRN [id number]-ozrndsjwf-[id number] 100-62.5-25 mcg (Trelegy Ellipta) 1 ea PO DAILY gabapentin 300 mg PO BID 30 days guaifenesin 200 mg PO Q6H PRN loperamide (Imodium A-D) 4 mg PO Q12H PRN magnesium hydroxide (Milk Of Magnesia Concentrated) 10 mL PO DAILY PRN nystatin 1 appl topical BID PRN oxycodone 5 mg PO TID PRN 28 days polyethylene glycol 3350 (Miralax) 17 grams PO DAILY terazosin 10 mg PO BEDTIME 30 days HPI Comments Details: Alexis returns for follow up. Per prior cardiology notes from [facility], he has aortic stenosis, atrial fibrillation, small pericardial effusion. Patient himself not aware of these. He denies any prior history of coronary disease or myocardial infarction or cardiomyopathy or any cardiac interventions. He denies any symptoms like exertional angina or shortness of breath or in fact anything cardiac sounding. He states he feels fine overall. 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 He has a prosthesis but does not fit him well. Since last seen, he has completed another echocardiogram. Otherwise, feels well. No chest pain or other symptoms. [facility] Medical History Above knee amputation of right lower extremity Paroxysmal atrial fibrillation Attention deficit hyperactivity disorder (ADHD) Vitamin D deficiency Hypotestosteronism Erectile dysfunction Phantom limb pain Benign prostatic hyperplasia Lumbar degenerative disc disease COPD (chronic obstructive pulmonary disease) Dyslipidemia Benign essential hypertension Unilateral primary osteoarthritis, left knee Osteosarcoma of bone Knee pain, left Surgical History History of amputation History of hernia surgery Family History Father No problems noted. Mother No problems noted. Social History Household Members: None Housing: Apartment Do you presently have visiting nurse or other home services: Yes ([employer]) Alcohol intake: never Patient Tobacco Use Status: Former Tobacco user Tobacco use type: Cigarette Cigarettes Per Day: 40 e-Cigarette/Vaping Use: Never Used Second Hand Smoke Exposure: Yes Advance Directives Date on File: 03/29/22 service: No Current occupational status: retired Current occupational exposures/hazards: No Cognitive needs: Yes (wheelchair/crotches) Hearing needs: No Vision needs: No Review of Systems Const Denies weakness ENT Denies dizziness Card Denies chest pain, Denies chest pain with activity, Denies syncope, Denies rapid heart rate, Denies pedal edema, Denies edema, Denies leg edema, Denies lightheadedness, Denies palpitations, Denies dyspnea, Denies dyspnea on exertion and Denies orthopnea Resp Denies cough, Denies dyspnea and Denies dyspnea on exertion GI Denies hematochezia and Denies change in stool character Musc Denies abnormal gait, Denies muscle cramps, Denies muscle weakness, Denies numbness, Denies radiating pain into limb and Denies tingling Neuro Denies Abnormal speech present, Denies abnormal gait, Denies dizziness, Denies syncope, Denies numbness, Denies tingling and Denies weakness Endo Denies palpitations Physical Exam Vital Signs: Last Vital Signs Pulse 69 04/30/25 12:51 BP 104/60 04/30/25 12:51 Const General: comfortable and no acute distress Orientation/consciousness: patient oriented x3 HEENT Other: Unremarkable Head: Yes normal to inspection Neck Neck: Yes normal visual inspection Chest Chest palpation & inspection: normal inspection of the chest Resp Auscultation: clear to auscultation bilaterally Cardio Palpation: normal PMI Heart sounds: S1 normal heart sound present, S2 normal heart sound present, no gallops, Murmur heart sound present systolic II/ and at the right sternal border and no rubs GI Palpation (GI): Soft to palpation Back/Spine/Pelvis Other: unremarkable Skin General skin exam: no rashes or lesions noted Neuro General: patient oriented x3 Speech: No Abnormal speech present Extrem Other: Right above-knee amputation Psych Mental Status: mental status grossly normal Assessment & Plan Assessment & Plan (1) Non-rheumatic aortic stenosis: Code(s): I35.0 - Nonrheumatic aortic (valve) stenosis Category: Medical Plan: In the recent echocardiogram, preserved LVEF at 65%. Severe aortic valve calcification with moderate stenosis. Findings discussed. We will recheck echocardiogram in 6 months. Eventually, possible TAVR candidate. (2) Mitral annular calcification: Code(s): I34.81 - Nonrheumatic mitral (valve) annulus calcification Category: Medical Plan: Severe mitral annular calcification in the echocardiogram. No significant valvular dysfunction. (3) Paroxysmal atrial fibrillation: Code(s): I48.0 - Paroxysmal atrial fibrillation Category: Medical Plan: Per history and documentation. He is already on Eliquis. No changes. Plan Discussion Notes I discussed with the patient the presence of significant calcification in heart valves, which are still functioning as they should. We agreed on a follow-up echocardiogram in six months to assess any changes. He should report any new symptoms such as chest pain or dyspnea. Patient was informed and verbally consented to the use of an ambient scribe for clinic note documentation during this visit. Orders: Orders CA echo transthoracic complete 6 Months I35.0 - Nonrheumatic aortic (valve) stenosis Patient Instructions: - Schedule a follow-up echocardiogram in six months. - Report any new symptoms like chest pain or difficulty breathing immediately. - Continue using assistance for mobility and daily activities as needed. Coding Level of Care Code Est Pt Level 4 (58148) Complex EM visit Add On G2211 Diagnoses Non-rheumatic aortic stenosis I35.0 Mitral annular calcification I34.81 Paroxysmal atrial fibrillation I48.0
[2025-04-30 12:51] VITALS: BP 104/60; PULSE 69
== END 2025-04-30 13:23 | disposition home or self-care (01) ==
LOC: HO.HCS 12:41
PROVIDERS: PCP Internal Medicine; Visit Provider Internal Medicine
DX: I35.0 Nonrheumatic aortic (valve) stenosis (principal); I34.81 Nonrheumatic mitral (valve) annulus calcification; I48.0 Paroxysmal atrial fibrillation
CPT/HCPCS: 99214; G2211

== ENCOUNTER → 2025-04-30 12:41 | Outpatient (BNVA) | payer MEDICARE, MEDICAID, SELFPAY | PROVIDERS: PCP Internal Medicine; Visit Provider Internal Medicine | DX: I35.0 Nonrheumatic aortic (valve) stenosis (principal); I34.81 Nonrheumatic mitral (valve) annulus calcification; I48.0 Paroxysmal atrial fibrillation | CPT/HCPCS: 99212 ==

== ENCOUNTER 2025-05-04 10:33 | Outpatient (AMB) | payer MEDICARE, MEDICAID, SELFPAY ==
[2025-05-04 10:34] VITALS: BMI 15.7
--- NOTE | 2025-05-04 10:34 | A.OFFVIS_ITS ---
Vital Signs 05/04/25 10:34 Height 6 ft 4 in Weight 129 lb BMI 15.7 Intake Visit Reasons: INP - Cognitive Decline Intake Note: Patient inhouse referred [facility] Moncada for cognitive decline Allergies No Known Allergies Allergy (Verified 05/04/25 10:41) HPI Comments Details: 80y/o male comes here for evaluation of cognitive decline. According to his nurse - he has been having cognitive issues , short term recall is poor, impulsive , has executive difficulty . He lives in a [facility] for 6 mths . He also not moving around a lot- developed pressure ulcers .Decreasing oxycodone helped. He was alos recently found to have some lung lesions. He has a diagnosis of ADD. He recently noticed he has word finding difficulties in the paat 2 years. Mood is stable No known head injury [facility] Medical History Above knee amputation of right lower extremity Paroxysmal atrial fibrillation Attention deficit hyperactivity disorder (ADHD) Vitamin D deficiency Hypotestosteronism Erectile dysfunction Phantom limb pain Benign prostatic hyperplasia Lumbar degenerative disc disease COPD (chronic obstructive pulmonary disease) Dyslipidemia Benign essential hypertension Unilateral primary osteoarthritis, left knee Osteosarcoma of bone Knee pain, left Surgical History History of amputation History of hernia surgery Family History Father No problems noted. Mother No problems noted. Social History Household Members: None Housing: Apartment Do you presently have visiting nurse or other home services: Yes ([employer]) Alcohol intake: never Patient Tobacco Use Status: Former Tobacco user Tobacco use type: Cigarette Cigarettes Per Day: 40 e-Cigarette/Vaping Use: Never Used Second Hand Smoke Exposure: Yes Advance Directives Date on File: 03/29/22 service: No Current occupational status: retired Current occupational exposures/hazards: No Cognitive needs: Yes (wheelchair/crotches) Hearing needs: No Vision needs: No Physical Exam Vital Signs: BMI result Body Mass Index 15.7 Const Other: Right Above knee amputation - due to osteosarcoma General: cooperative and comfortable Nutritional Appearance: average body habitus Orientation/consciousness: oriented to person and oriented to place Eyes Pupils: Equal, round and reactive pupils present Neuro Other: right above knee amputation General: oriented to person, oriented to place and Unable to assess gait Cranial nerves: Yes Equal, round and reactive pupils present, Yes Bilaterally intact EOM present, Yes Nystagmus not present, Yes Normal facial strength present and Yes Midline tongue present Gait exam (Neuro): Unable to assess gait Motor exam (neuro): 5/5 motor strength present throughout and Normal motor muscle tone present throughout Deep tendon reflexes (DTR's): Right triceps reflex intensity grade: 1+, Left triceps reflex intensity grade: 1+, Rt Biceps (C5, C6): 1+, Left biceps reflex intensity grade: 1+, Right brachioradialis reflex intensity grade: 1+ and Left brachioradialis reflex intensity grade: 1+ Coordination: [id number]-[id number] test normal Orientation Where are we (state) (county) (town or city) (hospital) (floor)?: state, town or city and hospital/clinic Registration Name of 3 unrelated objects clearly and slowly, then ask patient to repeat all 3 of them. (1st repeat determines score. Make sure they can repeat all three): object 1, object 2 and object 3 Attention & Calculation (CHOOSE ONE) Spell WORLD backwards (DLROW): 1 letter Recall Ask patient to repeat the 3 items from question #3.: object 1 and object 2 Language Show patient a wristwatch & ask what it is. Repeat for pencil.: watch and pencil Ask the patient to repeat the phrase 'No ifs, ands, or buts' after you.: correct Ask the patient to 'take a piece of paper with their right hand' 'fold paper in half' 'place paper on floor': take paper in right hand, fold paper in half and place paper on floor Print the sentence 'CLOSE YOUR EYES' on a piece. If patient actually closes eyes then score.: followed written direction Give patient a blank piece of paper & ask to write a sentence. Score if it contains a noun & verb.: sentence contains subject and verb Ask patient to copy figure of intersecting pentagons exactly. Score if all 10 angles & 2 intersects are included.: all 10 angles present & 2 are intersected Score Score: 18 Assessment & Plan Assessment & Plan (1) Cognitive decline: Code(s): R41.89 - Other symptoms and signs involving cognitive functions and awareness Category: Medical (2) Word finding difficulty: Code(s): R4. - Other speech disturbances Category: Medical Plan Declines MRI CT Head Labs - Vit B 12 TSH DALIA ESR CBC CMP Trial memantine XR 7 mg qd Speech therapy Orders: Orders Vitamin B12 and Folate Today R4.89 - Other symptoms and signs involving cognitive functions and awareness Comprehensive Met. Panel Today R4.89 - Other symptoms and signs involving cognitive functions and awareness Complete Blood Count Auto Diff Today R4. - Other symptoms and signs involving cognitive functions and awareness Vitamin D 25-OH (D2 and D3) Today R4. - Other symptoms and signs involving cognitive functions and awareness TSH reflex Free T4 Today R4.89 - Other symptoms and signs involving cognitive functions and awareness Erythrocyte Sedimentation Rate Today R4.89 - Other symptoms and signs invol ving cognitive functions and awareness DALIA Reflex Titer and Pattern Today R4. - Other symptoms and signs involving cognitive functions and awareness CT head/brain wo IV con Today R4. - Other symptoms and signs involving cognitive functions and awareness Referrals [facility]Hospice Referral R4. - Other symptoms and signs involving cognitive functions and awareness, R47. - Other speech disturbances Medications: New memantine 7 mg PO DAILY 30 ea 0RF R4. - Other symptoms and signs involving cognitive functions and awareness Coding Level of Care Code New Pt Level 4 (10272) Complex EM visit Add On G2211 Diagnoses Cognitive decline R4 Word finding difficulty R47.
== END 2025-05-04 11:19 | disposition home or self-care (01) ==
LOC: HO.HSMS 10:34
PROVIDERS: PCP Internal Medicine; Visit Provider Psychiatry & Neurology Neurology
DX: R41.89 Other symptoms and signs involving cognitive functions and awareness (principal); R47.89 Other speech disturbances
CPT/HCPCS: 99204; G2211

== ENCOUNTER 2025-05-04 10:33 | Outpatient (REF) | payer MEDICARE, MEDICAID, SELFPAY ==
[2025-05-04 17:32] LABS: MANUAL DIFF FLAG NO
[2025-05-04 17:35] LABS: Basophils Absolute Auto 0.1 X10*3/uL (0.0-0.2); Eosinophils Absolute Auto 0.5 X10*3/uL (0.0-0.4); Eosinophils Percent Auto 8.2 % (0-4); Hematocrit 41.2 % (42.0-52.0); Hemoglobin 12.9 g/dl (14.0-18.0); Imm Gran Abs Auto 0.01 X10*3/uL (0.00-0.03); Imm Gran Pct Auto 0.2 % (0.0-0.4); Lymphocytes Absolute Auto 0.8 X10*3/uL (1.2-4.9); Lymphocytes Percent Auto 14.1 % (20-40); Mean Corpuscular HGB Conc 31.3 g/dl (31.0-36.0); Mean Corpuscular Hemoglobin 31.2 pg (27.0-33.0); Mean Corpuscular Volume 99.8 fL (80.0-98.0); Mean Platelet Volume 9.2 fL (9.4-12.4); Monocytes Absolute Auto 0.6 X10*3/uL (0.1-1.2); Monocytes Percent Auto 10.4 % (2-11); Neutrophils Percent Auto 66.1 % (45-73); Platelet Count 272 X10*3/uL (160-400); Red Blood Count 4.13 X10*6/uL (4.60-5.80); Red Cell Distribution Width 13.4 % (11.0-16.0)
[2025-05-04 17:54] LABS: Alanine Aminotransferase < 6 U/L (0-40); Albumin Level 3.6 g/dL (3.5-5.0); Alkaline Phosphatase 68 U/L (39-117); Anion Gap 12 (12-20); Aspartate Amino Transferase 23 U/L (5-37); Bilirubin Total 0.3 mg/dL (0.0-1.0); Blood Urea Nitrogen 12 mg/dL (9-16); Calcium 9.8 mg/dL (8.4-10.2); Carbon Dioxide 27 mmol/L (22-29); Chloride 104 mmol/L (96-108); Estimated Glomerular Filt Rate > 60; Glucose Random 83 mg/dL (60-115); Potassium 4.1 mmol/L (3.3-5.1); Sodium 139 mmol/L (135-145); Total Protein 7.5 g/dL (6.5-8.0)
[2025-05-04 18:10] LABS: TSH reflex Free T4 0.91 uIU/mL (0.32-4.0)
[2025-05-04 18:23] LABS: Folate 2.9 ng/mL (> or = 4.0); Vitamin B12 226 pg/mL (200-900)
[2025-05-04 18:34] LABS: Erythrocyte Sedimentation Rate 66 MM/HR (0-15)
[2025-05-06 11:44] LABS: Anti Nuclear Antibody Screen NEGATIVE (NEGATIVE)
[2025-05-08 10:34] LABS: Vitamin D 25-OH, D2 <4 ng/mL; Vitamin D 25-OH, D3 38 ng/mL; Vitamin D 25-OH, Total 38 ng/mL (30-100)
== END 2025-05-04 10:34 | disposition home or self-care (01) ==
LOC: HO.HKASLDS 10:33
PROVIDERS: PCP Internal Medicine; Visit Provider Psychiatry & Neurology Neurology
DX: R41.89 Other symptoms and signs involving cognitive functions and awareness (principal); R47.89 Other speech disturbances; E55.9 Vitamin D deficiency, unspecified
CPT/HCPCS: 36415; 80053; 82306; 82607; 82746; 84443; 85025; 85652; 86038; 99202

== ENCOUNTER → 2025-05-06 10:14 | Outpatient (REF) | payer MEDICARE, MEDICAID, SELFPAY | LOC: HO.SL 10:14 | PROVIDERS: PCP Internal Medicine; Visit Provider Nurse Practitioner Family | DX: Z13.89 Encounter for screening for other disorder (principal) ==

== ENCOUNTER 2025-05-18 07:20 | Outpatient (REF) | payer MEDICARE, MEDICAID, SELFPAY | END 2025-05-18 07:21 | disposition home or self-care (01) | LOC: HO.HOSX 07:20 | PROVIDERS: Visit Provider Physician Assistant | DX: Z13.89 Encounter for screening for other disorder (principal) ==

== ENCOUNTER 2025-05-29 09:22 | Outpatient (AMB) | payer MEDICARE, MEDICAID, SELFPAY ==
--- OUTSIDE RECORDS SUMMARY | 2025-05-29 09:27 | XMS_ITS | Clinical Summary ---
Author Organization [facility] Address [address] [place] [id number] Phone Care Team Providers Care Drum Tester Name Role Phone Jefferson Cross MD Primary Care Provider Un available Pcp, Unknown Unavailable Unavailable Allergies No known active allergies Social History Tobacco Use Types Packs/Day Years Used Date Smoking Tobacco: Never Assessed Education Answer Date Recorded Are you interested in more education? Not on carlos e 12/04/2024 Are you concerned about learning? Not on file 12/04/2024 No 12/04/2024 No 12/04/2024 Digital Access Answer Date Recorded No 12/04/2024 No 12/04/2024 Reliable internet access at home? Not on file 12/04/2024 Device with a working camera? Not on file Intimate Partner Violence Answer Date R ecorded Are you denied basic needs s uch as food, clothing, or medical care? No 12/04/2024 In the past 12 months have y ou been in a relationship with a person who hurts, threatens, or tries to control you? No 12/04/2024 Are you denied basic needs s uch as food, clothing, or medical care? No 12/04/2024 In the past 12 months have y ou been in a relationship with a person who hurts, threatens, or tries to control you? No 12/04/2024 Sex and Gender Information Value Date Recorded Sex Assigned at Male 12/04/2024 10:25 AM EST Legal Sex Male 9:58 AM EST Gender Identity Male 12/04/2024 10:25 AM EST Sexual Orientation Don't know 12/04/2024 10 :58 AM EST Last Filed Vital Signs Vital Sign Reading Time Taken Comments Blood Pressure 113/62 12/04/2024 11:51 AM EST Pulse 61 12/04/2024 11:51 AM EST Temperature 36.2 C (97.1 F) 12/04/2024 11:51 AM EST Respiratory Rate 20 12/04/2024 11:5 1 AM EST Oxygen Saturation 93% 12/04/2024 11: 51 AM EST Inhaled Oxygen Concentration - - Weight 67.9 kg (149 lb 11.1 oz) 025 10:16 AM EST Height 165.1 cm (5' 5 ) 12/04/2024 10:1 6 AM EST Body Mass Index 24.91 12/04/2024 10:16 AM EST Plan of Treatment Health Maintenance Due Date Last Done Comments Adult Td,Tdap Booster 1945 DEPRESSION SCREENING 1955 PNEUMOCOCCAL VACCINES (50+ y ears) (1 of 1 - PCV) 1993 ZOSTER VACCINES (1 of 2) 1993 RSV VACCINE (1 - 1-dose 75+ series) 2018 COVID-19 VACCINE ( - 2023-2 5 season) 2024 HEPATITIS A VACCINES Aged Out No long er eligible based on patient's age to complete this topic HIB VACCINES Aged Out No longer eligi ble based on patient's age to complete this topic MENINGOCOCCAL VACCINES (ACWY) Aged Out No longer eligible based on patient's age to complete this topic MENINGOCOCCAL VACCINES (B) Aged Out N o longer eligible based on patient's age to complete this topic Medical Devices Not on file Insurance [employer] HMO REPLACEMENT MEDICARE PART A & B [facility] MEDICARE HMO [facility]PLACEMENT MEDICARE PART A & B [facility] [facility] REPLAC[facility] MEDICARE PART A & B [place] [facility] MEDICARE HMO [facility]PLACEMENT MEDICARE PART A & B [facility] MEDICARE HMO REPLACEMENT MEDICARE PART A & B [place] [facility] MEDICARE HMO REPLACEMENT MEDICARE PART A & B [place] MED[place] PART A & B [facility] MEDICARE PART A & B [facility] [place] [facility] A & B [facility] Care Teams Drum Tester Relationship Specialty Start Date End Date Jefferson Cross MD PCP - General Internal Medicine 12/04/24 Pcp, Unknown 12/04/24 Additional Source Comments The information contained in this document represents components of the legal health record. It is not the complete legal health record.[facility]
--- NOTE | 2025-05-29 09:28 | MHC.OFFVIS ---
Vital Signs 05/29/25 09:33 Height 6 ft 4 in BP 110/50 L Blood Pressure Location Rt brachial Position Sitting Pulse 76 Pulse Source Pulse Oximeter Pulse Oximetry (%) 94 Oxygen Delivery Method Room Air Intake Visit Reasons: S/p PET Scan Intake Note: Patient is an amputee..unable to stand to be weighed today. Associate Sales Required: No Carnallite Plant Operator: Carnallite Plant Operator offered & declined Accompanied by: care givers Allergies No Known Allergies Allergy (Verified 05/29/25 09:29) Medication List - Last Reconciled 05/29/25 by Nika Mills LPN acetaminophen 1,000 mg (30 mL) PO Q8H PRN 30 days albuterol sulfate 90 mcg/actuation 2 puffs inhalation Q6H PRN albuterol sulfate 90 mcg/actuation 1 inh inhalation QID apixaban (Eliquis) 5 mg PO BID 30 days bacitracin 1 appl topical BID PRN 30 days bisacodyl (Dulcolax (bisacodyl)) 10 mg MA DAILY PRN khwoazlswsf-lyndoqikb-tjotiquz 100-62.5-25 mcg (Trelegy Ellipta) 1 ea PO DAILY gabapentin 100 mg PO BID guaifenesin 200 mg PO Q6H PRN loperamide (Imodium A-D) 4 mg PO Q12H PRN magnesium hydroxide (Milk Of Magnesia Concentrated) 10 mL PO DAILY PRN memantine 7 mg PO DAILY memantine (Namenda XR) 7 mg PO DAILY nystatin 1 appl topical BID PRN oxycodone 5 mg PO TID PRN 28 days polyethylene glycol 3350 (Miralax) 17 grams PO DAILY sennosides (senna) 8.6 mg PO DAILY terazosin 10 mg PO BEDTIME 30 days HPI HPI S/p PET Scan: Details: Alexis is a pleasant 80-year-old male, former smoker with 50+pyh, quit 15+ years ago with underlying severe COPD, Aortic ectasia, Atrial fibrillation, BPH, 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 He is wheelchair bound and activity is very limited. He currently resides at a [facility] and is accompanied by a nurse pillowcase cleaner Janine. Overall poor historian, he currently denies any respiratory symptoms and feels his symptoms are well controlled on Trelegy 100 mcg. Using albuterol MDI very rarely. He was sent for repeat CT chest as prior noted abnormalities, 04/2025 CT revealed multiple spiculated nodules as well as severe emphysematous changes. PET scan ordered and presents today to review results. Since last discussion with caretakers, patient has had decreased cognitive decline as well as mobility questioning possible palliative care options which they will further discuss with PCP. Neurology was consulted started patient on memantine and ordered brain CT. Today patient presents to review PET scan results. [facility] Medical History (Updated 05/04/25 @ 11:09 by Kylie Stockton MD) Word finding difficulty Above knee amputation of right lower extremity Paroxysmal atrial fibrillation Attention deficit hyperactivity disorder (ADHD) Vitamin D deficiency Hypotestosteronism Erectile dysfunction Phantom limb pain Benign prostatic hyperplasia Lumbar degenerative disc disease COPD (chronic obstructive pulmonary disease) Dyslipidemia Benign essential hypertension Unilateral primary osteoarthritis, left knee Osteosarcoma of bone Knee pain, left Surgical History History of amputation History of hernia surgery Family History Father No problems noted. Mother No problems noted. Social History Household Members: None Housing: Apartment Do you presently have visiting nurse or other home services: Yes ([employer]) Alcohol intake: never Patient Tobacco Use Status: Former Tobacco user Tobacco use type: Cigarette Cigarettes Per Day: 40 e-Cigarette/Vaping Use: Never Used Second Hand Smoke Exposure: Yes Advance Directives Date on File: 03/29/22 service: No Current occupational status: retired Current occupational exposures/hazards: No Cognitive needs: Yes (wheelchair/crotches) Hearing needs: No Vision needs: No Review of Systems Const Denies chills, Denies excessive sweating, Denies fever(s), Denies headache(s) and Denies night sweats Eyes Denies dry eyes, Denies irritation and Denies itchy eyes ENT Reports Normal hearing present, Denies headache(s), Denies nasal congestion, Denies nasal discharge and Denies sore throat Card Denies chest pain, Denies chest pain at rest, Denies chest pain with activity, Denies claudication, Denies dyspnea, Denies dyspnea on exertion, Denies orthopnea and Denies paroxysmal nocturnal dyspnea Resp Denies chest congestion, Denies excessive phlegm production, Denies pain on inspiration, Denies pain with cough, Denies dyspnea, Denies dyspnea on exertion and Denies stridor Neuro Reports Normal hearing present and Denies headache(s) Endo Denies excessive sweating David/Lymph Denies lymphadenopathy Aller/Immun Denies itchy eyes and Denies seasonal rhinorrhea Physical Exam Vital Signs: Last Vital Signs Pulse 76 05/29/25 09:33 BP 110/50 L 05/29/25 09:33 Pulse Ox 94 05/29/25 09:33 Oxygen Delivery Method Room Air 05/29/25 09:33 Const General: cooperative, comfortable, no acute distress and alert Orientation/consciousness: patient oriented x3 Limitations: wheelchair HEENT Head: Yes normal to inspection, Yes normocephalic and Yes atraumatic Ears: hearing grossly normal bilaterally and external ears normal Eyes General: appearance normal, both eyes and all related structures Eyelids: Yes eyelids normal Sclerae: sclerae normal EOM: EOMs intact bilaterally Neck Neck: Yes normal visual inspection and Yes no lymphadenopathy Lymphatic: no lymphadenopathy noted Chest Chest palpation & inspection: normal inspection of the chest Resp Effort & Inspection: normal respiratory effort, able to speak in complete sentences, no audible wheezes, no cough, no stridor, not tachypneic, no tripod positioning and no use of accessory muscles Auscultation: diminished lung sounds Cardio Jugular venous distension: no JVD Rate: regular rate Rhythm: regular rhythm Skin Other: warm, dry General skin exam: no rashes or lesions noted Neuro General: patient oriented x3 Cranial nerves: Yes Normal hearing present Cognition (Neuro): normal cognition Gait exam (Neuro): Normal gait present Extrem Other: AKA on right Psych Appearance: grossly normal Speech and movement: Normal speech and movement present and Clear speech present Affect: normal affect Attitude: cooperative Insight: Fair insight present (Psych) Judgement: Fair judgement present (Psych) Results Reviewed Results Reviewed: [address] [address] [address] Scan Report Signed Patient: Alexis Wheeler MR#: [id number] : 1945 Acct:[id number] Age/Sex: 80 / M ADM Date: 04/13/25 Loc: HO.CT Attending Dr: Jacqueline Bailey NP Ordering Physician: Jacqueline Bailey NP Date of Service: 04/13/25 Procedure(s): CT chest wo IV con Accession Number(s): [id number] cc: Jefferson Cross MD; Jacqueline Bailey NP~ Report Number: [id number]: Total DLP = 108.00 mGy-cm CLINICAL HISTORY: R91.8 - Other nonspecific abnormal finding of lung field CT chest without contrast Comparison: None Findings: There are severe coronary artery calcifications. There is bulky calcification of the mitral valve. The visualized thyroid and mediastinum are unremarkable. There is severe centrilobular emphysema with a large bulla in the right lower lobe superiorly. There relatively large bulla is also seen in the superior segment of the left lower lobe. Several spiculated lesions are seen for instance 1.2 cm spiculated lesion in the right upper lobe on image number 39 of series number 4, 1.1 cm spiculated lesion in the right lower lobe on image number 109 of series number 4, 7 mm spiculated lesion right upper lobe on image number 70 and 1.6 cm spiculated lesion left lower lobe on image number 148 of series number 4. There are multiple additional smaller spiculated lesions in the right middle lobe, right lower lobe and left lower lobe. There are few hepatic cysts. Likely right renal cyst. The bones are intact. IMPRESSION: 1. Severe centrilobular emphysema and bullous changes as described. 2. Multiple bilateral spiculated nodules likely reflect a remote infectious etiology with scarring. Neoplasm is less likely but can not be entirely excluded. Consider correlating with PET imaging. 3. Severe coronary artery disease. 4. Bulky calcification of the mitral valve. This document has been electronically signed by: Eliu Dixon MD on 04/14/2025 12:44:46 Dictated By: Eliu Dixon MD Signed By: <Electronically signed by Eliu Dixon MD in OV> 04/14/25 1245 DD/ 1244 TD/TT: 04/14/25 1244 Commercial Relationship Manager: Assessment & Plan Assessment & Plan (1) COPD (chronic obstructive pulmonary disease): Code(s): J44.9 - Chronic obstructive pulmonary disease, unspecified Category: Medical Qualifiers: COPD type: unspecified COPD Qualified Code(s): J44.9 - Chronic obstructive pulmonary disease, unspecified (2) Cough: Code(s): R05.9 - Cough, unspecified Category: Medical (3) Daytime somnolence: Code(s): R40.0 - Somnolence Category: Medical (4) Pulmonary nodule 1 cm or greater in diameter: Code(s): R91.1 - Solitary pulmonary nodule Category: Medical Plan Discussed with the patient the findings of the CT and PET scans, explaining the presence of pulmonary nodules and the PET scan results. The most avid nodule was of the LLL, SUV max 4.2. Discussed the potential ways to proceed including surveillance, biopsy or referral to thoracic surgeon. We reviewed the risks associated with a biopsy, particularly the increased risk of pneumothorax due to emphysema, and the patient expressed a preference for monitoring with a follow-up CT scan in three months. He is aware if he would like to proceed with biopsy vs referral to thoracic to call office. We had long discussion regarding the potential etiologies of the findings on CT/PET including malignancy. Patient expressed wanting to take the most conservative approach as if the findings were malignant he would not want to proceed with treatments such as surgery, chemotherapy or radiation. Staff from [facility] confirmed this was what Alexis's HCP also expressed. At this time, will schedule CT in 3 months. Advised the patient to continue using Trelegy and to report any new respiratory symptoms. For cognitive decline, a brain CT scan is scheduled to evaluate the cause of visual disturbances and memory issues through neurology. All questions were answered and patient is in agreement of plan. Will follow up to review results or sooner if needed. Orders: Orders CT chest wo IV con Today R91.1 - Solitary pulmonary nodule Coding Level of Care Code Est Pt Level 4 (34599) Complex EM visit Add On G2211 Diagnoses Chronic obstructive pulmonary disease, unspecified COPD type J44.9 COPD type: unspecified COPD Cough R05.9 Daytime somnolence R40.0 Pulmonary nodule 1 cm or greater in diameter R91.1
[2025-05-29 09:33] VITALS: BP 110/50; PULSE 76; O2SAT 94
== END 2025-05-29 10:03 | disposition home or self-care (01) ==
LOC: HO.HPSW 09:23
PROVIDERS: PCP Internal Medicine; Visit Provider Nurse Practitioner Family
DX: J44.9 Chronic obstructive pulmonary disease, unspecified (principal); R05.9 Cough, unspecified; R40.0 Somnolence; R91.1 Solitary pulmonary nodule
CPT/HCPCS: 99214; G2211

== ENCOUNTER → 2025-05-29 09:22 | Outpatient (BNVA) | payer MEDICARE, MEDICAID, SELFPAY | PROVIDERS: PCP Internal Medicine; Visit Provider Nurse Practitioner Family | DX: J44.9 Chronic obstructive pulmonary disease, unspecified (principal); I48.0 Paroxysmal atrial fibrillation; R05.9 Cough, unspecified; R40.0 Somnolence; R91.1 Solitary pulmonary nodule; Z99.3 Dependence on wheelchair | CPT/HCPCS: 99212 ==

== ENCOUNTER 2025-06-15 13:39 | Outpatient (AMB) | payer MEDICARE, MEDICAID, SELFPAY ==
[2025-06-15 13:41] VITALS: BP 102/70; PULSE 70; O2SAT 93
--- NOTE | 2025-06-15 13:41 | MHC.PC.OV ---
Vital Signs 06/15/25 13:41 Height 6 ft 4 in BMI Reason not done Patient refused/unable BP 102/70 Blood Pressure Location Lt brachial Position Sitting Pulse 70 Pulse Source Pulse Oximeter Pulse Oximetry (%) 93 Oxygen Delivery Method Room Air Intake Visit Reasons: 4 MONTH- see comments Block Operator Required: No Accompanied by: Self / Same As Patient Allergies No Known Allergies Allergy (Verified 06/23/25 05:13) Medication List - Last Reconciled 06/23/25 by Jefferson Cross MD acetaminophen 1,000 mg (30 mL) PO Q8H PRN 30 days albuterol sulfate 90 mcg/actuation 2 puffs inhalation Q6H PRN albuterol sulfate 90 mcg/actuation 1 inh inhalation QID apixaban (Eliquis) 5 mg PO BID 30 days bacitracin 1 appl topical BID PRN 30 days bisacodyl (Dulcolax (bisacodyl)) 10 mg [place] DAILY PRN irgnpwjxmqj-kxlipasba-kyqkfhln 100-62.5-25 mcg (Trelegy Ellipta) 1 ea PO DAILY gabapentin 300 mg PO BID guaifenesin 200 mg PO Q6H PRN loperamide (Imodium A-D) 4 mg PO Q12H PRN magnesium hydroxide (Milk Of Magnesia Concentrated) 10 mL PO DAILY PRN memantine 14 mg PO DAILY memantine (Namenda XR) 7 mg PO DAILY nystatin 1 appl topical BID PRN oxycodone 5 mg PO TID PRN 28 days polyethylene glycol 3350 (Miralax) 17 grams PO DAILY sennosides (senna) 8.6 mg PO DAILY silver sulfadiazine 1% (Silvadene) 1 appl topical BID PRN terazosin 10 mg PO BEDTIME 30 days Tobacco use date assessed: 06/15/25 Fall risk assessment: No Falls in past year Last assessed Fall Risk: 06/15/25 Dental Screening Dental Screen Date: 06/15/25 Did you have a dental visit in the last 12 months?: Yes Did you have a dental problem in the last 6 months where you did not have access to dental care?: No Was dental information given to patient?: Patient has dentist HPI 4 MONTH- see comments HPI Details Patient comes in today for his follow-up visit He is accompanied today by his [facility] staff, who mentioned that patient appears to be declining cognitively over the past few months Patient underwent a PET scan last month to further evaluate his pulmonary nodule and recently discovered lung lesions and he was advised that his findings are suggestive of malignancy Patient has expressed his desire to continue with conservative management and follow-up CT and repeated that he does not want any aggressive measures or treatments if he does indeed have lung cancer, which his [facility] staff confirms was his initial choice as well as his healthcare proxy's preference At this time, they would also like to have his HCP invoked if appropriate as patient has been declining cognitively over the past few months He was seen by Neurology a couple of months ago and was started on a trial of memantine Patient denies any increased headaches or dizziness but reports that he remains very weak overall He denies any chest pains, no increased shortness of breath No nausea/vomiting, no abdominal pain No change in bowel habits noted Patient adds that he has a small sore just below his right inguinal area adjacent to the right thigh that has been present for the past 1-2 weeks now - he has not noticed any drainage from the sore/wound [facility] Medical History (Updated 06/23/25 @ 05:36 by Jefferson Cross MD) Word finding difficulty Above knee amputation of right lower extremity Paroxysmal atrial fibrillation Attention deficit hyperactivity disorder (ADHD) Vitamin D deficiency Hypotestosteronism Erectile dysfunction Phantom limb pain Benign prostatic hyperplasia Lumbar degenerative disc disease COPD (chronic obstructive pulmonary disease) Dyslipidemia Benign essential hypertension Unilateral primary osteoarthritis, left knee Osteosarcoma of bone Knee pain, left Surgical History History of amputation History of hernia surgery Family History Father No problems noted. Mother No problems noted. Social History Household Members: None Housing: Apartment Do you presently have visiting nurse or other home services: Yes ([employer]) Alcohol intake: never Patient Tobacco Use Status: Former Tobacco user Tobacco use type: Cigarette Cigarettes Per Day: 40 e-Cigarette/Vaping Use: Never Used Second Hand Smoke Exposure: Yes Advance Directives Date on File: 03/29/22 service: No Current occupational status: retired Current occupational exposures/hazards: No Cognitive needs: Yes (wheelchair/crotches) Hearing needs: No Vision needs: No Questionnaire PHQ-9 Over the last 2 weeks, how often have you been bothered by any of the following problems? 1. Little interest or pleasure in doing things: not at all 2. Feeling down, depressed, or hopeless: not at all 3. Trouble falling or staying asleep, or sleeping too much: not at all 4. Feeling tired or having little energy: not at all 5. Poor appetite or overeating: not at all 6. Feeling bad about yourself - or that you are a failure or have let yourself or your family down: not at all 7. Trouble concentrating on things, such as reading the newspaper or watching television: nearly every day 8. Moving or speaking so slowly that other people could have noticed. Or the opposite - being so fidgety or restless that you have been moving around a lot more than usual: several days 9. Thoughts that you would be better off or of hurting yourself in some way: not at all Total score: 4 Depression Screening Interpretation: Negative Depression Screening Done: Yes 52706 - PHQ-9 Billing: Yes Source: Developed by Drs. Skinny Marin, Anuja Duenas, Huy Vasquez and colleagues, with an educational gretel from [employer]. Thrive Questionnaire Date Thrive assessed: 06/15/25 I am a: Patient What is your living situation today?: I have a steady place to live Within the past 12 months, did the food you bought not last and you didn't have the money to get more?: Never true Within the past 12 months, did you worry whether your food would run out before you got money to buy more?: Never true Do you have trouble paying for medicines?: No Do you have trouble getting transportation to medical appointments?: No Do you have trouble paying your heating and electricity bill?: No Do you have trouble taking care of your child, family member or friend?: No Do you have trouble with day-to-day activities such as bathing, preparing meals, shopping, managing finances, etc.?: Yes Are you currently unemployed and looking for a job?: No Are you interested in more education?: No Please select the resources that you would like help with: None Currently or been in a relationship where the following occur: I choose not to answer THRIVE Score: 0 AUDIT C Alcohol Use Questionnaire (AUDIT-C) 1. How often do you have a drink containing alcohol?: Never 3. How often do you have six or more drinks on one occasion?: Never Total Score: 0 Score Reviewed/Action Taken: Yes JORGE-7 AMB Questionnaire JORGE-7 Date JORGE - 7 assessed: 06/15/25 Feeling nervous, anxious, or on edge: 0 = Not at all Not being able to stop or control worryin = Not at all Worrying too much about different things: 0 = Not at all Trouble relaxin = Not at all Being so restless that it is hard to sit still: 0 = Not at all Becoming easily annoyed or irritable: 0 = Not at all Feeling afraid as if something awful might happen: 0 = Not at all Total JORGE-7 score (0-4 normal; 5-9 mild; 10-14 moderate; 15-21 severe): 0 Source: Developed by Drs. Skinny Marin, Anuja Duenas, Huy Vasquez and colleagues, with an educational gretel from [employer]. Review of Systems Const Denies chills, Reports fatigue, Denies fever(s) and Denies headache(s) ENT Denies dysphagia, Denies dizziness, Denies otalgia, Denies headache(s), Denies neck pain, Denies odynophagia and Denies sore throat Card Denies chest pain, Denies rapid heart rate, Denies irregular heart rhythm, Denies palpitations and Reports dyspnea on exertion (mild) Resp Denies chest congestion, Denies cough and Reports dyspnea on exertion (mild) GI Denies abdominal pain, Denies constipation, Denies dysphagia, Denies heartburn, Denies diarrhea, Denies nausea, Denies odynophagia and Denies vomiting Denies difficulty urinating, Denies dysuria, Denies urinary frequency and Denies urinary urgency Musc Reports back pain (chronic), Reports arthralgias (in the left knee - chronic; near the left hip area lately - see HPI) and Denies neck pain Skin/Breast Details: (+) superficial sore just below the right inguinal area Denies rash Neuro Details: (+) recurrent phantom limb pain in the right lower extremity Reports confusion (occasionally, per [facility] staff), Denies dizziness, Denies headache(s), Reports memory loss and Denies paresthesias Psych Reports confusion (occasionally, per [facility] staff), Reports memory loss and Denies visual hallucinations Endo Reports fatigue and Denies palpitations Physical exam (Primary Care) Vital Signs: Last Vital Signs Pulse 70 06/15/25 13:41 BP 102/70 06/15/25 13:41 Pulse Ox 93 06/15/25 13:41 Oxygen Delivery Method Room Air 06/15/25 13:41 Tobacco/Smoking Status: Tobacco use Status Tobacco use date assessed 06/15/25 06/15/25 13:47 Patient Tobacco Use Status Former Tobacco user 06/15/25 13:47 Tobacco use type Cigarette 06/15/25 13:47 e-Cigarette/Vaping Use Never Used 06/15/25 13:47 PHQ-9: PHQ-9 Score PHQ-9: Total score 4 06/15/25 14:27 Depression Screening Interpretation: Negative Thrive Assessment: Date of Thrive Assessment Date Thrive assessed 06/15/25 06/15/25 13:47 Currently or been in a relationship where the following occur: I choose not to answer Const General: no acute distress and confusion (occasionally, per [facility] staff) Nutritional Appearance: thin Orientation/consciousness: confusion (occasionally, per [facility] staff) Limitations: wheelchair HENMT Ears: TM's normal bilaterally and EAC's normal Throat: Yes posterior oropharynx normal and Yes tonsils normal (no TP congestion) Neck Neck: Yes supple and No lymphadenopathy Thyroid: Thyroid normal Resp Auscultation: clear to auscultation bilaterally, no rales and no wheezes Cardio Rate: regular rate Rhythm: regular rhythm Heart sounds: no murmurs GI Palpation (GI): Soft to palpation and nontender Auscultation: normal bowel sounds General: Yes no CVA tenderness Back/Spine/Pelvis Back: no CVA tenderness Thoracic/Lumbar Spine: lumbar spinal tenderness Skin Other: (+) erythema with a superficial open wound just below the right inguinal area, extending partially to the adjacent right thigh medially Rashes: no rashes Neuro General: confusion (occasionally, per [facility] staff) Extrem Other: S/P AKA of the right lower extremity General: Yes no clubbing, cyanosis or edema (in the left lower extremity) Left lower extremity: hip/thigh Details: tenderness (near the left hip area, mostly over adjacent proximal thigh) and knee Details: tenderness and crepitus Coding Level of Care Code Est Pt Level 4 (51926) Diagnoses Pulmonary nodules/lesions, multiple R91.8 Chronic obstructive pulmonary disease, unspecified COPD type J44.9 COPD type: unspecified COPD Cognitive decline R41.89 Superficial ulcer of skin L98.491 Degeneration of intervertebral disc of lumbar region with discogenic back pain M51.360 Disc-related pain type: discogenic back pain only Phantom limb pain G54.6 Above knee amputation of right lower extremity S78.111A Osteoarthritis of left knee, unspecified osteoarthritis type M17.12 Osteoarthritis type: unspecified Paroxysmal atrial fibrillation I48.0 Additional Codes PHQ-9 - 25478 - PHQ-9 Billing: Yes ([id number]) Assessment & Plan Assessment & Plan (1) Pulmonary nodules/lesions, multiple: Code(s): R91.8 - Other nonspecific abnormal finding of lung field Category: Medical Plan: Patient's recent PET-CT scan revealed findings suggestive of malignancy Patient has expressed his desire to continue with observation and conservative management and has decided against any aggressive measures or treatment even if his findings sheet turner to be lung cancer His [facility] staff has confirmed that this was patient's original preference and is in line with his healthcare proxy's preference as well Patient will be scheduled for a repeat chest CT by Pulmonary in a few months Follow-up with pulmonary as scheduled (2) COPD (chronic obstructive pulmonary disease): Code(s): J44.9 - Chronic obstructive pulmonary disease, unspecified Category: Medical Qualifiers: COPD type: unspecified COPD Qualified Code(s): J44.9 - Chronic obstructive pulmonary disease, unspecified Plan: Continue Trelegy Ellipta 100-62.5-25 mcg 1 inhalation QD and Albuterol HFA 1 to 2 inhalations Q 6 hours PRN Follow up with [facility] as scheduled (3) Cognitive decline: Code(s): R41.89 - Other symptoms and signs involving cognitive functions and awareness Category: Medical Plan: Per [facility] staff, patient's cognition has been declining over the past few months and they would like to invoke his HCP present, especially with patient's overall health apparently declining Patient was seen by Neurology for evaluation a couple of months ago and started on a trial of memantine He declined to go for a brain MRI for further evaluation; Neurology ordered a head CT instead, which is currently still pending scheduling Will go ahead and invoke patient's HCP and decisions regarding his health and medical issues will now have to be made with his HCP's involvement (4) Superficial ulcer of skin: Code(s): L98.491 - Non-pressure chronic ulcer of skin of other sites limited to breakdown of skin Category: Medical Plan: Will start patient on Silvadene cream to apply to the wound on his right inguinal/right thigh area TID (5) Lumbar degenerative disc disease: Comment: Failed trial of ablation and nerve block with pain management in 2019 Code(s): M51.36 - Other intervertebral disc degeneration, lumbar region Category: Medical Qualifiers: Disc-related pain type: discogenic back pain only Qualified Code(s): M51.360 - Other intervertebral disc degeneration, lumbar region with discogenic back pain only Plan: Patient is mostly wheelchair-bound so his activity level is practically sedentary Continue Oxycodone 5 mg TID PRN for pain He used to see pain management but has not been back to see them in a few years now (6) Phantom limb pain: Comment: S/P right AKA for osteosarcoma at 17 y/o Code(s): G54.6 - Phantom limb syndrome with pain Category: Medical Plan: Continue Gabapentin 300 mg BID and Oxycodone 5 mg TID PRN for pain (7) Above knee amputation of right lower extremity: Code(s): S78.111A - Complete traumatic amputation at level between right hip and knee, initial encounter Category: Medical Plan: He currently does not have any prosthesis on his right leg as his previous one was ill-fitting and he has not used that in a while now He is interested in getting refitted for a new prosthesis soon so he can start walking around again (8) Osteoarthritis of left knee: Code(s): M17.12 - Unilateral primary osteoarthritis, left knee Category: Medical Qualifiers: Osteoarthritis type: unspecified Qualified Code(s): M17.12 - Unilateral primary osteoarthritis, left knee Plan: Continue Acetaminophen 1000 mg TID PRN He used to take Ibuprofen but as he is currently on Apixaban, that was discontinued He has tried auto stem cell implantation from his hip to his knee with a [employer] provider in [place] a few years ago ([id number]) without any success - states that he spent about $6000 of his own money on a useless procedure as he did not want to go for knee surgery at the time He has been seen by orthopedics in the past for his left knee issues and was considering going for knee replacement surgery but this now appears unlikely due to his overall declining health and cognition Follow up with orthopedics as scheduled (9) Paroxysmal atrial fibrillation: Code(s): I48.0 - Paroxysmal atrial fibrillation Category: Medical Plan: Patient is currently in sinus rhythm Continue Apixaban 5 mg BID for thromboelmbolism prophylaxis; also (+) Hx of left femoral-popliteal DVT a couple of years ago Follow up with cardiology as scheduled Plan Follow-up in 4 months Orders: Referrals [facility] Referral C34.90 - Malignant neoplasm of unspecified part of unspecified bronchus or lung Medications: New silver sulfadiazine 1% (Silvadene) apply a 1.5 mm thickness 1 appl topical BID PRN 50 grams 1RF wound healing
--- OUTSIDE RECORDS SUMMARY | 2025-06-15 13:49 | XMS_ITS | Clinical Summary ---
Author Organization [facility] Address [address] [place] [id number] Phone Care Team Providers Care Anatomical Embalmer Name Role Phone Jefferson Cross MD Primary Care Provider [phone] Pcp, Unknown Unavailable Unavailable Allergies No known [...] - 1-dose 75+ series) 2018 COVID-19 VACCINE (2023-2 5 season) 2024 HEPATITIS A VACCINES Aged [...] HMO REPLACEMENT MEDICARE PART A & B [facility] MEDICARE HMO REPLACEMENT MEDICARE PART A & B [facility] MEDIC[facility] HMO REPLACEMENT MEDICARE PART A & [facility] MEDICARE HMO REPLACEMENT MEDICARE PART A & B [facility] MEDICARE HMO [facility]PLACEMENT MEDICARE PART A & [facility] HMO REPLACEMENT MEDICARE PART A & [place] [facility] [facility] & [facility] [place] B [facility] Care Teams Anatomical Embalmer Relationship Specialty Start Date End Date Jefferson Cross MD [address] [place] [address] [place] [address] PCP - General Internal Medicine 12/04/24 Pcp, Unknown 12/04/24 Additional Source Comments The information contained in this document represents components of the legal health record. It is not the complete legal health record.[facility]
== END 2025-06-15 14:30 | disposition home or self-care (01) ==
LOC: HO.HMCH 13:40
PROVIDERS: PCP Internal Medicine; Visit Provider Internal Medicine
DX: J44.9 Chronic obstructive pulmonary disease, unspecified (principal); L98.491 Non-pressure chronic ulcer of skin of other sites limited to breakdown of skin; G54.6 Phantom limb syndrome with pain; S78.111A Complete traumatic amputation at level between right hip and knee, initial encounter; I48.0 Paroxysmal atrial fibrillation; M51.360 Other intervertebral disc degeneration, lumbar region with discogenic back pain only; R91.8 Other nonspecific abnormal finding of lung field; R41.89 Other symptoms and signs involving cognitive functions and awareness; M17.12 Unilateral primary osteoarthritis, left knee

== ENCOUNTER → 2025-06-15 13:39 | Outpatient (BNVA) | payer MEDICARE, MEDICAID, SELFPAY | PROVIDERS: PCP Internal Medicine; Visit Provider Internal Medicine | DX: R91.8 Other nonspecific abnormal finding of lung field (principal); J44.9 Chronic obstructive pulmonary disease, unspecified; R41.89 Other symptoms and signs involving cognitive functions and awareness; L98.491 Non-pressure chronic ulcer of skin of other sites limited to breakdown of skin; M51.360 Other intervertebral disc degeneration, lumbar region with discogenic back pain only; G54.6 Phantom limb syndrome with pain; M17.12 Unilateral primary osteoarthritis, left knee; I48.0 Paroxysmal atrial fibrillation; Z89.611 Acquired absence of right leg above knee; Z79.01 Long term (current) use of anticoagulants; Z79.891 Long term (current) use of opiate analgesic; Z13.31 Encounter for screening for depression; Z13.39 Encounter for screening examination for other mental health and behavioral disorders | CPT/HCPCS: 96127; 99212 ==

== ENCOUNTER 2025-06-26 10:31 | Outpatient (REF) | payer MEDICARE, MEDICAID, SELFPAY ==
--- NOTE | ~2025-06-26 | XR_ITS ---
EXAMINATION: XR FEMUR, LEFT CLINICAL INFORMATION: M79.606 - Pain in leg, unspecified COMPARISON: Correlated to fluoroscopy guidance dated March 24, 2022. TECHNIQUE: AP and lateral views of the left femur were obtained. FINDINGS: There is an intramedullary radha through the diaphysis of the left femur. There is a metallic screws through the left femoral head neck. Heterotopic bone formation and the intertrochanteric region and lesser trochanter. There is mild loosening in the distal diaphysis of the left femur. Vascular calcification. XR/XR femur LT 2V IMPRESSION: Questionable of loosening in the distal diaphysis of the left femur surrounded the intramedullary radha. Atherosclerosis disease, peripheral.. Electronically signed by: Diego Montaño MD 06/26/2025 01:31 PM EDT
--- OUTSIDE RECORDS SUMMARY | 2025-06-27 10:33 | XMS_ITS | Clinical Summary ---
Author Organization [facility] Address [address] [place] [address] Phone Care Team Providers Care Naval Aircrewman Operator Name Role Phone Jefferson Cross MD Primary Care Provider [phone] Pcp, Unknown Unavailable Unavailable Allergies No known [...] HMO REPLACEMENT MEDICARE PART A & B [facility] MEDICARE HMO REPLACEMENT MEDICARE PART A & B [facility] MEDIC[facility] HMO REPLACEMENT MEDICARE PART A & [place] [facility] MEDICARE HMO REPLACEMENT MEDICARE PART A & B [facility] MEDICARE HMO REPLACEMENT MEDICARE PART A & [facility] MEDICARE HMO REPLACEMENT MEDICARE PART A & [place] [facility] [place] [place] [facility] A & B [facility] Care Teams Naval Aircrewman Operator Relationship Specialty Start Date End Date Jefferson Cross MD [address] [place] [address] [place] [address] PCP - General Internal Medicine 12/04/24 Pcp, Unknown 12/04/24 Additional Source Comments The information contained in this document represents components of the legal health record. It is not the complete legal health record.[facility]
== END 2025-06-26 10:32 | disposition home or self-care (01) ==
LOC: HO.HOSX 10:31
PROVIDERS: Visit Provider Physician Assistant
DX: S72.142A Displaced intertrochanteric fracture of left femur, initial encounter for closed fracture (principal); M25.552 Pain in left hip; X58.XXXA Exposure to other specified factors, initial encounter
CPT/HCPCS: 73552; 99212

== ENCOUNTER 2025-06-26 13:09 | Outpatient (AMB) | payer MEDICARE, MEDICAID, SELFPAY ==
--- OUTSIDE RECORDS SUMMARY | 2025-06-26 13:11 | XMS_ITS | Clinical Summary ---
Author Organization [facility] Address [address] [place] [id number] Phone Care Team Providers Care Chief Unit Forester Name Role Phone Jefferson Cross MD Primary Care Provider [phone] Pcp, Unknown Unavailable Unavailable Allergies No known [...] HMO REPLACEMENT MEDICARE PART A & B [facility] MEDICARE HMO REPLACEMENT MEDICARE PART A & B [facility] MEDIC[facility] HMO REPLACEMENT MEDICARE PART A & B [facility] MEDICARE HMO [facility]PLACEMENT MEDICARE PART A & B [facility] [facility] MEDICARE HMO REPLACEMENT MEDICARE PART A & [facility] [place] [facility] MED[facility] HMO REPLACEMENT MEDICARE PART A & B [place] [facility] [facility] [place] [facility] [place] [facility] & [place] [facility] [place] [facility] & B [facility] Care Teams Chief Unit Forester Relationship Specialty Start Date End Date Jefferson Cross MD [address] [place] [address] [place] [address] PCP - General Internal Medicine 12/04/24 Pcp, Unknown 12/04/24 Additional Source Comments The information contained in this document represents components of the legal health record. It is not the complete legal health record.[facility]
--- NOTE | 2025-06-26 13:33 | A.OFFVIS_ITS ---
Vital Signs 06/26/25 13:37 Height 6 ft 4 in Weight 129 lb BMI 15.7 Intake Visit Reasons: OV- Left hip pain s/p lt hip IMN 03/24/22 Intake Note: Alexis is a 80 year old male who presents today in a wheel chair with facility staff member with complaints of left hip pain. Patient is status post left hip IMN, DOS: 03/24/22. Patient reports feeling as if something is not right in his hip, complains of pain with movement. Allergies No Known Allergies Allergy (Verified 06/26/25 13:38) Medication List - Last Reconciled 06/26/25 by Annie Peterson PA-C acetaminophen 1,000 mg (30 mL) PO Q8H PRN 30 days albuterol sulfate 90 mcg/actuation 2 puffs inhalation Q6H PRN albuterol sulfate 90 mcg/actuation 1 inh inhalation QID apixaban (Eliquis) 5 mg PO BID 30 days bacitracin 1 appl topical BID PRN 30 days bisacodyl (Dulcolax (bisacodyl)) 10 mg [place] DAILY PRN vowebbbtgac-ofjiejtak-jbxjcasw 100-62.5-25 mcg (Trelegy Ellipta) 1 ea PO DAILY gabapentin 300 mg PO BID guaifenesin 200 mg PO Q6H PRN loperamide (Imodium A-D) 4 mg PO Q12H PRN magnesium hydroxide (Milk Of Magnesia Concentrated) 10 mL PO DAILY PRN memantine 14 mg PO DAILY memantine (Namenda XR) 7 mg PO DAILY nystatin 1 appl topical BID PRN oxycodone 5 mg PO TID PRN 28 days polyethylene glycol 3350 (Miralax) 17 grams PO DAILY sennosides (senna) 8.6 mg PO DAILY silver sulfadiazine 1% (Silvadene) 1 appl topical BID PRN terazosin 10 mg PO BEDTIME 30 days HPI HPI OV- Left hip pain s/p lt hip IMN 03/24/22: Details: 80-year-old gentleman presents to the office today for a follow-up left hip pain status post IM nail on 03/24/2022. The patient comes in today with a wheelchair he has a right khgcn-rhu-umkw amputation. Patient at this time has no pain in the left hip. He says sometimes there is some pain in the thigh but overall it does not limit his activity. [facility] Medical History (Updated 06/26/25 @ 13:50 by Annie Peterson PA-C) Word finding difficulty Above knee amputation of right lower extremity Paroxysmal atrial fibrillation Attention deficit hyperactivity disorder (ADHD) Vitamin D deficiency Hypotestosteronism Erectile dysfunction Phantom limb pain Benign prostatic hyperplasia Lumbar degenerative disc disease COPD (chronic obstructive pulmonary disease) Dyslipidemia Benign essential hypertension Unilateral primary osteoarthritis, left knee Osteosarcoma of bone Knee pain, left Surgical History History of amputation History of hernia surgery Family History Father No problems noted. Mother No problems noted. Social History Household Members: None Housing: Apartment Do you presently have visiting nurse or other home services: Yes ([employer]) Alcohol intake: never Patient Tobacco Use Status: Former Tobacco user Tobacco use type: Cigarette Cigarettes Per Day: 40 e-Cigarette/Vaping Use: Never Used Second Hand Smoke Exposure: Yes Advance Directives Date on File: 03/29/22 service: No Current occupational status: retired Current occupational exposures/hazards: No Cognitive needs: Yes (wheelchair/crotches) Hearing needs: No Vision needs: No Review of Systems Const All systems reviewed & are unremarkable except as noted in HPI and below Physical Exam Vital Signs: BMI result Body Mass Index 15.7 Extrem Other: Left hip without pain on range of motion and no pain with hip flexion. No tenderness to palpation over the greater troch. Results Reviewed Results Reviewed: xrays of the left hip obtained in the office today show healing fracture with IMN intact -evidence of HO Assessment & Plan Assessment & Plan (1) Fracture, intertrochanteric, left femur: Code(s): S72.142A - Displaced intertrochanteric fracture of left femur, initial encounter for closed fracture Category: Medical Plan: In the absence of pain the patient will continue with activities as tolerated I did explain there are times when his muscles become weak and he may need to work on some exercises from his previous physical therapy when he had surgery. The p atient is content with this plan and will follow up with me as needed. Orders: Orders XR femur LT 2V Today M79.606 - Pain in leg, unspecified Coding Level of Care Code Est Pt Level 3 (64305) Complex EM visit Add On G2211 Diagnoses Fracture, intertrochanteric, left femur S72.142A
[2025-06-26 13:37] VITALS: BMI 15.7
== END 2025-06-26 14:33 | disposition home or self-care (01) ==
LOC: HO.HOS 13:09
PROVIDERS: Visit Provider Physician Assistant
DX: S72.142A Displaced intertrochanteric fracture of left femur, initial encounter for closed fracture (principal)
CPT/HCPCS: 99213; G2211

== ENCOUNTER → 2025-06-26 13:12 | Outpatient (BNV) | payer MEDICARE, MEDICAID, SELFPAY | PROVIDERS: Visit Provider Radiology Diagnostic Radiology | DX: T84.115A Breakdown (mechanical) of internal fixation device of left femur, initial encounter (principal) | CPT/HCPCS: 73552 ==

== ENCOUNTER 2025-07-31 12:41 | Outpatient (REF) | payer MEDICARE, MEDICAID, SELFPAY ==
--- NOTE | ~2025-07-31 | CT_ITS ---
CLINICAL HISTORY: R41.89 - Other symptoms and signs involving cognitive functions and awar... CT head without contrast Comparison: None provided Findings: No intra-axial mass, midline shift, hydrocephalus, or acute hemorrhage. 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 No midline shift or significant edema. Mild global volume loss with subcortical and periventricular white matter hypodensity suggesting chronic microangiopathy. Heavy calcified atheromatous plaquing of the intracranial vessels, particularly the vertebral arteries. The visualized paranasal sinuses and mastoid air cells are normal. The orbits are within normal limits. There is no acute fracture. IMPRESSION: 1. 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 No prior CT head available. MRI brain recommended to assess for acuity. 2. Global volume loss. 3. Heavy vascular calcium. This document has been electronically signed by: Venecia Garcia MD on 08/02/2025 09:20:44
--- NOTE | ~2025-07-31 | CT_ITS ---
CLINICAL HISTORY: R91.1 - Solitary pulmonary nodule CT chest without contrast Comparison: 04/13/2025 Findings: Stable emphysema and chronic interstitial fibrosis. Stable bilateral apical pleural scarring. Multifocal areas of scarring are also stable. Stable bilateral lower lobe linear scar. Stable scattered small bilateral nodules. Large right bulla is unchanged. No acute infiltrates are identified. No significant mediastinal adenopathy. No significant free pleural fluid. No significant focal bony abnormalities. Stable hepatic cysts. Impression: Stable chronic findings outlined above. No acute processes. This document has been electronically signed by: Kalia Rodriguez MD on 08/02/2025 19:07:13
--- OUTSIDE RECORDS SUMMARY | 2025-07-31 12:44 | XMS_ITS | Encounter Summary ---
Author Organization [facility] Address [address] [facility] [address] [place] [address] Phone Care Team Providers Care Content Management Consultant Name Role Phone Jefferson Cross MD Primary Care Provider [phone] Pcp, Unknown Unavailable Unavailable Encounter Details Date Type Department Care Team (Late st Contact Info) Description 12/04/2024 Procedure Pass [facility], Ct Scan - [facility] [address] [place] [address] Social History Tobacco Use Types Packs/Day Years [...] Don't know 12/04/2024 10 :58 AM EST documented as of this encounter Functional Status * Calculated C-SSRS Risk Score (Lifetime/Recent) Answer Date of Assessment Author No Risk Indicated 12/04/2024 10:25 AM Rubi Hurt RN * [place] Suicide Severity Rating Scale (Screener/Recent Self-Report) Question Answer Date of Assessment Author 1. Wish to be (Past 1 Month) No 12/04/2024 10:25 AM Rubi Hurt RN 2. Non-Specific Active Suici mary Thoughts (Past 1 Month) No 12/04/2024 10:25 AM Bev Hurt RN 6. Suicidal Behavior (Lifetime) No 10:25 AM Rubi Hurt RN documented as of this encounter Plan of Treatment Not on file documented as of this encounter Visit Diagnoses Not on filedocumented in this encounter Care Teams Content Management Consultant Relationship Specialty Start Date End Date Jefferson Cross MD [address] [place] [address] [place] [address] PCP - General Internal Medicine 12/04/24 Pcp, Unknown 12/04/24 documented as of this encounter Additional Source Comments The information contained in this document represents components of the legal health record. It is not the complete legal health record.[facility]
--- OUTSIDE RECORDS SUMMARY | 2025-07-31 12:44 | XMS_ITS | Clinical Summary ---
Author Organization [facility] Address [address] [place] [address] Phone Care Team Providers Care Filter Changer Name Role Phone Jefferson Cross MD Primary Care Provider [phone] Pcp, Unknown Unavailable Unavailable Allergies No known [...] VACCINE (1 - 1-dose 75+ series) 2018 INFLUENZA VACCINE (#1) 2025 COVID-19 VACCINE ( - 2023-2 5 season) 2025 HEPATITIS A VACCINES Aged Out No long [...] HMO REPLACEMENT MEDICARE PART A & B [facility] [place] MEDICARE HMO REPLACEMENT MEDICARE PART A & [place] [facility] MEDICARE HMO REPLACEMENT MEDICARE PART A & [place] [facility] MEDICARE HMO REPLACEMENT MEDICARE PART A & B [facility] MEDICARE HMO REPLACEMENT MEDICARE PART A & B [facility] MEDICARE HMO REPLACEMENT MEDICARE PART A & [place] [facility] [place] [facility] [place] [facility] [place] [facility] PART A & B [facility] Care Teams Filter Changer Relationship Specialty Start Date End Date Jefferson Cross MD [address] [place] [address] [place] [address] PCP - General Internal Medicine 12/04/24 Pcp, Unknown 12/04/24 Additional Source Comments The information contained in this document represents components of the legal health record. It is not the complete legal health record.[facility]
== END 2025-07-31 12:42 | disposition home or self-care (01) ==
LOC: HO.CT 12:41
PROVIDERS: PCP Internal Medicine; Visit Provider Nurse Practitioner Family
DX: R91.1 Solitary pulmonary nodule (principal); R41.89 Other symptoms and signs involving cognitive functions and awareness
CPT/HCPCS: 70450; 71250

== ENCOUNTER → 2025-07-31 12:45 | Outpatient (BNV) | payer MEDICARE, MEDICAID, SELFPAY | PROVIDERS: PCP Internal Medicine; Visit Provider Radiology Diagnostic Radiology | DX: R91.1 Solitary pulmonary nodule (principal); E86.9 Volume depletion, unspecified | CPT/HCPCS: 70450; 71250 ==

== ENCOUNTER 2025-09-30 11:23 | Outpatient (AMB) | payer MEDICARE, MEDICAID, SELFPAY ==
--- OUTSIDE RECORDS SUMMARY | 2025-09-26 23:59 | XMS_ITS | Continuity of Care Document ---
Author Organization [facility] Address [address] [place] [address]- Care Team Providers Care Medical Imaging Technician Name Role Phone Basim GANDHI, Dara Nunez Primary Care Physician [phone] Encounter [facility] Date(s): 06/18/25 - 09/26/25 [facility] [address] [place] [address]- Attending Physician: Emily Mckeon NP Admitting Physician: Emily Mckeon NP Encounter Type: Pre-OutPatient One Time Allergies, Adverse Reactions, Alerts No Known Medication Allergies Immunizations Given and Recorded Vaccine Date Status Refusal Reason pneumococcal 20-valent conjugate vaccine 12/04/23 Recorded SARS-CoV-2(COVID-19)mRNA-LNP vac([id number]) 11/08/23 Recorded influenza virus vaccine, inactivated 09/06/23 Camilo rded influenza virus vaccine, inactivated 10/12/22 Camilo rded influenza virus vaccine, inactivated 08/17/21 Camilo rded influenza virus vaccine, inactivated 10/22/19 Camilo rded influenza virus vaccine, inactivated 07/30/18 Camilo rded influenza virus vaccine, inactivated 10/09/17 Camilo rded influenza virus vaccine, inactivated 09/11/16 Camilo rded influenza virus vaccine, inactivated 09/15/13 Camilo rded [id number] 12y+ bivalent booster vax 08/09/22 Recorded SARS-CoV-2 (COVID-19) mRNA-1273 vaccine 04/05/22 R ecorded SARS-CoV-2 (COVID-19) mRNA BNT-162b2 vac 03/07/21 Recorded SARS-CoV-2 (COVID-19) mRNA BNT-162b2 vac 02/10/21 Recorded zoster vaccine, inactivated 11/5/18 Recorded pneumococcal 13-valent vaccine 09/16/18 Recorded Zoster Vaccine Live 09/15/13 Recorded Medications apixaban = 5 mg, By Mouth, 2 times a day, Take 10 mg BID until 05/20/22. Beginning 05/21/22, transition to 5mg BID., # 60 tablet, 3 Refills, Maintenance, 05/16/22 12:34:00 PM EDT, Tablet, Partial fill upon patient request if the prescription is for a schedule II opioid drug. Start Date: 05/16/22 Status: Ordered Medication Dispense Status: Completed Quantity: 60.0 Unit: tablet Total Allowed Fills: 1 Fills Dispensed: 0 Bacitracin Topical Oint 1 This Layer, Topically, 2 times a day, PRN Other, Minor cuts/abrasions, 0 Refills, Maintenance Start Date: 12/15/24 Status: Ordered Medication Dispense Status: Completed Total Allowed Fills: 1 Fills Dispensed: 0 bisacodyl 10 mg rectal suppository 1 supp = 10 mg, Rectally, Daily, PRN for constipation, Maintenance, 05/11/22 3:16:00 PM EDT, Suppository, ; Start Date: 05/11/22 Status: Ordered Medication Dispense Status: Completed Total Allowed Fills: 1 Fills Dispensed: 0 gabapentin 100 mg oral capsule 300 mg, 3, capsule, By Mouth, 2 times a day, Refills 0, Maintenance, 12/09/24 2:07:00 PM EST, Partial fill upon patient request if the prescription is for a schedule II opioid drug. Start Date: 12/09/24 Status: Ordered Medication Dispense Status: Completed Total Allowed Fills: 1 Fills Dispensed: 0 guaiFENesin 100 mg/5 mL oral liquid 10 mL = 200 mg, By Mouth, Every 6 hours, PRN for cough, Maintenance, 05/11/22 3:19:00 PM EDT, Liquid, ; Start Date: 05/11/22 Status: Ordered Medication Dispense Status: Completed Total Allowed Fills: 1 Fills Dispensed: 0 loperamide 2 mg oral tablet 2 tablet = 4 mg, By Mouth, Every 12 hours, PRN Loose Stool, 0 Refills, Maintenance, 12/09/24 2:08:00PM EST, Partial fill upon patient request if the prescription is for a schedule II opioid drug. Start Date: 12/09/24 Status: Ordered Medication Dispense Status: Completed Total Allowed Fills: 1 Fills Dispensed: 0 MiraLax oral powder for reconstitution = 17 Gm, By Mouth, Daily, dissolve in water before taking, Maintenance, 05/11/22 3:18:00 PM EDT, RECPowder, ; Start Date: 05/11/22 Status: Ordered Medication Dispense Status: Completed Total Allowed Fills: 1 Fills Dispensed: 0 MOM Liquid 30 mL, By Mouth, Daily at bedtime, PRN as needed for constipation, if no BM in 3 days, Maintenance,05/11/22 3:19:00 PM EDT, ; Start Date: 05/11/22 Status: Ordered Medication Dispense Status: Completed Total Allowed Fills: 1 Fills Dispensed: 0 Nystatin Ointment 1 thin layer, Topically, 2 times a day, PRN Rash, 0 Refills, Maintenance Start Date: 12/09/24 Status: Ordered Medication Dispense Status: Completed Total Allowed Fills: 1 Fills Dispensed: 0 oxyCODONE 5 mg oral capsule 1 capsule = 5 mg, By Mouth, 3 times a day, PRN as needed for pain, 0 Refills, Maintenance, 05/11/22 3:20:00 PM EDT, Capsule, ; Start Date: 05/11/22 Status: Ordered Medication Dispense Status: Completed Total Allowed Fills: 1 Fills Dispensed: 0 ProAir HFA 90 mcg/inh inhalation aerosol 2 puffs, Inhalation, Every 6 hours, PRN Dyspnea, Maintenance, 05/11/22 3:22:00 PM EDT, ; Start Date: 05/11/22 Status: Ordered Medication Dispense Status: Completed Total Allowed Fills: 1 Fills Dispensed: 0 terazosin 10 mg oral capsule 10 mg, 1, capsule, By Mouth, Daily at bedtime, Maintenance, 05/11/22 3:23:00 PM EDT, ; Start Date: 05/11/22 Status: Ordered Medication Dispense Status: Completed Total Allowed Fills: 1 Fills Dispensed: 0 Trelegy Ellipta 100 mcg-62.5 mcg-25 mcg/inh inhalation powder 1 inhalation, Inhalation, Daily, 0 Refills, Maintenance, 12/09/24 2:06:00 PM EST, Powder, Partial fill upon patient request if the prescription is for a schedule II opioid drug. Start Date: 12/09/24 Status: Ordered Medication Dispense Status: Completed Total Allowed Fills: 1 Fills Dispensed: 0 Tylenol Extra Strength 500 mg oral tablet 2 tablet = 1,000 mg, By Mouth, 3 times a day, PRN for fever, 0 Refills, Maintenance, 12/15/24 10:11:00 AM EST, Tablet, Partial fill upon patient request if the prescription is for a schedule II opioid drug. Start Date: 12/15/24 Status: Ordered Medication Dispense Status: Completed Total Allowed Fills: 1 Fills Dispensed: 0 Problem List Condition Confirmation Course Effective Dates Status Health St atus Informant Pericardial effusion, acute Confirmed Active Atrial fibrillation Confirmed Active BPH (benign prostatic hyperplasia) Confirmed Active Left leg DVT Confirmed Active Aortic ectasia Confirmed Active Shortness of breath Confirmed Active COPD with chronic bronchitis Confirmed Active Left knee pain Confirmed Active PE (pulmonary thromboembolism) Confirmed Active Social History Social History Type Response Tobacco Use: former skoker, quit around 15 yrs ago. Sex Sex Representation Male (finding) Hospital Progress note * Emily Mckeon NP: PERFORM Event Display: Progress Note Hospital Authored Date: [id number] Patient: ??KEEGAN CUELLAR ? Age:??80 Years?Sex:??Male?:??1945?LOC:??[facility]?? NOS Electronically Signed on 08/27/25 02:53 PM Emily Mckeon NP Patient Care team information Care Team Personnel Name: Leonor Pryor RN Position: [facility] RN Member Role: Primary Care Nurse Name: Skinny Fischer RN Position: S RN Member Role: Primary Care Nurse Name: Dara Stallworth MD Position: S Physician - Primary Care Member Role: PCP Address: [address] [place] [address] Telecom: Name: Linda Morales RN Position: [facility] RN Member Role: Primary Care Nurse Name: Shira Antunez RN Position: Con RN Member Role: Primary Care Nurse Care Team Related Persons Name: MAE CUELLAR Name: BEN CUELLAR Insurance Providers Guarantor name: KEEGAN CUELLAR [facility] Information #: 1 Payer: [employer] MED[employer] ADV HMO Payer Identifier: Member Number: [id number] Group Number: [id number] Subscriber Identifier: [id number] Relationship to Subscriber: self Coverage Type: Medicare HMO Coverage Verification Date: NA Telecom: NA Address: NA [facility] Plan Information #: 2 Payer: [facility] [employer] Payer Identifier: Member Number: [id number] Group Number: Subscriber Identifier: [id number] Relationship to Subscriber: self Coverage Type: MEDICAID Coverage Verification Date: NA Telecom: NA Address: NA
--- OUTSIDE RECORDS SUMMARY | 2025-09-26 23:59 | XMS_ITS | Continuity of Care Document ---
Author Organization [facility] Address [address] [place] [address]- Care Team Providers Care Death Surveys Coder Name Role Phone Basim GANDHI, Dara Nunez Primary Care Physician Encounter [facility] Date(s): 08/27/25 - 09/26/25 [facility] [address] [place] [id number]- Attending Physician: Lucio Rodriguez Admitting Physician: AdmtrLucio Referring Physician: Admtr ArMadyson Encounter Type: Triage Allergies, Adverse Reactions, Alerts No Known Medication Allergies Immunizations Given and Recorded Vaccine Date Status Refusal Reason pneumococcal 20-valent conjugate vaccine 12/04/23 Recorded SARS-CoV-2(COVID-19)mRNA-LNP vac([id number]) 11/08/23 Recorded influenza virus vaccine, inactivated 09/06/23 Camilo rded influenza virus vaccine, inactivated 10/12/22 Camilo rded influenza virus vaccine, inactivated 08/17/21 Camilo rded influenza virus vaccine, inactivated 10/22/19 Camilo rded influenza virus vaccine, inactivated 07/30/18 Camilo rded influenza virus vaccine, inactivated 10/09/17 Camiol rded influenza virus vaccine, inactivated 09/11/16 Camilo rded influenza virus vaccine, inactivated 09/15/13 Camilo rded [id number] 12y+ bivalent booster vax 08/09/22 Recorded SARS-CoV-2 (COVID-19) mRNA-1273 vaccine 04/05/22 R ecorded SARS-CoV-2 (COVID-19) mRNA BNT-162b2 vac 03/07/21 Recorded SARS-CoV-2 (COVID-19) mRNA BNT-162b2 vac 02/10/21 Recorded zoster vaccine, inactivated 09/16/18 Recorded pneumococcal 13-valent vaccine 09/16/18 Recorded Zoster [...] yrs ago. Sex Sex Representation Male (finding) Patient Care team information Care Team Personnel Name: Leonor Pryor RN Position: [facility] RN Member Role: Primary Care Nurse Name: Skinny Fischer RN Position: S RN Member Role: Primary Care Nurse Name: Dara Stallworth MD Position: [facility] Physician - Primary Care Member Role: PCP Address: [address] [place] [address] Telecom: Name: Linda Morales RN Position: [facility] RN Member Role: Primary Care Nurse Name: Shira Antunez RN Position: [facility] RN Member Role: Primary Care Nurse Care Team Related Persons Name: MAE CUELLAR Name: BEN CUELLAR Insurance Providers Guarantor name: KEEGAN CUELLAR Health Plan Information #: 1 Payer: [facility] MEDICARE ADV HMO Payer Identifier: NA Member Number: [id number] Group Number: [id number] Subscriber Identifier: NA Relationship to Subscriber: self Coverage Type: Medicare HMO Coverage Verification Date: NA Telecom: NA Address: NA Health Plan Information #: 2 Payer: [facility] C[employer]ER SERVICE Payer Identifier: NA Member Number: [id number] Group Number: [id number] Subscriber Identifier: NA Relationship to Subscriber: self Coverage Type: MEDICAID Coverage Verification Date: NA Telecom: NA Address: NA
--- NOTE | 2025-09-30 11:42 | MHC.OFFVIS ---
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 He is wheelchair bound and activity is very limited. [facility] and is accompanied by a staff member today. Overall patient is a poor historian and most information received from staff member as well as nurse via telephone during visit. Since the last visit, patient has been transitioned to hospice care per nurse due to severe vascular disease, admitted 09/22/2025 to the care of Dr. Mcqueen through [facility]. 04/[address] revealed multiple spiculated nodules as well as severe emphysematous changes. PET scan 05/2025 performed which demonstrated mild nonspecific FDG activity throughout the lungs consistent with postinfectious/inflammatory etiologies however malignancy could not be ruled out. We discussed the potential for these findings to be related to an underlying malignancy however patient declined any further evaluation for this such as biopsy/thoracic referral, agreed to repeat chest CT and presents to review results today. Of note, patient reports ongoing cough occasionally productive, unknown mucus color, which has worsened over the last few days, especially at night. Patient unable to state if he has experienced any chest congestion, difficulty with expectorating, chills, increased dyspnea or chest tightness. Denies fevers. Endorses multiple sick contacts in penitentiary and staff member states that patient has been c/o cough. [facility] Medical History (Updated 06/26/25 @ 13:50 by Annie Peterson PA-C) Word finding difficulty Above knee amputation of right lower extremity Paroxysmal atrial fibrillation Attention deficit hyperactivity disorder (ADHD) Vitamin D deficiency Hypotestosteronism Erectile dysfunction Phantom limb pain Benign prostatic hyperplasia Lumbar degenerative disc disease COPD (chronic obstructive pulmonary disease) Dyslipidemia Benign essential hypertension Unilateral primary osteoarthritis, left knee Osteosarcoma of bone Knee pain, left Surgical History History of amputation History of hernia surgery Family History Father No problems noted. Mother No problems noted. Social History Household Members: None Housing: Apartment Do you presently have visiting nurse or other home services: Yes ([employer]) Alcohol intake: never Patient Tobacco Use Status: Former Tobacco user Tobacco use type: Cigarette Cigarettes Per Day: 40 e-Cigarette/Vaping Use: Never Used Second Hand Smoke Exposure: Yes Advance Directives Date on File: 03/29/22 service: No Current occupational status: retired Current occupational exposures/hazards: No Cognitive needs: Yes (wheelchair/crotches) Hearing needs: No Vision needs: No Review of Systems Const Unobtainable due to mental condition ENT Reports Normal hearing present Neuro Reports Normal hearing present Physical Exam Vital Signs: Last Vital Signs Pulse 99 09/30/25 11:43 BP 92/48 L 09/30/25 11:43 Pulse Ox 95 09/30/25 11:43 Oxygen Delivery Method Room Air 09/30/25 11:43 Const General: cooperative, comfortable, no acute distress and alert Limitations: wheelchair HEENT Head: Yes normal to inspection, Yes normocephalic and Yes atraumatic Ears: hearing grossly normal bilaterally and external ears normal Eyes General: appearance normal, both eyes and all related structures Eyelids: Yes eyelids normal Sclerae: sclerae normal EOM: EOMs intact bilaterally Neck Neck: Yes normal visual inspection and Yes no lymphadenopathy Lymphatic: no lymphadenopathy noted Chest Chest palpation & inspection: normal inspection of the chest Resp Other: inspiratory crackles RLL Effort & Inspection: normal respiratory effort, able to speak in complete sentences, no audible wheezes, no cough, no stridor, not tachypneic, no tripod positioning and no use of accessory muscles Auscultation: diminished lung sounds Cardio Jugular venous distension: no JVD Rate: regular rate Rhythm: regular rhythm Skin Other: warm, dry General skin exam: no rashes or lesions noted Neuro Cranial nerves: Yes Normal hearing present Cognition (Neuro): normal cognition Extrem Other: AKA on right Psych Appearance: grossly normal Speech and movement: Normal speech and movement present and Clear speech present Affect: normal affect Attitude: cooperative Insight: Limited insight present (Psych) Judgement: Limited judgement present (Psych) Results Reviewed Results Reviewed: [address] [address] [address] Scan Report Signed Patient: Alexis Wheeler MR#: [id number] : 1945 Acct:[id number] Age/Sex: 80 / M ADM Date: 07/31/25 Loc: HO.CT Attending Dr: Jacqueline Bailey TUMBLING INSTRUCTOR Ordering Physician: Jacqueline Bailey NP Date of Service: 07/31/25 Procedure(s): CT chest wo IV con Accession Number(s): [id number] cc: Jefferson Cross MD; Jacqueline Bailey NP~ Report Number: [id number]: Total DLP = 140.40 mGy-cm Reason for Exam: R91.1 - Solitary pulmonary nodule CLINICAL HISTORY: R91.1 - Solitary pulmonary nodule CT chest without contrast Comparison: 04/13/2025 Findings: Stable emphysema and chronic interstitial fibrosis. Stable bilateral apical pleural scarring. Multifocal areas of scarring are also stable. Stable bilateral lower lobe linear scar. Stable scattered small bilateral nodules. Large right bulla is unchanged. No acute infiltrates are identified. No significant mediastinal adenopathy. No significant free pleural fluid. No significant focal bony abnormalities. Stable hepatic cysts. Impression: Stable chronic findings outlined above. No acute processes. This document has been electronically signed by: Kalia Rodriguez MD on 08/02/2025 19:07:13 Dictated By: Kalia Rodriguez MD Signed By: <Electronically signed by Kalia Rodriguez MD in OV> 08/02/251907 DD/ 06 TD/TT: 08/02/251906 Customer Support Analyst: Assessment & Plan Assessment & Plan (1) COPD (chronic obstructive pulmonary disease): Code(s): J44.9 - Chronic obstructive pulmonary disease, unspecified Category: Medical Qualifiers: COPD type: unspecified COPD Qualified Code(s): J44.9 - Chronic obstructive pulmonary disease, unspecified (2) Cough: Code(s): R05.9 - Cough, unspecified Category: Medical (3) Pulmonary nodule 1 cm or greater in diameter: Code(s): R91.1 - Solitary pulmonary nodule Category: Medical Plan At this time, patient reports worsening cough with known sick contacts and h/o severe COPD, would treat for bronchopnuemonia with Doxycycline. Since patient under hospice care, this information was relayed to Dr. Mcqueen's nurse, Marian, as any medication would be prescribed by Dr. Mcqueen. Also reviewed chest CT with both pen[facility]iary nurse as well as Marian and patient. Findings from 07/2025 demonstrated near resolution of spiculated LLL nodule, consistent with more infectious/inflammatory process. Currently, patient under hospice care and further evaluation will be under their guidance. All questions were answered and patient is in agreement of plan. Will follow up PRN. Coding Level of Care Code Est Pt Level 4 (48595) Complex visit Add On G2211 Diagnoses Chronic obstructive pulmonary disease, unspecified COPD type J44.9 COPD type: unspecified COPD Cough R05.9 Pulmonary nodule 1 cm or greater in diameter R91.1
[2025-09-30 11:43] VITALS: BP 92/48; PULSE 99; O2SAT 95
--- OUTSIDE RECORDS SUMMARY | 2025-09-30 22:29 | XMS_ITS | Encounter Summary ---
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 Not on carlos e 12/04/2024 Are you concerned about learning? Not on file 12/04/2024 No 12/04/2024 No 12/04/2024 Food Answer Date Recorded Within the past 6 months we worried whether our food would run out before we got money to buy more. Never True 09/19/2025 Within the past 6 months the food we bought just didn't last and we didn't have enough money to get more. Never True Residential Stability Answer Date Recor ded What is your housing situation today? I am stayi ng with others 09/19/2025 How many times have you move d in the past 12 months? Unable to assess 09/19/2025 Paying for Meds Answer Date Recorded Do you have trouble paying for medicines? Unable to assess 09/19/2025 Paying Utility Bills Answer Date Record ed Do you have trouble paying y our heating or electricity bill? Unable to assess 09/19/2025 Transportation Answer Date Recorded Has the lack of transportati on kept you from medical appointments or from getting medications? No 09/19/2025 Digital Access Answer Date Recorded No 09/19/2025 No 09/19/2025 Do you have reliable internet access at home? Un able to assess 09/19/2025 Do you have a device (e.g., phone, tablet, computer) with a working camera? Unable to assess 09/19/2025 Intimate Partner Violence Answer Date R ecorded Are you denied basic needs s uch as food, clothing, or medical care? No 09/19/2025 In the past 12 months have y ou been in a relationship with a person who hurts, threatens, or tries to control you? No 09/19/2025 Are you denied basic needs s uch as food, clothing, or medical care? No 09/19/2025 In the past 12 months have y ou been in a relationship with a person who hurts, threatens, or tries to control you? No 09/19/2025 Sex and Gender Information Value Date Recorded Sex Assigned at Male 12/04/2024 10:25 AM EST Legal Sex Male 9:58 AM EST Gender Identity Male 12/04/2024 10:25 AM EST Sexual Orientation Don't know 12/04/2024 10 :58 AM EST documented as of this encounter Functional Status * Calculated C-SSRS Risk Score (Lifetime/Recent) Answer Date of Assessment Author No Risk Indicated 09/19/2025 4:17 PM Tata Tsai, GABBY * [place] Suicide Severity Rating Scale (Screener/Recent Self-Report) Question Answer Date of Assessment Author 1. Wish to be (Past 1 Month) No 025 4:17 PM Tata Tsai, GABBY 2. Non-Specific Active Suici mary Thoughts (Past 1 Month) No 09/19/2025 4:17 PM Tata Tsai, GABBY 6. Suicidal Behavior (Lifetime) No 4:17 PM Tata Tsai, RN documented as of this encounter Plan of Treatment Not on file documented as of this encounter Visit Diagnoses Not on filedocumented in this encounter Additional Health Concerns Infection Onset Date Last Indicated Resolved Time Resp-Risk 09/19/2025 09/19/2025 09/30/2025 7:06 PM EST documented as of this encounter Care Teams Riveting Machine Operator Relationship Specialty Start Date End Date Jefferson Cross MD [address] [place] [address] [place] [id number] PCP - General Internal Medicine 12/04/24 Pcp, Unknown 12/04/24 documented as of this encounter Additional Source Comments The information contained in this document represents components of the legal health record. It is not the complete legal health record.[facility]
--- OUTSIDE RECORDS SUMMARY | 2025-09-30 22:29 | XMS_ITS | Clinical Summary ---
Author Organization [facility] Address [address] [place] [phone] Phone Care Team Providers Care Cyber Security Architect Name Role Phone Jefferson Cross MD Primary Care Provider [phone] Pcp, Unknown Unavailable Unavailable Allergies No known active allergies Medications ELIQUIS 5 mg tablet Take 1 tablet by mouth 2 (two) times a day. 07/09/20 25 Active acetaminophen (TYLENOL EXTRA STRENGTH) 500 MG tablet Take 1,000 mg by mouth 3 (three) times a day. 12/15/19 25 Active polyethylene glycol (MIRALAX) 17 gram/dose powder Take 17 g by mouth daily. 06/23/20 25 Active fluticasone-um eclidin-vilant er (TRELEGY ELLIPTA) 100-62.5-25 mcg inhalation powder Inhale 1 puff into the lungs daily. 12/09/19 25 Active gabapentin (NEURONTIN) 300 MG capsule Take 1 capsule by mouth 2 (two) times a day. 07/13/20 25 Active oxyCODONE 5 MG immediate release tablet Take 5 mg by mouth 3 (three) times a day. 06/16/20 25 Active terazosin (HYTRIN) 10 MG capsule Take 10 mg by mouth nightly at bedtime. 07/03/20 25 Active bacitracin 500 unit/gram ointment Apply 1 Application topically 2 (two) times a day as needed (minor cuts/abrasions) . 12/15/19 25 Active loperamide (IMODIUM A-D) 2 mg tablet Take 4 mg by mouth every 12 (twelve) hours as needed for diarrhea. 12/09/19 25 Active albuterol 90 mcg/actuation inhaler Inhale 2 puffs into the lungs every 6 (six) hours as needed for wheezing. Active nystatin (NYSTOP) powder Apply 1 Application topically 2 (two) times a day as needed (groin rash). Active guaiFENesin (ROBITUSSIN) 100 mg/5 mL syrup Take 200 mg by mouth every 6 (six) hours as needed for cough. Active magnesium hydroxide (MOM) 400 mg/5 mL Susp Take 2,400 mg by mouth daily as needed (Day 3, no BM in AM). Active aspirin 81 mg chewable tablet Take 1 tablet (81 mg total) by mouth daily. 30 tablet 09/22/20 25 Active atorvastatin (LIPITOR) 80 MG tablet Take 1 tablet (80 mg total) by mouth every evening. 30 tablet 09/21/20 25 Active aspirin 81 mg chewable tablet Take 1 tablet (81 mg total) by mouth daily. 30 tablet 09/22/20 25 025 Discontinued atorvastatin (LIPITOR) 80 MG tablet Take 1 tablet (80 mg total) by mouth every evening. 30 tablet 09/21/20 25 025 Discontinued Active Problems Problem Noted Date Diagnosed Date Delirium 09/19/2025 Assessment & Plan (09/20/2025 11:13 AM EST): Initially presented to the ED with concerns of altered mental status and delirium complicated by a fall. -Per nursing facility at this time, patient appears to be at his neurological baseline, no longer to be confused as he was earlier in the day. -CT scan of the head did reveal incidental finding of occipital stroke with further workup pending; no acute bleed -Unclear etiology of patient's confusion and hallucinations, patient is on multiple medications including gabapentin and oxycodone for chronic phantom limb pain, states that his oxycodone has been helping. It is however prescribed scheduled as opposed to as needed. -Infectious workup thus far negative, CXR only notable for severe emphysematous changes with flattened diaphragm, Flu/Covid negative Delirium precautions maintained Resume home medications, changed oxycodone to every 8 hours as needed for pain as opposed to scheduled Assessment & Plan (09/19/2025 9:35 PM EST): Initially presented to the ED with concerns of altered mental status and delirium complicated by a fall. -Per nursing facility at this time, patient appears to be at his neurological baseline, no longer to be confused as he was earlier in the day. -CT scan of the head did reveal incidental finding of occipital stroke with further workup pending -Unclear etiology of patient's confusion and hallucinations, patient is on multiple medications including gabapentin and oxycodone for chronic phantom limb pain, states that his oxycodone has been helping. It is however prescribed scheduled as opposed to as needed. -Infectious workup thus far negative, CXR my interpretation increased interstitial markings bilaterally, emphysematous changes with flattened diaphragm. No acute infiltrate at this time. Plan: Continue close clinical monitoring COVID-19, influenza testing currently pending Delirium precautions Resume home medications, change oxycodone to every 8 hours as needed for pain as opposed to scheduled. Can consider EEG if persistent confusion. Further workup for stroke as below. 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 CT scan of the head was performed due to fall revealing no acute hemorrhage however did reveal Right occipital infarct, subacute to chronic in appearance, new since 12/04/2024. -Teleneurology was consulted, recommended MRI of the brain, TTE and further workup, continue Eliquis as prescribed. TTE pending Continue Eliquis Atorvastatin 80 mg at bedtime initiated Continue home BP medications ESR, CRP, TSH, lipid panel, A1c, B12 and folate all unremarkable LDL 53 Pt declines MRI, referencing severe anxiety and claustrophobia; prefers conservative management and willing to add asa/atorva Telemetry monitoring for another 24 hours PT/OT today, anticipate DC back to detention tomorrow after echo (too difficult to arrange outpatient study for this patient) Assessment & Plan (09/19/2025 9:35 PM EST): - Unclear etiology or time of occurrence. CT scan of the head was performed due to fall revealing no acute hemorrhage however did reveal Right occipital infarct, subacute to chronic in appearance, new since 12/04/2024. -Teleneurology was consulted, recommended MRI of the brain, TTE and further workup, continue Eliquis as prescribed. Plan: TTE ordered and pending Continue Eliquis at this time Initiate atorvastatin 80 mg at bedtime Continue home BP medications Check ESR, CRP, TSH, lipid panel, A1c, B12 and folate PT/OT consultations Telemetry monitoring. Encounters Date Type Department Care Team Description 09/19/2025 4:00 PM EST - 09/21/2025 12:45 PM [facility] Hospital Encounter [facility] [address] [place] [address] Robert Valente MD Grachev, Maksim, DO Russo, Margaret A, MD Discharge Disposition: [place] [facility] [place]25 Procedure Pass [facility] Echo Lab [address] [place] [address] 09/19/2025 Procedure Pass [facility], Ct Scan [address] [address] 09/19/2025 Procedure Pass [address] [address] from Last 3 Months Immunizations Immunization Administration Dates Next Due Influenza High-Dose Trivalent Preservative Free IM 09/21/2025 Social History Tobacco Use Types Packs/Day Years [...] Sign Reading Time Taken Comments Blood Pressure 114/62 09/21/2025 9:00 AM EST Pulse 80 09/21/2025 9:00 AM EST Temperature 36 C (96.8 F) 09/21/2025 9:00 AM EST Respiratory Rate 18 09/21/2025 9:00 AM EST Oxygen Saturation 92% 09/21/2025 9:00 AM EST Inhaled Oxygen Concentration - - Weight 56.9 kg (125 lb 7.1 oz) 09/21/2025 6:28 A M EST Height 165.1 cm (5' 5 ) 09/20/2025 4:53 AM EST Body Mass Index 20.87 09/20/2025 4:53 AM EST Plan of Treatment Health Maintenance Due Date Last Done Comments Adult Td,Tdap Booster 1945 DEPRESSION SCREENING 1955 PNEUMOCOCCAL VACCINES (50+ years) (1 of 2 - PCV) 1962 ZOSTER VACCINES (1 of 2) 1993 RSV VACCINE (1 - 1-dose 75+ series) 2018 COVID-19 VACCINE (2024-2 6 season) 2025 CREATININE LEVEL 09/20/2026 09/20/2025, 09/19/2025 INFLUENZA VACCINE Completed 09/21/2025 HEPATITIS A VACCINES Aged Out No long [...] this topic Medical Devices Not on file Procedures Procedure Name Priority Date/Time Associated Diagnosis Comments TTE COMPREHENSIVE Routine 09/21/2025 8:1 6 AM EST Cerebral infarction, unspecified mechanism CBC AND DIFFERENTIAL Routine 09/20/2025 8:01 AM EST HEMOGLOBIN A1C Routine 09/20/2025 8:01 AM EST SEDIMENTATION RATE (ESR) Routine 09/20/2025 8:01 AM EST C-REACTIVE PROTEIN (CRP), HIGH SENSITIVITY Routine 09/20/2025 8:01 AM EST LIPID PANEL Routine 09/20/2025 8:01 AM EST THYROID STIMULATING HORMONE (TSH) Routine 09/20/2025 8:01 AM EST PTT Routine 09/20/2025 8:01 AM EST PT-INR Routine 09/20/2025 8:01 AM EST COMPREHENSIVE METABOLIC PANEL (CMP) Routine 09/20/2025 8:01 AM EST CBC AND DIFFERENTIAL Routine 09/20/2025 8:01 AM EST PHOSPHORUS Routine 09/20/2025 8:01 AM EST MAGNESIUM Routine 09/20/2025 8:01 AM EST XR CHEST PORTABLE STAT 09/19/2025 11: 16 PM EST SARS-COV-2, INFLUENZA A/B, PCR ROXANNE STAT 09/19/2025 11:09 PM EST COVID PANDEMIC RESPIRATORY VIRAL ORDER (PRO) STAT 09/19/2025 11:09 PM EST XR CHEST PORTABLE Routine 09/19/2025 9:0 3 PM EST LAB ADD-ON STAT 09/19/2025 8:43 PM EST TOXICOLOGY SCREEN, URINE STAT 09/19/2025 6:48 PM EST URINALYSIS WITH REFLEX TO URINE CULTURE STAT 09/19/2025 6:48 PM EST TROPONIN STAT 09/19/2025 6:11 PM EST HEMOGLOBIN A1C STAT 09/19/2025 4:47 PM EST VITAMIN B12 STAT 09/19/2025 4:47 PM EST TSH WITH REFLEX STAT 09/19/2025 4:47 PM EST CBC AND DIFFERENTIAL STAT 09/19/2025 4:47 PM EST ETHANOL, BLOOD STAT 09/19/2025 4:47 PM EST TROPONIN STAT 09/19/2025 4:47 PM EST VENOUS BLOOD GAS STAT 09/19/2025 4:47 PM EST LACTATE (BLOOD GAS) STAT 09/19/2025 4 :47 PM EST PT-INR STAT 09/19/2025 4:47 PM EST LIPASE STAT 09/19/2025 4:47 PM EST MAGNESIUM STAT 09/19/2025 4:47 PM EST LFTS (HEPATIC PANEL) STAT 09/19/2025 4:47 PM EST BASIC METABOLIC PANEL (BMP) STAT 09/19/2025 4:47 PM EST CBC AND DIFFERENTIAL STAT 09/19/2025 4:47 PM EST ECG 12-LEAD STAT 09/19/2025 4:[address] CERVICAL SPINE WITHOUT CONTRAST Routine 09/19/2025 4:[address] HEAD WITHOUT CONTRAST Routine 09/19/2025 4:08 PM EST from Last 3 Months Results * TTE COMPREHENSIVE (09/21/2025 8:16 AM EST) Body Surface Area 1.62 m2 Height 165 cm Weight 57 kg Systolic BP 121 mmHg Diastolic BP 58 mmHg Aortic Valve Mean Gradient 21 mmHg Aortic Valve Time Velocity Integral 620.0 mm Aortic Valve Peak Velocity 3.1 m/s Aortic Valve Peak Gradient 37 mmHg Aortic Sinus Diameter 38 <40 mm Inferior Vena Cava Diameter 19 <21 mm Interventricular Septum Thickness 9 6 - 11 mm Left Ventricle Internal Diameter End Diastole 43 42 - 58 mm Left Ventricle Internal Diameter End Systole 29 <40 mm Left Ventricular Outflow Tract Diameter 17.0 mm LVOT VTI REST 133.0 mm Left Ventricular Outflow Tract Velocity 0.7 m/s Left Ventricular Outflow Tract Gradient at Rest 2 mmHg Left Ventricular Posterior Wall Thickness 11 6 - 11 mm Left Ventricle Ea Lateral Wave Speed 5.2 cm/s Left Ventricle Ea Septal Wave Speed 7.1 cm/s Mitral Valve Deceleration Time 673 ms Ejection Fraction 62 50 - 75 Percent Left Atrium Dimension Anterior-Posterior 41 15 - 40 mm Mitral Valve Area Pressure Half Time Eq 1,630.0 mm/s2 MV stenosis pressure 1/2 time 193 ms Left Ventricle A Wave Speed 149.0 cm/s Left Ventricle E Wave Speed 89.2 cm/s Mitral Valve Mean Gradient 4 mmHg Mitral Valve Peak Gradient 11 mmHg Mitral Valve Area Continuity Equation 0.60 cm2 Tricuspid Valve Peak Velocity 3.4 m/s Raw LV EF% 55 % MV E/E' Tissue Velocity Lateral 17.15 Relative Wall Thickness 0.51 0.22 - 0.42 Left Ventricle indexed to BSA 88.0 g/m2 MV E/A ratio 0.6 MV E/e' septal 12.56 Left Ventricle E/e' Average 14.9 Aortic Valve Prosthetic Peak Gradient 37 mmHg Aortic Valve Prosthetic Mean Gradient 21 mmHg Aortic Valve Sinus Index by BSA 23 mm/m2 Aorta Sinus Index by Height 2.30 cm/m Aorta Sinus CSA index by Height 6.87 cm2/m Mitral Valve Prosthetic Peak Gradient 11 mmHg Mitral Valve Prosthetic Mean Gradient 4 mmHg MV valve area p 1/2 method 1.1 cm2 Mitral Valve Area DT Method 56.0 cm2 Right Ventricle to Right Atrium Pressure Gradient 46 mmHg Right Ventricle Peak Systolic Pressure (Assuming RAP 10) 56 mmHg MGB CV ECHO TV RVSP (ASSUMING RAP OF 5) 51 mmHg RVSP (Exclusive of RAP) 46 mmHg MGB CV AV DIMENSIONLESS INDEX (PEAK) - STRESS ECHO DOBUT - REST 0.23 Aortic Sinus Index 23 mm Aortic Valve Sinus Index 1 23 20 - 32 mm Echo E/Ea 12.56 Anatomical Region Laterality Modality Heart Ultrasound Narrative 09/21/2025 10:01 AM EST Images from the original result were not included. Normal LV size and function EF 60 to 65%. Moderate pulmonary hypertension estimated around 50 mmHg. There is evidence of mild mitral stenosis mean gradient 4 mmHg. There is moderate aortic stenosis peak velocity 3.1 m/s mean gradient 21 mmHg. Trace aortic insufficiency. No prior study for comparison. Left Ventricle The left ventricle is normal in size. There is normal wall thickness. There is normal left ventricular systolic function. The LV ejection fraction is 62% (calculated via the single dimension method). There is abnormal diastolic function. The e' septal wave velocity is 7.1 cm/s. The e' lateral wave velocity is 5.2 cm/s. The average E/e' ratio is 14.9. Right Ventricle The RV is suboptimally visualized. Right ventricular systolic function could not be assessed. Left Atrium The left atrium is dilated. The left atrial anterior-posterior dimension is 41 mm. The pulmonary veins were suboptimally visualized. Right Atrium The right atrium is suboptimally visualized. The IVC is normal in size with normal inspiratory collapse. The IVC diameter is 19 mm. Mitral Valve There is severe thickening of both mitral leaflets. There is mild to moderate mitral stenosis. The mitral valve peak and mean gradients are 11 mmHg and 4 mmHg respectively. There is trace mitral regurgitation. Tricuspid Valve The tricuspid valve is suboptimally visualized. Aortic Valve The aortic valve is tricuspid. Multiple leaflets are severely thickened. There is aortic stenosis. The peak and mean aortic valve gradients are 37 mmHg and 21 mmHg respectively. There is trace aortic regurgitation. The aorta is not well visualized. Pulmonic Valve The pulmonic valve is suboptimally visualized. Pericardium There is no pericardial effusion. General Findings The study was technically difficult (4). Study quality explanation: body habitus and no apical window. Technique(s) used in the evaluation: Color flow Doppler and Spectral Doppler. There was frequent ventricular ectopy throughout the examination. The predominant rhythm during the study was sinus. Comparison Findings There are no prior studies for comparison. IAS/IVS The interatrial septum appears normal. us Jim Grachev DO CV ECHO ORDERABLES Final Resul t * C-Reactive Protein (CRP), High Sensitivity (09/20/2025 8:01 AM EST) Pathologist [facility] CRP, High Sensitivity 49.0 See comment mg/L 09/20/2025 9:13 AM [facility] Comment: Cardiovascular Risk: Low: <1.0 mg/L Average: 1.0-3.0 mg/L High: >3.0 mg/L Acute Inflammation: >10.0 mg/L Persistent elevations may represent non cardiovascular inflammation. Blood (Blood) Venipuncture / Unknown 09/20/2025 8:01 AM EST 09/20/2025 8:05 AM EST us Jim Mahajan DO LAB BLOOD BKR ORDERABLES Final Result [address] [id number] * (ABNORMAL) Comprehensive Metabolic Panel (CMP) (09/20/2025 8:01 AM EST) Pathologist [facility] Sodium 136 136 - 145 mmol/L 09/20/2025 8:52 AM [facility] Potassium 4.2 3.4 - 5.1 mmol/L 09/20/2025 8:52 AM [facility] Chloride 101 98 - 107 mmol/L 09/20/2025 8:52 AM [facility] CO2 26 20 - 31 mmol/L 09/20/2025 8:52 AM [facility] Anion Gap 9 3 - 17 mmol/L 09/20/2025 8:52 AM [facility] BUN 12 6 - 23 mg/dL 09/20/2025 8:52 AM [facility] Creatinine 0.60 0.60 - 1.30 mg/dL 09/20/2025 8:52 AM [facility] eGFR 96 >59 mL/min/1.7 3m2 09/20/2025 8:52 AM [facility] Comment:Estimated glomerular filtration rate calculated using the CKD-EPI refit equation. Glucose 89 70 - 99 mg/dL 09/20/2025 8:52 AM [facility] Calcium 9.5 8.5 - 10.5 mg/dL 09/20/2025 8:52 AM [facility] AST 11 <40 U/L 09/20/2025 8:52 AM [facility] ALT <5 <50 U/L 09/20/2025 8:52 AM [facility] Alkaline Phosphatase 75 40 - 130 U/L 09/20/2025 8:52 AM [facility] Bilirubin, Total 0.5 0.0 - 1.2 mg/dL 09/20/2025 8:52 AM [facility] Total Protein 6.8 6.4 - 8.3 g/dL 09/20/2025 8:52 AM [facility] Albumin 3.2(L) 3.5 - 5.2 g/dL 09/20/2025 8:52 AM [facility] Globulin 3.6 1.9 - 4.1 g/dL 09/20/2025 8:52 AM [facility] Blood (Blood) Venipuncture / Unknown 09/20/2025 8:01 AM EST 09/20/2025 8:05 AM EST us Jim Mahajan DO LAB BLOOD BKR ORDERABLES Final Result [facility] [address] [place] [address] * (ABNORMAL) CBC and Differential (09/20/2025 8:01 AM EST) Only the most recent of2 resultswithin the time period is included. WBC 6.76 4.00 - 11.00 K/uL 09/20/2025 8:11 AM [facility] RBC 3.71(L) 4.50 - 5.90 M/uL 09/20/2025 8:11 AM [facility] Hemoglobin 11.5(L) 13.5 - 17.5 g/dL 09/20/2025 8:11 AM [facility] Hematocrit 35.8(L) 41.0 - 53.0 % 09/20/2025 8:11 AM [facility] MCV 96.5 80.0 - 100.0 fL 09/20/2025 8:11 AM [facility] MCH 31.0 27.0 - 31.0 pg 09/20/2025 8:11 AM [facility] MCHC 32.1 32.0 - 36.0 g/dL 09/20/2025 8:11 AM [facility] MPV 9.1 8.4 - 12.0 fL 09/20/2025 8:11 AM [facility] RDW-CV 12.6 11.5 - 14.5 % 09/20/2025 8:11 AM [facility] PLT 192 150 - 450 K/uL 09/20/2025 8:11 AM [facility] Neutrophils 66.5 % 09/20/2025 8:11 AM [facility] Lymphocytes 15.1 % 09/20/2025 8:11 AM [facility] Monocytes 12.4 % 09/20/2025 8:11 AM [facility] Eosinophils 4.9 % 09/20/2025 8:11 AM [facility] Basophils 0.7 % 09/20/2025 8:11 AM [facility] Imm Grans 0.4 % 09/20/2025 8:11 AM [facility] NRBC 0.0 <=0.0 /100 WBCs 09/20/2025 8:11 AM [facility] Absolute Neutrophils 4.49 1.92 - 7.60 K/uL 09/20/2025 8:11 AM [facility] Absolute Lymphocytes 1.02 0.72 - 4.10 K/uL 09/20/2025 8:11 AM [facility] Absolute Monocytes 0.84 0.16 - 1.10 K/uL 09/20/2025 8:11 AM [facility] Absolute Eosinophils 0.33 0.00 - 0.50 K/uL 09/20/2025 8:11 AM [facility] Absolute Basophils 0.05 0.00 - 0.15 K/uL 09/20/2025 8:11 AM [facility] Absolute Imm Grans 0.03 0.00 - 0.09 K/uL 09/20/2025 8:11 AM [facility] Absolute NRBC 0.00 <=0.00 K cells/uL 09/20/2025 8:11 AM [facility] Absolute Neutrophils 4.49 1.92 - 7.60 K/uL 09/20/2025 8:11 AM [facility] Comment:Automated cell count . Manual ANC may differ if performed. Diff Type Auto 09/20/2025 8:11 AM [facility] Blood (Blood) Venipuncture / Unknown 09/20/2025 8:01 AM EST 09/20/2025 8:05 AM EST us Jim Kathy DO LAB BLOOD BKR ORDERABLES Final Result Performing Organization Address [facility] Co de Phone Number [address] [address] * PTT (09/20/2025 8:01 AM EST) PTT 31.3 24.0 - 37.5 sec 09/20/2025 8:21 AM [facility] Comment:See MAR for therapeu tic range. Emicizumab (Hemlibra) treatment can result in falsely lowered aPTT test results. Blood (Blood) Venipuncture / Unknown 09/20/2025 8:01 AM EST 09/20/2025 8:05 AM EST us Jim Chavez DO LAB BLOOD BKR ORDERABLES Final Result Performing Organization Address City/[facility]/ZIP Co de Phone Number [address] [address] * (ABNORMAL) Erythrocyte Sedimentation Rate (ESR) (09/20/2025 8:01 AM EST) ESR 65(H) 0 - 20 mm/h 09/20/2025 8:18 AM [facility] Blood (Blood) Venipuncture / Unknown 09/20/2025 8:01 AM EST 09/20/2025 8:05 AM EST us Jim Kathy DO LAB BLOOD BKR ORDERABLES Final Result Performing Organization Address City/[facility]/ZIP Co de Phone Number [address] [address] * (ABNORMAL) PT-INR (09/20/2025 8:01 AM EST) Only the most recent of2 resultswithin the time period is included. PT 17.5(H) 10.0 - 13.0 sec 09/20/2025 8:21 AM [facility] INR 1.4(H) 0.9 - 1.1 09/20/2025 8:21 AM [facility] Comment:Therapeutic Range 2. 0 - 3.5 Blood (Blood) Venipuncture / Unknown 09/20/2025 8:01 AM EST 09/20/2025 8:05 AM EST [facility] Final Result Performing Organization Address [facility]/ZIP Co de Phone Number [address] [address] * Thyroid Stimulating Hormone (TSH) (09/20/2025 8:01 AM EST) TSH 0.88 0.40 - 7.50 uIU/mL 09/20/2025 8:42 AM [facility] Blood (Blood) Venipuncture / Unknown 09/20/2025 8:01 AM EST 09/20/2025 8:05 AM EST Jim EricOwingo DO LAB BLOOD BKR ORDERABLES Final Result Performing Organization Address [facility]/ZIP Co de Phone Number [address] [address] * Phosphorus (09/20/2025 8:01 AM EST) Phosphorus 3.6 2.5 - 4.5 mg/dL 09/20/2025 8:42 AM [facility] Blood (Blood) Venipuncture / Unknown 09/20/2025 8:01 AM EST 09/20/2025 8:05 AM EST [facility] LAB BLOOD BKR ORDERABLES Final Result Performing Organization Address [facility] Co de Phone Number [address] [address] * Magnesium (09/20/2025 8:01 AM EST) Only the most recent of2 resultswithin the time period is included. Magnesium 2.0 1.7 - 2.6 mg/dL 09/20/2025 8:42 AM [facility] Blood (Blood) Venipuncture / Unknown 09/20/2025 8:01 AM EST 09/20/2025 8:05 AM EST [facility] LAB BLOOD BKR ORDERABLES Final Result Performing Organization Address [facility] de Phone Number [address] [address] * Hemoglobin A1c (09/20/2025 8:01 AM EST) Only the most recent of2 resultswithin the time period is included. Hemoglobin A1c 5.5 4.3 - 5.6 % 09/20/2025 10:26 AM [facility] Calculated Mean Blood Glucose 111 mg/dL 09/20/2025 10:26 AM [facility] Comment:There is no establis hed normal range for the Estimated Average Glucose (EAG). However, a HbA1c of 5.6% (upper limit of normal) represents an EAG of 114 mg/dL. The diagnostic HbA1c level for diabetes is greater than or equal to 6.5%, which represents an EAG greater than or equal to 140 mg/dL. Blood (Blood) Venipuncture / Unknown 09/20/2025 8:01 AM EST 09/20/2025 8:05 AM EST us Jim Mahajan DO LAB BLOOD BKR ORDERABLES Final Result Performing Organization Address [facility]/ZIP Co de Phone Number [address] [address] * Lipid Panel (09/20/2025 8:01 AM EST) Cholesterol 134 <200 mg/dL 09/20/2025 8:42 AM [facility] HDL 58 >=40 mg/dL 09/20/2025 8:42 AM [facility] Calculated LDL 63 <130 mg/dL 09/20/2025 8:42 AM [facility] Comment:LDL is calculated us ing the Rosario-NIH equation (DEBRA Cardiol. 2019March 12;5(5):540-548). Non-HDL Cholesterol 76 mg/dL 09/20/2025 8:42 AM [facility] Comment:Guidelines suggest a non-HDL cholesterol goal 30 mg/dL higher than the patient-specific LDL cholesterol goal. Cardiac Risk Ratio 2.3 0.0 - 5.0 2024 8:42 AM [facility] Triglycerides 59 <=150 mg/dL 09/20/2025 8:42 AM [facility] Blood (Blood) Venipuncture / Unknown 09/20/2025 8:01 AM EST 09/20/2025 8:05 AM EST us Jim Mahajan DO LAB BLOOD BKR ORDERABLES Final Result Performing Organization Address City/[facility]/ZIP Co de Phone Number [address] [address] * XR Chest Portable (09/19/2025 11:16 PM EST) Anatomical Region Laterality Modality Chest Computed Radiogr aphy 09/20/2025 12:5 9 AM EST Impressions 09/20/2025 1:05 AM EST No definite pneumothorax. Extensive emphysema. Narrative 09/20/2025 1:05 AM EST XR CHEST PORTABLE Referring clinician's provided indication for this examination in [facility]: Pneumothorax COMPARISON: XR CHEST PORTABLE 20:56:00.000 FINDINGS: Suboptimal assessment on portable radiograph. Devices/Tubes/Lines: None. Lungs: The peripheral lucency seen on the prior radiograph is tailored to be artifactual as lung markings are seen within the lucency. Redemonstrated are extensive background emphysema with bilateral upper lobe atelectasis/scarring. Pleura: No large pleural effusions. No definite pneumothorax. Heart/Mediastinum: Normal heart size. Bones/Soft Tissues: Multilevel degenerative changes. Procedure Note Frida Mejía MBBS - 09/20/2025 XR CHEST PORTABLE Referring clinician's provided indication for this examination in [facility]:Pneumothorax COMPARISON: XR CHEST PORTABLE 20:56:00.000 FINDINGS: Suboptimal assessment on portable radiograph. Devices/Tubes/Lines: None. Lungs: The peripheral lucency seen on the prior radiograph is tailored fab artifactual as lung markings are seen within the lucency.Redemonstrated are extensive background emphysema with bilateral upperlobe atelectasis/scarring. Pleura: No large pleural effusions. No definite pneumothorax. Heart/Mediastinum: Normal heart size. Bones/Soft Tissues: Multilevel degenerative changes. IMPRESSION: No definite pneumothorax. Extensive emphysema. Jim Mahajan DO IMG XR CHEST Final Result * SARS-CoV-2, INFLUENZA A/B, PCR (09/19/2025 11:09 PM EST) SARS-CoV-2 RNA PCR Not Detected Not Detected 09/20/2025 12:15 AM EST [facility] Influenza A PCR Not Detected Not Detected 09/20/2025 12:15 AM EST [facility] Influenza B PCR Not Detected Not Detected 09/20/2025 12:15 AM [facility] Swab (Nasopharynx, Bilateral) 09/19/2025 11:09 PM EST 09/19/2025 11:38 PM EST us Jim Kathyv DO LAB GENERAL ORDERABLES Final R esult [address] [address] * Symptomatic Respiratory Virus Testing Panel (ED/IP) (09/19/2025 11:09 PM EST) Swab (Nasopharynx, Bilateral) 09/19/2025 11:09 PM EST 09/19/2025 11:38 PM EST us Jim Kathyv DO LAB GENERAL ORDERABLES Final R esult Performing Organization Address City/[facility]/ZIP Co de Phone Number [address] [address] * XR Chest Portable (09/19/2025 9:03 PM EST) MGB IMG ADOPTION COORDINATOR COMMENT Apparent lucency along the lateral aspect of the right lung, likely artifactual. However repeat radiograph is recommended. [facility] Anatomical Region Laterality Modality Chest Computed Radiogr aphy 09/19/2025 9:50 PM EST Impressions 09/19/2025 10:55 PM EST * Apparent lucency along the lateral aspect of the right lung, likely artifactual. However repeat radiograph is recommended. * Extensive upper lobe predominant emphysema. A clinically significant result was initiated on 09/19/2025 10:51 PM, Message ID [id number]. ATTESTATION: I, Frida Mejía as teaching physician, have reviewed the images for this case and if necessary edited the report originally created by Jac Garcias. Narrative 09/19/2025 10:55 PM EST XR CHEST PORTABLE Referring clinician's provided indication for this examination in Epic: Fatigue COMPARISON: None. FINDINGS: Devices/Tubes/Lines: None. Lungs: Extensive upper lobe predominant emphysema. Bronchiectasis is noted mid to lower lung lesions. Patchy opacities at left lung base, likely atelectasis. No pulmonary edema. Pleura: Apparent lucency along the lateral aspect right lung, likely artifactual. No large pleural effusions. Heart/Mediastinum: Normal heart size. Bones/Soft Tissues: Degenerative changes of the thoracic spine. Procedure Note Frida Mejía MBBS - 09/19/2025 XR CHEST PORTABLE Referring clinician's provided indication for this examination in Epic:Fatigue COMPARISON: None. FINDINGS: Devices/Tubes/Lines: None. Lungs: Extensive upper lobe predominant emphysema. Bronchiectasis is notedmid to lower lung lesions. Patchy opacities at left lung base, likelyatelectasis. No pulmonary edema. Pleura: Apparent lucency along the lateral aspect right lung, likelyartifactual. No large pleural effusions. Heart/Mediastinum: Normal heart size. Bones/Soft Tissues: Degenerative changes of the thoracic spine. IMPRESSION: * Apparent lucency along the lateral aspect of the right lung, likelyartifactual. However repeat radiograph is recommended. * Extensive upper lobe predominant emphysema. A clinically significant result was initiated on 09/19/2025 10:51 PM,Message ID [id number]. ATTESTATION: I, Frida Mejía as teaching physician, have reviewedthe images for this case and if necessary edited the report originallycreated by Jac Garcias. Robert Valente MD IMG XR CHEST Final Re sult * Lab Add-On (09/19/2025 8:43 PM EST) Specimen Date/Time 09/20/2025 8:21 PM [facility] Test Requested TSH with reflex, B12, hemoglobin A1C . 09/20/2025 8:21 PM [facility] Specimen Description 09/20/2025 8:21 PM [facility] Comments 09/20/2025 8:21 PM [facility] Was this request processed? Yes 09/20/2025 8:21 PM [facility] Other (Other) 09/19/2025 8:4 3 PM EST 09/19/2025 8:43 PM EST us Robert Valente MD LAB GENERAL ORDERABLES F inal Result [address] [address] * Urinalysis with Reflex to Urine Culture (09/19/2025 6:48 PM EST) Color Yellow Yellow 09/19/2025 7:45 PM EST [facility] Clarity Clear Clear 09/19/2025 7:45 PM EST [facility] Glucose Negative Negative 09/19/2025 7:45 PM EST [facility] Bilirubin Urine Negative Negative 7:45 PM EST [facility] Ketone Urine Negative Negative 09/19/2025 7:45 PM EST [facility] Specific [place] 1.010 1.001 - 1.035 09/19/2025 7:45 PM EST [facility] Blood Negative Negative 09/19/2025 7:45 PM EST [facility] pH 6.0 5.0 - 8.0 09/19/2025 7:45 PM EST [facility] Protein Negative Negative 09/19/2025 7:45 PM EST [facility] Nitrites Negative Negative 09/19/2025 7:45 PM [facility] Leukocyte Esterase Negative Negative 09/19/2025 7:45 PM [facility] Urobilinogen Negative Negative 09/19/2025 7:45 PM [facility] Urine (Urine, Voided) Non-Blood Collection / Unknown 09/19/2025 6:48 PM EST 09/19/2025 7:38 PM EST us Robert Valente MD LAB URINE ORDERABLES Fin al Result Performing Organization Address City/[facility]/ZIP Co de Phone Number [address] [address] * (ABNORMAL) Toxicology Screen, Urine (09/19/2025 6:48 PM EST) Amphetamines, Urine Negative Negative 09/19/2025 7:33 PM EST [facility] Benzodiazepin e, Urine Negative Negative 09/19/2025 7:33 PM EST [facility] Cocaine Metabolite, Urine Negative Negative 09/19/2025 7:33 PM EST [facility] Opiates, Urine Negative Negative 09/19/2025 7:33 PM EST [facility] Oxycodone, Urine Positive(A) Negative 09/19/2025 7:33 PM EST [facility] Fentanyl, Urine Negative Negative 09/19/2025 7:33 PM [facility] Creatinine, Urine 72 20 - 300 mg/dL 09/19/2025 7:33 PM [facility] Urine (Urine, Voided) Non-Blood Collection / Unknown 09/19/2025 6:48 PM EST 09/19/2025 6:52 PM EST Narrative [facility] - 09/19/2025 7:33 PM EST This screening test was performed by immunoassay methodology, which may occasionally yield false-negative or false-positive results. Confirmatory testing can be requested if a definitive result is needed. Results are to be used only for medical (ie, treatment) purposes. Unconfirmed screening results must not be used for non-medical purposes (eg, employment testing). us Robert Valente MD LAB URINE ORDERABLES Fin al Result Performing Organization Address City/[facility]/ZIP Co de Phone Number [address] [address] * (ABNORMAL) Troponin (09/19/2025 6:11 PM EST) Only the most recent of2 resultswithin the time period is included. Troponin-T HS Gen5 46(H) 0 - 14 ng/L 09/19/2025 6:48 PM EST [facility] Blood (Blood) Venipuncture / Unknown 09/19/2025 6:11 PM EST 09/19/2025 6:26 PM EST us Robert Valente MD LAB BLOOD BKR ORDERABLES Final Result Performing Organization Address City/[facility]/ZIP Co de Phone Number [address] [address] * Ethanol, Blood (09/19/2025 4:47 PM EST) [facility] Ethanol <10 Negative; <11 mg/dL 09/19/2025 5:25 PM EST [facility] Blood (Blood) Venipuncture / Unknown 09/19/2025 4:47 PM EST 09/19/2025 4:52 PM EST us Robert Valente MD LAB BLOOD BKR ORDERABLES Final Result Performing Organization Address [facility]/ZIP Co de Phone Number [address] [address] * Lactate, Whole Blood (09/19/2025 4:47 PM EST) [facility] Lactate, Whole Blood 1.5 0.5 - 2.0 mmol/L 09/19/2025 5:00 PM EST [facility] Blood (Blood, Venous) Venipuncture / Unknown 09/19/2025 4:47 PM EST 09/19/2025 4:52 PM EST Robert Valente MD LAB BLOOD BKR ORDERABLES Final Result Performing Organization Address [facility] Co de Phone Number [address] [address] * Thyroid Stimulating Hormone (TSH), with Reflex (09/19/2025 4:47 PM EST) [facility] TSH 0.99 0.40 - 7.50 uIU/mL 09/19/2025 9:33 PM EST [facility] Blood (Blood) Venipuncture / Unknown 09/19/2025 4:47 PM EST 09/19/2025 4:52 PM EST us Robert Valente MD LAB BLOOD BKR ORDERABLES Final Result Performing Organization Address [facility] Co de Phone Number [address] [address] * Hepatic Panel (LFTs) (09/19/2025 4:47 PM EST) AST 12 <40 U/L 09/19/2025 5:36 PM [facility] ALT <5 <50 U/L 09/19/2025 5:36 PM [facility] Alkaline Phosphatase 83 40 - 130 U/L 09/19/2025 5:36 PM [facility] Bilirubin, Total 0.5 0.0 - 1.2 mg/dL 09/19/2025 5:36 PM [facility] Bilirubin, Direct 0.2 0.0 - 0.3 mg/dL 09/19/2025 5:36 PM [facility] Total Protein 7.4 6.4 - 8.3 g/dL 09/19/2025 5:36 PM [facility] Albumin 3.5 3.5 - 5.2 g/dL 09/19/2025 5:36 PM [facility] Globulin 3.9 1.9 - 4.1 g/dL 09/19/2025 5:36 PM [facility] Blood (Blood) Venipuncture / Unknown 09/19/2025 4:47 PM EST 09/19/2025 4:52 PM EST Robert Valente MD LAB BLOOD BKR ORDERABLES Final Result Performing Organization Address City/[facility]/ZIP Co de Phone Number [address] [address] * (ABNORMAL) Lipase (09/19/2025 4:47 PM EST) Lipase 9(L) 13 - 60 U/L 09/19/2025 5:25 PM [facility] Blood (Blood) Venipuncture / Unknown 09/19/2025 4:47 PM EST 09/19/2025 4:52 PM EST us Robert Valente MD LAB BLOOD BKR ORDERABLES Final Result Performing Organization Address City/[facility]/ZIP Co de Phone Number [address] [address] * (ABNORMAL) Venous Blood Gas (VBG) (09/19/2025 4:47 PM EST) pH, Venous 7.33 7.31 - 7.41 09/19/2025 5:00 PM [facility] pCO2, Venous 56(H) 35 - 45 mm[Hg] 09/19/2025 5:00 PM [facility] pO2, Venous 33(L) 35 - 40 mm[Hg] 09/19/2025 5:00 PM [facility] Base Excess 1.9 -3.0 - 3.0 mmol/L 09/19/2025 5:00 PM [facility] Bicarbonate (HCO3) 29(H) 23 - 28 mmol/L 09/19/2025 5:00 PM [facility] Oxygen Saturation, Venous 62.4 60.0 - 80.0 % 09/19/2025 5:00 PM [facility] Blood (Blood, Venous) Venipuncture / Unknown 09/19/2025 4:47 PM EST 09/19/2025 4:52 PM EST us Robert Valente MD LAB BLOOD BKR ORDERABLES Final Result [address] [address] * (ABNORMAL) Vitamin B12 (09/19/2025 4:47 PM EST) Vitamin B12 213(L) 232 - 1,245 pg/mL 09/19/2025 9:33 PM [facility] Blood (Blood) Venipuncture / Unknown 09/19/2025 4:47 PM EST 09/19/2025 4:52 PM EST us Robert Valente MD LAB BLOOD BKR ORDERABLES Final Result [address] [address] * (ABNORMAL) Basic Metabolic Panel (BMP) (09/19/2025 4:47 PM EST) Pathologist [facility] Sodium 138 136 - 145 mmol/L 09/19/2025 5:25 PM [facility] Potassium 4.3 3.4 - 5.1 mmol/L 09/19/2025 5:25 PM [facility] Chloride 100 98 - 107 mmol/L 09/19/2025 5:25 PM [facility] CO2 26 20 - 31 mmol/L 09/19/2025 5:25 PM [facility] Anion Gap 12 3 - 17 mmol/L 09/19/2025 5:25 PM [facility] BUN 14 6 - 23 mg/dL 09/19/2025 5:25 PM [facility] Creatinine 0.60 0.60 - 1.30 mg/dL 09/19/2025 5:25 PM [facility] eGFR 96 >59 mL/min/1.7 3m2 09/19/2025 5:25 PM [facility] Comment:Estimated glomerular filtration rate calculated using the CKD-EPI refit equation. Glucose 108(H) 70 - 99 mg/dL 09/19/2025 5:25 PM [facility] Calcium 9.6 8.5 - 10.5 mg/dL 09/19/2025 5:25 PM [facility] Blood (Blood) Venipuncture / Unknown 09/19/2025 4:47 PM EST 09/19/2025 4:52 PM EST us Robert Valente MD LAB BLOOD BKR ORDERABLES Final Result [address] [address] * ECG 12-LEAD (09/19/2025 4:28 PM EST) Ventricular Rate EKG/MIN 77 BPM [facility] Atrial Rate 77 BPM [facility] SD Interval 168 ms [facility] QRS Duration 92 ms [facility] QT Interval 370 ms [facility] QTC Interval 418 ms [facility] P [place] 93 degrees [facility] R Wave [place] 62 degrees [facility] T Wave [place] 81 degrees [facility] 09/19/2025 4:28 PM EST 09/20/2025 11:34 AM EST Narrative [email or web address] - 09/20/2025 11:34 AM EST Sinus rhythm with occasional Premature ventricular complexes Otherwise normal ECG No previous ECGs available Confirmed by [employer] ([id number]) on 09/20/2025 11:34:25 AM us Robert Valente MD ECG ORDERABLES Final Re sult [email or web address] * CT CERVICAL SPINE WITHOUT CONTRAST (09/19/2025 4:08 PM EST) MGB IMG ADOPTION COORDINATOR COMMENT Right occipital infarct is new since November 2024, subacute to chronic. [facility] Anatomical Region Laterality Modality C-spine Computed Tomogra phy 09/19/2025 4:18 PM EST Impressions 09/19/2025 4:55 PM EST 1. 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 No acute hemorrhage. New since 12/04/2024 2. Moderate multilevel degenerative disc disease of the cervical spine. No acute osseous abnormality. 3. Emphysema. A clinically significant result was initiated on 09/19/2025 4:54 PM, Message ID [id number]. ATTESTATION: I, Sadie Mayfield as teaching physician, have reviewed the images for this case and if necessary edited the report originally created by Jac Garcias. Narrative 09/19/2025 4:[address] HEAD WITHOUT CONTRAST, CT CERVICAL SPINE WITHOUT CONTRAST Referring clinician's provided indication for this examination in Epic: * Head trauma, minor (Age >= 65y); fall, altered reportedly before fall, on AC. TECHNIQUE: CTs of the head and cervical spine were performed without intravenous contrast using tailored dose modulation techniques. Images were reconstructed in the axial, coronal, and sagittal planes. COMPARISON: CT HEAD WITHOUT CONTRAST FINDINGS: HEAD: Brain Parenchyma: Right occipital infarct with encephalomalacia, subacute to chronic in appearance. There is mild adjacent edema and paratracheal white matter hypodensities. No acute hemorrhage. No mass-effect or midline shift. The right occipital infarct is new from the prior exam. Ventricular System and Extra-Axial Spaces: The ventricles and sulci are prominent. No extra-axial fluid collections. Basilar cisterns are patent. No hydrocephalus. Osseous and Extracranial Structures: No calvarial fracture or significant soft tissue hematoma. No significant paranasal sinus disease. No orbital abnormality. CERVICAL SPINE: Alignment and Vertebrae: Mild anterolisthesis at C3/4 level. Vertebral bodies and posterior elements are intact. Multilevel degenerative anterior marginal osteophytes and uncovertebral spurring. Discs and Endplates: Multilevel degenerative changes. Posterior disc osteophyte complex of moderate grade at C4/5, C5/C6 levels causing moderate spinal canal narrowing. Other Findings: Extensive centrilobular and paraseptal emphysema within the lung apices. Procedure Note Sadie Mayfield MD, PhD - 09/19/2025 CT HEAD WITHOUT CONTRAST, CT CERVICAL SPINE WITHOUT CONTRAST Referring clinician's provided indication for this examination in Epic: *Head trauma, minor (Age >= 65y); fall, altered reportedly before fall, onAC. TECHNIQUE: CTs of the head and cervical spine were performed withoutintravenous contrast using tailored dose modulation techniques. Imageswere reconstructed in the axial, coronal, and sagittal planes. COMPARISON: CT HEAD WITHOUT CONTRAST FINDINGS: HEAD: Brain Parenchyma: Right occipital infarct with encephalomalacia, subacuteto chronic in appearance. There is mild adjacent edema and paratrachealwhite matter hypodensities. No acute hemorrhage. No mass-effect or midlineshift. The right occipital infarct is new from the prior exam. Ventricular System and Extra-Axial Spaces: The ventricles and sulci areprominent. No extra-axial fluid collections. Basilar cisterns are patent.No hydrocephalus. Osseous and Extracranial Structures: No calvarial fracture or significantsoft tissue hematoma. No significant paranasal sinus disease. No orbitalabnormality. CERVICAL SPINE: Alignment and Vertebrae: Mild anterolisthesis at C3/4 level. Vertebralbodies and posterior elements are intact. Multilevel degenerative anteriormarginal osteophytes and uncovertebral spurring. Discs and Endplates: Multilevel degenerative changes. Posterior discosteophyte complex of moderate grade at C4/5, C5/C6 levels causingmoderate spinal canal narrowing. Other Findings: Extensive centrilobular and paraseptal emphysema withinthe lung apices. IMPRESSION: 1. 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 No acutehemorrhage. New since 12/04/2024 2. Moderate multilevel degenerative disc disease of the cervical spine.No acute osseous abnormality. 3. Emphysema. A clinically significant result was initiated on 09/19/2025 4:54 PM,Message ID [id number]. ATTESTATION: Sadie Denis as teaching physician, have reviewedthe images for this case and if necessary edited the report originallycreated by Jac Garcias. us Robert Valente MD IM CT XSPECIALTY ORDERA BLES Final Result * CT HEAD WITHOUT CONTRAST (09/19/2025 4:08 PM EST) MGB IMG ADOPTION COORDINATOR COMMENT Right occipital infarct is new since November 2024, subacute to chronic. [facility] Anatomical Region Laterality Modality Head Computed Tomogra phy 09/19/2025 4:18 PM EST Impressions 09/19/2025 4:55 PM EST 1. 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 No acute hemorrhage. New since 12/04/2024 2. Moderate multilevel degenerative disc disease of the cervical spine. No acute osseous abnormality. 3. Emphysema. A clinically significant result was initiated on 09/19/2025 4:54 PM, Message ID [id number]. ATTESTATION: I, Sadie Mayfield as teaching physician, have reviewed the images for this case and if necessary edited the report originally created by Jac Garcias. Narrative 09/19/2025 4:[address] HEAD WITHOUT CONTRAST, CT CERVICAL SPINE WITHOUT CONTRAST Referring clinician's provided indication for this examination in Epic: * Head trauma, minor (Age >= 65y); fall, altered reportedly before fall, on AC. TECHNIQUE: CTs of the head and cervical spine were performed without intravenous contrast using tailored dose modulation techniques. Images were reconstructed in the axial, coronal, and sagittal planes. COMPARISON: CT HEAD WITHOUT CONTRAST FINDINGS: HEAD: Brain Parenchyma: Right occipital infarct with encephalomalacia, subacute to chronic in appearance. There is mild adjacent edema and paratracheal white matter hypodensities. No acute hemorrhage. No mass-effect or midline shift. The right occipital infarct is new from the prior exam. Ventricular System and Extra-Axial Spaces: The ventricles and sulci are prominent. No extra-axial fluid collections. Basilar cisterns are patent. No hydrocephalus. Osseous and Extracranial Structures: No calvarial fracture or significant soft tissue hematoma. No significant paranasal sinus disease. No orbital abnormality. CERVICAL SPINE: Alignment and Vertebrae: Mild anterolisthesis at C3/4 level. Vertebral bodies and posterior elements are intact. Multilevel degenerative anterior marginal osteophytes and uncovertebral spurring. Discs and Endplates: Multilevel degenerative changes. Posterior disc osteophyte complex of moderate grade at C4/5, C5/C6 levels causing moderate spinal canal narrowing. Other Findings: Extensive centrilobular and paraseptal emphysema within the lung apices. Procedure Note Sadie Mayfield MD, PhD - 09/19/2025 CT HEAD WITHOUT CONTRAST, CT CERVICAL SPINE WITHOUT CONTRAST Referring clinician's provided indication for this examination in [facility]: *Head trauma, minor (Age >= 65y); fall, altered reportedly before fall, onAC. TECHNIQUE: CTs of the head and cervical spine were performed withoutintravenous contrast using tailored dose modulation techniques. Imageswere reconstructed in the axial, coronal, and sagittal planes. COMPARISON: CT HEAD WITHOUT CONTRAST FINDINGS: HEAD: Brain Parenchyma: Right occipital infarct with encephalomalacia, subacuteto chronic in appearance. There is mild adjacent edema and paratrachealwhite matter hypodensities. No acute hemorrhage. No mass-effect or midlineshift. The right occipital infarct is new from the prior exam. Ventricular System and Extra-Axial Spaces: The ventricles and sulci areprominent. No extra-axial fluid collections. Basilar cisterns are patent.No hydrocephalus. Osseous and Extracranial Structures: No calvarial fracture or significantsoft tissue hematoma. No significant paranasal sinus disease. No orbitalabnormality. CERVICAL SPINE: Alignment and Vertebrae: Mild anterolisthesis at C3/4 level. Vertebralbodies and posterior elements are intact. Multilevel degenerative anteriormarginal osteophytes and uncovertebral spurring. Discs and Endplates: Multilevel degenerative changes. Posterior discosteophyte complex of moderate grade at C4/5, C5/C6 levels causingmoderate spinal canal narrowing. Other Findings: Extensive centrilobular and paraseptal emphysema withinthe lung apices. IMPRESSION: 1. 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 No acutehemorrhage. New since 12/04/2024 2. Moderate multilevel degenerative disc disease of the cervical spine.No acute osseous abnormality. 3. Emphysema. A clinically significant result was initiated on 09/19/2025 4:54 PM,Message ID [id number]. ATTESTATION: I, Sadie Mayfield as teaching physician, have reviewedthe images for this case and if necessary edited the report originallycreated by Jac Garcias. Robert Valente MD IMG CT HEAD/NECK Final R esult from Last 3 Months Insurance MEDICARE HMO REPLACEMENT MEDICARE PART A & B [facility] MED[facility] HMO REPLACEMENT MEDICARE PART A & B [facility] MEDICARE HMO REPLACEMENT MEDICARE PART A & B [facility] MEDICARE HMO REPLACEMENT MEDICARE PART [facility] & [facility] MEDIC[facility] HMO REPLACEMENT MEDICARE PART A & B [facility] H[facility] REPLACEMENT MEDICARE PART A & B [facility] MEDICARE PART A & [place] [facility] & [facility] MEDICARE PART A & [facility] Advance Directives For more information, please contact: [phone] (9AM - 5PM [facility], Sunday-Sunday) * Full Code (Latest Code Status on File) Date Activated Date Inactivated Comments 09/19/2025 10:07 PM Question Answer Comments Code Status Confirmed With: Patient Code Status Communicated To: Inpatient Attending Care Teams Cyber Security Architect Relationship Specialty Start Date End Date Jefferson Cross MD [address] [place] [address] [place] [address] PCP - General Internal Medicine 12/04/24 Pcp, Unknown 12/04/24 Additional Source Comments The information contained in this document represents components of the legal health record. It is not the complete legal health record.[facility]
--- OUTSIDE RECORDS SUMMARY | 2025-09-30 22:29 | XMS_ITS | Encounter Summary ---
Author Organization [facility] Address [address] [place] [address] Phone Care Team Providers Care Attorney Name Role Phone Jefferson Cross MD Primary Care Provider [phone] Pcp, Unknown Unavailable Unavailable Encounter Details Date Type Department Care Team (Late st Contact Info) Description 09/19/2025 Procedure Pass [facility], Ct Scan - [facility] [address] [place] [address] Social History Tobacco Use Types Packs/Day Years [...] No Risk Indicated 09/19/2025 4:17 PM Tata Tsai RN * [place] Suicide Severity Rating Scale (Screener/Recent Self-Report) Question [...] documented as of this encounter Care Teams Attorney Relationship Specialty Start Date End Date Jefferson Cross MD [address] [place] [address] Dr Cotto [address] [place] [address], [place] [address] PCP - General Internal Medicine 12/04/24 Pcp, Unknown 12/04/24 documented as of this encounter Additional Source Comments The information contained in this document represents components of the legal health record. It is not the complete legal health record.[facility]
--- OUTSIDE RECORDS SUMMARY | 2025-09-30 22:29 | XMS_ITS | Encounter Summary ---
Author Organization [facility] Address [address] [place] [id number] Phone Care Team Providers Care General Production Worker Name Role Phone Jefferson Cross MD Primary Care Provider [phone] Pcp, Unknown Unavailable Unavailable Encounter Details Date Type Department Care Team (Late st Contact Info) Description 12/04/2024 Procedure Pass [facility], Ct Scan - [facility] [address] [place] [address] Social History Tobacco Use Types Packs/Day Years [...] 12/04/2024 10:25 AM Rubi Hurt RN * [place] Suicide Severity Rating Scale (Screener/Recent Self-Report) Question Answer Date of Assessment Author 1. Wish to be (Past 1 Month) No 12/04/2024 10:25 AM Rubi Hrut RN 2. Non-Specific Active Suici mary Thoughts [...] documented as of this encounter Care Teams General Production Worker Relationship Specialty Start Date End Date Jefferson Cross MD [address] [place] [address] [place] [address] PCP - General Internal Medicine 12/04/24 Pcp, Unknown 12/04/24 documented as of this encounter Additional Source Comments The information contained in this document represents components of the legal health record. It is not the complete legal health record.[facility]
--- OUTSIDE RECORDS SUMMARY | 2025-09-30 22:29 | XMS_ITS | Encounter Summary ---
Author Organization [facility] Address [address] [place] [address] Phone Care Team Providers Care Sample Finisher Name Role Phone Jefferson Cross MD Primary Care Provider [phone] Pcp, Unknown Unavailable Unavailable Encounter Details Date Type Department Care Team (Late st Contact Info) Description 09/19/2025 Procedure Pass [facility], Ct Scan - [facility] [address] [place] [address] Social History Tobacco Use Types Packs/Day Years [...] 09/19/2025 4:17 PM Tata Tsai RN * [place] Suicide Severity Rating Scale (Screener/Recent Self-Report) Question [...] documented as of this encounter Care Teams Sample Finisher Relationship Specialty Start Date End Date Jefferson Cross MD [address] [place] [address] Dr Cotto [address] [place] [address], [place] [address] PCP - General Internal Medicine 12/04/24 Pcp, Unknown 12/04/24 documented as of this encounter Additional Source Comments The information contained in this document represents components of the legal health record. It is not the complete legal health record.[facility]
== END 2025-09-30 13:11 | disposition home or self-care (01) ==
LOC: HO.HPSW 11:24
PROVIDERS: Visit Provider Nurse Practitioner Family
DX: J44.9 Chronic obstructive pulmonary disease, unspecified (principal); R05.9 Cough, unspecified; R91.1 Solitary pulmonary nodule
CPT/HCPCS: 99214; G2211

== ENCOUNTER → 2025-09-30 11:23 | Outpatient (BNVA) | payer MEDICARE, MEDICAID, SELFPAY | PROVIDERS: Visit Provider Nurse Practitioner Family | DX: R91.1 Solitary pulmonary nodule (principal); J44.9 Chronic obstructive pulmonary disease, unspecified; R05.9 Cough, unspecified | CPT/HCPCS: 99212 ==